=== PATIENT | female | born 1950 | race Caucasian/White ===

== ENCOUNTER 2020-06-21 07:01 | Outpatient (REF) | payer MEDICARE, OTHER, SELFPAY ==
[2020-06-21 11:36] LABS: Hematocrit 33.2 % (37-47); Hemoglobin 10.7 g/dl (12.0-16.0); Mean Corpuscular HGB Conc 32.2 g/dl (31.0-35.0); Mean Corpuscular Hemoglobin 32.4 pg (27.0-33.0); Mean Corpuscular Volume 100.6 fL (80-98); Mean Platelet Volume 10.7 fL (9.4-12.3); Platelet Count 252 X10*3/uL (160-400); Red Cell Distribution Width 13.6 % (11.0-16.0); White Blood Count 5.4 X10*3/uL (4.8-10.8)
[2020-06-21 11:58] LABS: Alanine Aminotransferase 22 U/L (0-31); Anion Gap 13 (12-20); Aspartate Amino Transferase 15 U/L (5-31); Blood Urea Nitrogen 21 mg/dL (9-16); Calcium 9.5 mg/dL (8.4-10.2); Carbon Dioxide 27 mmol/L (22-29); Chloride 104 mmol/L (96-108); Cholesterol 182 mg/dL; Estimated Glomerular Filt Rate > 60; Glucose Fasting 120 mg/dL (60-99); HDL Cholesterol 49 mg/dL; Iron 98 mcg/dL (30-160); LDL Cholesterol Calculated 102 mg/dl; Percent Iron Saturation 22 % (15-50); Potassium 5.3 mmol/l (3.3-5.1); Sodium 139 mmol/L (135-145); Total Iron Binding Capacity 437 mcg/dL (228-428); Triglycerides 155 mg/dL; Unsaturated Iron Binding 339 ug/dL
[2020-06-21 12:28] LABS: Ferritin 67 ng/mL (10-250)
[2020-06-21 12:43] LABS: Estimated Average Glucose 140 mg/dL; Hemoglobin A1c % 6.5 %
== END 2020-06-21 07:02 | disposition home or self-care (01) ==
LOC: HO.HMGCLDS 07:01
PROVIDERS: PCP Internal Medicine; Visit Provider Internal Medicine
DX: E11.29 Type 2 diabetes mellitus with other diabetic kidney complication (principal); R80.9 Proteinuria, unspecified; E78.5 Hyperlipidemia, unspecified; M79.89 Other specified soft tissue disorders; D50.9 Iron deficiency anemia, unspecified; I10 Essential (primary) hypertension
CPT/HCPCS: 36415; 80048; 80061; 82728; 83036; 83540; 84450; 84460; 85027

== ENCOUNTER → 2020-06-23 13:42 | Outpatient (BNVA) | payer MEDICARE, OTHER, SELFPAY | PROVIDERS: PCP Internal Medicine; Referring Provider Internal Medicine; Visit Provider Surgery | DX: Z86.000 Personal history of in-situ neoplasm of breast (principal) | CPT/HCPCS: 99213 ==

== ENCOUNTER → 2020-08-09 13:54 | Outpatient (BNVA) | payer MEDICARE, OTHER, SELFPAY | PROVIDERS: PCP Internal Medicine; Visit Provider Surgery Vascular Surgery | DX: I83.12 Varicose veins of left lower extremity with inflammation (principal); M79.89 Other specified soft tissue disorders; L98.8 Other specified disorders of the skin and subcutaneous tissue | CPT/HCPCS: 99212 ==

== ENCOUNTER 2020-08-16 10:13 | Outpatient (REF) | payer MEDICARE, OTHER, SELFPAY ==
--- NOTE | 2020-08-16 10:19 | US_ITS ---
EXAMINATION: RIGHT and LEFT LOWER EXTREMITY VENOUS ULTRASOUND (Reflux Exam) CLINICAL INDICATION: leg pain and varicose veins. COMPARISON: Previous exam November 2018 TECHNIQUE: Color flow triplex imaging and compression Doppler was performed to evaluate both the deep and the superficial systems bilaterally. To evaluate the superficial system, the examination was performed in the upright position. Color-flow Doppler ultrasound and compression ultrasound were utilized. In addition, maneuvers were utilized to demonstrate reflux. FINDINGS: 1. DEEP VENOUS ULTRASOUND OF THE RIGHT LOWER EXTREMITY: Respiratory variation, normal compression and augmented flow are noted in the right common femoral vein as well as the right popliteal vein and there is no evidence of deep venous thrombosis at these locations. There is no evidence of reflux in the deep system in either the common femoral vein or the popliteal vein. There is no evidence of a Gomez's cyst. 2. SUPERFICIAL ULTRASOUND WITH DOPPLER OF RIGHT LOWER EXTREMITY: The right great saphenous vein at the saphenofemoral junction measures 7 mm, at the mid thigh 4 mm. The remainder of the right greater saphenous vein is not visualized. There is no reflux demonstrated in the right great saphenous vein. The right small saphenous vein measures 4-5 mm and shows no reflux. There is a traffic law attorney in the mid thigh and a traffic law attorney in the distal calf that measures 3 mm and do not demonstrate reflux. There is a varicosity at the knee that measures 3 mm and does not demonstrate reflux. There are several varicosities in the proximal calf measuring 4 mm with 1.9 seconds reflux, 6 mm with 2.3 seconds reflux and 8 mm with 2.1 seconds reflux. 3. DEEP VENOUS ULTRASOUND OF THE LEFT LOWER EXTREMITY: Respiratory variation, normal compression and augmented flow are noted in the left common femoral vein as well as the left popliteal vein and there is no evidence of deep venous thrombosis at these locations. There is no evidence of reflux in the deep system in either the common femoral vein or the popliteal vein. . There is no evidence of a Gomez's cyst. 4. SUPERFICIAL ULTRASOUND WITH DOPPLER OF LEFT LOWER EXTREMITY: Left great saphenous vein at the saphenofemoral junction measures 5 mm, at the mid thigh 5 mm. The remainder of the left greater saphenous vein is not visualized. There is no reflux demonstrated in the left great saphenous vein. The left small saphenous vein measures 3-4 mm and shows no reflux. There is a traffic law attorney in the proximal thigh that measures 2 mm and demonstrates 2 seconds reflux. There is a traffic law attorney in the mid thigh that measures 2 mm and does not demonstrate reflux. There is a traffic law attorney in the distal calf that measures 2 mm and does not demonstrate reflux. There are several varicosities demonstrate reflux measuring 7 mm in the mid calf with 1.8 seconds reflux, 5 mm in the mid calf with 1.7 second reflux, 5 mm in the distal calf with 1.6 seconds reflux and 4 mm in the proximal calf with 2.4 seconds reflux. US/US venous duplex LE BI IMPRESSION: 1. No evidence of reflux or thrombus in the common femoral veins or popliteal veins bilaterally. 2. Saphenous vein remnants are seen at the saphenofemoral junction and in the proximal thigh only. No greater saphenous or lesser saphenous vein reflux. Bilateral varicosities with reflux. Small left traffic law attorney in the proximal thigh with reflux.
== END 2020-08-16 10:14 | disposition home or self-care (01) ==
LOC: HO.US 10:13
PROVIDERS: PCP Internal Medicine; Visit Provider Surgery Vascular Surgery
DX: I83.12 Varicose veins of left lower extremity with inflammation (principal); I83.893 Varicose veins of bilateral lower extremities with other complications
CPT/HCPCS: 93970

== ENCOUNTER → 2020-09-09 13:49 | Outpatient (BNVA) | payer MEDICARE, OTHER, SELFPAY | PROVIDERS: PCP Internal Medicine; Visit Provider Surgery Vascular Surgery | DX: I83.12 Varicose veins of left lower extremity with inflammation (principal) | CPT/HCPCS: 99212 ==

== ENCOUNTER 2020-09-23 07:29 | Outpatient (REF) | payer MEDICARE, OTHER, SELFPAY ==
[2020-09-23 11:17] LABS: MANUAL DIFF FLAG NO
[2020-09-23 11:27] LABS: Basophils Percent Auto 0.5 % (0-2); Eosinophils Absolute Auto 0.2 X10*3/uL (0.0-0.4); Eosinophils Percent Auto 2.7 % (0-4); Hematocrit 35.7 % (37-47); Hemoglobin 11.4 g/dl (12.0-16.0); Imm Gran Abs Auto 0.01 X10*3/uL (0.00-0.03); Imm Gran Pct Auto 0.2 % (0.0-0.4); Lymphocytes Absolute Auto 1.4 X10*3/uL (1.2-4.9); Lymphocytes Percent Auto 24.1 % (20-40); Mean Corpuscular HGB Conc 31.9 g/dl (31.0-35.0); Mean Corpuscular Hemoglobin 31.8 pg (27.0-33.0); Mean Corpuscular Volume 99.7 fL (80-98); Mean Platelet Volume 10.8 fL (9.4-12.3); Monocytes Absolute Auto 0.6 X10*3/uL (0.1-1.2); Monocytes Percent Auto 9.9 % (2-11); Neutrophils Absolute Auto 3.7 X10*3/uL (2.0-8.3); Neutrophils Percent Auto 62.6 % (45-73); Platelet Count 273 X10*3/uL (160-400); Red Blood Count 3.58 X10*6/uL (4.20-5.50); Red Cell Distribution Width 13.2 % (11.0-16.0); White Blood Count 5.9 X10*3/uL (4.8-10.8)
[2020-09-23 11:37] LABS: Estimated Average Glucose 137 mg/dL; Hemoglobin A1c % 6.4 %
[2020-09-23 11:54] LABS: Creatinine Urine 74.93 mg/dL; Microalbum/Creatinine Ratio Ur 81.4 ug/mg cr
[2020-09-23 12:04] LABS: Ferritin 79 ng/mL (10-250)
[2020-09-23 12:08] LABS: Alanine Aminotransferase 23 U/L (0-31); Anion Gap 18 (12-20); Aspartate Amino Transferase 21 U/L (5-31); Blood Urea Nitrogen 26 mg/dL (9-16); Calcium 9.7 mg/dL (8.4-10.2); Carbon Dioxide 26 mmol/L (22-29); Chloride 100 mmol/L (96-108); Cholesterol 165 mg/dL; Estimated Glomerular Filt Rate > 60; Glucose Fasting 137 mg/dL (60-99); HDL Cholesterol 62 mg/dL; Iron 98 mcg/dL (30-160); LDL Cholesterol Calculated 85 mg/dl; Percent Iron Saturation 20 % (15-50); Potassium 5.6 mmol/l (3.3-5.1); Sodium 138 mmol/L (135-145); Total Iron Binding Capacity 488 mcg/dL (228-428); Triglycerides 93 mg/dL; Unsaturated Iron Binding 390 ug/dL
== END 2020-09-23 07:30 | disposition home or self-care (01) ==
LOC: HO.HMGCLDS 07:29
PROVIDERS: PCP Internal Medicine; Visit Provider Internal Medicine
DX: E11.29 Type 2 diabetes mellitus with other diabetic kidney complication (principal); I10 Essential (primary) hypertension; E78.5 Hyperlipidemia, unspecified; D64.9 Anemia, unspecified; E66.01 Morbid (severe) obesity due to excess calories
CPT/HCPCS: 36415; 80048; 80061; 82043; 82728; 83036; 83540; 84450; 84460; 85025

== ENCOUNTER 2020-09-29 09:24 | Emergency (ER) | payer MEDICARE, OTHER, SELFPAY ==
[2020-09-29 09:36] VITALS: BP 155/77; PULSE 97; RESP 18; TEMP 36.5; O2SAT 100; BMI 41.8
[2020-09-29 10:25] VITALS: RESP 18
--- NOTE | 2020-09-29 10:25 | ED.GENADULT ---
HPI - General Adult General Chief complaint: General Medical Stated complaint: HBP Time Seen by Provider: 09/29/20 10:24 Source: patient Mode of arrival: ambulatory Limitations: no limitations History of Present Illness HPI narrative: Patient took her blood pressure and systolic was over 200. Patient also with high potassium. No other complaints. Patient took her lisinopril this morning Onset (ago): day(s) Related Data Home Medications Medication Instructions Recorded Confirmed atorvastatin 20 mg tablet 20 mg PO DAILY tab 09/29/20 09/29/20 Previous Rx's Medication Instructions Recorded metformin 1,000 mg tablet 1,000 mg PO BID 30 Days #60 tab 08/03/20 ferrous fumarate 325 mg (106 mg 325 mg PO DAILY 30 Days #30 tab 09/20/20 iron) tablet glipizide 2.5 mg tablet, extended 2.5 mg PO QAM #90 tab 09/22/20 release 24 hr lisinopril 10 mg tablet 10 mg PO DAILY 90 Days #90 tab 09/23/20 Allergies Allergy/AdvReac Type Severity Reaction Status Date / Time No Known Allergies Allergy Verified 09/29/20 08:32 Review of Systems Constitutional: Constitutional: Reports no additional constitutional complaints Eyes: Eyes: Reports no additional eye complaints ENT: Denies dizziness Cardiovascular: Cardiovascular: Reports no additional cardiovascular complaints Respiratory: Respiratory: Reports as per HPI Gastrointestinal: Gastrointestinal: Reports no additional gastrointestinal complaints Genitourinary: Genitourinary: Reports no additional female genitourinary complaints Musculoskeletal: Musculoskeletal: Reports no additional musculoskeletal complaints Integumentary/Breasts: Skin/Breast: Denies rash Neurologic: Reports system reviewed and no additional complaints, except as documented, Denies dizziness and Denies Sensory deficit (Neuro) Psychiatric: Psychiatric: Denies anxiety [facility] Past Medical History Medical History Chronic venous insufficiency of lower extremity Essential hypertension Hyperlipidemia Kidney stones Morbid obesity Renal calculus, left 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 Mother No problems noted. Brother Diabetes mellitus Brother Diabetes mellitus Social History Social History Alcohol intake: unknown Smoking Status: Never smoker Cigarettes Per Day: 2 Years Smoked: since 12 yrs old Use of substances other than those prescribed or required for medical reasons: Unknown Advance Directives: No Advance Directives Information Provided: No Physical Exam Vital Signs: Vital Signs: Last Vital Signs Temp 97.7 F 09/29/20 09:36 Pulse 97 09/29/20 09:36 Resp 18 09/29/20 10:25 BP 171/71 H 09/29/20 11:17 Pulse Ox 100 09/29/20 09:36 Body Mass Index 41.8 Const: Other: no acute distress General: healthy appearing Nutritional Appearance: overweight Orientation/consciousness: oriented to person and patient oriented x3 Limitations: no limitations HENMT: Head: Yes normal to inspection Ears: external ears normal General nose exam: Normal external nose present Mouth: Normal oral and palatal mucosa present and oropharynx normal Throat: Yes posterior oropharynx normal Eyes: General: appearance normal, both eyes and all related structures Neck: Other: supple Neck: Yes normal visual inspection Chest: Chest palpation & inspection: normal inspection of the chest Resp: Auscultation: clear to auscultation bilaterally Cardio: Jugular venous distension: no JVD Rate: regular rate Rhythm: regular rhythm Heart sounds: S1 normal heart sound present and S2 normal heart sound present GI: Inspection: Yes normal to inspection Palpation (GI): Soft to palpation, nontender and No hepatosplenomegaly present Auscultation: normal bowel sounds : General: Yes no CVA tenderness Back/Spine/Pelvis: Back: no CVA tenderness Skin: General skin exam: no rashes or lesions noted Neuro: General: oriented to person and patient oriented x3 Cranial nerves: Yes CN's II-XII intact bilaterally Motor exam (neuro): 5/5 motor strength present throughout Sensory Exam: No Sensory deficit (Neuro) Extrem: Other: 3+ bilateral edema Psych: Appearance: grossly normal Course Course Course Narrative: renal function and potassium at baseling, blood pressure came down on its own Medical Decision Making MDM Narrative Medical decision making narrative: renal insufficiency, hyperkalemia, HTN Lab Data Result diagrams: 09/29/20 10:45 09/29/20 10:45 Labs: Lab Results 09/29/20 Range/Units 10:45 Sodium 139 (135-145) mmol/L Potassium 5.5 H (3.3-5.1) mmol/l Chloride 104 (96-108) mmol/L Carbon Dioxide 27 (22-29) mmol/L Anion Gap 14 (12-20) BUN 26 H (9-16) mg/dL Creatinine 0.69 (0.5-1.4) mg/dL Estim Creat Clear Calc 87.6 Estimated GFR > 60 Random Glucose 138 H (60-115) mg/dL Calcium 9.7 (8.4-10.2) mg/dL Discharge Plan Discharge Clinical Impression: Hyperkalemia, Essential hypertension Patient Disposition: Home, Self-Care Instructions: Chronic Hypertension (ED) Prescriptions: No Action metformin 1,000 mg tablet 1,000 mg PO BID 30 Days Qty: 60 RF: 8 ferrous fumarate 325 mg (106 mg iron) tablet 325 mg PO DAILY 30 Days Qty: 30 RF: 2 glipizide 2.5 mg tablet extended release 24hr 2.5 mg PO QAM Qty: 90 RF: 1 lisinopril 10 mg tablet 10 mg PO DAILY 90 Days Qty: 90 RF: 3 atorvastatin 20 mg tablet 20 mg PO DAILY RF: 0 Referrals: Arlyn Paul MD [Primary Care Provider] - 2 days
[2020-09-29 11:17] VITALS: BP 171/71
[2020-09-29 11:25] LABS: Anion Gap 14 (12-20); Blood Urea Nitrogen 26 mg/dL (9-16); Calcium 9.7 mg/dL (8.4-10.2); Carbon Dioxide 27 mmol/L (22-29); Chloride 104 mmol/L (96-108); Creatinine Clr Calc Pharmacy 87.6; Estimated Glomerular Filt Rate > 60; Glucose Random 138 mg/dL (60-115); Potassium 5.5 mmol/l (3.3-5.1); Sodium 139 mmol/L (135-145)
--- NOTE | 2020-09-29 12:42 | PC.NURSE ---
CLEARED FOR DC BY PROVIDER
== END 2020-09-29 12:43 | disposition home or self-care (01) ==
PROVIDERS: Emergency Provider Emergency Medicine; PCP Internal Medicine
DX: E87.5 Hyperkalemia (principal); I10 Essential (primary) hypertension; E11.9 Type 2 diabetes mellitus without complications; F17.210 Nicotine dependence, cigarettes, uncomplicated; Z79.899 Other long term (current) drug therapy; Z79.84 Long term (current) use of oral 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 drugs; Z86.718 Personal history of other venous thrombosis and embolism
CPT/HCPCS: 36415; 80048; 99283; 99284

== ENCOUNTER 2020-10-13 10:56 | Outpatient (REF) | payer MEDICARE, OTHER, SELFPAY ==
--- NOTE | 2020-10-13 | MM_ITS ---
EXAMINATION: MM DIAGNOSTIC DIGITAL BREAST TOMOSYNTHESIS, BILATERAL CLINICAL INFORMATION: Due for yearly exam. History left lumpectomy 10/28/2019 (solid papillary carcinoma without invasion. Margins negative). COMPARISON: Mammography: 05/12/2020, 10/28/2019, 10/14/2019, 09/25/2019, 08/27/2018, 08/22/2017 TECHNIQUE: Digital breast tomosynthesis is performed in both the craniocaudal and mediolateral oblique views along with computer-aided detection (CAD). Synthesized 2D images are generated from the tomosynthesis. FINDINGS: There are scattered areas of fibroglandular density (ACR BI-RADS breast composition Category b). Left breast post therapy changes are similar to prior exam. The right breast is unremarkable. Neither breast shows interval mass or architectural abnormality or abnormal calcifications. No significant changes. Results are provided to the patient at time of visit by the technologist. MM/MM tomosynthesis diagnostic BI IMPRESSION: No mammographic evidence of malignancy. Post therapy changes left breast. ASSESSMENT: BI-RADS 2: Benign RECOMMENDATION: Annual bilateral mammography. This patient's information was entered into a reminder system with a target due date for their next mammogram.
== END 2020-10-13 10:57 | disposition home or self-care (01) ==
LOC: HO.MAMMO 10:56
PROVIDERS: PCP Internal Medicine; Visit Provider Internal Medicine
DX: D05.82 Other specified type of carcinoma in situ of left breast (principal); Z98.890 Other specified postprocedural states
CPT/HCPCS: 77062; 77066

== ENCOUNTER → 2020-10-20 13:19 | Outpatient (BNVA) | payer MEDICARE, OTHER, SELFPAY | PROVIDERS: PCP Internal Medicine; Visit Provider Internal Medicine | DX: E11.8 Type 2 diabetes mellitus with unspecified complications (principal); E78.5 Hyperlipidemia, unspecified; E87.5 Hyperkalemia | CPT/HCPCS: 99202 ==

== ENCOUNTER → 2020-11-03 11:34 | Outpatient (BNVA) | payer MEDICARE, OTHER, SELFPAY | PROVIDERS: PCP Internal Medicine; Visit Provider Surgery | DX: D05.80 Other specified type of carcinoma in situ of unspecified breast (principal) | CPT/HCPCS: 99212 ==

== ENCOUNTER → 2020-11-04 09:12 | Outpatient (REF) | payer MEDICARE, OTHER, SELFPAY ==
--- NOTE | 2020-11-04 09:16 | CA_ITS ---
Transthoracic Echocardiogram Patient (Last, First, Middle): Rosalia Talavera A Gender: Female Date of : 1950 Age: 70 Procedure Date: 11/04/2020 Procedure Type: Transthoracic Echocardiogram Location: OP Height: 160.02 cm Weight: 107.5 kg BSA: 2.08 m2 Heart Rate: bpm BP: 124 / 75 mmHg Recycling Tech: ABRIL Echavarria MD: Colby Agosto MD Security Researcher: Gera Ontiveros MD Symptoms: R06.02 - Shortness of breath Study Quality: Fair ECG Rhythm: Sinus Conclusions: - 1. Normal LV systolic function with impaired relaxation filling pattern 2. Normal cardiac valvular Doppler 3. No gross pericardial effusion Findings Left Ventricle Normal left ventricular size, thickness, and systolic function. The visually estimated ejection fraction is between 65-70%. Spectral Doppler is indicative of an impaired relaxation filling pattern. E/E prime ratio is between 8 and 15 consistent with indeterminate filling pressures. Right Ventricle Normal right ventricular cavity size and systolic function. Atria The left atrium is normal in size. The right atrium is normal in size. Aortic Valve The aortic valve was not well visualized. There is no aortic valve stenosis. There is no aortic valve regurgitation. Mitral Valve Likely normal mitral valve structure and function. There is trace mitral valve regurgitation. There is no mitral valve stenosis. Pulmonic Valve The pulmonic valve was not well visualized. Tricuspid Valve Tricuspid regurgitation envelope is inadequate for calculation of right ventricular systolic pressure. Great Vessels All visible segments of the aorta are normal in size. The pulmonary artery was not well visualized. Venous The inferior vena cava is normal in size and collapses greater than 50% with inspiration. Pericardium/Pleural There is no evidence of pericardial effusion. Prior Study Comparison No prior study available for comparison. Measurements M-Mode Liner Measurements Normals - Women/Men AOV Cusps: 1.90 1.5-2.6 cm/m2 2D Linear Measurements IVSd: 1.16 0.6-0.9/0.6-1.0 cm LVIDd: 3.91 3.9-5.3/4.2-5.9 cm LVIDd Index: 1.88 2.4-3.2/2.2-3.1 cm/m2 LVIDs: 1.70 2.0-3.6 cm LVPWd: 1.14 0.7-1.1 cm Ao Root: 2.60 2.1-3.5 cm LA Diam: 3.50 2.7-3.8/3.0-4.0 cm LAIDs Index: 1.68 1.5-2.3 cm/m2 LV Mass: 186.89 67-162/88-224 g LV Mass Index: 89.85 43-95/49-115 g/m2 LVOT Diam: 2.00 3.0+(-)1.3 cm 2D Systolic Function EF 4C: 73.30 >55% EF 2C: 59.50 >55% EF BiP: 69.30 >55% Mitral Valve MV Pk E: 1.14 MV PK A: 1.26 MV Decel Time: 264.00 E/A: 0.90 E'Lateral: 12.90 E'Medial: 8.70 E/E' Med: 13.10 E/E' Lat: 8.80 PHT: 77.00 MVA PHT: 2.86 Decel Prentiss: 4.30 Aortic Valve AoV Pk Asad: 1.71 AoV Pk Grad: 12.00 LVOT LVOT Pk Asad: 1.11 LVOT Mn Asad: 0.90 LVOT VTI: 0.25 LVOT Pk Grad: 5.00 LVOT Mn Grad: 3.00 LVOT Diam: 2.00 LVOT Area: 3.14 Diastolic Function MV Pk E: 1.14 MV Pk A: 1.26 E/A: 0.90 E'Medial: 8.70 E/E' Med: 13.10 E' Laterial: 12.90 E/E' Lat: 8.80 Tricuspid Valve RA Press: 3.00 Great Vessels Aorta Ao Root-2D: 2.60 2.0-3.7 cm Ao Asc: 3.10 2.1-3.4 cm Ao Arch: 3.30 Pulmonary Valve PV Pk Asad: 1.57 Peak PV Grad: 10.00 Updated in Other Vendor System with Status of Final Gera Ontiveros MD electronically signed on 11/04/2020 4:07:10 PM with status of Final
== END ==
LOC: HO.SL 09:12
PROVIDERS: PCP Internal Medicine; Visit Provider Internal Medicine
DX: G47.33 Obstructive sleep apnea (adult) (pediatric) (principal); R06.02 Shortness of breath
CPT/HCPCS: 93306; 95806

== ENCOUNTER → 2020-11-08 09:13 | Outpatient (REF) | payer MEDICARE, OTHER, SELFPAY ==
--- NOTE | ~2020-11-08 | NM_ITS ---
Lexiscan Myocardial perfusion study Indication: Shortness of breath, assess for coronary disease and ischemia Technique: The patient was brought in for a Lexiscan perfusion study on 11/08/2020 and was injected 0.4 mg of Lexiscan intravenously. Within a minute of this injection 45 mCi of sestamibi was given intravenously. Images were obtained using the SPECT gamma camera interlaced with the gating device. Images were obtained in supine position. Resting perfusion study was performed on 11/10/2020. Patient was administered 45 mCi of sestamibi intravenously at rest. Images were then obtained in supine position. Total DLP 89mGy-cm. Images were processed with the software and compared side to side in short axis, horizontal long axis and vertical long axis views. Findings: Raw acquisition was reviewed. The stress perfusion study showed diminished tracer uptake along the anterior wall. With CT attenuation correction, there is significant improvement suggestive of soft tissue attenuation artifact. The gated study shows normal LV systolic function with calculated LVEF of > 75%. LV cavity is normal in size. The gated study shows normal wall thickening and contraction of segments. Resting study shows no significant perfusion abnormality. Gating at rest reveals normal wall motion with ejection fraction at 73%. The findings are consistent with reversible anterior wall perfusion defect SPECT and V from soft tissue attenuation. NM/NM cardiolite stress test Impression: 1. Myocardial perfusion imaging study shows no definitive ischemia. Reversible anterior defect that resolves with CT attenuation correction and hence suggestive of soft tissue artifact. 2. Gated LVEF is > 70% during stress and rest. 3. Transient ischemic dilatation not present. EKG component of the test reported separately.
--- NOTE | 2020-11-08 09:30 | CA_ITS ---
Acquisition Time: 2020-11-08 10:56:30 Total Exercise Time: 00:02:00 Test Indications: R06.02 SOB Medications: Protocol: LEXISCAN Max HR: 111 BPM 74% of Pred: 149 BPM Max BP: 132/068 mmHG Max Work Load: 1.0 METS Pharmacological stress test using Lexiscan while sitting and kicking her feet. Tolareted well. Denies any anginal sx. Feeling of SOB reversed with Aminophyline 75 mg IV. EKG with occ. PAC's. Non-diagnostic for ischemia. . Nuclear images to follow. Normotensive response to test. Test reviewed with DR. Agosto. Referred By: Colby Agosto Overread By: Claudia Velasco
== END ==
LOC: HO.CARD 09:13
PROVIDERS: PCP Internal Medicine; Visit Provider Internal Medicine
DX: R06.02 Shortness of breath (principal)
CPT/HCPCS: 78452; 93016; 93017; 93018; A9500; J0280; J2785

== ENCOUNTER → 2020-11-15 12:20 | Outpatient (BNVA) | payer MEDICARE, SELFPAY | PROVIDERS: PCP Internal Medicine; Visit Provider Internal Medicine | DX: R06.02 Shortness of breath (principal); R60.0 Localized edema; I87.2 Venous insufficiency (chronic) (peripheral); I10 Essential (primary) hypertension; E78.5 Hyperlipidemia, unspecified; E11.8 Type 2 diabetes mellitus with unspecified complications; E87.5 Hyperkalemia | CPT/HCPCS: 99212 ==

== ENCOUNTER 2020-12-15 18:39 | Emergency (ER) | payer MEDICARE, SELFPAY ==
--- NOTE | ~2020-12-15 | XR_ITS ---
EXAMINATION: XR CHEST CLINICAL INFORMATION: Hypertension COMPARISON: None TECHNIQUE: Frontal view of the chest was obtained. FINDINGS: No significant abnormality is noted involving the heart, lungs, mediastinum, bony thorax or soft tissues. XR/XR chest 1V IMPRESSION: Unremarkable chest examination.
[2020-12-15 19:34] VITALS: BP 198/83; PULSE 76; RESP 18; TEMP 36.9; O2SAT 99; BMI 42.1
[2020-12-15 19:55] LABS: MANUAL DIFF FLAG NO
[2020-12-15 19:56] LABS: Basophils Percent Auto 0.4 % (0-2); Eosinophils Absolute Auto 0.2 X10*3/uL (0.0-0.4); Eosinophils Percent Auto 2.3 % (0-4); Hematocrit 33.8 % (37-47); Hemoglobin 10.9 g/dl (12.0-16.0); Imm Gran Abs Auto 0.02 X10*3/uL (0.00-0.03); Imm Gran Pct Auto 0.3 % (0.0-0.4); Lymphocytes Absolute Auto 1.6 X10*3/uL (1.2-4.9); Lymphocytes Percent Auto 22.5 % (20-40); Mean Corpuscular HGB Conc 32.2 g/dl (31.0-35.0); Mean Corpuscular Hemoglobin 31.9 pg (27.0-33.0); Mean Corpuscular Volume 98.8 fL (80-98); Monocytes Absolute Auto 0.6 X10*3/uL (0.1-1.2); Monocytes Percent Auto 7.6 % (2-11); Neutrophils Absolute Auto 4.8 X10*3/uL (2.0-8.3); Neutrophils Percent Auto 66.9 % (45-73); Platelet Count 259 X10*3/uL (160-400); Red Blood Count 3.42 X10*6/uL (4.20-5.50); Red Cell Distribution Width 13.8 % (11.0-16.0); White Blood Count 7.2 X10*3/uL (4.8-10.8)
[2020-12-15 20:22] LABS: Anion Gap 17 (12-20); Blood Urea Nitrogen 28 mg/dL (9-16); Calcium 9.8 mg/dL (8.4-10.2); Carbon Dioxide 25 mmol/L (22-29); Chloride 104 mmol/L (96-108); Creatinine Clr Calc Pharmacy 83.2; Estimated Glomerular Filt Rate > 60; Glucose Random 132 mg/dL (60-115); Potassium 4.1 mmol/L (3.3-5.1); Sodium 142 mmol/L (135-145)
[2020-12-15 20:27] LABS: Troponin-I High Sensitivity < 3.5 ng/L (<3.5-17.0)
[2020-12-15 23:22] VITALS: BP 187/78; PULSE 80; RESP 18; TEMP 36.5; O2SAT 98
--- NOTE | 2020-12-15 23:36 | ED.GENADULT ---
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 Patient denies any other symptoms no chest pain no shortness of breath no significant headache no focal weakness Related Data Home Medications Medication Instructions Recorded Confirmed atorvastatin 20 mg tablet 20 mg PO DAILY tab 09/29/20 12/06/20 Previous Rx's Medication Instructions Recorded metformin 1,000 mg tablet 1,000 mg PO BID 30 Days #60 tab 08/03/20 ferrous fumarate 325 mg (106 mg 325 mg PO DAILY 30 Days #30 tab 09/20/20 iron) tablet glipizide 2.5 mg tablet, extended 2.5 mg PO QAM #90 tab 09/22/20 release 24 hr amlodipine 10 mg tablet 10 mg PO DAILY #90 tab 11/15/20 furosemide 20 mg tablet 20 mg PO QAM #30 tab 12/07/20 carvedilol 3.125 mg tablet 3.125 mg PO BID 30 Days #60 tab 12/09/20 carvedilol 6.25 mg PO BID #60 tab 12/16/20 Allergies Allergy/AdvReac Type Severity Reaction Status Date / Time No Known Allergies Allergy Verified 12/15/20 19:34 Review of Systems Review of Systems: Constitutional : No Weight loss, No Fever, No Chills ENT/Mouth : No sore throat, No Rhinorrhea Eyes: No Eye Pain, No Swelling Cardiovascular : No Chest Pain, no palpitations Respiratory : No Cough, No Sputum, no shortness of breath Gastrointestinal : no Nausea, No Vomiting, No Diarrhea, No abdominal Pain, no black stools Genitourinary : No Dysuria, No Urinary Frequency Musculoskeletal : No joint pain, No Myalgias, No Joint Swelling Skin : No Skin Lesions, No rash Neuro : No Weakness, No Numbness, No Dizziness, No Headache Psych : No Anxiety/Panic, No Depression Heme/Lymph: No Bruising, No Lymphadenopathy Endocrine : No Polyuria, No Polydipsia All other systems reviewed and are negative [facility] Past Medical History Medical History Chronic venous insufficiency of lower extremity Essential hypertension Hyperlipidemia Kidney stones Leg edema Morbid obesity Other and unspecified hyperlipidemia Renal calculus, left 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 Mother No problems noted. Brother Diabetes mellitus Brother Diabetes mellitus Social History Social History Alcohol intake: never Smoking Status: Never smoker Cigarettes Per Day: 2 Years Smoked: since 12 yrs old Use of substances other than those prescribed or required for medical reasons: No Advance Directives: No Physical Exam Vital Signs: Vital Signs: Last Vital Signs Temp 97.7 F 12/15/20 23:22 Pulse 78 12/16/20 00:39 Resp 18 12/16/20 00:39 BP 154/68 H 12/16/20 00:39 Pulse Ox 97 12/16/20 00:39 Body Mass Index 42.1 Appearance: Alert. Oriented X3. No acute distress. Eyes: Pupils equal, round and reactive to light. ENT: Pharynx normal. Neck: Normal inspection. Neck supple. CVS: Normal heart rate and rhythm. Pulses normal. Respiratory: No respiratory distress. Breath sounds normal. Abdomen: Soft and nontender. Bowel sounds are present, no mass palpable, no CVA tenderness Skin: Skin warm and dry. Normal skin color. Normal skin turgor. Extremities: No lower extremity edema. Neuro: Oriented X 3. No motor deficit. No sensory deficit. Medical Decision Making MDM Narrative Medical decision making narrative: Patient feeling much better now repeat blood pressure 154/68. Will increase the dose of carvedilol to 6.25 twice daily advised to follow-up with railway equipment operator/PCP Lab Data Lab results reviewed: Yes I reviewed the patient's lab results. Result diagrams: 12/15/20 19:49 12/15/20 19:50 Labs: Lab Results 12/15/20 12/15/20 12/15/20 Range/Units 19:49 19:49 19:50 WBC 7.2 (4.8-10.8) X10*3/uL RBC 3.42 L (4.20-5.50) X10*6/uL Hgb 10.9 L (12.0-16.0) g/dl Hct 33.8 L (37-47) % MCV 98.8 H (80-98) fL MCH 31.9 (27.0-33.0) pg MCHC 32.2 (31.0-35.0) g/dl RDW 13.8 (11.0-16.0) % Plt Count 259 (160-400) X10*3/uL MPV 10.0 (9.4-12.3) fL Immature Gran % (Auto) 0.3 (0.0-0.4) % Neut % (Auto) 66.9 (45-73) % Lymph % (Auto) 22.5 (20-40) % [place] % (Auto) 7.6 (2-11) % Eos % (Auto) 2.3 (0-4) % Baso % (Auto) 0.4 (0-2) % Lymph # (Auto) 1.6 (1.2-4.9) X10*3/uL [place] # (Auto) 0.6 (0.1-1.2) X10*3/uL Eos # (Auto) 0.2 (0.0-0.4) X10*3/uL Baso # (Auto) 0.0 (0.0-0.2) X10*3/uL Abs Immat Gran (auto) 0.02 (0.00-0.03) X10*3/uL Absolute Neuts (auto) 4.8 (2.0-8.3) X10*3/uL Absolute Nucleated RBC 0.000 (0.0-0.012) X10*3/uL Nucleated RBC % (auto) 0.0 (0.0-0.2) /100WBC Hold Blue Top SEE NOTE Sodium (135-145) mmol/L Potassium (3.3-5.1) mmol/L Chloride (96-108) mmol/L Carbon Dioxide (22-29) mmol/L Anion Gap (12-20) BUN (9-16) mg/dL Creatinine (0.5-1.4) mg/dL Estim Creat Clear Calc Estimated GFR Random Glucose (60-115) mg/dL Calcium (8.4-10.2) mg/dL Troponin I High Sens < 3.5 (<3.5-17.0) ng/L 12/15/20 Range/Units 19:50 WBC (4.8-10.8) X10*3/uL RBC (4.20-5.50) X10*6/uL Hgb (12.0-16.0) g/dl Hct (37-47) % MCV (80-98) fL MCH (27.0-33.0) pg MCHC (31.0-35.0) g/dl RDW (11.0-16.0) % Plt Count (160-400) X10*3/uL MPV (9.4-12.3) fL Immature Gran % (Auto) (0.0-0.4) % Neut % (Auto) (45-73) % Lymph % (Auto) (20-40) % [place] % (Auto) (2-11) % Eos % (Auto) (0-4) % Baso % (Auto) (0-2) % Lymph # (Auto) (1.2-4.9) X10*3/uL [place] # (Auto) (0.1-1.2) X10*3/uL Eos # (Auto) (0.0-0.4) X10*3/uL Baso # (Auto) (0.0-0.2) X10*3/uL Abs Immat Gran (auto) (0.00-0.03) X10*3/uL Absolute Neuts (auto) (2.0-8.3) X10*3/uL Absolute Nucleated RBC (0.0-0.012) X10*3/uL Nucleated RBC % (auto) (0.0-0.2) /100WBC Hold Blue Top Sodium 142 (135-145) mmol/L Potassium 4.1 (3.3-5.1) mmol/L Chloride 104 (96-108) mmol/L Carbon Dioxide 25 (22-29) mmol/L Anion Gap 17 (12-20) BUN 28 H (9-16) mg/dL Creatinine 0.73 (0.5-1.4) mg/dL Estim Creat Clear Calc 83.2 Estimated GFR > 60 Random Glucose 132 H (60-115) mg/dL Calcium 9.8 (8.4-10.2) mg/dL Troponin I High Sens (<3.5-17.0) ng/L Discharge Plan Discharge Clinical Impression: Essential hypertension Patient Disposition: Home, Self-Care Instructions: Chronic Hypertension (ED) Additional Instructions: Continue your blood pressure medication and increase the dose of carvedilol to 6.25 mg twice daily ( means 2 tablets of 3.125 twice daily) Continue to check blood pressure and follow with PCP and railway equipment operator Prescriptions: New carvedilol 6.25 mg tablet 6.25 mg PO BID Qty: 60 RF: 0 No Action metformin 1,000 mg tablet 1,000 mg PO BID 30 Days Qty: 60 RF: 8 ferrous fumarate 325 mg (106 mg iron) tablet 325 mg PO DAILY 30 Days Qty: 30 RF: 2 glipizide 2.5 mg tablet extended release 24hr 2.5 mg PO QAM Qty: 90 RF: 1 furosemide 20 mg tablet 20 mg PO QAM Qty: 30 RF: 0 carvedilol [Coreg] 3.125 mg tablet 3.125 mg PO BID 30 Days Qty: 60 RF: 5 atorvastatin 20 mg tablet 20 mg PO DAILY RF: 0 amlodipine 10 mg tablet 10 mg PO DAILY Qty: 90 RF: 4 Interventions: ED Discharge Assessment Last Done: 12/16/20 00:43 Discharge Date/Time: 12/16/20 00:45
--- NOTE | 2020-12-15 23:38 | PC.NURSE ---
PT TO ROOM, CHANGE INTO GOWN AND AWAITING MD'S EVAL.
[2020-12-16 00:39] VITALS: BP 154/68; PULSE 78; RESP 18; O2SAT 97
== END 2020-12-16 00:45 | disposition home or self-care (01) ==
PROVIDERS: Emergency Medicine Emergency Medical Services; Emergency Provider Internal Medicine; PCP Internal Medicine
DX: I10 Essential (primary) hypertension (principal); I87.2 Venous insufficiency (chronic) (peripheral); Z79.899 Other long term (current) drug therapy; Z79.84 Long term (current) use of oral 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 drugs; Z87.891 Personal history of nicotine dependence
CPT/HCPCS: 36415; 71045; 80048; 84484; 85025; 99283; 99284

== ENCOUNTER → 2020-12-20 11:14 | Outpatient (BNVA) | payer MEDICARE, SELFPAY | PROVIDERS: PCP Internal Medicine; Visit Provider Internal Medicine ==

== ENCOUNTER 2020-12-20 12:49 | Outpatient (REF) | payer MEDICARE, SELFPAY ==
--- NOTE | 2020-12-20 14:26 | PFT_ITS ---
Forced vital capacity and FEV1 are both markedly decreased. FEV1/FVC ratio is normal. FAV44-20 is also normal. MVV moderately decreased. Post bronchodilator therapy, there is no change. Total lung capacity and residual volume are moderately decreased. Diffusion capacity also moderately decreased. CONCLUSION: Moderately severe restrictive pulmonary disorder. No significant obstructive airway disorder. No response to bronchodilator therapy. Clinical correlation is recommended. MD NARA Soriano/LESLIEL / [phone]
== END 2020-12-20 12:50 | disposition home or self-care (01) ==
LOC: HO.RESP 12:49
PROVIDERS: PCP Internal Medicine; Visit Provider Internal Medicine
DX: R06.00 Dyspnea, unspecified (principal); E66.9 Obesity, unspecified; G47.9 Sleep disorder, unspecified
CPT/HCPCS: 94060; 94727; 94729; 99202

== ENCOUNTER 2020-12-24 06:39 | Outpatient (REF) | payer MEDICARE, SELFPAY ==
[2020-12-24 11:48] LABS: Alanine Aminotransferase 21 U/L (0-31); Anion Gap 14 (12-20); Aspartate Amino Transferase 17 U/L (5-31); Blood Urea Nitrogen 22 mg/dL (9-16); Calcium 9.5 mg/dL (8.4-10.2); Carbon Dioxide 30 mmol/L (22-29); Chloride 105 mmol/L (96-108); Cholesterol 148 mg/dL; Estimated Glomerular Filt Rate > 60; Glucose Fasting 134 mg/dL (60-99); HDL Cholesterol 59 mg/dL; LDL Cholesterol Calculated 68 mg/dl; Potassium 4.7 mmol/L (3.3-5.1); Sodium 144 mmol/L (135-145); Triglycerides 107 mg/dL
[2020-12-24 12:01] LABS: Estimated Average Glucose 137 mg/dL; Hemoglobin A1c % 6.4 %
[2020-12-24 12:06] LABS: Creatinine Urine 108.12 mg/dL; Microalbum/Creatinine Ratio Ur 50.8 ug/mg cr
[2020-12-24 12:10] LABS: Vitamin D 25-OH Total 30.5 ng/mL (>30)
== END 2020-12-24 06:40 | disposition home or self-care (01) ==
LOC: HO.HMGCLDS 06:39
PROVIDERS: PCP Internal Medicine; Visit Provider Internal Medicine
DX: E11.29 Type 2 diabetes mellitus with other diabetic kidney complication (principal); E66.01 Morbid (severe) obesity due to excess calories; I10 Essential (primary) hypertension; E87.5 Hyperkalemia; E78.00 Pure hypercholesterolemia, unspecified; Z78.0 Asymptomatic menopausal state
CPT/HCPCS: 36415; 80048; 80061; 82043; 82306; 83036; 84450; 84460

== ENCOUNTER → 2021-01-04 09:08 | Outpatient (BNVA) | payer MEDICARE, SELFPAY | PROVIDERS: PCP Internal Medicine; Visit Provider Nurse Practitioner Family | DX: M79.89 Other specified soft tissue disorders (principal) | CPT/HCPCS: 99212 ==

== ENCOUNTER → 2021-01-20 10:28 | Outpatient (BNVA) | payer MEDICARE, OTHER, SELFPAY | PROVIDERS: PCP Internal Medicine; Visit Provider Nurse Practitioner Family | DX: R60.0 Localized edema (principal); I87.2 Venous insufficiency (chronic) (peripheral); I10 Essential (primary) hypertension; E66.01 Morbid (severe) obesity due to excess calories; E11.29 Type 2 diabetes mellitus with other diabetic kidney complication; E78.5 Hyperlipidemia, unspecified; F17.210 Nicotine dependence, cigarettes, uncomplicated; Z79.84 Long term (current) use of oral 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 drugs; Z79.899 Other long term (current) drug therapy | CPT/HCPCS: Q3014 ==

== ENCOUNTER → 2021-01-25 10:25 | Outpatient (BNVA) | payer MEDICARE, SELFPAY | PROVIDERS: PCP Internal Medicine; Referring Provider Internal Medicine; Visit Provider Surgery | DX: Z85.3 Personal history of malignant neoplasm of breast (principal) | CPT/HCPCS: 99212 ==

== ENCOUNTER 2021-02-08 08:31 | Outpatient (REF) | payer MEDICARE, SELFPAY ==
--- NOTE | ~2021-02-08 | US_ITS ---
EXAMINATION: US RETROPERITONEAL LIMITED (RENAL ONLY) CLINICAL INFORMATION: Hypertension. COMPARISON: Previous CT of the abdomen and pelvis December 2013 TECHNIQUE: Doppler color and way-scale evaluation of the kidneys and renal arteries and veins including waveform spectral analysis. FINDINGS: RIGHT KIDNEY: 9.9 x 4.4 x 6.2 cm (SAG x AP x TRV). The kidney is normal in size, contour, and echogenicity. Renal cortical thickness is normal. No calculi or focal parenchymal lesions. No hydronephrosis. LEFT KIDNEY: 10.2 x 5.6 x 5.2 cm (SAG x AP x TRV). The kidney is normal in size, contour, and echogenicity. Renal cortical thickness is normal. There is a 1.1 x 0.8 x 0.9 cm cyst in the midpole. No calculi or focal parenchymal lesions. No hydronephrosis. There is slight elevation of peak systolic velocity in the mid abdominal aorta measuring 110 cm/s. Renal artery to aorta ratio cannot be calculated. The right renal artery is patent. Right renal artery peak systolic velocities measure 155 cm/s proximally, 178 cm/s in the midportion, and 117 cm/s distally. Resistive indices of the interlobar renal arteries in the right kidney measure 0.7-0.8. The right renal vein is patent. The left renal artery is patent. Peak systolic velocities measure 117 cm/s proximally, 144 cm/s in the midportion, and 119 cm/s distally. Resistive indices of the interlobar renal arteries in the left kidney measure 0.7-0.8. The left renal vein is patent. US/US renal doppler IMPRESSION: Normal-appearing right kidney. Small left renal cyst. No evidence of renal artery stenosis.
--- NOTE | ~2021-02-08 | US_ITS ---
EXAMINATION: US RETROPERITONEAL LIMITED (RENAL ONLY) CLINICAL INFORMATION: Hypertension. COMPARISON: Previous CT of the abdomen and pelvis December 2013 TECHNIQUE: Doppler color and way-scale evaluation of the kidneys and renal arteries and veins including waveform spectral analysis. FINDINGS: RIGHT KIDNEY: 9.9 x 4.4 x 6.2 cm (SAG x AP x TRV). The kidney is normal in size, contour, and echogenicity. Renal cortical thickness is normal. No calculi or focal parenchymal lesions. No hydronephrosis. LEFT KIDNEY: 10.2 x 5.6 x 5.2 cm (SAG x AP x TRV). The kidney is normal in size, contour, and echogenicity. Renal cortical thickness is normal. There is a 1.1 x 0.8 x 0.9 cm cyst in the midpole. No calculi or focal parenchymal lesions. No hydronephrosis. There is slight elevation of peak systolic velocity in the mid abdominal aorta measuring 110 cm/s. Renal artery to aorta ratio cannot be calculated. The right renal artery is patent. Right renal artery peak systolic velocities measure 155 cm/s proximally, 178 cm/s in the midportion, and 117 cm/s distally. Resistive indices of the interlobar renal arteries in the right kidney measure 0.7-0.8. The right renal vein is patent. The left renal artery is patent. Peak systolic velocities measure 117 cm/s proximally, 144 cm/s in the midportion, and 119 cm/s distally. Resistive indices of the interlobar renal arteries in the left kidney measure 0.7-0.8. The left renal vein is patent. US/US renal BI IMPRESSION: Normal-appearing right kidney. Small left renal cyst. No evidence of renal artery stenosis.
== END 2021-02-08 08:32 | disposition home or self-care (01) ==
LOC: HO.US 08:31
PROVIDERS: Visit Provider Nurse Practitioner Family
DX: I10 Essential (primary) hypertension (principal)
CPT/HCPCS: 76775; 93975

== ENCOUNTER → 2021-03-07 10:44 | Outpatient (BNVA) | payer MEDICARE, SELFPAY | PROVIDERS: PCP Internal Medicine; Referring Provider Internal Medicine; Visit Provider Internal Medicine | DX: R06.02 Shortness of breath (principal); R60.0 Localized edema; I87.2 Venous insufficiency (chronic) (peripheral); I10 Essential (primary) hypertension; E78.5 Hyperlipidemia, unspecified; E87.5 Hyperkalemia; E11.8 Type 2 diabetes mellitus with unspecified complications | CPT/HCPCS: 99212 ==

== ENCOUNTER → 2021-03-28 09:44 | Outpatient (BNVA) | payer MEDICARE, SELFPAY | PROVIDERS: PCP Internal Medicine; Visit Provider Internal Medicine | DX: E66.01 Morbid (severe) obesity due to excess calories (principal); R06.02 Shortness of breath; J98.4 Other disorders of lung | CPT/HCPCS: 99212 ==

== ENCOUNTER 2021-04-07 07:26 | Outpatient (REF) | payer MEDICARE, SELFPAY ==
[2021-04-07 11:25] LABS: MANUAL DIFF FLAG NO
[2021-04-07 11:39] LABS: Basophils Percent Auto 0.5 % (0-2); Eosinophils Absolute Auto 0.1 X10*3/uL (0.0-0.4); Eosinophils Percent Auto 2.4 % (0-4); Hematocrit 32.6 % (37-47); Hemoglobin 10.6 g/dl (12.0-16.0); Imm Gran Abs Auto 0.01 X10*3/uL (0.00-0.03); Imm Gran Pct Auto 0.2 % (0.0-0.4); Lymphocytes Absolute Auto 1.2 X10*3/uL (1.2-4.9); Lymphocytes Percent Auto 20.4 % (20-40); Mean Corpuscular HGB Conc 32.5 g/dl (31.0-35.0); Mean Corpuscular Hemoglobin 31.1 pg (27.0-33.0); Mean Corpuscular Volume 95.6 fL (80-98); Mean Platelet Volume 10.3 fL (9.4-12.3); Monocytes Absolute Auto 0.6 X10*3/uL (0.1-1.2); Monocytes Percent Auto 10.9 % (2-11); Neutrophils Absolute Auto 3.9 X10*3/uL (2.0-8.3); Neutrophils Percent Auto 65.6 % (45-73); Platelet Count 242 X10*3/uL (160-400); Red Blood Count 3.41 X10*6/uL (4.20-5.50); Red Cell Distribution Width 14.4 % (11.0-16.0); White Blood Count 5.9 X10*3/uL (4.8-10.8)
[2021-04-07 11:45] LABS: Alanine Aminotransferase 27 U/L (0-31); Anion Gap 13 (12-20); Aspartate Amino Transferase 19 U/L (5-31); Blood Urea Nitrogen 18 mg/dL (9-16); Calcium 9.9 mg/dL (8.4-10.2); Carbon Dioxide 29 mmol/L (22-29); Chloride 105 mmol/L (96-108); Cholesterol 172 mg/dL; Estimated Glomerular Filt Rate > 60; Glucose Fasting 155 mg/dL (60-99); HDL Cholesterol 53 mg/dL; Iron 74 mcg/dL (30-160); LDL Cholesterol Calculated 92 mg/dl; Percent Iron Saturation 17 % (15-50); Potassium 4.4 mmol/L (3.3-5.1); Sodium 143 mmol/L (135-145); Total Iron Binding Capacity 448 mcg/dL (228-428); Triglycerides 136 mg/dL; Unsaturated Iron Binding 374 ug/dL
[2021-04-07 12:01] LABS: Creatinine Urine 142.04 mg/dL; Estimated Average Glucose 151 mg/dL; Hemoglobin A1C 150.3373 umol/L; Hemoglobin A1c % 6.9 %
== END 2021-04-07 07:27 | disposition home or self-care (01) ==
LOC: HO.HMGCLDS 07:26
PROVIDERS: PCP Internal Medicine; Visit Provider Internal Medicine
DX: E87.5 Hyperkalemia (principal); I10 Essential (primary) hypertension; E66.9 Obesity, unspecified; E11.8 Type 2 diabetes mellitus with unspecified complications; E11.29 Type 2 diabetes mellitus with other diabetic kidney complication; E78.00 Pure hypercholesterolemia, unspecified; D50.9 Iron deficiency anemia, unspecified
CPT/HCPCS: 36415; 80048; 80061; 82043; 83036; 83540; 84450; 84460; 85025

== ENCOUNTER 2021-04-12 11:26 | Outpatient (REF) | payer MEDICARE, SELFPAY ==
[2021-04-12 14:11] LABS: Potassium 4.8 mmol/L (3.3-5.1)
[2021-04-12 14:39] LABS: TSH reflex Free T4 1.03 uIU/mL (0.32-4.0)
[2021-04-12 14:53] LABS: Folate > 20.0 ng/mL (> or = 4.0); Vitamin B12 210 pg/mL (200-900)
== END 2021-04-12 11:27 | disposition home or self-care (01) ==
LOC: HO.HMGCLDS 11:26
PROVIDERS: PCP Internal Medicine; Visit Provider Internal Medicine
DX: D64.9 Anemia, unspecified (principal); R53.81 Other malaise; R53.83 Other fatigue; E87.5 Hyperkalemia
CPT/HCPCS: 36415; 82306; 82607; 82746; 84132; 84443

== ENCOUNTER 2021-05-14 15:42 | Outpatient (REF) | payer MEDICARE, SELFPAY | END 2021-05-14 15:43 | disposition home or self-care (01) | LOC: HO.LNP 15:42 | PROVIDERS: Visit Provider Hospitalist | DX: J01.90 Acute sinusitis, unspecified (principal); Z20.822 Contact with and (suspected) exposure to COVID-19 | CPT/HCPCS: U0003; U0005 ==

== ENCOUNTER 2021-07-09 07:20 | Outpatient (REF) | payer MEDICARE, SELFPAY ==
[2021-07-09 11:07] LABS: MANUAL DIFF FLAG NO
[2021-07-09 11:14] LABS: Basophils Percent Auto 0.5 % (0-2); Eosinophils Absolute Auto 0.2 X10*3/uL (0.0-0.4); Eosinophils Percent Auto 2.7 % (0-4); Hematocrit 33.6 % (37-47); Hemoglobin 10.8 g/dl (12.0-16.0); Imm Gran Abs Auto 0.02 X10*3/uL (0.00-0.03); Imm Gran Pct Auto 0.3 % (0.0-0.4); Lymphocytes Absolute Auto 1.3 X10*3/uL (1.2-4.9); Lymphocytes Percent Auto 21.2 % (20-40); Mean Corpuscular HGB Conc 32.1 g/dl (31.0-35.0); Mean Corpuscular Hemoglobin 31.6 pg (27.0-33.0); Mean Corpuscular Volume 98.2 fL (80-98); Mean Platelet Volume 10.5 fL (9.4-12.3); Monocytes Absolute Auto 0.6 X10*3/uL (0.1-1.2); Monocytes Percent Auto 9.3 % (2-11); Platelet Count 291 X10*3/uL (160-400); Red Blood Count 3.42 X10*6/uL (4.20-5.50); Red Cell Distribution Width 14.8 % (11.0-16.0)
[2021-07-09 11:25] LABS: Alanine Aminotransferase 26 U/L (0-31); Anion Gap 13 (12-20); Aspartate Amino Transferase 18 U/L (5-31); Blood Urea Nitrogen 16 mg/dL (9-16); Calcium 9.7 mg/dL (8.4-10.2); Carbon Dioxide 27 mmol/L (22-29); Chloride 101 mmol/L (96-108); Cholesterol 192 mg/dL; Estimated Glomerular Filt Rate > 60; Glucose Fasting 186 mg/dL (60-99); HDL Cholesterol 53 mg/dL; LDL Cholesterol Calculated 112 mg/dl; Potassium 4.4 mmol/L (3.3-5.1); Sodium 137 mmol/L (135-145); Triglycerides 135 mg/dL
[2021-07-09 11:39] LABS: Estimated Average Glucose 160 mg/dL; Hemoglobin A1c % 7.2 %
== END 2021-07-09 07:21 | disposition home or self-care (01) ==
LOC: HO.HMGCLDS 07:20
PROVIDERS: PCP Internal Medicine; Visit Provider Internal Medicine
DX: D64.9 Anemia, unspecified (principal); E11.29 Type 2 diabetes mellitus with other diabetic kidney complication; E78.00 Pure hypercholesterolemia, unspecified; I10 Essential (primary) hypertension
CPT/HCPCS: 36415; 80048; 80061; 83036; 84450; 84460; 85025

== ENCOUNTER → 2021-07-26 10:17 | Outpatient (BNVA) | payer MEDICARE, SELFPAY | PROVIDERS: PCP Internal Medicine; Referring Provider Internal Medicine; Visit Provider Surgery | DX: D05.80 Other specified type of carcinoma in situ of unspecified breast (principal) | CPT/HCPCS: 99212 ==

== ENCOUNTER → 2021-09-19 12:29 | Outpatient (BNVA) | payer MEDICARE, OTHER, SELFPAY | PROVIDERS: PCP Internal Medicine; Referring Provider Internal Medicine; Visit Provider Internal Medicine | DX: I11.0 Hypertensive heart disease with heart failure (principal); I50.812 Chronic right heart failure; I87.2 Venous insufficiency (chronic) (peripheral); E78.5 Hyperlipidemia, unspecified; E11.8 Type 2 diabetes mellitus with unspecified complications | CPT/HCPCS: 93005; 99212 ==

== ENCOUNTER → 2021-09-27 09:29 | Outpatient (BNVA) | payer MEDICARE, SELFPAY | PROVIDERS: PCP Internal Medicine; Visit Provider Internal Medicine | DX: R06.00 Dyspnea, unspecified (principal); R06.83 Snoring; J98.4 Other disorders of lung; E66.9 Obesity, unspecified; Z68.41 Body mass index [BMI] 40.0-44.9, adult | CPT/HCPCS: 99212 ==

== ENCOUNTER 2021-10-17 10:37 | Outpatient (REF) | payer MEDICARE, SELFPAY ==
--- NOTE | ~2021-10-17 | MM_ITS ---
EXAMINATION: MM DIAGNOSTIC DIGITAL BREAST TOMOSYNTHESIS, BILATERAL US DIAGNOSTIC ULTRASOUND BREAST, RIGHT CLINICAL INFORMATION: Due for yearly. 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 COMPARISON: Mammography: 10/13/2020, 05/12/2020, 10/28/2019, 10/14/2019, 10/06/2019, 09/25/2019, 08/27/2018, 08/22/2017, 08/16/2016, 07/21/2015 TECHNIQUE: Digital breast tomosynthesis is performed in both the craniocaudal and mediolateral oblique views along with computer-aided detection (CAD). Synthesized 2D images are generated from the tomosynthesis. Additional views are obtained: Magnification left CC, magnification left ML x2, standard left CC, rolled right CC x2, spot right MLO. Ultrasound right breast is targeted to the upper breast. Grayscale imaging and color Doppler are performed without and with harmonics. FINDINGS: Post therapy changes left breast is similar to prior exam. There is no interval mass or architectural abnormality or abnormal calcifications. Low left axillary tail node on MLO view is stable from prior studies. The bilateral axilla are unremarkable. The skin contours are smooth. Right breast has new small focal asymmetric density 12:30 o'clock position mid depth. This persists on the additional views. The remainder of the right breast is unremarkable. Ultrasound right breast demonstrates macrolobulated nodule 12:00 position 6 cm from nipple measuring 0.6 x 0.5 cm. The size and location and shape appears to correspond to the finding on mammography. Ultrasound-guided core biopsy is recommended. Results are discussed with the patient at time of visit. MM/MM tomosynthesis diagnostic BI IMPRESSION: 1. Right: Macrolobulated nodule 12:00 position mid depth under 1 cm. 2. Left: There are no significant changes from prior study. ASSESSMENT: BI-RADS 4: Suspicious RECOMMENDATION: Ultrasound-guided core biopsy right breast. This patient's information was entered into a reminder system with a target due date for their next mammogram.
== END 2021-10-17 10:38 | disposition home or self-care (01) ==
LOC: HO.MAMMO 10:37
PROVIDERS: PCP Internal Medicine; Visit Provider Internal Medicine
DX: N63.15 Unspecified lump in the right breast, overlapping quadrants (principal)
CPT/HCPCS: 76642; 77062; 77066

== ENCOUNTER 2021-10-18 07:41 | Outpatient (REF) | payer MEDICARE, OTHER, SELFPAY ==
--- NOTE | ~2021-10-18 | MM_ITS ---
EXAMINATION: ULTRASOUND GUIDED CORE BIOPSY BREAST, RIGHT POST PROCEDURE DIGITAL BREAST TOMOSYNTHESIS, RIGHT CLINICAL INFORMATION: Subcentimeter nodule 12:00 right breast for ultrasound-guided tissue sampling. 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 COMPARISON: Mammography 10/17/2021, 10/13/2020, 09/25/2019; targeted right breast ultrasound 10/17/2021. FINDINGS: Proper informed consent is obtained from the patient after discussion of the procedure, potential risks and complications, and alternatives. Patient was given an opportunity for questions. The patient appeared to understand. The patient consented to the procedure and signed the consent form. GUIDANCE: Ultrasound-guided; aseptic technique. LESION: Macrolobulated hypoechoic nodule mid 12:00 position 0.6 x 0.5 cm. APPROACH: Lateral medial. ANESTHESIA: 16 mL carbonated 1% lidocaine. DERMATOTOMY: Single skin tomás dermatotomy performed. NEEDLE: 14-gauge Achieve core biopsy device with 13.5-gauge co-axial guide needle. CORES: 7. The lesion is difficult to visualize under ultrasound after 2 core samples. Additional samples obtained. CLIP: HydroMARK; shape: butterfly. The lesion is difficult to visualize under ultrasound after 2 core samples. Clip positioned in expected facility of lesion without clear visible finding to optimize clip placement. POST PROCEDURE DIGITAL BREAST TOMOSYNTHESIS, RIGHT: The post biopsy mammogram is performed in separate room using separate digital breast tomosynthesis equipment from the biopsy procedure. CC and ML views are obtained. Synthesized 2-D images are generated from the tomography. There are scattered areas of fibroglandular density (breast composition category: b). The clip marker resides adjacent to the nodule, approximately 0.5 cm posterior. No gross hematoma. The patient tolerated the procedure well. No immediate complications. Procedure findings and home instructions reviewed with the patient. Final pathology results are pending. MM/MM tomosynthesis diagnostic RT IMPRESSION: 1. Status post ultrasound-guided core biopsy right breast. 2. Clip placed: HydroMARK; shape: butterfly. 3. Pathology pending. An addendum report will be issued.
== END 2021-10-18 07:42 | disposition home or self-care (01) ==
LOC: HO.MAMMO 07:41
PROVIDERS: Visit Provider Surgery
DX: C50.811 Malignant neoplasm of overlapping sites of right female breast (principal); Z17.0 Estrogen receptor positive status [ER+]; Z78.0 Asymptomatic menopausal state; E11.29 Type 2 diabetes mellitus with other diabetic kidney complication; I10 Essential (primary) hypertension; I16.0 Hypertensive urgency; E78.00 Pure hypercholesterolemia, unspecified; E87.5 Hyperkalemia; E66.9 Obesity, unspecified; D64.9 Anemia, unspecified; M79.89 Other specified soft tissue disorders
CPT/HCPCS: 19083; 36415; 77061; 77065; 88305; 88342; 88360; 88374

== ENCOUNTER → 2021-10-21 09:18 | Outpatient (BNVA) | payer MEDICARE, SELFPAY | PROVIDERS: PCP Internal Medicine; Visit Provider Surgery | DX: D05.82 Other specified type of carcinoma in situ of left breast (principal); C50.911 Malignant neoplasm of unspecified site of right female breast | CPT/HCPCS: Q3014 ==

== ENCOUNTER 2021-10-31 07:09 | Outpatient (REF) | payer MEDICARE, OTHER, SELFPAY ==
[2021-10-31 11:45] LABS: MANUAL DIFF FLAG NO
[2021-10-31 11:55] LABS: Basophils Percent Auto 0.5 % (0-2); Eosinophils Absolute Auto 0.1 X10*3/uL (0.0-0.4); Hematocrit 34.9 % (37.0-47.0); Hemoglobin 11.3 g/dl (12.0-16.0); Imm Gran Abs Auto 0.01 X10*3/uL (0.00-0.03); Imm Gran Pct Auto 0.2 % (0.0-0.4); Lymphocytes Absolute Auto 1.2 X10*3/uL (1.2-4.9); Lymphocytes Percent Auto 21.1 % (20-40); Mean Corpuscular HGB Conc 32.4 g/dl (31.0-35.0); Mean Corpuscular Hemoglobin 31.3 pg (27.0-33.0); Mean Corpuscular Volume 96.7 fL (80.0-98.0); Mean Platelet Volume 10.8 fL (9.4-12.3); Monocytes Absolute Auto 0.5 X10*3/uL (0.1-1.2); Monocytes Percent Auto 8.2 % (2-11); Neutrophils Absolute Auto 3.8 x10*3/uL (2.0-8.3); Platelet Count 270 X10*3/uL (160-400); Red Blood Count 3.61 X10*6/uL (4.20-5.50); Red Cell Distribution Width 13.6 % (11.0-16.0); White Blood Count 5.6 X10*3/uL (4.8-10.8)
[2021-10-31 11:57] LABS: Estimated Average Glucose 166 mg/dL; Hemoglobin A1c % 7.4 %
[2021-10-31 12:01] LABS: Creatinine Urine 124.53 mg/dL; Microalbum/Creatinine Ratio Ur 28.1 ug/mg cr
[2021-10-31 12:19] LABS: Alanine Aminotransferase 25 U/L (0-31); Anion Gap 14 (12-20); Aspartate Amino Transferase 17 U/L (5-31); Blood Urea Nitrogen 24 mg/dL (9-16); Carbon Dioxide 30 mmol/L (22-29); Chloride 100 mmol/L (96-108); Cholesterol 171 mg/dL; Estimated Glomerular Filt Rate > 60; Glucose Fasting 160 mg/dL (60-99); HDL Cholesterol 54 mg/dL; Iron 84 mcg/dL (30-160); LDL Cholesterol Calculated 89 mg/dl; Potassium 3.9 mmol/L (3.3-5.1); Sodium 140 mmol/L (135-145); Triglycerides 142 mg/dL
[2021-10-31 12:37] LABS: Folate 19.1 ng/mL (> or = 4.0); Vitamin B12 489 pg/mL (200-900)
[2021-10-31 12:42] LABS: Percent Iron Saturation 18 % (15-50); Total Iron Binding Capacity 460 mcg/dL (228-428); Unsaturated Iron Binding 376 ug/dL
== END 2021-10-31 07:10 | disposition home or self-care (01) ==
LOC: HO.HMGCLDS 07:09
PROVIDERS: Visit Provider Internal Medicine
DX: E11.29 Type 2 diabetes mellitus with other diabetic kidney complication (principal); E11.8 Type 2 diabetes mellitus with unspecified complications; D64.9 Anemia, unspecified; E66.9 Obesity, unspecified; E78.00 Pure hypercholesterolemia, unspecified; I10 Essential (primary) hypertension; Z78.0 Asymptomatic menopausal state
CPT/HCPCS: 36415; 80048; 80061; 82043; 82306; 82607; 82746; 83036; 83540; 84450; 84460; 85025

== ENCOUNTER 2021-11-30 06:44 | Day surgery (SDC) | payer MEDICARE, OTHER, SELFPAY ==
--- NOTE | 2021-11-28 13:00 | P.CONAN_ITS ---
Documented by User: Aaliyah Aguilera NP 11/28/21 13:03 HPI - Anesthesia Eval Consult details Narrative: 71yo F for Right [place] Node Biopsy, Breast Lumpectomy/Needle Loc PMFSH Active Problems Active Problems: All Active Problems (Updated 11/08/21 @ 12:04 by Arlyn Paul MD) Varicose veins of left lower extremity with inflammation (Acute) Hypertensive urgency (Acute) SOB (shortness of breath) on exertion (Acute) Sleep disorder (Acute) Essential hypertension (Acute) Chronic right heart failure (Acute) Invasive ductal carcinoma of right breast (Acute) Snoring (Acute) Normocytic normochromic anemia (Acute) Restrictive lung disease (Acute) Restrictive lung disease secondary to obesity (Acute) Dyspnea on exertion (Acute) Obesity (Acute) Leg edema (Acute) Swelling of lower extremity (Acute) 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 (Acute) Kidney stones (Acute) Chronic venous insufficiency of lower extremity (Acute) Essential hypertension (Acute) Morbid obesity (Acute) Type 2 diabetes mellitus with other diabetic kidney complication (Acute) Hyperlipidemia (Acute) Past Medical History Medical History (Updated 11/08/21 @ 12:04 by Arlyn Paul MD) Chronic venous insufficiency of lower extremity Dyspnea on exertion Encounter for initial annual wellness visit (AWV) in Medicare patient Essential hypertension Hyperlipidemia Kidney stones Leg edema Morbid obesity Normocytic normochromic anemia Obesity Other and unspecified hyperlipidemia Renal calculus, left Restrictive lung disease Restrictive lung disease secondary to obesity Shoulder pain, bilateral Snoring 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 Mother No problems noted. Brother Diabetes mellitus Brother Diabetes mellitus Surgical History Surgical History (Updated 11/24/21 @ 13:59 by Trisha Robles RN) History of lumpectomy of left breast History of ureter stent Hx of colonoscopy S/P ureteral stent placement Social History Social History Housing: Apartment Alcohol intake: never Patient Tobacco Use Status: Former Tobacco user Quit Date: 12/2020 Tobacco use type: Cigarette Cigarettes Per Day: 2 Years Smoked: since 12 yrs old Smoked in Last 30 Days: No e-Cigarette/Vaping Use: Never Used Second Hand Smoke Exposure: No Use of substances other than those prescribed or required for medical reasons: No Are you DNR?: No Advance Directives: No Advance Directives Information Provided: Yes service: No Current occupational status: retired Cognitive needs: No Hearing needs: No Vision needs: Yes (Glasses) Meds Allergies Allergy/AdvReac Type Severity Reaction Status Date / Time No Known Allergies Allergy Verified 11/30/21 07:02 Home Medications Medication Instructions Recorded Confirmed Last Taken Type cranberry 400 mg capsule 400 mg PO DAILY 12/29/20 11/24/21 Unknown History multivitamin 1 tab PO DAILY 12/29/20 11/24/21 Unknown History mecobalamin (vitamin B12) 1,000 1,000 mcg PO DAILY 07/12/21 11/24/21 Unknown History mcg chewable tablet Exam Exam Date and Time: November 28, 2021 1300 Pertinent Lab Results Pertinent Lab Results: Laboratory Tests 10/31/21 10/31/21 07:15 07:15 WBC 5.6 Hgb 11.3 L Hct 34.9 L Plt Count 270 Sodium 140 Potassium 3.9 Chloride 100 Carbon Dioxide 30 H BUN 24 H Creatinine 0.70 Narrative Narrative: EKG 09/2021 sinus rhythm at 68/Min; no significant ST-T changes; CT prolongation to 214 milliseconds; normal QTc Echocardiogram-10/2020-normal LVEF, mild diastolic dysfunction, no significant valvular pathology. Myocardial perfusion imaging-10/2020-no definitive ischemia.? Reversible anterior defect suspected to be from soft tissue attenuation. Assessment and Plan Assessment Anesthesia Assessment: Chart Reviewed Documented by User: Devin Bynum MD 11/30/21 10:56 PMF Past Medical History Medical History (Updated 11/08/21 @ 12:04 by Arlyn Paul MD) Chronic venous insufficiency of lower extremity Dyspnea on exertion Encounter for initial annual wellness visit (AWV) in Medicare patient Essential hypertension Hyperlipidemia Kidney stones Leg edema Morbid obesity Normocytic normochromic anemia Obesity Other and unspecified hyperlipidemia Renal calculus, left Restrictive lung disease Restrictive lung disease secondary to obesity Shoulder pain, bilateral Snoring 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 Mother No problems noted. Brother Diabetes mellitus Brother Diabetes mellitus Family history of problems with anesthesia: No Surgical History Surgical History (Updated 11/24/21 @ 13:59 by Trisha Robles, [place]) History of lumpectomy of left breast History of ureter stent Hx of colonoscopy S/P ureteral stent placement History of Problems with Anesthesia: No Social History Social History Housing: Apartment Alcohol intake: never Patient Tobacco Use Status: Former Tobacco user Quit Date: 12/2020 Tobacco use type: Cigarette Cigarettes Per Day: 2 Years Smoked: since 12 yrs old Smoked in Last 30 Days: No e-Cigarette/Vaping Use: Never Used Second Hand Smoke Exposure: No Use of substances other than those prescribed or required for medical reasons: No Are you DNR?: No Advance Directives: No Advance Directives Information Provided: Yes service: No Current occupational status: retired Cognitive needs: No Hearing needs: No Vision needs: Yes (Glasses) Meds Allergies Allergy/AdvReac Type Severity Reaction Status Date / Time No Known Allergies Allergy Verified 11/30/21 07:02 Home Medications Medication Instructions Recorded Confirmed Last Taken Type cranberry 400 mg capsule 400 mg PO DAILY 12/29/20 11/24/21 Unknown History multivitamin 1 tab PO DAILY 12/29/20 11/24/21 Unknown History mecobalamin (vitamin B12) 1,000 1,000 mcg PO DAILY 07/12/21 11/24/21 Unknown History mcg chewable tablet Exam Airway Mallampati Class: II TM Dist: <=3cm Neck ROM: Full Loose/Missing/Broken Teeth: Yes, Upper and Lower Heart: RHF Lungs: ok Assessment and Plan Final Anesthetic Review Family History of Problems with Anesthesia: No History of Problems with Anesthesia: No NPO: Yes ASA Class: IV Final Preanesthetic Review: No Changes in Pt Med Stat, Meds/Allgs Chart Reviewed, Consent Obtained/Reviewed and Anes Risks/Benef Reviewed Patient Risk: High Procedure Risk: Low Anesthetic Plan Anesthetic Plan: GA and Agree w/ Assess. and Plan Disposition: Standard PACU
[2021-11-30] VITALS (8 sets, daily range): BP systolic 144–154; BP diastolic 55–71; PULSE 66–82; RESP 16–19; TEMP 36.1–36.6; O2SAT 93–98; BMI 41.6
--- NOTE | ~2021-11-30 | MM_ITS ---
EXAMINATION: MM MAMMOGRAM GUIDED NEEDLE LOCALIZATION BREAST, RIGHT MM NEEDLE LOCALIZATION SPECIMEN FROM THE RIGHT BREAST CLINICAL INFORMATION: Recent diagnosis invasive carcinoma with mixed ductal and lobular features right breast. COMPARISON: Mammography 10/17/2021, 10/18/2021, ultrasound right breast 10/17/2021, ultrasound-guided right breast biopsy 10/18/2021. TECHNIQUE NEEDLE LOC: Proper informed consent is obtained from the patient after discussion of the procedure, potential risks and complications, and alternatives including declining the procedure today. Patient was given an opportunity for questions. The patient appeared to understand. The patient consented to the procedure and signed the consent form. GUIDANCE: Digital mammography. APPROACH: Cranio-caudal. TARGET: HydroMARK butterfly shaped clip marker with adjacent nodule. ANESTHESIA: Carbonated lidocaine 1%: 6 mL. LOCALIZATION MARKER: Tarkio MammaLok, 10 cm length. The skin is prepped and local anesthesia administered. The needle is positioned and position assessed with mammography. The wire is hooked into position. Amalia needle protector placed. The patient tolerated the procedure well and had no immediate complication. Following the procedure, 4% lidocaine ointment was administered to the left areola and covered with Tegaderm in anticipation of nuclear lymphoscintigraphy injection for sentinel lymph node mapping. Procedure results called to director medical surgical (Latisha) for Dr. Lombardo. TECHNIQUE SPECIMEN RADIOGRAPH: Imaging of the excised specimen is performed using digital mammography in 1 view. FINDINGS SPECIMEN RADIOGRAPH: The specimen shows the distal needle and distal hookwire are delivered intact. The biopsy clip marker is identified in the specimen adjacent to the localization wire. There is subtle nodular density adjacent to the clip which may represent the primary lesion. Results were called to Dr. Raheem Lombardo in the operating room at the time of imaging. MM/MM needle loc RT IMPRESSION: 1. Status post right breast needle localization with wire hooked into position. 2. Post operative specimen radiograph obtained.
--- NOTE | ~2021-11-30 | NM_ITS ---
EXAMINATION: NM LYMPH SCINTIGRAPHY CLINICAL INFORMATION: Right breast cancer. COMPARISON: None. TECHNIQUE: Following explaining right breast [place] node procedure, benefits and risks, a written consent was obtained. 0.4% lidocaine was applied around the right breast areola half an hour prior exam. Patient was placed supine on stretcher in the nuclear medicine department. The area around the breast areola was cleaned and draped in the usual sterile manner. 0.5 mCi of 99m technetium Lymphoseek divided in 4 doses of 0.125 mCi each was injected in 4 quadrants around the areola and imaging obtained 30 and 60 minutes later. There were no immediate compilations. FINDINGS: There is normal activity seen in the 4 quadrants around the areola. There are 2 sentinel nodes seen in the right anterior axilla and some minor activity slightly superior. NM/NM sentinel node w imaging IMPRESSION: At least 2 sentinel nodes visualized in the right anterior axilla and some minor activity in the superior axilla as well.
[2021-11-30 07:22] LABS: Glucose, Whole Blood 181 mg/dL (60-115)
[2021-11-30] MEDS: Lactated Ringers 1,000 ML 100 ML IVCONT (07:34)
[2021-11-30] MEDS: Sodium Bicarbonate 8.4% 50 MEQ/50 ML VIAL SUBCUT (09:10)
[2021-11-30] MEDS: Lidocaine HCl 1 % 20 ML VIAL 9 ML SUBCUT (09:11)
--- NOTE | 2021-11-30 09:54 | W.PM.OPN ---
Operative Note Operative Note Date of Service: 11/30/21 Narrative: Preoperative diagnosis: Right breast invasive cancer Postoperative diagnosis: Same Procedure: Right breast lumpectomy with needle localization, right sentinel node biopsy Surgeon: Raheem Lombardo MD [employer] Superintendent: Lorrie Tubbs PA-C Anesthesia: General LMA Indications for procedure: 71-year-old female patient found to have a density in the right breast felt to be suspicious for malignancy. She subsequent underwent ultrasound-guided core biopsy which revealed invasive carcinoma with mixed lobular and ductal features grade 2-3, ER/WA positive, HER2 Ken equivocal pending FISH Operative findings: Specimen x-ray confirms marking clip within the specimen. Specimen: Lumpectomy, sentinel nodes, posterior inferior margin Estimated blood loss: 20 mL Complications: None Procedure details: Patient was brought to the OR placed in a supine position. After administering general anesthesia the patient's right breast was prepped with ChloraPrep and draped in a sterile fashion. A surgical time-out was called the consent confirmed. Patient received preoperative antibiotics and Venodyne boots were in place. Local anesthesia consisting of 0.5% Sensorcaine was infiltrated in the skin below the localizing needle the 12 o'clock position of the right breast. A transverse incision was then made with a scalpel carried out through subcutaneous tissue. Superior and inferior skin flaps were then created. Dissection was continued superiorly to the needle. Dissection was continued along the lateral and medial margins using electrocautery. This was then dissected inferiorly beyond the tip of the needle. The needle was then cut below the skin and the anterior superior margin obtained. This was continued down to the anterior posterior margin and specimen removed. This was then sent to pathology and Radiology for further examination. Specimen x-ray confirmed the marking clip within the specimen. Gross pathology noted the specimen containing the tumor however the posterior inferior margin was felt to be closed. This posterior inferior margin was then reexcised and sent as a separate specimen. Attention was directed to the right axilla. The gamma probe was used to identify the area of increased reactivity. Incision was then made directly over this location carried out through subcutaneous tissue past the clavipectoral fascia into axillary compartment. Using the gamma probe as a guide several hot nodes were identified and sent as separate specimens. A total of 5 nodes were identified. No further radio activity or palpable nodes could be identified. Both wounds were irrigated with saline solution and suctioned dry. The deep breast tissue was reapproximated using interrupted 3-0 Polysorb sutures. Dermis was reapproximated using interrupted 3-0 Polysorb sutures. Skin was then closed using a running subcuticular 4-0 Polysorb suture. Clavipectoral fascia was then closed in the axilla using a 3-0 Polysorb suture. Dermis was reapproximated using interrupted 3-0 Polysorb sutures. Skin was closed using a running subcuticular 4-0 Polysorb suture. Sterile dressings consisting of Steri-Strips, 2 x 2 gauze and Tegaderm were then applied. The patient tolerated the procedure well. Sponge, instrument, and needle counts were reported as correct. The patient was transferred to PACU in stable condition. Breast Independence Node Biopsy Substrate(s) used for sentinel node biopsy in the non-neoadjuvant setting: Radiotracer Substrate(s) used for sentinel node biopsy in the neoadjuvant setting: N/A All colored nodes or non-colored nodes present at the end of a dye filled lymphatic channel were removed, if dye was used as the substrate for localization: N/A All significantly radioactive nodes were removed, if radionuclide was used as the substrate for localization: Yes All palpably suspicious nodes were removed, if present: Yes If clips were placed in pathology-involved nodes, those nodes were identified and removed: N/A General Surg. - Synoptic Notes Breast Independence Node Biopsy Substrate(s) used for sentinel node biopsy in the non-neoadjuvant setting: Radiotracer Substrate(s) used for sentinel node biopsy in the neoadjuvant setting: N/A All colored nodes or non-colored nodes present at the end of a dye filled lymphatic channel were removed, if dye was used as the substrate for localization: N/A All significantly radioactive nodes were removed, if radionuclide was used as the substrate for localization: Yes All palpably suspicious nodes were removed, if present: Yes If clips were placed in pathology-involved nodes, those nodes were identified and removed: N/A
--- NOTE | 2021-11-30 10:01 | MHC.SHP ---
Pre-Procedural Eval Section A Date of Service: 11/30/21 The patient is an INPATIENT: No Changes since office visit: Yes Patient answered all questions; No Cold of Flu in the past 2 weeks, No New Medical Problems and No Changes in Medication The History & Physical has been completed within 30 days and I have reviewed it.: No Section B Chief Complaint: Right breast invasive carcinoma Details of Present Illness: Density in the right breast, biopsy proven invasive carcinoma mixed lobular and ductal features Relevant Family History (Specify if Yes): No Relevant Social History: None Present Medications: see Short Stay Collaborative assessment Medical History: Significant History (Papillary carcinoma in situ left breast) History of Previous Operations: Relevant previous surgery/procedure and date(s) (2019 left breast lumpectomy) Allergies: Allergies Allergy/AdvReac Type Severity Reaction Status Date / Time No Known Allergies Allergy Verified 11/30/21 07:02 Review of Systems Sugical H&P ROS: Negative: Constitution, Cardiovascular, Respiratory, Neurological, Psychiatric, Hem-Onc, Allergic/Immunologic, Gastrointestinal, Genitourinary, Musculoskeletal, Integumentary, Endocrine and Eyes/Ears/Nose/Throat Exam Surgical H&P Exam: Normal: HEENT, Normal: Heart, Normal: Lungs, Normal: Extremities, Normal: Abdomen, Normal: Skin and Normal: Neurological Plan Diagnosis/Plan: Unchanged I have reviewed the history and physical and performed a pertinent physical examination on my patient. No changes have occurred unless specified.
[2021-11-30] MEDS: Acetaminophen 325 MG TABLET 650 MG PO (13:17)
== END 2021-11-30 14:57 | disposition home or self-care (01) ==
PROVIDERS: PCP Internal Medicine; Visit Provider Surgery
PROC: (CPT 19301; principal; 2021-11-30 11:00)
PROC: (CPT 19301; 2021-11-30 11:00)
DX: C50.811 Malignant neoplasm of overlapping sites of right female breast (principal); Z17.0 Estrogen receptor positive status [ER+]; I10 Essential (primary) hypertension; E78.5 Hyperlipidemia, unspecified; E66.01 Morbid (severe) obesity due to excess calories; E11.8 Type 2 diabetes mellitus with unspecified complications; J98.4 Other disorders of lung; R60.0 Localized edema; Z79.84 Long term (current) use of oral 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 drugs; Z79.899 Other long term (current) drug therapy; Z87.891 Personal history of nicotine dependence
CPT/HCPCS: 19301; 38525; 19281; 78195; 82947; 88305; 88307; 88329; 88342; A4648; A9520; J0690; J2405; J3010

== ENCOUNTER 2021-12-05 10:24 | Outpatient (REF) | payer MEDICARE, OTHER, SELFPAY ==
--- NOTE | ~2021-12-05 | US_ITS ---
EXAMINATION: US VENOUS ULTRASOUND WITH DOPPLER LOWER EXTREMITY, BILATERAL CLINICAL INFORMATION: Bilateral leg swelling COMPARISON: Previous exam most recent July 2020 TECHNIQUE: Ultrasound of the deep veins is performed from the hip to the calf with compression sonography and color and pulse Doppler assessment. Spectral analysis with color-flow imaging is performed. FINDINGS: RIGHT: There is normal venous compression and respiratory variation and augmented flow. The visualized common femoral vein, superficial femoral vein, profunda femoral vein, popliteal vein, and the trifurcation region shows no evidence of deep venous thrombosis. There is no significant popliteal fossa cyst. LEFT: There is normal venous compression and respiratory variation and augmented flow. The visualized common femoral vein, superficial femoral vein, profunda femoral vein, popliteal vein, and the posterior tibial vein no evidence of deep venous thrombosis. The left peroneal vein is not visualized. There is no significant popliteal fossa cyst. There is bilateral lower extremity swelling. US/US venous duplex LE BI IMPRESSION: No DVT demonstrated in the bilateral lower extremity. The left peroneal vein is not well visualized.
== END 2021-12-05 10:25 | disposition home or self-care (01) ==
LOC: HO.HMGCX 10:24
PROVIDERS: Visit Provider Internal Medicine
DX: M79.89 Other specified soft tissue disorders (principal); I82.409 Acute embolism and thrombosis of unspecified deep veins of unspecified lower extremity
CPT/HCPCS: 93970

== ENCOUNTER → 2021-12-08 14:03 | Outpatient (BNVA) | payer MEDICARE, SELFPAY | PROVIDERS: PCP Internal Medicine; Referring Provider Internal Medicine; Visit Provider Surgery | DX: Z48.3 Aftercare following surgery for neoplasm (principal); C50.911 Malignant neoplasm of unspecified site of right female breast | CPT/HCPCS: 99212 ==

== ENCOUNTER → 2021-12-27 08:37 | Outpatient (BNV) | payer MEDICARE, SELFPAY | PROVIDERS: PCP Internal Medicine; Visit Provider Internal Medicine Medical Oncology | DX: D05.82 Other specified type of carcinoma in situ of left breast (principal) | CPT/HCPCS: 99213; 99214 ==

== ENCOUNTER 2022-01-05 08:20 | Outpatient (REF) | payer MEDICARE, SELFPAY ==
--- NOTE | ~2022-01-05 | MM_ITS ---
EXAMINATION: BONE DENSITOMETRY CLINICAL INDICATION: Osteopenia. COMPARISON: Previous BD dated 08/27/2018 and baseline BD dated 03/04/2007. TECHNIQUE: Using a [employer] DXA System (software version: 13.1) manufactured by [employer], dual-energy x-ray absorptiometry was performed of the lumbar spine and left hip. The images are of good technical quality. Summary results are attached. FINDINGS: AP SPINE L1-L3 (excluding L4): The data of L1-L4 has been changed to exclude the L4 vertebral body, because degenerative sclerosis at this level may cause overestimation of lumbar spine density. Current: BMD 1.126 g/cm2, Z-score 0.2, T-score -0.4, normal, 3.0% decrease from previous, 2.5% increase from baseline (<5% change is not significant). Prior: BMD 1.161 g/cm2. Baseline: BMD 1.099 g/cm2. LEFT FEMUR, NECK: Current: BMD 0.986 g/cm2, Z-score 0.7, T-score -0.4, normal. Prior: BMD 1.010 g/cm2. Baseline: BMD 1.028 g/cm2. LEFT FEMUR, TOTAL: Current: BMD 1.092 g/cm2, Z-score 1.4, T-score 0.7, normal, 2.6% decrease from previous, 1.0% increase from baseline (<5% change is not significant). Prior: BMD 1.121 g/cm2. Baseline: BMD 1.081 g/cm2. IDENTIFIED RISK FACTORS: Menopause, history of fracture (adult). HISTORY OF FRACTURE: Elbow. MEDICATIONS: Calcium, vitamin D. MM/XR DEXA axial skeleton IMPRESSION: 1. DIAGNOSIS: Normal bone density based on the lowest T-score value of -0.4 in the lumbar spine and femur neck applying World Health Organization criteria. 2. 10-YEAR FRACTURE RISK PREDICTION, FRAX: Major osteoporotic fracture (clinical spine, forearm, hip or shoulder) 11.1%. Hip fracture 0.8%. 3. Treatment Recommendations: NOF guidelines recommend consideration for treatment in postmenopausal women and men age 50 and older presenting with the following: -A hip or vertebral (clinical or morphometric) fracture. -T-score less than or equal to -2.5 at the femoral neck or spine after appropriate evaluation to exclude secondary causes. -Low bone mass at the hip or spine and a 10-year fracture probability by FRAX of greater than or equal to 3% for hip fracture or greater than or equal to 20% for major osteoporotic fracture based on the [place] adapted WHO algorithm. 4. Other Recommendations: All treatment decisions require clinical judgment and consideration of individual patient factors, including patient preferences, comorbidities, previous drug use, risk factors not captured in the FRAX model (e.g. frailty, falls, vitamin D deficiency, increased bone turnover, interval significant decline in bone density) and possible under or overestimation of fracture risk by FRAX. FUTURE SCAN RECOMMENDATION: People with diagnosed cases of osteoporosis or at high risk for fracture should have regular bone mineral density tests. For patients eligible for Medicare, routine testing is allowed once every 2 years. The testing frequency can be increased to one year for patients who have rapidly progressing disease, those who are receiving or discontinuing medical therapy to restore bone mass, or have additional risk factors.
== END 2022-01-05 08:21 | disposition home or self-care (01) ==
LOC: HO.MAMMO 08:20
PROVIDERS: Visit Provider Internal Medicine Medical Oncology
DX: Z13.820 Encounter for screening for osteoporosis (principal); M85.80 Other specified disorders of bone density and structure, unspecified site; Z78.0 Asymptomatic menopausal state
CPT/HCPCS: 77080

== ENCOUNTER → 2022-01-10 13:11 | Outpatient (BNVA) | payer MEDICARE, SELFPAY | PROVIDERS: PCP Internal Medicine; Referring Provider Internal Medicine; Visit Provider Surgery | DX: Z48.3 Aftercare following surgery for neoplasm (principal); C50.911 Malignant neoplasm of unspecified site of right female breast; Z98.890 Other specified postprocedural states | CPT/HCPCS: 99212 ==

== ENCOUNTER 2022-02-11 07:08 | Outpatient (REF) | payer MEDICARE, SELFPAY ==
[2022-02-11 11:13] LABS: MANUAL DIFF FLAG NO
[2022-02-11 11:15] LABS: Basophils Percent Auto 0.5 % (0-2); Eosinophils Absolute Auto 0.2 X10*3/uL (0.0-0.4); Eosinophils Percent Auto 2.7 % (0-4); Hematocrit 32.6 % (37.0-47.0); Hemoglobin 10.6 g/dl (12.0-16.0); Imm Gran Abs Auto 0.01 X10*3/uL (0.00-0.03); Imm Gran Pct Auto 0.2 % (0.0-0.4); Lymphocytes Absolute Auto 1.4 X10*3/uL (1.2-4.9); Lymphocytes Percent Auto 22.2 % (20-40); Mean Corpuscular HGB Conc 32.5 g/dl (31.0-35.0); Mean Corpuscular Hemoglobin 31.7 pg (27.0-33.0); Mean Corpuscular Volume 97.6 fL (80.0-98.0); Mean Platelet Volume 10.6 fL (9.4-12.3); Monocytes Absolute Auto 0.6 X10*3/uL (0.1-1.2); Monocytes Percent Auto 9.8 % (2-11); Neutrophils Absolute Auto 4.1 x10*3/uL (2.0-8.3); Neutrophils Percent Auto 64.6 % (45-73); Platelet Count 271 X10*3/uL (160-400); Red Blood Count 3.34 X10*6/uL (4.20-5.50); Red Cell Distribution Width 13.8 % (11.0-16.0); White Blood Count 6.3 X10*3/uL (4.8-10.8)
[2022-02-11 11:22] LABS: Estimated Average Glucose 157 mg/dL; Hemoglobin A1c % 7.1 %
[2022-02-11 11:45] LABS: Alanine Aminotransferase 32 U/L (0-31); Anion Gap 15 (12-20); Aspartate Amino Transferase 21 U/L (5-31); Blood Urea Nitrogen 25 mg/dL (9-16); Calcium 9.9 mg/dL (8.4-10.2); Carbon Dioxide 29 mmol/L (22-29); Chloride 101 mmol/L (96-108); Cholesterol 177 mg/dL; Estimated Glomerular Filt Rate > 60; Glucose Fasting 161 mg/dL (60-99); HDL Cholesterol 48 mg/dL; LDL Cholesterol Calculated 106 mg/dl; Potassium 4.1 mmol/L (3.3-5.1); Sodium 141 mmol/L (135-145); Triglycerides 119 mg/dL
== END 2022-02-11 07:09 | disposition home or self-care (01) ==
LOC: HO.HMGCLDS 07:08
PROVIDERS: Absent Provider Internal Medicine Medical Oncology; PCP Internal Medicine; Visit Provider Internal Medicine
DX: E11.29 Type 2 diabetes mellitus with other diabetic kidney complication (principal); E66.01 Morbid (severe) obesity due to excess calories; E78.00 Pure hypercholesterolemia, unspecified; I10 Essential (primary) hypertension; D64.9 Anemia, unspecified
CPT/HCPCS: 36415; 80048; 80061; 83036; 84450; 84460; 85025

== ENCOUNTER 2022-03-11 11:05 | Emergency (ER) | payer MEDICARE, OTHER, SELFPAY ==
--- NOTE | ~2022-03-11 | US_ITS ---
EXAMINATION: US VENOUS ULTRASOUND WITH DOPPLER LOWER EXTREMITY, LEFT CLINICAL INFORMATION: Left lower extremity pain and swelling. COMPARISON: None TECHNIQUE: Ultrasound of the deep veins is performed from the hip to the calf with compression sonography and color and pulse Doppler assessment. Spectral analysis with color-flow imaging is performed. FINDINGS: There is normal venous compression and respiratory variation and augmented flow. The visualized common femoral vein, superficial femoral vein, profunda femoral vein, popliteal vein, and the trifurcation region shows no evidence of deep venous thrombosis. There is no significant popliteal fossa cyst. The left peroneal vein in the calf was not visualized, technically limited due to patient's discomfort. If the patient's symptoms persist, followup ultrasound in 5 days 7 days might be of value to exclude proximal propagation from a non-visualized calf vein. US/US venous duplex LE IMPRESSION: No DVT demonstrated in the left lower extremity. Nonvisualized left peroneal vein.
--- NOTE | ~2022-03-11 | XR_ITS ---
EXAMINATION: XR KNEE, LEFT CLINICAL INFORMATION: Left knee pain and swelling. COMPARISON: None TECHNIQUE: Four views of the left knee. FINDINGS: No significant tricompartmental degenerative joint changes are seen. There is no acute fracture, dislocation or joint effusion. Mild degenerative spurring at the quadriceps patellar insertion. Mild to moderate soft tissue edema most pronounced in the calf. XR/XR knee LT 3V IMPRESSION: Mild to moderate soft tissue swelling most pronounced in the calf without significant underlying osseous abnormality.
[2022-03-11 11:13] VITALS: BP 151/64; PULSE 69; RESP 18; TEMP 35.9; O2SAT 96; BMI 41.6
--- NOTE | 2022-03-11 11:33 | PC.NURSE ---
US at bedside
--- NOTE | 2022-03-11 11:35 | ED.EXTPRO ---
HPI - Extremity Problem General Chief complaint: Extremity Problem Stated complaint: L leg bloodclot? sent from urgent care Time Seen by Provider: 03/11/22 11:34 Source: patient Mode of arrival: ambulatory Limitations: no limitations History of Present Illness HPI Narrative: 71-year-old female with a history of breast cancer on letrozole, chronic venous insufficiency of lower extremities, hypertension, diabetes, high cholesterol, restrictive lung disease, obesity, congestive heart failure here with reports of left leg pain for the last week. Patient denies any injury or trauma. Patient reports she has chronic swelling of the lower legs which she tells me is unchanged from previous. She was seen at urgent care earlier today and referred into the emergency department for ultrasound of the leg. No chest pain, shortness of breath, fever Patient tells me pain is more focal around the left knee and is worsened if she bends the knee. She does have chronic skin changes no lower legs. She denies any numbness, tingling or weakness. Related Data Home Medications Medication Instructions Recorded Confirmed cranberry 400 mg capsule 400 mg PO DAILY 12/29/20 02/14/22 multivitamin 1 tab PO DAILY 12/29/20 02/14/22 mecobalamin (vitamin B12) 1,000 1,000 mcg PO DAILY 07/12/21 02/14/22 mcg chewable tablet Previous Rx's Medication Instructions Recorded carvedilol 12.5 mg tablet (Coreg) 12.5 mg PO BID #180 tabs 03/07/21 amlodipine 5 mg tablet 5 mg PO DAILY #90 tabs 09/01/21 furosemide 20 mg tablet 40 mg PO QAM 90 days #180 tabs 09/19/21 hydralazine 50 mg tablet 50 mg PO TID 90 days #270 tabs 09/19/21 blood sugar diagnostic (FreeStyle 1 strip miscellaneous .QD #100 10/24/21 Lite Strips) strips glipizide 2.5 mg tablet, extended 2.5 mg PO QAM #90 tabs 10/24/21 release 24 hr metformin 1,000 mg tablet 1,000 mg PO BID 90 days #180 tabs 11/28/21 letrozole 2.5 mg tablet 2.5 mg PO DAILY #90 tabs 01/11/22 ferrous fumarate 325 mg (106 mg 325 mg PO DAILY 90 days #90 tabs 04/28/22 iron) tablet atorvastatin 20 mg tablet 20 mg PO DAILY #90 tabs 02/02/22 Allergies Allergy/AdvReac Type Severity Reaction Status Date / Time No Known Allergies Allergy Verified 02/17/22 12:23 Review of Systems Review of Systems: Yes all other systems are reviewed and are negative Constitutional: Constitutional: Reports no additional constitutional complaints, Denies body ache(s), Denies chills, Denies fever(s), Denies headache(s) and Denies weakness Eyes: Eyes: Reports no additional eye complaints and Denies change in vision ENT: Reports system reviewed and no additional complaints, except as documented, Denies dizziness, Denies headache(s), Denies nasal congestion, Denies nasal discharge and Denies neck pain Cardiovascular: Cardiovascular: Reports no additional cardiovascular complaints, Denies chest pain, Reports leg edema and Denies dyspnea Respiratory: Respiratory: Reports no additional respiratory complaints, Denies cough and Denies dyspnea Gastrointestinal: Gastrointestinal: Reports no additional gastrointestinal complaints, Denies abdominal pain, Denies diarrhea, Denies nausea and Denies vomiting Genitourinary: Genitourinary: Reports no additional female genitourinary complaints and Denies urinary incontinence Musculoskeletal: Musculoskeletal: Reports no additional musculoskeletal complaints, Denies back pain, Denies arthralgias, Denies joint swelling, Denies neck pain, Denies numbness and Denies tingling Integumentary/Breasts: Skin/Breast: Reports system reviewed and no additional complaints, except as docu and Denies rash Neurologic: Denies Abnormal speech present, Denies dizziness, Denies headache(s), Denies numbness, Denies tingling and Denies weakness [facility] Past Medical History Attestation statement: The following information was validated with the patient. Source: old records reviewed and nursing notes reviewed Medical History Dyspnea on exertion Encounter for initial annual wellness visit (AWV) in Medicare patient Kidney stones Leg edema Obesity Other and unspecified hyperlipidemia Renal calculus, left Restrictive lung disease Shoulder pain, bilateral Suppurative hidradenitis Surgical History History of lumpectomy of left breast History of ureter stent Hx of colonoscopy S/P ureteral stent placement Status post right breast lumpectomy Family History Family History Father No problems noted. Mother Ovarian cancer Brother Diabetes mellitus Brother Diabetes mellitus Maternal Grandfather Throat cancer Social History Social History Household Members: None Housing: Apartment Are you a primary floor care specialist to a significant other at home: No Do you presently have visiting nurse or other home services: No Alcohol intake: former Patient Tobacco Use Status: Former Tobacco user Quit Date: 12/2020 Tobacco use type: Cigarette Years Smoked: since 12 yrs old e-Cigarette/Vaping Use: Never Used Second Hand Smoke Exposure: No Advance Directives: Yes Advance Directives on File: Yes Advance Directives Date on File: 04/20/21 service: No Current occupational status: retired Cognitive needs: No Hearing needs: No Vision needs: Yes (Glasses) Physical Exam Vital Signs: Vital Signs: Last Vital Signs Temp 96.4 F L 03/11/22 14:14 Pulse 70 03/11/22 14:14 Resp 14 03/11/22 14:14 BP 197/91 H 03/11/22 14:14 Pulse Ox 96 03/11/22 14:14 O2 Del Method 03/11/22 14:14 BMI result Body Mass Index 41.6 Const: General: cooperative, healthy appearing, comfortable and no acute distress Orientation/consciousness: patient oriented x3 Limitations: no limitations HEENT: Head: Yes normal to inspection Ears: hearing grossly normal bilaterally General nose exam: Normal external nose present Face and sinus: Yes normal facial exam Mouth: Normal oral and palatal mucosa present Throat: Yes posterior oropharynx normal Eyes: General: appearance normal, both eyes and all related structures Pupils: Equal, round and reactive pupils present Neck: Neck: Yes normal visual inspection Chest: Chest palpation & inspection: normal inspection of the chest Resp: Effort & Inspection: normal respiratory effort Auscultation: clear to auscultation bilaterally Cardio: Rate: regular rate Rhythm: regular rhythm Peripheral pulses: Peripheral pulses 2+ throughout GI: Inspection: Yes normal to inspection Palpation (GI): Soft to palpation and nontender Auscultation: normal bowel sounds Back/Spine/Pelvis: Thoracic/Lumbar Spine: thoracic and lumbar spine normal to inspection Skin: General skin exam: no rashes or lesions noted Neuro: General: patient oriented x3, no focal motor deficits and normal sensation to monofilament Cranial nerves: Yes Equal, round and reactive pupils present Cognition (Neuro): normal cognition Speech: No Abnormal speech present Gait exam (Neuro): Normal gait present Motor exam (neuro): 5/5 motor strength present throughout Extrem: Other: There is swelling which is nonpitting to the bilateral lower extremities. There is skin changes consistent with peripheral vascular disease. There is no warmth. There is some tenderness over the left anterior knee that is worsened with flexion of the knee. There is also some tenderness over the posterior left knee and calf. Palpable DP and PT pulses General: Yes normal to inspection Course Course Course Narrative: Ultrasound is negative for DVT. Labs show no acute findings. X-ray show some mild soft tissue swelling but no bony abnormality. No evidence of cellulitis on exam. Patient placed in Orestes wrap. Recommend Tylenol at home. Recommend Motrin Tylenol as needed. Worrisome signs and symptoms of when to return to the emergency department. Comfortable discharge home. MDM - Extremity (Nontraumatic) MDM Narrative Medical decision making narrative: 71-year-old female here with 1 week of left leg pain. No known injury or trauma. Patient has chronic swelling of the legs which she tells me is unchanged from baseline. She does report some pain over the left anterior and posterior knee and the left calf. She has tenderness on exam. I do not appreciate any warmth. Will check x-ray, ultrasound, labs Differential Diagnosis Differential diagnosis: Likely cellulitis and deep vein thrombosis of lower extremity Medical Records Attestation: I reviewed the patient's medical records. Lab Data Attestation: I reviewed the patient's lab results. Result diagrams: 03/11/22 12:19 03/11/22 12:19 Labs: Lab Results 03/11/22 03/11/22 Range/Units 12:19 12:19 WBC 7.2 (4.8-10.8) X10*3/uL RBC 3.50 L (4.20-5.50) X10*6/uL Hgb 11.1 L (12.0-16.0) g/dl Hct 33.4 L (37.0-47.0) % MCV 95.4 (80.0-98.0) fL MCH 31.7 (27.0-33.0) pg MCHC 33.2 (31.0-35.0) g/dl RDW 13.7 (11.0-16.0) % Plt Count 250 (160-400) X10*3/uL MPV 9.4 (9.4-12.3) fL Immature Gran % (Auto) 0.1 (0.0-0.4) % Neut % (Auto) 68.2 (45-73) % Lymph % (Auto) 19.5 L (20-40) % Stephenson % (Auto) 10.1 (2-11) % Eos % (Auto) 1.7 (0-4) % Baso % (Auto) 0.4 (0-2) % Lymph # (Auto) 1.4 (1.2-4.9) X10*3/uL Stephenson # (Auto) 0.7 (0.1-1.2) X10*3/uL Eos # (Auto) 0.1 (0.0-0.4) X10*3/uL Baso # (Auto) 0.0 (0.0-0.2) X10*3/uL Abs Immat Gran (auto) 0.01 (0.00-0.03) X10*3/uL Absolute Neuts (auto) 4.9 (2.0-8.3) x10*3/uL Absolute Nucleated RBC 0.000 (0.0-0.012) X10*3/uL Nucleated RBC % (auto) 0.0 (0.0-0.2) /100WBC Sodium 141 (135-145) mmol/L Potassium 4.6 (3.3-5.1) mmol/L Chloride 97 (96-108) mmol/L Carbon Dioxide 33 H (22-29) mmol/L Anion Gap 16 (12-20) BUN 23 H (9-16) mg/dL Creatinine 0.72 (0.5-1.4) mg/dL Estim Creat Clear Calc 82.5 Estimated GFR > 60 Random Glucose 133 H (60-115) mg/dL Calcium 10.3 H (8.4-10.2) mg/dL Imaging Data knee xray: Attestation: I personally reviewed and interpreted this imaging study as follows: Radiologist's impression: [place] [address] XRay Report Signed Patient: Rosalia Talavera MR#: [id number] : 1950 Acct:[id number] Age/Sex: 71 / F ADM Date: 03/11/22 Loc: .ED Attending Dr: Ordering Physician: Jana Boyer NP Date of Service: 03/11/22 Procedure(s): XR knee LT 3V Accession Number(s): [id number] cc: Jana Boyer NP~ EXAMINATION: XR KNEE, LEFT CLINICAL INFORMATION: Left knee pain and swelling.? COMPARISON: None? TECHNIQUE: Four views of the left knee. FINDINGS: No significant tricompartmental degenerative joint changes are seen. There is no acute fracture, dislocation or joint effusion. Mild degenerative spurring at the quadriceps patellar insertion. Mild to moderate soft tissue edema most pronounced in the calf. XR/XR knee LT 3V IMPRESSION: Mild to moderate soft tissue swelling most pronounced in the calf without significant underlying osseous abnormality. ? Venous US: Attestation: I personally reviewed and interpreted this imaging study as follows: Radiologist's impression: [address] [address] Ultrasound Report Signed Patient: Rosalia Talavera MR#: [id number] : 1950 Acct:[id number] Age/Sex: 71 / F ADM Date: 03/11/22 Loc: .ED Attending Dr: Ordering Physician: Shilpa Ashley Date of Service: 03/11/22 Procedure(s): US venous duplex LE LT Accession Number(s): [id number] cc: Shilpa Ashley~ EXAMINATION:? US VENOUS ULTRASOUND WITH DOPPLER LOWER EXTREMITY, LEFT CLINICAL INFORMATION:? Left lower extremity pain and swelling. COMPARISON:? None TECHNIQUE: Ultrasound of the deep veins is performed from the hip to the calf with compression sonography and color and pulse Doppler assessment. Spectral analysis with color-flow imaging is performed. FINDINGS: There is normal venous compression and respiratory variation and augmented flow. The visualized common femoral vein, superficial femoral vein, profunda femoral vein, popliteal vein, and the trifurcation region shows no evidence of deep venous thrombosis. ? There is no significant popliteal fossa cyst. The left peroneal vein in the calf was not visualized, technically limited due to patient's discomfort. If the patient's symptoms persist, followup ultrasound in 5 days 7 days might be of value to exclude proximal propagation from a non-visualized calf vein. US/US venous duplex LE LT IMPRESSION: No DVT demonstrated in the left lower extremity. Nonvisualized left peroneal vein. Discharge Plan Discharge Clinical Impression: Acute pain of left knee Patient Disposition: Home, Self-Care Instructions: Knee Pain (ED) Additional Instructions: Your ultrasound shows no signs of blood clot Your labs are normal Apply an Orestes wrap Ice, elevation Tylenol home for pain Return for fever, redness, warmth, increased swelling or pain Follow-up with her primary care doctor in 1 week Prescriptions: No Action amlodipine 5 mg tablet 5 mg PO DAILY Qty: 90 3RF FreeStyle Lite Strips Strip 1 strip miscellaneous .QD Qty: 100 3RF Rx Instructions: Test blood sugar daily glipizide 2.5 mg tablet extended release 24 hr 2.5 mg PO QAM Qty: 90 3RF metformin 1,000 mg tablet 1,000 mg PO BID 90 Days Qty: 180 3RF ferrous fumarate 325 mg (106 mg iron) tablet 325 mg PO DAILY 90 Days Qty: 90 1RF atorvastatin 20 mg tablet 20 mg PO DAILY Qty: 90 1RF letrozole 2.5 mg Tablet 2.5 mg PO DAILY Qty: 90 4RF cranberry 400 mg capsule 400 mg PO DAILY Rx Instructions: administer with a meal multivitamin Tablet 1 tab PO DAILY mecobalamin (vitamin B12) 1,000 mcg tablet,chewable 1,000 mcg PO DAILY hydralazine 50 mg tablet 50 mg PO TID 90 Days Qty: 270 3RF furosemide 20 mg tablet 40 mg PO QAM 90 Days Qty: 180 3RF carvedilol [Coreg] 12.5 mg tablet 12.5 mg PO BID Qty: 180 4RF Rx Instructions: must administer with a meal/food Referrals: Arlyn Paul MD [Primary Care Provider] - 1 week Interventions: ED Discharge Assessment Last Done: 03/11/22 14:45 Discharge Date/Time: 03/11/22 14:45
[2022-03-11 11:57] VITALS: BP 150/54; PULSE 71; RESP 16; TEMP 36.5; O2SAT 96
--- NOTE | 2022-03-11 12:10 | PC.NURSE ---
patient A/O X 4. pupils equal and reactive . lungs clear . heart rate regular at 79. positive bowel sounds in all four quadrants . skin warm dry intact . positive pedal pulses +2 on both lower extremity . skin on lower ankles red and dry patient doesn't report any pain with touch only with use of extremity . patient aware of plan of care
[2022-03-11 12:24] LABS: MANUAL DIFF FLAG NO
[2022-03-11 12:27] LABS: Basophils Percent Auto 0.4 % (0-2); Eosinophils Absolute Auto 0.1 X10*3/uL (0.0-0.4); Eosinophils Percent Auto 1.7 % (0-4); Hematocrit 33.4 % (37.0-47.0); Hemoglobin 11.1 g/dl (12.0-16.0); Imm Gran Abs Auto 0.01 X10*3/uL (0.00-0.03); Imm Gran Pct Auto 0.1 % (0.0-0.4); Lymphocytes Absolute Auto 1.4 X10*3/uL (1.2-4.9); Lymphocytes Percent Auto 19.5 % (20-40); Mean Corpuscular HGB Conc 33.2 g/dl (31.0-35.0); Mean Corpuscular Hemoglobin 31.7 pg (27.0-33.0); Mean Corpuscular Volume 95.4 fL (80.0-98.0); Mean Platelet Volume 9.4 fL (9.4-12.3); Monocytes Absolute Auto 0.7 X10*3/uL (0.1-1.2); Monocytes Percent Auto 10.1 % (2-11); Neutrophils Absolute Auto 4.9 x10*3/uL (2.0-8.3); Neutrophils Percent Auto 68.2 % (45-73); Platelet Count 250 X10*3/uL (160-400); Red Cell Distribution Width 13.7 % (11.0-16.0); White Blood Count 7.2 X10*3/uL (4.8-10.8)
[2022-03-11 12:41] LABS: Anion Gap 16 (12-20); Blood Urea Nitrogen 23 mg/dL (9-16); Calcium 10.3 mg/dL (8.4-10.2); Carbon Dioxide 33 mmol/L (22-29); Chloride 97 mmol/L (96-108); Creatinine Clr Calc Pharmacy 82.5; Estimated Glomerular Filt Rate > 60; Glucose Random 133 mg/dL (60-115); Potassium 4.6 mmol/L (3.3-5.1); Sodium 141 mmol/L (135-145)
[2022-03-11 14:14] VITALS: BP 197/91; PULSE 70; RESP 14; TEMP 35.8; O2SAT 96
== END 2022-03-11 14:45 | disposition home or self-care (01) ==
PROVIDERS: Nurse Practitioner Family; Emergency Provider Emergency Medicine Emergency Medical Services; PCP Internal Medicine
DX: M25.562 Pain in left knee (principal); R60.0 Localized edema; Z87.891 Personal history of nicotine dependence; Z79.899 Other long term (current) drug therapy
CPT/HCPCS: 36415; 73562; 80048; 85025; 93971; 99284

== ENCOUNTER → 2022-03-21 10:02 | Outpatient (BNVA) | payer MEDICARE, OTHER, SELFPAY | PROVIDERS: PCP Internal Medicine; Referring Provider Internal Medicine; Visit Provider Internal Medicine | DX: I50.812 Chronic right heart failure (principal); I87.2 Venous insufficiency (chronic) (peripheral); I10 Essential (primary) hypertension; E11.8 Type 2 diabetes mellitus with unspecified complications; E87.5 Hyperkalemia; E66.01 Morbid (severe) obesity due to excess calories; Z68.41 Body mass index [BMI] 40.0-44.9, adult; C50.911 Malignant neoplasm of unspecified site of right female breast; Z79.811 Long term (current) use of aromatase inhibitors; Z79.899 Other long term (current) drug therapy | CPT/HCPCS: 99212 ==

== ENCOUNTER → 2022-04-13 15:00 | Outpatient (BNVA) | payer MEDICARE, OTHER, SELFPAY | PROVIDERS: PCP Internal Medicine; Visit Provider Surgery Vascular Surgery | DX: I83.813 Varicose veins of bilateral lower extremities with pain (principal) | CPT/HCPCS: 99212 ==

== ENCOUNTER 2022-05-08 07:06 | Outpatient (REF) | payer MEDICARE, OTHER, SELFPAY ==
[2022-05-08 11:19] LABS: MANUAL DIFF FLAG NO
[2022-05-08 11:28] LABS: Basophils Percent Auto 0.6 % (0-2); Eosinophils Absolute Auto 0.1 X10*3/uL (0.0-0.4); Eosinophils Percent Auto 1.8 % (0-4); Hematocrit 32.4 % (37.0-47.0); Hemoglobin 10.6 g/dl (12.0-16.0); Imm Gran Abs Auto 0.03 X10*3/uL (0.00-0.03); Imm Gran Pct Auto 0.5 % (0.0-0.4); Lymphocytes Absolute Auto 1.5 X10*3/uL (1.2-4.9); Lymphocytes Percent Auto 21.9 % (20-40); Mean Corpuscular HGB Conc 32.7 g/dl (31.0-35.0); Mean Corpuscular Hemoglobin 31.6 pg (27.0-33.0); Mean Corpuscular Volume 96.7 fL (80.0-98.0); Mean Platelet Volume 10.8 fL (9.4-12.3); Monocytes Absolute Auto 0.7 X10*3/uL (0.1-1.2); Monocytes Percent Auto 9.8 % (2-11); Neutrophils Absolute Auto 4.3 x10*3/uL (2.0-8.3); Neutrophils Percent Auto 65.4 % (45-73); Platelet Count 264 X10*3/uL (160-400); Red Blood Count 3.35 X10*6/uL (4.20-5.50); Red Cell Distribution Width 14.2 % (11.0-16.0); White Blood Count 6.6 X10*3/uL (4.8-10.8)
[2022-05-08 11:39] LABS: Estimated Average Glucose 157 mg/dL; Hemoglobin A1c % 7.1 %
[2022-05-08 12:26] LABS: Alanine Aminotransferase 23 U/L (0-31); Anion Gap 16 (12-20); Aspartate Amino Transferase 18 U/L (5-31); Blood Urea Nitrogen 21 mg/dL (9-16); Calcium 9.6 mg/dL (8.4-10.2); Carbon Dioxide 30 mmol/L (22-29); Chloride 100 mmol/L (96-108); Cholesterol 166 mg/dL; Estimated Glomerular Filt Rate > 60; Glucose Fasting 163 mg/dL (60-99); HDL Cholesterol 49 mg/dL; LDL Cholesterol Calculated 92 mg/dl; Potassium 4.1 mmol/L (3.3-5.1); Sodium 142 mmol/L (135-145); Triglycerides 125 mg/dL
[2022-05-08 12:32] LABS: Creatinine Urine 162.69 mg/dL; Microalbum/Creatinine Ratio Ur 25.2 ug/mg cr
[2022-05-08 12:46] LABS: Vitamin D 25-OH Total 34.1 ng/mL (>30)
== END 2022-05-08 07:07 | disposition home or self-care (01) ==
LOC: HO.HMGCLDS 07:06
PROVIDERS: PCP Internal Medicine; Visit Provider Internal Medicine
DX: I10 Essential (primary) hypertension (principal); D64.9 Anemia, unspecified; E78.5 Hyperlipidemia, unspecified; E11.29 Type 2 diabetes mellitus with other diabetic kidney complication
CPT/HCPCS: 36415; 80048; 80061; 82043; 82306; 83036; 84450; 84460; 85025

== ENCOUNTER → 2022-05-30 14:13 | Outpatient (BNVA) | payer MEDICARE, OTHER, SELFPAY | PROVIDERS: PCP Internal Medicine; Visit Provider Surgery | DX: C50.911 Malignant neoplasm of unspecified site of right female breast (principal); Z79.811 Long term (current) use of aromatase inhibitors; Z20.822 Contact with and (suspected) exposure to COVID-19 | CPT/HCPCS: 87811; 99212; C9803 ==

== ENCOUNTER 2022-05-30 15:12 | Outpatient (REF) | payer MEDICARE, OTHER, SELFPAY ==
[2022-05-30 15:36] LABS: Binax Internal Control QC Valid; Binax Now Covid-19 Ag Negative (Negative)
== END 2022-05-30 15:13 | disposition home or self-care (01) ==
LOC: HO.HMGCLDS 15:12
PROVIDERS: Visit Provider Internal Medicine
DX: Z13.89 Encounter for screening for other disorder (principal)
CPT/HCPCS: 87811; C9803

== ENCOUNTER 2022-06-27 11:31 | Outpatient (REF) | payer MEDICARE, SELFPAY ==
[2022-06-27 12:32] LABS: Influenza A PCR NEGATIVE (Negative); Influenza B PCR NEGATIVE (Negative); Resp Syncy Virus RNA Qual PCR NEGATIVE (Negative); SARS COV2 PCR INHOUSE POSITIVE (Negative)
== END 2022-06-27 11:32 | disposition home or self-care (01) ==
LOC: HO.LNP 11:31
PROVIDERS: Visit Provider Emergency Medicine
DX: Z20.822 Contact with and (suspected) exposure to COVID-19 (principal); R68.89 Other general symptoms and signs
CPT/HCPCS: 0241U

== ENCOUNTER 2022-08-14 07:01 | Outpatient (REF) | payer MEDICARE, SELFPAY ==
[2022-08-14 11:59] LABS: Estimated Average Glucose 203 mg/dL; Hemoglobin A1c % 8.7 %
[2022-08-14 12:12] LABS: Alanine Aminotransferase 26 U/L (0-31); Anion Gap 16 (12-20); Aspartate Amino Transferase 16 U/L (5-31); Blood Urea Nitrogen 19 mg/dL (9-16); Calcium 10.1 mg/dL (8.4-10.2); Carbon Dioxide 32 mmol/L (22-29); Chloride 97 mmol/L (96-108); Cholesterol 152 mg/dL; Estimated Glomerular Filt Rate > 60; Glucose Fasting 224 mg/dL (60-99); HDL Cholesterol 47 mg/dL; LDL Cholesterol Calculated 83 mg/dl; Potassium 4.5 mmol/L (3.3-5.1); Sodium 140 mmol/L (135-145); Triglycerides 111 mg/dL
== END 2022-08-14 07:02 | disposition home or self-care (01) ==
LOC: HO.HMGCLDS 07:01
PROVIDERS: PCP Internal Medicine; Visit Provider Internal Medicine
DX: E11.29 Type 2 diabetes mellitus with other diabetic kidney complication (principal); E78.00 Pure hypercholesterolemia, unspecified; I10 Essential (primary) hypertension
CPT/HCPCS: 36415; 80048; 80061; 83036; 84450; 84460

== ENCOUNTER 2022-08-16 08:03 | Outpatient (REF) | payer MEDICARE, SELFPAY ==
--- NOTE | ~2022-08-16 | US_ITS ---
EXAMINATION: US VENOUS BILATERAL LOWER EXTREMITIES (REFLUX EXAM) CLINICAL INDICATION: Leg pain and varicose veins. COMPARISON: None TECHNIQUE: Color flow triplex imaging and compression Doppler was performed to evaluate both the deep and the superficial systems bilaterally. To evaluate the superficial system, the examination was performed in the upright position. Color-flow Doppler ultrasound and compression ultrasound were utilized. In addition, maneuvers were utilized to demonstrate reflux. FINDINGS: 1. DEEP VENOUS ULTRASOUND OF THE RIGHT LOWER EXTREMITY: Respiratory variation, normal compression and augmented flow are noted in the right common femoral vein as well as the right popliteal vein and there is no evidence of deep venous thrombosis at these locations. There is a 1.4 seconds of deep venous reflux in the popliteal vein. The deep venous system is otherwise patent. There is no evidence of a Gomez's cyst. 2. SUPERFICIAL ULTRASOUND WITH DOPPLER OF RIGHT LOWER EXTREMITY: The right great saphenous vein at the saphenofemoral junction measures 7 mm, at the proximal thigh 0.9 mm, at the mid and above the knee not seen, at the knee 4 mm, vqnic-[id number] 6 mm, midcalf 5 mm and at the ankle measures 4 mm. There is reflux present from the knee downwards with reflux times of approaching 2 seconds Duplicated Right Great Saphenous Vein: None The right small saphenous vein was not seen. Accessory Vein of Giacomini: None Incompetent Perforators: Yes. There is a 2 mm refluxing charcoal burner beehive kiln in the mid thigh. Varices Present: Yes, refluxing varicosities are present. 3. DEEP VENOUS ULTRASOUND OF THE LEFT LOWER EXTREMITY: Respiratory variation, normal compression and augmented flow are noted in the left common femoral vein as well as the left popliteal vein and there is no evidence of deep venous thrombosis at these locations. There is no evidence of reflux in the deep system in either the common femoral vein or the popliteal vein. There is no evidence of a Gomez's cyst. 4. SUPERFICIAL ULTRASOUND WITH DOPPLER OF LEFT LOWER EXTREMITY: Left great saphenous vein at the saphenofemoral junction measures 7 mm, at the proximal thigh 1 mm, at the mid thigh 3 mm, above the knee 4 mm, at the knee 4 mm, iyvor-nmo-mvbg 3 mm, midcalf 4 mm and at the ankle measures 4 mm. There is no reflux demonstrated in the left great saphenous vein. Duplicated Left Great Saphenous Vein: None The left small saphenous vein not seen. Accessory Vein of Giacomini: None Incompetent Perforators: None. Varices Present: Yes. Refluxing varicosities are seen. US/US venous duplex LE BI IMPRESSION: 1. No evidence of DVT. 2. There is deep venous reflux seen in the right popliteal. 3. Neither small saphenous vein could be seen. Were the small saphenous veins ablated? 4. Right great saphenous reflux is present from the knee level down. The vessel is not seen above the knee or in the mid thigh. Was this ablated ? 5. Refluxing varices and perforators as described above.
== END 2022-08-16 08:04 | disposition home or self-care (01) ==
LOC: HO.US 08:03
PROVIDERS: Visit Provider Surgery Vascular Surgery
DX: I83.11 Varicose veins of right lower extremity with inflammation (principal); I83.12 Varicose veins of left lower extremity with inflammation
CPT/HCPCS: 93970

== ENCOUNTER → 2022-08-29 08:49 | Outpatient (BNVA) | payer MEDICARE, SELFPAY | PROVIDERS: PCP Internal Medicine; Visit Provider Surgery Vascular Surgery | DX: C50.911 Malignant neoplasm of unspecified site of right female breast (principal); C50.912 Malignant neoplasm of unspecified site of left female breast; Z79.811 Long term (current) use of aromatase inhibitors; Z17.0 Estrogen receptor positive status [ER+]; L97.929 Non-pressure chronic ulcer of unspecified part of left lower leg with unspecified severity; I83.12 Varicose veins of left lower extremity with inflammation | CPT/HCPCS: 99212 ==

== ENCOUNTER 2022-09-08 12:04 | Outpatient (RCR) | payer MEDICARE, SELFPAY | END 2022-10-17 13:53 | disposition home or self-care (01) | LOC: HO.WCC 12:04 | PROVIDERS: PCP Internal Medicine; Visit Provider Physician Assistant | DX: E11.622 Type 2 diabetes mellitus with other skin ulcer (principal); L97.828 Non-pressure chronic ulcer of other part of left lower leg with other specified severity; E11.51 Type 2 diabetes mellitus with diabetic peripheral angiopathy without gangrene; I10 Essential (primary) hypertension; I89.0 Lymphedema, not elsewhere classified; Z79.84 Long term (current) use of oral 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 drugs; Z79.899 Other long term (current) drug therapy; Z87.891 Personal history of nicotine dependence | CPT/HCPCS: 29580; 97597; 97598; 99212; 99213 ==

== ENCOUNTER → 2022-09-25 09:33 | Outpatient (BNVA) | payer MEDICARE, SELFPAY | PROVIDERS: PCP Internal Medicine; Visit Provider Surgery | DX: Z31.438 Encounter for other genetic testing of female for procreative management (principal) | CPT/HCPCS: 99211 ==

== ENCOUNTER → 2022-09-27 10:28 | Outpatient (BNVA) | payer MEDICARE, SELFPAY | PROVIDERS: PCP Internal Medicine; Referring Provider Internal Medicine; Visit Provider Internal Medicine | DX: I50.812 Chronic right heart failure (principal); I10 Essential (primary) hypertension; E11.8 Type 2 diabetes mellitus with unspecified complications; E66.01 Morbid (severe) obesity due to excess calories; Z68.41 Body mass index [BMI] 40.0-44.9, adult | CPT/HCPCS: 93005; 99212 ==

== ENCOUNTER 2022-10-16 12:30 | Outpatient (REF) | payer MEDICARE, SELFPAY ==
--- NOTE | 2022-10-16 14:44 | PFT_ITS ---
FLOWS: FEV1 55% of predicted at 0.93 L. FVC 39% of predicted at 1.08 L. FEV1 to FVC ratio of 0.86. No bronchodilator response. LUNG VOLUMES: Total lung capacity 55% of predicted at 2.72 L. Residual volume 57% of predicted at 1.27 L. Slow vital capacity 53% of predicted at 1.44 L. Expiratory reserve volume 15% of predicted at 0.09 L. Diffusion capacity is moderately decreased. Diffusion capacity corrects to normal after adjustment to valvular ventilation. IMPRESSION: Severe restrictive ventilatory defect with no bronchodilator response. Decreased respiratory reserve volume suggests extrathoracic restriction, likely secondary to abdominal obesity. A combination of restrictive ventilatory defect and decreased diffusion capacity suggest underlying pulmonary parenchymal disease. Clinical correlation is advised. MD GEORGE Ayers/MODL / [id number]
== END 2022-10-16 12:31 | disposition home or self-care (01) ==
LOC: HO.RESP 12:30
PROVIDERS: PCP Internal Medicine; Visit Provider Internal Medicine
DX: J98.4 Other disorders of lung (principal); E66.01 Morbid (severe) obesity due to excess calories
CPT/HCPCS: 94060; 94727; 94729; 99212

== ENCOUNTER 2022-10-24 12:13 | Outpatient (REF) | payer MEDICARE, SELFPAY ==
--- NOTE | ~2022-10-24 | MM_ITS ---
EXAMINATION: MM DIAGNOSTIC DIGITAL BREAST TOMOSYNTHESIS, BILATERAL CLINICAL INFORMATION: Right breast cancer 2021. First mammography status post surgery. Status post bilateral breast surgery. COMPARISON: Mammography: 11/30/2021 and studies dating back to 08/16/2016. TECHNIQUE: Digital breast tomosynthesis was performed in both the craniocaudal and mediolateral oblique views along with computer-aided detection (CAD). Synthesized 2D images were generated from the tomosynthesis. Additional spot magnification views of the right breast in craniocaudal and 90 degree mediolateral views were performed. FINDINGS: There are scattered areas of fibroglandular density (ACR BI-RADS breast composition Category b). There are no significant masses, abnormal calcifications, or other abnormalities. Bilateral postsurgical change noted. Results are provided to the patient at time of visit by the technologist. MM/MM tomosynthesis diagnostic BI IMPRESSION: No specific mammographic evidence of malignancy. ASSESSMENT: BI-RADS 2: Benign RECOMMENDATION: Diagnostic mammography at the time of next annual exam, due in 12 months. This patient's information was entered into a reminder system with a target due date for their next mammogram.
== END 2022-10-24 12:14 | disposition home or self-care (01) ==
LOC: HO.MAMMO 12:13
PROVIDERS: PCP Internal Medicine; Visit Provider Internal Medicine
DX: Z85.3 Personal history of malignant neoplasm of breast (principal)
CPT/HCPCS: 77062; 77066

== ENCOUNTER → 2022-11-07 12:46 | Outpatient (BNVA) | payer MEDICARE, SELFPAY | PROVIDERS: PCP Internal Medicine; Visit Provider Surgery | DX: C50.911 Malignant neoplasm of unspecified site of right female breast (principal); D05.12 Intraductal carcinoma in situ of left breast | CPT/HCPCS: 99212 ==

== ENCOUNTER 2022-11-17 06:53 | Outpatient (REF) | payer MEDICARE, SELFPAY ==
[2022-11-17 11:55] LABS: Alanine Aminotransferase 27 U/L (0-31); Anion Gap 15 (12-20); Aspartate Amino Transferase 16 U/L (5-31); Blood Urea Nitrogen 21 mg/dL (9-16); Calcium 9.9 mg/dL (8.4-10.2); Carbon Dioxide 31 mmol/L (22-29); Chloride 98 mmol/L (96-108); Cholesterol 172 mg/dL; Estimated Glomerular Filt Rate > 60; Glucose Fasting 224 mg/dL (60-99); HDL Cholesterol 42 mg/dL; LDL Cholesterol Calculated 98 mg/dl; Potassium 4.1 mmol/L (3.3-5.1); Sodium 140 mmol/L (135-145); Triglycerides 161 mg/dL
[2022-11-17 12:00] LABS: Estimated Average Glucose 189 mg/dL; Hemoglobin A1c % 8.2 %
[2022-11-17 12:13] LABS: Vitamin D 25-OH Total 38.4 ng/mL (>30)
== END 2022-11-17 06:54 | disposition home or self-care (01) ==
LOC: HO.HMGCLDS 06:53
PROVIDERS: PCP Internal Medicine; Visit Provider Internal Medicine
DX: I10 Essential (primary) hypertension (principal); E11.29 Type 2 diabetes mellitus with other diabetic kidney complication; E78.00 Pure hypercholesterolemia, unspecified
CPT/HCPCS: 36415; 80048; 80061; 82043; 82306; 83036; 84450; 84460

== ENCOUNTER 2022-11-21 13:05 | Outpatient (AMB) | payer MEDICARE, SELFPAY ==
--- NOTE | 2022-11-21 14:00 | A.OFFPC_ITS ---
Vital Signs 11/21/22 14:01 Height 5 ft 3 in Weight 220 lb BMI 38.9 BP 134/64 Blood Pressure Location Rt brachial Position Sitting Pulse 77 Pulse Source Pulse Oximeter Pulse Oximetry (%) 96 Oxygen Delivery Method Room Air Intake Visit Reasons: 2 month follow up Intake Note: Pt is here today for her 2 months Allergies No Known Allergies Allergy (Verified 01/09/24 11:22) Medication List - Last Reconciled 11/21/22 by Arlyn Paul MD amlodipine 5 mg PO DAILY atorvastatin 20 mg PO DAILY blood sugar diagnostic (FreeStyle Lite Strips) 1 strip miscellaneous .QD carvedilol (Coreg) 12.5 mg PO BID cranberry 400 mg PO DAILY ferrous fumarate 325 mg PO DAILY 90 days furosemide 40 mg (2 x 20 mg) PO QAM 90 days hydralazine 100 mg PO TID 90 days letrozole 2.5 mg PO DAILY mecobalamin (vitamin B12) 1,000 mcg PO DAILY metformin 1,000 mg PO BID 90 days multivitamin 1 tab PO DAILY Trulicity (dulaglutide) 0.75 mg (0.5 mL) subcut QWEEK 1 month NS Tobacco use date assessed: 11/21/22 Fall risk assessment: No Falls in past year Last assessed Fall Risk: 11/21/22 HPI 2 month follow up HPI Details 72-year-old lady here today for follow-u p on diabetes mellitus, dysl ipidemia, and hypertension. She has been compliant with taking her medications, and has started Trulicity in addition to metformin and stop glipizide. 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 Invasive ductal carcinoma of right breast Snoring Shoulder pain, bilateral Normocytic normochromic anemia Restrictive lung disease Encounter for initial annual wellness visit (AWV) in Medicare patient Restrictive lung disease secondary to obesity Dyspnea on exertion Obesity Other and unspecified hyperlipidemia Leg edema Swelling of lower extremity 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 Mother Ovarian cancer Brother Diabetes mellitus Brother Diabetes mellitus Maternal Grandfather Throat cancer Social History Household Members: None Housing: Apartment Are you a primary specialist wound care to a significant other at home: No Do you presently have visiting nurse or other home services: No Alcohol intake: former Patient Tobacco Use Status: Former Tobacco user Quit Date: 12/2020 Tobacco use type: Cigarette Years Smoked: since 12 yrs old e-Cigarette/Vaping Use: Never Used Second Hand Smoke Exposure: No Advance Directives Date on File: 04/20/21 service: No Current occupational status: retired Cognitive needs: No Hearing needs: No Vision needs: Yes (Glasses) Questionnaire PHQ-9 Over the last 2 weeks, how often have you been bothered by any of the following problems? 1. Little interest or pleasure in doing things: not at all 2. Feeling down, depressed, or hopeless: not at all 3. Trouble falling or staying asleep, or sleeping too much: more than half the days 4. Feeling tired or having little energy: more than half the days 5. Poor appetite or overeating: not at all 6. Feeling bad about yourself - or that you are a failure or have let yourself or your family down: not at all 7. Trouble concentrating on things, such as reading the newspaper or watching television: not at all 8. Moving or speaking so slowly that other people could have noticed. Or the opposite - being so fidgety or restless that you have been moving around a lot more than usual: not at all 9. Thoughts that you would be better off or of hurting yourself in some way: not at all Total score: 4 Depression Screening Interpretation: Negative [id number] - PHQ-9 Billing: Yes Source: Developed by Drs. Yasmani Ramos, Keli Bhat, Armando Ghotra and colleagues, with an educational iris from [employer]. Thrive Questionnaire Declines Thrive assessment: No Date Thrive assessed: 11/21/22 I am a: Patient What is your living situation today?: I have a steady place to live Within the past 12 months, did the food you bought not last and you didn't have the money to get more?: Never true Within the past 12 months, did you worry whether your food would run out before you got money to buy more?: Never true Do you have trouble paying for medicines?: No Do you have trouble getting transportation to medical appointments?: No Do you have trouble paying your heating and electricity bill?: No Do you have trouble taking care of your child, family member or friend?: No Do you have trouble with day-to-day activities such as bathing, preparing meals, shopping, managing finances, etc.?: No Are you currently unemployed and looking for a job?: No Are you interested in more education?: No AUDIT C Alcohol Use Questionnaire (AUDIT-C) 1. How often do you have a drink containing alcohol?: Never Total Score: 0 MARISA-7 AMB Questionnaire MARISA-7 Date MARISA - 7 assessed: 11/21/22 Feeling nervous, anxious, or on edge: 0 = Not at all Not being able to stop or control worryin = Not at all Worrying too much about different things: 0 = Not at all Trouble relaxin = Not at all Being so restless that it is hard to sit still: 0 = Not at all Becoming easily annoyed or irritable: 0 = Not at all Feeling afraid as if something awful might happen: 0 = Not at all Total MARISA-7 score (0-4 normal; 5-9 mild; 10-14 moderate; 15-21 severe): 0 Source: Developed by Keli Yu, Armando Ghotra and colleagues, with an educational iris from [employer]. MARISA-7 Assessment Billing MARISA-7 Assessment Tool: MARISA-7 Assessment 70860 Review of Systems Const Denies body aches, Denies fatigue, Denies headache(s), Denies malaise, Denies weakness and Reports weight loss Eyes Denies change in vision ENT Denies dizziness and Denies headache(s) Card Denies chest pain, Denies chest pain with activity, Denies syncope, Denies rapid heart rate, Denies leg edema, Denies lightheadedness, Denies palpitations, Denies dyspnea and Denies dyspnea on exertion Resp Denies cough, Denies dyspnea and Denies dyspnea on exertion GI Denies hematochezia and Denies change in stool character Reports no additional complaints Musc Denies abnormal gait, Denies muscle weakness, Denies numbness, Denies radiating pain into limb and Denies tingling Neuro Denies Abnormal speech present, Denies abnormal gait, Denies dizziness, Denies syncope, Denies headache(s), Denies numbness, Denies tingling and Denies weakness Endo Denies fatigue, Denies polydipsia, Denies polyuria and Denies palpitations Niraj/Lymph Reports no additional complaints Physical exam (Primary Care) Vital Signs: Last Vital Signs Pulse 77 11/21/22 14:01 BP 134/64 11/21/22 14:01 Pulse Ox 96 11/21/22 14:01 Oxygen Delivery Method Room Air 11/21/22 14:01 BMI result Body Mass Index 38.9 Tobacco/Smoking Status: Tobacco use Status Tobacco use date assessed 11/21/22 11/21/22 14:06 Patient Tobacco Use Status Former Tobacco user 11/21/22 14:06 Tobacco use type Cigarette 11/21/22 14:06 e-Cigarette/Vaping Use Never Used 11/21/22 14:06 PHQ-9: PHQ-9 Score PHQ-9: Total score 4 03/11/23 16:57 Depression Screening Interpretation: Negative Thrive Assessment: Date of Thrive Assessment Date Thrive assessed 11/21/22 11/21/22 14:06 Const Other: Alert oriented x3 , no acute distress noted , ambulatory with normal gait Orientation/consciousness: patient oriented x3 Eyes General: appearance normal, both eyes and all related structures Neck Other: Supple, no lymphadenopathy, thyroid gland nonpalpable Resp Other: Clear to auscultation bilaterally Cardio Other: S1-S2 present regular rate and rhythm GI Other: Obese, soft, nontender, no mass palpated Skin General skin exam: no rashes or lesions noted Neuro General: patient oriented x3, moves all extremities and no focal motor deficits Speech: No Abnormal speech present Extrem Other: Superficial varicose veins in in both lower extremities General: Yes full ROM, Yes no joint enlargement, Yes no calf tenderness and Yes normal gait Results Reviewed Results Reviewed: Laboratory Tests 11/17/22 11/17/22 07:08 07:08 Estimat Average Glucose 189 Hemoglobin A1c % 8.2 Urine Creatinine 139.10 Urine Microalbumin 206.0 Microalb/Creat Ratio 148.0 PEC : [id number] MADI: 11/17/22 STATUS: COMP REQ : [id number] RECD: 11/17/[address]: Arlyn Paul MD COMP: 11/17/22 ENTERED: 11/17/[address] [facility] [address]: ORDERED: Met Prof Fast, AST, ALT, Lipid Panel, Vitamin D 25-OH Test Result Flag Reference Site Sodium 140 135-145 mmol/L Potassium 4.1 3.3-5.1 mmol/L CL 98 96-108 mmol/L CO2 31 H 22-29 mmol/L Gap 15 12-20 BUN 21 H 9-16 mg/dL Creat 0.74 0.5-1.4 mg/dL EGFR > 60 NOTE: For -[place] individuals, multiply the result by 1.210. Chronic Kidney Disease: Estimated GFR < 60 mL/min/1.73m2 Severe Kidney Disease: Estimated GFR < 15 mL/min/1.73m2 FBS 224 H 60-99 mg/dL A fasting glucose of 126 mg/dl or greater on more than one occasion is considered diagnostic of diabetes. CA 9.9 8.4-10.2 mg/dL AST (GOT) 16 5-31 U/L ALT (GPT) 27 0-31 U/L Triglyceride 161 mg/dL Desirable Triglyceride: less than 150 mg/dL Borderline High Triglyceride 150-199 mg/dL High Triglyceride: 200-499 mg/dL Very High Triglyceride: greater than or equal to 5OO mg/dL Chol 172 mg/dL Desirable Cholesterol: less than 200 mg/dL Borderline High Cholesterol: 200-239 mg/dL High Cholesterol: greater than 239 mg/dL LDL Calculated 98 mg/dl Desirable LDL: less than 100 mg/dL Near Optimal/Above Optimal LDL: 110-129 mg/dL Borderline High LDL: 130-159 mg/dL High LDL: 160-189 mg/dL Very High LDL: greater than or equal to 190 mg/dL HDL 42 mg/dL Desirable HDL: greater than 40 mg/dL Note: This HDL assay may give artificially low results in patients with liver disease. Vit D 25-OH Tot 38.4 >30 ng/mL Health Based Reference Values* < 20 ng/mL Deficient 20-30 ng/mL Insufficient > 30 ng/mL Sufficient Assessment and Plan Assessment & Plan (1) Type 2 diabetes mellitus with other diabetic kidney complication: Code(s): E11.29 - Type 2 diabetes mellitus with other diabetic kidney complication Plan: Improving diabetes control, with hemoglobin A1c now down%. Continue with Trulicity, but dose increased to 1.5 mg weekly, and metformin, emphasized importance of adhering to diet recommended and getting regular exercise. (2) Morbid obesity: Code(s): E66.01 - Morbid (severe) obesity due to excess calories Plan: Discussed need to increase activity and wt reduction. Recommended focusing on improving your health instead of dieting. : Eat Mediterranean diet, limit foods high in fat, sugar, and calories, eat slowly, pay attention to portion sizes, plan your meals ahead of time, start regular physical activity 150 minutes of moderate intensity exercise or 90 minutes/week of vigorous exercise (3) Essential hypertension: Code(s): I10 - Essential (primary) hypertension Plan: Blood pressure at goal of less than 130/80. Continue with amlodipine, carvedilol and hydralazine. Reinforced importance of following a low sodium diet, getting regular exercise, and lowering stress levels. (4) Hyperlipidemia: Code(s): E78.5 - Hyperlipidemia, unspecified Qualifiers: Hyperlipidemia type: pure hypercholesterolemia Qualified Code(s): E78.00 - Pure hypercholesterolemia, unspecified Plan: Reviewed recent fasting lipid profile with patient with LDL cholesterol less than 100 mg/dL . Continue with , in addition to adherence to low-cholesterol diet and regular exercise, at least 30 minutes 3 to 4 times a week. Advised patient to make healthy food choices, eat more fruits, vegetables, whole grains, wild caught fish and low-fat dairy. Limit amount of meat and fried or fatty food products, as well as processed foods and fast foods. Follow-up scheduled with repeat fasting lipid panel in 3 months. Orders: Orders Lipid Panel 02/19/23 E11.29 - Type 2 diabetes mellitus with other diabetic kidney complication, E66.01 - Morbid (severe) obesity due to excess calories, I10 - Essential (primary) hypertension, E78.00 - Pure hypercholesterolemia, unspecified Aspartate Amino Transferase 02/19/23 E11.29 - Type 2 diabetes mellitus with other diabetic kidney complication, E66.01 - Morbid (severe) obesity due to excess calories, I10 - Essential (primary) hypertension, E78.00 - Pure hypercholesterolemia, unspecified Hemoglobin A1c 02/19/23 E11.29 - Type 2 diabetes mellitus with other diabetic kidney complication, E66.01 - Morbid (severe) obesity due to excess calories, I10 - Essential (primary) hypertension, E78.00 - Pure hypercholesterolemia, unspecified Alanine Aminotransferase 02/19/23 E11.29 - Type 2 diabetes mellitus with other diabetic kidney complication, E66.01 - Morbid (severe) obesity due to excess calories, I10 - Essential (primary) hypertension, E78.00 - Pure hypercholesterolemia, unspecified Basic Metabolic Panel Fasting 02/19/23 E11.29 - Type 2 diabetes mellitus with other diabetic kidney complication, E66.01 - Morbid (severe) obesity due to excess calories, I10 - Essential (primary) hypertension, E78.00 - Pure hypercholesterolemia, unspecified Medications: Changed From Trulicity 0.75 mg (0.5 mL) subcut QWEEK 1 month 2 mL 2RF NS E11.29 - Type 2 diabetes mellitus with other diabetic kidney complication To dulaglutide 1.5 mg (0.5 mL) subcut QWEEK 2.5 mL 4RF 30 days E11.29 - Type 2 diabetes mellitus with other diabetic kidney complication Coding Level of Care Code Est Pt Level 4 (48085) Diagnoses Type 2 diabetes mellitus with other diabetic kidney complication E11.29 Morbid obesity E66.01 Essential hypertension I10 Pure hypercholesterolemia E78.00 Hyperlipidemia type: pure hypercholesterolemia Additional Codes MARISA-7 Assessment Billing - MARISA-7 Assessment Tool: MARISA-7 Assessment 58461 ([id number])
[2022-11-21 14:01] VITALS: BP 134/64; PULSE 77; O2SAT 96; BMI 38.9
== END 2022-11-21 14:28 | disposition home or self-care (01) ==
LOC: HO.HMGC 13:05
PROVIDERS: PCP Internal Medicine; Visit Provider Internal Medicine
DX: E11.29 Type 2 diabetes mellitus with other diabetic kidney complication (principal); E66.01 Morbid (severe) obesity due to excess calories; I10 Essential (primary) hypertension; Z68.38 Body mass index [BMI] 38.0-38.9, adult; E78.00 Pure hypercholesterolemia, unspecified
CPT/HCPCS: 99499

== ENCOUNTER 2023-02-26 06:46 | Outpatient (REF) | payer MEDICARE, SELFPAY ==
[2023-02-26 11:51] LABS: Estimated Average Glucose 171 mg/dL; Hemoglobin A1c % 7.6 %
[2023-02-26 11:54] LABS: Alanine Aminotransferase 26 U/L (0-31); Anion Gap 12 (12-20); Aspartate Amino Transferase 18 U/L (5-31); Blood Urea Nitrogen 17 mg/dL (9-16); Calcium 9.9 mg/dL (8.4-10.2); Carbon Dioxide 31 mmol/L (22-29); Chloride 103 mmol/L (96-108); Cholesterol 151 mg/dL; Estimated Glomerular Filt Rate > 60; Glucose Fasting 181 mg/dL (60-99); HDL Cholesterol 42 mg/dL; LDL Cholesterol Calculated 77 mg/dl; Potassium 3.9 mmol/L (3.3-5.1); Sodium 142 mmol/L (135-145); Triglycerides 160 mg/dL
== END 2023-02-26 06:47 | disposition home or self-care (01) ==
LOC: HO.HMGCLDS 06:46
PROVIDERS: PCP Internal Medicine; Visit Provider Internal Medicine
DX: E11.29 Type 2 diabetes mellitus with other diabetic kidney complication (principal); E66.01 Morbid (severe) obesity due to excess calories; E78.00 Pure hypercholesterolemia, unspecified; I10 Essential (primary) hypertension
CPT/HCPCS: 36415; 80048; 80061; 83036; 84450; 84460

== ENCOUNTER → 2023-02-27 08:57 | Outpatient (BNVA) | payer MEDICARE, SELFPAY | PROVIDERS: PCP Internal Medicine; Visit Provider Surgery | DX: C50.911 Malignant neoplasm of unspecified site of right female breast (principal); D05.80 Other specified type of carcinoma in situ of unspecified breast | CPT/HCPCS: 99212 ==

== ENCOUNTER 2023-02-28 11:27 | Outpatient (AMB) | payer MEDICARE, SELFPAY ==
[2023-02-28 12:52] VITALS: BP 120/68; PULSE 73; O2SAT 96; BMI 37.9
--- NOTE | 2023-02-28 12:52 | A.OFFPC_ITS ---
Vital Signs 02/28/23 12:52 Height 5 ft 3 in Weight 214 lb BMI 37.9 BP 120/68 Blood Pressure Location Lt brachial Position Sitting Pulse 73 Pulse Source Pulse Oximeter Pulse Oximetry (%) 96 Oxygen Delivery Method Room Air Intake Visit Reasons: 2 monthffup dm , lipids, htn after labs done Intake Note: Pt is here today for her 3 mo. f/u DM,lipids and HTN Allergies No Known Allergies Allergy (Verified 09/06/23 13:48) Medication List - Last Reconciled 02/28/23 by Arlyn Paul MD amlodipine 5 mg PO DAILY atorvastatin 20 mg PO DAILY blood sugar diagnostic (FreeStyle Lite Strips) 1 strip miscellaneous .QD carvedilol (Coreg) 12.5 mg PO BID dulaglutide 1.5 mg (0.5 mL) subcut QWEEK 30 days ferrous fumarate 325 mg PO DAILY 90 days furosemide 40 mg (2 x 20 mg) PO QAM 90 days hydralazine 100 mg PO TID 90 days letrozole 2.5 mg PO DAILY mecobalamin (vitamin B12) 1,000 mcg PO DAILY metformin 1,000 mg PO BID 90 days multivitamin 1 tab PO DAILY Tobacco use date assessed: 02/28/23 Fall risk assessment: No Falls in past year Last assessed Fall Risk: 02/28/23 HPI 2 monthffup dm , lipids, htn after labs done HPI Details 73 year old lady, here today for follow -up on her diabetes mellitus. Patient has been forgetting to take her metformin,, and admits to not feeling following recommended diet and has not been exercising regularly. Latest hemoglobin A1c is at 7.6%. Fasting lipids however are within normal limits, currently taking atorvastatin 20 mg daily and blood pressure stable controlled present treatment. She is also here today complaining of a foul smelling odor coming from her vaginal area. Denies any accompanying discharge, no dysuria, urinary frequency or urgency, no abdominal pain reported. HPI Comments History of Present Illness Details 72-year-old lady with diabetes mellitus, hypertension dyslipidemia, here today for follow-up. 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 Invasive ductal carcinoma of right breast Snoring Shoulder pain, bilateral Normocytic normochromic anemia Restrictive lung disease Encounter for initial annual wellness visit (AWV) in Medicare patient Restrictive lung disease secondary to obesity Dyspnea on exertion Obesity Other and unspecified hyperlipidemia Leg edema Swelling of lower extremity 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 Mother Ovarian cancer Brother Diabetes mellitus Brother Diabetes mellitus Maternal Grandfather Throat cancer Social History Household Members: None Housing: Apartment Are you a primary child care team lead to a significant other at home: No Do you presently have visiting nurse or other home services: No Alcohol intake: former Patient Tobacco Use Status: Former Tobacco user Quit Date: 12/2020 Tobacco use type: Cigarette Years Smoked: since 12 yrs old e-Cigarette/Vaping Use: Never Used Second Hand Smoke Exposure: No Advance Directives Date on File: 04/20/21 service: No Current occupational status: retired Cognitive needs: No Hearing needs: No Vision needs: Yes (Glasses) Questionnaire PHQ-9 Over the last 2 weeks, how often have you been bothered by any of the following problems? Depression Screening Interpretation: Negative Source: Developed by Drs. Yasmani Ramos, Keli Bhat, rAmando Ghotra and colleagues, with an educational iris from [employer]. Thrive Questionnaire Date Thrive assessed: 02/28/23 I am a: Patient What is your living situation today?: I have a steady place to live Within the past 12 months, did the food you bought not last and you didn't have the money to get more?: Never true Within the past 12 months, did you worry whether your food would run out before you got money to buy more?: Never true Do you have trouble paying for medicines?: No Do you have trouble getting transportation to medical appointments?: No Do you have trouble paying your heating and electricity bill?: No Do you have trouble taking care of your child, family member or friend?: No Do you have trouble with day-to-day activities such as bathing, preparing meals, shopping, managing finances, etc.?: No Are you currently unemployed and looking for a job?: No Are you interested in more education?: No AUDIT C Alcohol Use Questionnaire (AUDIT-C) 1. How often do you have a drink containing alcohol?: Never Total Score: 0 MARISA-7 AMB Questionnaire MARISA-7 Date MARISA - 7 assessed: 02/28/23 Feeling nervous, anxious, or on edge: 0 = Not at all Not being able to stop or control worryin = Not at all Worrying too much about different things: 0 = Not at all Trouble relaxin = Not at all Being so restless that it is hard to sit still: 0 = Not at all Becoming easily annoyed or irritable: 0 = Not at all Feeling afraid as if something awful might happen: 0 = Not at all Total MARISA-7 score (0-4 normal; 5-9 mild; 10-14 moderate; 15-21 severe): 0 Source: Developed by Drs. Yasmani Ramos, Keli Bhat, Armando belle nd colleagues, with an educational iris from [employer]. MARISA-7 Assessment Billing MARISA-7 Assessment Tool: MARISA-7 Assessment 37851 Review of Systems Const Details: Sees [facility] Denies body aches, Denies fatigue, Denies headache(s), Denies malaise and Denies weakness Eyes Denies change in vision ENT Denies dizziness and Denies headache(s) Card Denies chest pain, Denies chest pain with activity, Denies syncope, Denies rapid heart rate, Denies leg edema, Denies lightheadedness, Denies palpitations, Denies dyspnea and Denies dyspnea on exertion Resp Denies cough, Denies dyspnea and Denies dyspnea on exertion GI Denies change in stool character Reports no additional complaints Musc Denies abnormal gait, Denies muscle weakness, Denies numbness, Denies radiating pain into limb and Denies tingling Skin/Breast Details: She sees Dr. Porsche Calhoun for her foot exam every 3 month Denies breast pain, Denies breast mass and Denies rash Neuro Denies Abnormal speech present, Denies abnormal gait, Denies dizziness, Denies syncope, Denies headache(s), Denies numbness, Denies tingling and Denies weakness Endo Denies fatigue, Denies polydipsia, Denies polyuria and Denies palpitations Niraj/Lymph Reports no additional complaints Aller/Immun Reports no additional complaints Physical exam (Primary Care) Vital Signs: Last Vital Signs Pulse 73 02/28/23 12:52 BP 120/68 02/28/23 12:52 Pulse Ox 96 02/28/23 12:52 Oxygen Delivery Method Room Air 02/28/23 12:52 BMI result Body Mass Index 37.9 Tobacco/Smoking Status: Tobacco use Status Tobacco use date assessed 02/28/23 02/28/23 12:56 Patient Tobacco Use Status Former Tobacco user 02/28/23 12:56 Tobacco use type Cigarette 02/28/23 12:56 e-Cigarette/Vaping Use Never Used 02/28/23 12:56 Depression Screening Interpretation: Negative Thrive Assessment: Date of Thrive Assessment Date Thrive assessed 02/28/23 02/28/23 13:05 Const Other: Alert oriented x3 , no acute distress noted , ambulatory with normal gait Orientation/consciousness: patient oriented x3 Eyes General: appearance normal, both eyes and all related structures Neck Other: Supple, no lymphadenopathy, thyroid gland nonpalpable Resp Other: Clear to auscultation bilaterally Cardio Other: S1-S2 present regular rate and rhythm GI Other: Obese, soft, nontender, no mass palpated General: Yes no CVA tenderness Back/Spine/Pelvis Back: no CVA tenderness and No back tenderness Skin General skin exam: no rashes or lesions noted Neuro General: patient oriented x3, moves all extremities and no focal motor deficits Speech: No Abnormal speech present Extrem Other: Superficial varicose veins in in both lower extremities General: Yes full ROM, Yes no joint enlargement, Yes no calf tenderness and Yes normal gait Results Reviewed Results Reviewed: RUN: 02/28/23 1313 PAGE 1 [facility] [address] [place] [id number] Utility Locator: Genaro Aguilera M.D. Specimen Inquiry Name: Rosalia Talavera Age/Sex: 72/F : 1950 Unit#: [id number] Attend Dr: Arlyn Paul MD Re02/26/23 Status: DEP [facility]F [facility] Disch: SPEC : [id number] MADI: 02/26/23 STATUS: COMP REQ : [id number] RECD: 02/26/[address]: Arlyn Paul MD COMP: 02/26/23 ENTERED: 02/26/[address] [facility] [address]: ORDERED: Met Prof Fast, AST, ALT, Lipid Panel Test Result Flag Reference Site Sodium 142 135-145 mmol/L Potassium 3.9 3.3-5.1 mmol/L CL 103 96-108 mmol/L CO2 31 H 22-29 mmol/L Gap 12 12-20 BUN 17 H 9-16 mg/dL Creat 0.65 0.5-1.4 mg/dL EGFR > 60 NOTE: For -[place] individuals, multiply the result by 1.210. Chronic Kidney Disease: Estimated GFR < 60 mL/min/1.73m2 Severe Kidney Disease: Estimated GFR < 15 mL/min/1.73m2 FBS 181 H 60-99 mg/dL A fasting glucose of 126 mg/dl or greater on more than one occasion is considered diagnostic of diabetes. CA 9.9 8.4-10.2 mg/dL AST (GOT) 18 5-31 U/L ALT (GPT) 26 0-31 U/L Triglyceride 160 mg/dL Desirable Triglyceride: less than 150 mg/dL Borderline High Triglyceride 150-199 mg/dL High Triglyceride: 200-499 mg/dL Very High Triglyceride: greater than or equal to 5OO mg/dL Chol 151 mg/dL Desirable Cholesterol: less than 200 mg/dL Borderline High Cholesterol: 200-239 mg/dL High Cholesterol: greater than 239 mg/dL LDL Calculated 77 mg/dl Desirable LDL: less than 100 mg/dL Near Optimal/Above Optimal LDL: 110-129 mg/dL Borderline High LDL: 130-159 mg/dL High LDL: 160-189 mg/dL Very High LDL: greater than or equal to 190 mg/dL HDL 42 mg/dL Laboratory Tests 02/26/23 06:52 Estimat Average Glucose 171 Hemoglobin A1c % 7.6 Name: Rosalia Talavera Age/Sex: 72/F : 1950 Unit#: [id number] Attend Dr: Ania Graves MD Re02/15/23 Status: REG RCR Location: [facility] Disch: SPEC : [id number] MADI: 02/15/23 STATUS: COMP REQ : [id number] RECD: 02/15/[address]: Ania Graves MD COMP: 02/15/23 ENTERED: 02/15/[address]: Arlyn Paul MD ORDERED: CBC Auto Diff Test Result Flag Reference Site WBC 7.6 4.8-10.8 X10*3/uL RBC 3.88 L 4.20-5.50 X10*6/uL HGB 12.2 12.0-16.0 g/dl HCT 37.0 37.0-47.0 % MCV 95.4 80.0-98.0 fL MCH 31.4 27.0-33.0 pg MCHC 33.0 31.0-35.0 g/dl RDW 14.2 11.0-16.0 % PLT 291 160-400 X10*3/uL Assessment and Plan Assessment & Plan (1) Essential hypertension: Code(s): I10 - Essential (primary) hypertension Plan: Blood pressure at goal of less than 130/80. Continue with current medication. Reinforced importance of following a low sodium diet, getting regular exercise, and lowering stress levels. (2) Type 2 diabetes mellitus with other diabetic kidney complication: Code(s): E11.29 - Type 2 diabetes mellitus with other diabetic kidney complication Plan: Recent lab results reviewed with patient, diabetes mellitus not controlled hemoglobin A1c at 7.6%. She would like to try lowering blood sugar again on her own, does not want to add any more medications. Stressed importance of taking her medications as directed and follow recommended diet and get regular exercise. Counseled regarding importance of yearly diabetes retinopathy screening. Patient advised to inspect feet daily, for any signs of injury, callus or infection. Compliance with diet and regular exercise again stressed. Blood pressure goal is less than 130/80, goal LDL is less than 100 and goal hemoglobin A1c is less than 7% follow-up appointment made in--3-months, after fasting labs done. (3) Hyperlipidemia: Code(s): E78.5 - Hyperlipidemia, unspecified Qualifiers: Hyperlipidemia type: pure hypercholesterolemia Qualified Code(s): E78.00 - Pure hypercholesterolemia, unspecified Plan: Fasting lipid profile recently drawn showed results within normal limits, continued on atorvastatin 20 mg daily repeat levels again in 3 month (4) Vaginal odor: Code(s): N89.8 - Other specified noninflammatory disorders of vagina Plan: Referred to [facility] for further evaluation . Orders: Orders Hemoglobin A1c 3 Months I10 - Essential (primary) hypertension, E11.29 - Type 2 diabetes mellitus with other diabetic kidney complication, E78.5 - Hype rlipidemia, unspecified Alanine Aminotransferase 3 Months I10 - Essential (primary) hypertension, E11.29 - Type 2 diabetes mellitus with other diabetic kidney complication, E78.5 - Hyperlipidemia, unspecified Aspartate Amino Transferase 3 Months I10 - Essential (primary) hypertension, E11.29 - Type 2 diabetes mellitus with other diabetic kidney complication, E78.5 - Hyperlipidemia, unspecified Basic Metabolic Panel Fasting 3 Months I10 - Essential (primary) hypertension, E11.29 - Type 2 diabetes mellitus with other diabetic kidney complication, E78.5 - Hyperlipidemia, unspecified Lipid Panel 3 Months I10 - Essential (primary) hypertension, E11.29 - Type 2 diabetes mellitus with other diabetic kidney complication, E78.5 - Hyperlipidemia, unspecified Referrals [facility] Referral N89.8 - Other specified noninflammatory disorders of vagina Coding Level of Care Code Est Pt Level 4 (64319) Diagnoses Essential hypertension I10 Type 2 diabetes mellitus with other diabetic kidney complication E11.29 Pure hypercholesterolemia E78.00 Hyperlipidemia type: pure hypercholesterolemia Vaginal odor N89.8 Additional Codes MARISA-7 Assessment Billing - MARISA-7 Assessment Tool: MARISA-7 Assessment [id number] ([id number])
== END 2023-02-28 13:31 | disposition home or self-care (01) ==
PROVIDERS: Visit Provider Internal Medicine
DX: I10 Essential (primary) hypertension (principal); E11.29 Type 2 diabetes mellitus with other diabetic kidney complication; E78.00 Pure hypercholesterolemia, unspecified; N89.8 Other specified noninflammatory disorders of vagina
CPT/HCPCS: 99214

== ENCOUNTER 2023-04-09 09:49 | Outpatient (AMB) | payer MEDICARE, SELFPAY ==
[2023-04-09 10:05] VITALS: BP 132/60; PULSE 76; BMI 37.1
--- NOTE | 2023-04-09 10:05 | A.OFFVIS_ITS ---
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 Accompanied by: Self / Same As Patient Allergies No Known Allergies Allergy (Verified 04/09/23 10:07) Medication List - Last Reconciled 04/09/23 by Colby Agosto MD amlodipine 5 mg PO DAILY atorvastatin 20 mg PO DAILY blood sugar diagnostic (FreeStyle Lite Strips) 1 strip miscellaneous .QD carvedilol (Coreg) 12.5 mg PO BID dulaglutide 1.5 mg (0.5 mL) subcut QWEEK 30 days ferrous fumarate 325 mg PO DAILY 90 days furosemide 40 mg (2 x 20 mg) PO QAM 90 days glucosamine HCl 1,500 mg PO DAILY hydralazine 100 mg PO TID 90 days letrozole 2.5 mg PO DAILY mecobalamin (vitamin B12) 1,000 mcg PO DAILY metformin 1,000 mg PO BID 90 days multivitamin 1 tab PO DAILY HPI HPI Comments History of Present Illness Details Rosalia is here for follow up regarding leg swelling. She has had this for a long time. No known cardiovascular problems. However, she has got multiple vascular risk factors including type 2 diabetes, hypertension as well as dyslipidemia. Long history of smoking, but not recently. Overall, she states she is feeling good. She goes to wound care and they apparently gave her some pump and after using it her leg swelling is significantly improved. No other cardiac complaints at this time. Seems to be getting along okay. 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 Kidney stones Leg edema Morbid obesity Normocytic normochromic anemia Obesity Other and unspecified hyperlipidemia Primary invasive malignant neoplasm of right female breast Renal calculus, left Restrictive lung disease Restrictive lung disease secondary to obesity Shoulder pain, bilateral Snoring 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 Mother Ovarian cancer Brother Diabetes mellitus Brother Diabetes mellitus Maternal Grandfather Throat cancer Social History Household Members: None Housing: Apartment Are you a primary care manager to a significant other at home: No Do you presently have visiting nurse or other home services: No Alcohol intake: former Patient Tobacco Use Status: Former Tobacco user Quit Date: 12/2020 Tobacco use type: Cigarette Years Smoked: since 12 yrs old e-Cigarette/Vaping Use: Never Used Second Hand Smoke Exposure: No Advance Directives Date on File: 04/20/21 service: No Current occupational status: retired Cognitive needs: No Hearing needs: No Vision needs: Yes (Glasses) Review of Systems Const Denies weakness ENT Denies dizziness Card Denies chest pain, Denies chest pain with activity, Denies syncope, Denies rapid heart rate, Denies pedal edema, Denies edema, Denies leg edema, Denies lightheadedness, Denies palpitations, Denies dyspnea, Denies dyspnea on exertion and Denies orthopnea Resp Denies cough, Denies dyspnea and Denies dyspnea on exertion GI Denies hematochezia and Denies change in stool character Musc Denies abnormal gait, Denies muscle cramps, Denies muscle weakness, Denies numbness, Denies radiating pain into limb and Denies tingling Neuro Denies abnormal gait, Denies dizziness, Denies syncope, Denies numbness, Denies tingling and Denies weakness Endo Denies palpitations Physical Exam Vital Signs: Last Vital Signs Pulse 76 04/09/23 10:05 BP 132/60 04/09/23 10:05 BMI result Body Mass Index 37.1 Const General: comfortable and no acute distress Orientation/consciousness: patient oriented x3 HEENT Other: Unremarkable Head: Yes normal to inspection Neck Neck: Yes normal visual inspection Chest Chest palpation & inspection: normal inspection of the chest Resp Auscultation: clear to auscultation bilaterally Cardio Palpation: normal PMI Heart sounds: S1 normal heart sound present, S2 normal heart sound present, no gallops, no murmurs and no rubs GI Palpation (GI): Soft to palpation Back/Spine/Pelvis Other: unremarkable Skin General skin exam: no rashes or lesions noted Neuro General: patient oriented x3 Extrem Other: 1+ leg swelling. General: Yes normal to inspection Psych Mental Status: mental status grossly normal Assessment & Plan Assessment & Plan (1) Chronic right heart failure: Code(s): I50.812 - Chronic right heart failure Plan: Continue diuretics. May follow instructions from wound care as that is also helping a lot. Echocardiogram with LVEF of 65-70%. Mild diastolic dysfunction with indeterminate filling pressures. Otherwise unremarkable. Myocardial perfusion imaging without any clear ischemia or other abnormalities. (2) Morbid obesity: Code(s): E66.01 - Morbid (severe) obesity due to excess calories Plan: Unlikely to change and this has been discussed numerous times. (3) Essential hypertension: Code(s): I10 - Essential (primary) hypertension Plan: Currently on carvedilol, amlodipine and hydralazine. History of hyperkalemia and hence not on any ROBBIN inhibitors or ARB. (4) Type 2 diabetes mellitus with unspecified complications: Code(s): E11.8 - Type 2 diabetes mellitus with unspecified complications Plan: On dulaglutide and metformin. Less than optimal control. Last hemoglobin A1c is 7.6%. Coding Level of Care Code Est Pt Level 4 (29646) Diagnoses Chronic right heart failure I50.812 Morbid obesity E66.01 Essential hypertension I10 Type 2 diabetes mellitus with unspecified complications E11.8
== END 2023-04-09 10:21 | disposition home or self-care (01) ==
PROVIDERS: Visit Provider Internal Medicine
DX: I50.812 Chronic right heart failure (principal); E66.01 Morbid (severe) obesity due to excess calories; I10 Essential (primary) hypertension; E11.8 Type 2 diabetes mellitus with unspecified complications
CPT/HCPCS: 99214

== ENCOUNTER → 2023-04-09 09:49 | Outpatient (BNVA) | payer MEDICARE, SELFPAY | PROVIDERS: Visit Provider Internal Medicine | DX: I11.0 Hypertensive heart disease with heart failure (principal); I50.812 Chronic right heart failure; E11.8 Type 2 diabetes mellitus with unspecified complications; E66.01 Morbid (severe) obesity due to excess calories; Z68.37 Body mass index [BMI] 37.0-37.9, adult | CPT/HCPCS: 99212 ==

== ENCOUNTER 2023-05-29 12:32 | Outpatient (AMB) | payer MEDICARE, SELFPAY ==
[2023-05-29 12:39] VITALS: BP 120/70; BMI 36.3
--- NOTE | 2023-05-29 12:39 | A.OFFVIS_ITS ---
Intake Vital Signs 05/29/23 12:39 Height 5 ft 3 in Weight 205 lb 0.478 oz BMI 36.3 BP 120/70 Intake Visit Reasons: noninflammatory disorder of vag/PCP referral Layer Out Plate Glass Required: No Information Interpreted: non-clinical & clinical Medical Lab Assistant: Medical Lab Assistant Present Accompanied by: Self / Same As Patient Allergies No Known Allergies Allergy (Verified 05/29/23 12:42) Post menopausal: Yes HPI HPI Comments History of Present Illness Details Presenting complaining vaginal odor that started few weeks ago but has resolved recently, no vulvar itching, no vaginal discharge or bleeding, no other associated symptoms PFSH Medical History Vaginal odor Ulcer of left lower extremity Cellulitis of left lower extremity 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 Invasive ductal carcinoma of right breast Snoring Shoulder pain, bilateral Normocytic normochromic anemia Restrictive lung disease Encounter for initial annual wellness visit (AWV) in Medicare patient Restrictive lung disease secondary to obesity Dyspnea on exertion Obesity Other and unspecified hyperlipidemia Leg edema Swelling of lower extremity 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 Mother Ovarian cancer Brother Diabetes mellitus Brother Diabetes mellitus Maternal Grandfather Throat cancer Social History Household Members: None Housing: Apartment Are you a primary school childcare attendant to a significant other at home: No Do you presently have visiting nurse or other home services: No Alcohol intake: former Patient Tobacco Use Status: Former Tobacco user Quit Date: 12/2020 Tobacco use type: Cigarette Years Smoked: since 12 yrs old e-Cigarette/Vaping Use: Never Used Second Hand Smoke Exposure: No Advance Directives Date on File: 04/20/21 service: No Current occupational status: retired Cognitive needs: No Hearing needs: No Vision needs: Yes (Glasses) Review of Systems Const All systems reviewed & are unremarkable except as noted in HPI and below Physical Exam Vital Signs: Last Vital Signs BP 120/70 05/29/23 12:39 BMI result Body Mass Index 36.3 General: Yes no CVA tenderness External Female Exam: normal external appearance and normal appearance of the urethra Speculum Exam - Vagina: normal appearance of the vagina, normal palpation, no lesions and no masses Speculum Exam - Cervix: normal appearance of the cervix, normal palpation, no lesions, no masses and nontender Bimanual exam- vagina & uterus: normal bimanual exam, normal palpation, uterine size normal, normal palpation, uterine shape normal, No Cervical tenderness present and non-tender Bimanual Exam- Adnexa, other: normal adnexae Back/Spine/Pelvis Back: no CVA tenderness Assessment & Plan Assessment & Plan (1) Vaginal odor: Code(s): N89.8 - Other specified noninflammatory disorders of vagina Plan: BV panel taken. Since the patient symptoms has resolved, will check the results if positive will treat accordingly. Instructions given the patient to call in case her symptoms recur. All questions answered, the patient verbalized understanding Orders: Orders Bacterial Vaginosis Panel Today N89.8 - Other specified noninflammatory disorders of vagina Coding Level of Care Code New Pt Level 3 (86853) Diagnoses Vaginal odor N89.8
== END 2023-05-29 13:16 | disposition home or self-care (01) ==
PROVIDERS: PCP Internal Medicine; Visit Provider Obstetrics & Gynecology
DX: N89.8 Other specified noninflammatory disorders of vagina (principal)
CPT/HCPCS: 99203

== ENCOUNTER 2023-05-29 12:32 | Outpatient (REF) | payer MEDICARE, SELFPAY ==
[2023-05-30 15:12] LABS: BV Int Neg Control Negative (Negative); BV Int Pos Control Positive (Positive)
== END 2023-05-29 12:33 | disposition home or self-care (01) ==
LOC: HO.LNP 12:32
PROVIDERS: PCP Internal Medicine; Visit Provider Obstetrics & Gynecology
DX: N89.8 Other specified noninflammatory disorders of vagina (principal)
CPT/HCPCS: 87480; 87510; 87660; 99202

== ENCOUNTER 2023-05-31 07:34 | Outpatient (REF) | payer MEDICARE, SELFPAY ==
[2023-05-31 12:13] LABS: Estimated Average Glucose 151 mg/dL; Hemoglobin A1c % 6.9 % (<6.0)
[2023-05-31 12:24] LABS: Alanine Aminotransferase 29 U/L (0-31); Anion Gap 14 (12-20); Aspartate Amino Transferase 23 U/L (5-31); Blood Urea Nitrogen 16 mg/dL (9-16); Calcium 10.3 mg/dL (8.4-10.2); Carbon Dioxide 30 mmol/L (22-29); Chloride 101 mmol/L (96-108); Cholesterol 186 mg/dL (<200); Estimated Glomerular Filt Rate > 60; Glucose Fasting 157 mg/dL (60-99); HDL Cholesterol 52 mg/dL (>40); LDL Cholesterol Calculated 106 mg/dL (<100); Sodium 141 mmol/L (135-145); Triglycerides 141 mg/dL (<150)
== END 2023-05-31 07:35 | disposition home or self-care (01) ==
LOC: HO.HMGCLDS 07:34
PROVIDERS: PCP Internal Medicine; Visit Provider Internal Medicine
DX: I10 Essential (primary) hypertension (principal); E11.29 Type 2 diabetes mellitus with other diabetic kidney complication; E78.5 Hyperlipidemia, unspecified
CPT/HCPCS: 36415; 80048; 80061; 83036; 84450; 84460

== ENCOUNTER 2023-06-04 12:51 | Outpatient (AMB) | payer MEDICARE, SELFPAY ==
--- NOTE | 2023-06-04 12:52 | A.OFFPC_ITS ---
Vital Signs 06/04/23 13:43 Height 5 ft 3 in Weight 203 lb BMI 36.0 BP 112/64 Blood Pressure Location Rt brachial Position Sitting Pulse 69 Pulse Source Pulse Oximeter Pulse Oximetry (%) 97 Oxygen Delivery Method Room Air Intake Visit Reasons: 3 month follow up Intake Note: Pt is here today for her 3 months f/u labs Allergies No Known Allergies Allergy (Verified 06/05/23 01:49) Medication List - Last Reconciled 06/05/23 by Arlyn Paul MD amlodipine 5 mg PO DAILY atorvastatin 20 mg PO DAILY blood sugar diagnostic (FreeStyle Lite Strips) 1 strip miscellaneous .QD carvedilol (Coreg) 12.5 mg PO BID dulaglutide 1.5 mg (0.5 mL) subcut QWEEK ferrous fumarate 325 mg PO DAILY 90 days furosemide 40 mg (2 x 20 mg) PO QAM 90 days glucosamine HCl 1,500 mg PO DAILY hydralazine 100 mg PO TID 90 days letrozole 2.5 mg PO DAILY mecobalamin (vitamin B12) 1,000 mcg PO DAILY metformin 1,000 mg PO BID 90 days multivitamin 1 tab PO DAILY Tobacco use date assessed: 06/04/23 Fall risk assessment: No Falls in past year Last assessed Fall Risk: 06/04/23 Dental Screening Dental Screen Date: 06/04/23 Did you have a dental visit in the last 12 months?: Yes Did you have a dental problem in the last 6 months where you did not have access to dental care?: No Was dental information given to patient?: Patient has dentist HPI 3 month follow up HPI Details 73-year-old lady with diabetes mellitus, hypertension dyslipidemia, here today for her follow-up. She has been doing well, has lost weight ever since she started taking Trulicity which has lessened her appetite. She has been feeling better, less joint pain ever since she lost weight. Her blood pressure is within normal limits, and recent fasting blood labs show electrolytes renal function, liver enzymes are within normal limits, and hemoglobin A1c now down to 6.9%. LDL cholesterol remains slightly elevated at 106 mg/dL. Admits to eating a lot of cheese, but has cut back on her carb intake. 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 Invasive ductal carcinoma of right breast Snoring Shoulder pain, bilateral Normocytic normochromic anemia Restrictive lung disease Encounter for initial annual wellness visit (AWV) in Medicare patient Restrictive lung disease secondary to obesity Dyspnea on exertion Obesity Other and unspecified hyperlipidemia Leg edema Swelling of lower extremity 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 Mother Ovarian cancer Brother Diabetes mellitus Brother Diabetes mellitus Maternal Grandfather Throat cancer Social History Household Members: None Housing: Apartment Are you a primary interior plant caretaker to a significant other at home: No Do you presently have visiting nurse or other home services: No Alcohol intake: former Patient Tobacco Use Status: Former Tobacco user Quit Date: 12/2020 Tobacco use type: Cigarette Years Smoked: since 12 yrs old e-Cigarette/Vaping Use: Never Used Second Hand Smoke Exposure: No Advance Directives Date on File: 04/20/21 service: No Current occupational status: retired Cognitive needs: No Hearing needs: No Vision needs: Yes (Glasses) Questionnaire PHQ-9 Over the last 2 weeks, how often have you been bothered by any of the following problems? Depression Screening Interpretation: Negative Source: Developed by Drs. Yasmani Ramos, Keli Bhat, Armando Ghotra and colleagues, with an educational iris from [employer]. Thrive Questionnaire Date Thrive assessed: 02/28/23 MARISA-7 AMB Questionnaire MARISA-7 Date MARISA - 7 assessed: 02/28/23 Source: Developed by Drs. Yasmani Ramos, Keli Bhat, Armando Ghotra and colleagues, with an educational iris from [employer]. Review of Systems Const Denies body aches, Denies fatigue, Denies headache(s), Denies malaise, Denies weakness and Reports weight loss Eyes Denies change in vision ENT Denies dizziness and Denies headache(s) Card Denies chest pain, Denies chest pain with activity, Denies syncope, Denies rapid heart rate, Denies leg edema, Denies lightheadedness, Denies palpitations, Denies dyspnea and Denies dyspnea on exertion Resp Denies cough, Denies dyspnea and Denies dyspnea on exertion GI Denies hematochezia and Denies change in stool character Reports no additional complaints Musc Denies abnormal gait, Denies muscle weakness, Denies numbness, Denies radiating pain into limb and Denies tingling Skin/Breast Denies breast pain, Denies breast mass and Denies rash Neuro Denies Abnormal speech present, Denies abnormal gait, Denies dizziness, Denies syncope, Denies headache(s), Denies numbness, Denies tingling and Denies weakness Psych Reports no additional complaints Endo Denies fatigue, Denies polydipsia, Denies polyuria and Denies palpitations Niraj/Lymph Reports no additional complaints Aller/Immun Reports no additional complaints Physical exam (Primary Care) Vital Signs: Last Vital Signs Pulse 69 06/04/23 13:43 BP 112/64 06/04/23 13:43 Pulse Ox 97 06/04/23 13:43 Oxygen Delivery Method Room Air 06/04/23 13:43 BMI result Body Mass Index 36.0 Tobacco/Smoking Status: Tobacco use Status Tobacco use date assessed 06/04/23 06/04/23 13:48 Patient Tobacco Use Status Former Tobacco user 06/04/23 12:53 Tobacco use type Cigarette 06/04/23 12:53 e-Cigarette/Vaping Use Never Used 06/04/23 12:53 Depression Screening Interpretation: Negative Thrive Assessment: Date of Thrive Assessment Date Thrive assessed 02/28/23 06/04/23 12:53 Const Other: Alert oriented x3 , no acute distress noted , ambulatory with normal gait Orientation/consciousness: patient oriented x3 Eyes General: appearance normal, both eyes and all related structures Neck Other: Supple, no lymphadenopathy, thyroid gland nonpalpable Resp Other: Clear to auscultation bilaterally Cardio Other: S1-S2 present regular rate and rhythm GI Other: Obese, soft, nontender, no mass palpated General: Yes no CVA tenderness Back/Spine/Pelvis Back: no CVA tenderness and No back tenderness Skin General skin exam: no rashes or lesions noted Neuro General: patient oriented x3, moves all extremities and no focal motor deficits Speech: No Abnormal speech present Extrem Other: Superficial varicose veins in in both lower extremities General: Yes full ROM, Yes no joint enlargement, Yes no calf tenderness and Yes normal gait Results Reviewed Results Reviewed: RUN: 06/04/23 1357 PAGE 1 [facility] [address] [place] [id number] [employer]: Genaro Aguilera M.D. Specimen Inquiry Name: Rosalia Talavera Age/Sex: 73/F : 1950 Unit#: [id number] Attend Dr: Arlyn Paul MD Re05/31/23 Status: DEP [facility]F [facility] Disch: SPEC : [id number] MADI: 05/31/23 STATUS: COMP REQ : [id number] RECD: 05/31/[address]: Arlyn Paul MD COMP: 05/31/234 ENTERED: 05/31/[address] [facility] DR: ORDERED: Met Prof Fast, AST, ALT, Lipid Panel Test Result Flag Reference Site Sodium 141 135-145 mmol/L Potassium 4.0 3.3-5.1 mmol/L CL 101 96-108 mmol/L CO2 30 H 22-29 mmol/L Gap 14 12-20 BUN 16 9-16 mg/dL Creat 0.65 0.5-1.4 mg/dL EGFR > 60 NOTE: For -Citizen Of [place] individuals, multiply the result by 1.210. Chronic Kidney Disease: Estimated GFR < 60 mL/min/1.73m2 Severe Kidney Disease: Estimated GFR < 15 mL/min/1.73m2 FBS 157 H 60-99 mg/dL A fasting glucose of 126 mg/dl or greater on more than one occasion is considered diagnostic of diabetes. CA 10.3 H 8.4-10.2 mg/dL AST (GOT) 23 5-31 U/L ALT (GPT) 29 0-31 U/L Triglyceride 141 <150 mg/dL Desirable Triglyceride: less than 150 mg/dL Borderline High Triglyceride 150-199 mg/dL High Triglyceride: 200-499 mg/dL Very High Triglyceride: greater than or equal to 5OO mg/dL Cholesterol 186 <200 mg/dL Desirable Cholesterol: less than 200 mg/dL Borderline High Cholesterol: 200-239 mg/dL High Cholesterol: greater than 239 mg/dL LDL Calculated 106 H <100 mg/dL Desirable LDL: less than 100 mg/dL Near Optimal/Above Optimal LDL: 110-129 mg/dL Borderline High LDL: 130-159 mg/dL High LDL: 160-189 mg/dL Very High LDL: greater than or equal to 190 mg/dL HDL 52 >40 mg/dL Desirable HDL: greater than 40 mg/dL Note: This HDL assay may give artificially low results in patients with liver disease. Laboratory Tests 11/17/22 05/31/23 07:08 07:38 Estimat Average Glucose 189 151 Hemoglobin A1c % 8.2 6.9 H Assessment and Plan Assessment & Plan (1) Essential hypertension: Code(s): I10 - Essential (primary) hypertension Plan: Blood pressure stable controlled on present treatment, new hydralazine, furosemide, carvedilol (2) Type 2 diabetes mellitus with other diabetic kidney complication: Code(s): E11.29 - Type 2 diabetes mellitus with other diabetic kidney complication Plan: Recent lab results reviewed with patient, with sugar and hemoglobin A1c stable and at goal , continue metformin 1000 mg twice a day and dulaglutide 1.5 mg once weekly. continue to check fasting blood sugar at home, maintain log and bring to next appointment for review. Reinforced diabetic diet and regular exercise with patient. Counseled regarding importance of yearly diabetes retinopathy screening. Patient advised to inspect feet daily, for any signs of injury, callus or infection. Compliance with diet and regular exercise again stressed. Blood pressure goal is less than 130/80, goal LDL is less than 100 and goal hemoglobin A1c is less than 7% follow-up appointment made in--3-months, after fasting labs done. (3) Hyperlipidemia: Code(s): E78.5 - Hyperlipidemia, unspecified Qualifiers: Hyperlipidemia type: pure hypercholesterolemia Qualified Code(s): E78.00 - Pure hypercholesterolemia, unspecified Plan: Reviewed recent fasting lipid profile with patient with LDL cholesterol not at goal. Will continue on atorvastatin 20 mg daily and advised to cut back on eating cheese . Continue with atorvastatin 20 mg daily , in addition to adherence to low-cholesterol diet and regular exercise, at least 30 minutes 3 to 4 times a week. Advised patient to make healthy food choices, eat more fruits, vegetables, whole grains, wild caught fish and low-fat dairy. Limit amount of meat and fried or fatty food products, as well as processed foods and fast foods. Follow-up scheduled with repeat fasting lipid panel in 3 months. Orders: Orders Lipid Panel 08/17/23 E11. - Type 2 diabetes mellitus with other diabetic kidney complication, E78.5 - Hyperlipidemia, unspecified, I10 - Essential (primary) hypertension, Z78.0 - Asymptomatic menopausal state Alanine Aminotransferase 08/17/23 E11.29 - Type 2 diabetes mellitus with other diabetic kidney complication, E78.5 - Hyperlipidemia, unspecified, I10 - Essential (primary) hypertension, Z78.0 - Asymptomatic menopausal state Aspartate Amino Transferase 08/17/23 E11.29 - Type 2 diabetes mellitus with other diabetic kidney complication, E78.5 - Hyperlipidemia, unspecified, I10 - Essential (primary) hypertension, Z78.0 - Asymptomatic menopausal state Hemoglobin A1c 08/17/23 E11.29 - Type 2 diabetes mellitus with other diabetic kidney complication, E78.5 - Hyperlipidemia, unspecified, I10 - Essential (primary) hypertension, Z78.0 - Asymptomatic menopausal state Vitamin D 25-OH Total 08/17/23. - Type 2 diabetes mellitus with other diabetic kidney complication, E78.5 - Hyperlipidemia, unspecified, I10 - Essential (primary) hypertension, Z78.0 - Asymptomatic menopausal state Coding Level of Care Code Est Pt Level 4 (74549) Diagnoses Essential hypertension I10 Type 2 diabetes mellitus with other diabetic kidney complication E11. Pure hypercholesterolemia E78.00 Hyperlipidemia type: pure hypercholesterolemia
[2023-06-04 13:43] VITALS: BP 112/64; PULSE 69; O2SAT 97; BMI 36.0
== END 2023-06-04 14:13 | disposition home or self-care (01) ==
PROVIDERS: PCP Internal Medicine; Visit Provider Internal Medicine
DX: I10 Essential (primary) hypertension (principal); E11.29 Type 2 diabetes mellitus with other diabetic kidney complication; E78.00 Pure hypercholesterolemia, unspecified
CPT/HCPCS: 99214

== ENCOUNTER 2023-08-07 10:14 | Outpatient (AMB) | payer MEDICARE, SELFPAY ==
--- NOTE | 2023-08-07 11:44 | AM.OFFWIN_ITS ---
Intake Vital Signs 08/07/23 11:45 Height 5 ft 3 in Weight 238 lb BMI 42.2 BP 118/76 Blood Pressure Location Lt brachial Position Sitting Pulse 74 Pulse Source Pulse Oximeter Temp 98.4 F Temp Source Oral Pulse Oximetry (%) 98 Oxygen Delivery Method Room Air Intake Visit Reasons: EST/left side ear pain (lobby) Intake Note: pt is here for c/o left side ear pain Patient Tobacco Use Status: Former Tobacco user Quit Date: 12/2020 Allergies No Known Allergies Allergy (Verified 08/07/23 12:13) Medication List - Last Reconciled 08/07/23 by José Manuel Machado MD amlodipine 5 mg PO DAILY atorvastatin 20 mg PO DAILY blood sugar diagnostic (FreeStyle Lite Strips) 1 strip miscellaneous .QD carvedilol (Coreg) 12.5 mg PO BID dulaglutide 1.5 mg (0.5 mL) subcut QWEEK ferrous fumarate 325 mg PO DAILY 90 days furosemide 40 mg (2 x 20 mg) PO QAM 90 days glucosamine HCl 1,500 mg PO DAILY hydralazine 100 mg PO TID 90 days letrozole 2.5 mg PO DAILY letrozole 2.5 mg PO Q24H mecobalamin (vitamin B12) 1,000 mcg PO DAILY metformin 1,000 mg PO BID 90 days multivitamin 1 tab PO DAILY Do you need a note to return to daycare/school/sports/work: Yes HPI EST/left side ear pain (lobby) HPI Details Patient presents for a sick visit. Reporting symptoms of sinus congestion, sore throat and difficulty swallowing. Low-grade fever. No family member is sick. No recent travel. Patient reports symptoms of malaise and fatigue. 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 Invasive ductal carcinoma of right breast Snoring Shoulder pain, bilateral Normocytic normochromic anemia Restrictive lung disease Encounter for initial annual wellness visit (AWV) in Medicare patient Restrictive lung disease secondary to obesity Dyspnea on exertion Obesity Other and unspecified hyperlipidemia Leg edema Swelling of lower extremity 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 Mother Ovarian cancer Brother Diabetes mellitus Brother Diabetes mellitus Maternal Grandfather Throat cancer Household Members: None Housing: Apartment Are you a primary child day care teacher to a significant other at home: No Do you presently have visiting nurse or other home services: No Alcohol intake: former Patient Tobacco Use Status: Former Tobacco user Quit Date: 12/2020 Tobacco use type: Cigarette Years Smoked: since 12 yrs old e-Cigarette/Vaping Use: Never Used Second Hand Smoke Exposure: No Advance Directives Date on File: 04/20/21 service: No Current occupational status: retired Cognitive needs: No Hearing needs: No Vision needs: Yes (Glasses) Physical Exam Vital Signs: Last Vital Signs Temp 98.4 F 08/07/23 11:45 Pulse 74 08/07/23 11:45 BP 118/76 08/07/23 11:45 Pulse Ox 98 08/07/23 11:45 Oxygen Delivery Method Room Air 08/07/23 11:45 BMI result Body Mass Index 42.2 Const General: cooperative and healthy appearing Nutritional Appearance: well nourished Orientation/consciousness: patient oriented x3 Limitations: no limitations HEENT Head: Yes normal to inspection Eyes General: appearance normal, both eyes and all related structures Neck Neck: Yes normal visual inspection Chest Chest palpation & inspection: normal palpation of entire chest wall Resp Effort & Inspection: normal respiratory effort Neuro General: patient oriented x3 Assessment & Plan Assessment & Plan (1) Upper respiratory tract infection: Code(s): J06.9 - Acute upper respiratory infection, unspecified Plan: Antibiotics ordered. Increase fluid intake. Tylenol for aches and pains. If symptoms worsen, follow-up here for a recheck. Coding Level of Care Code Est Pt Level 3 (67192) Diagnoses Upper respiratory tract infection J06.9
[2023-08-07 11:45] VITALS: BP 118/76; PULSE 74; TEMP 36.9; O2SAT 98; BMI 42.2
== END 2023-08-07 12:33 | disposition home or self-care (01) ==
PROVIDERS: PCP Internal Medicine; Visit Provider Internal Medicine
DX: J06.9 Acute upper respiratory infection, unspecified (principal)
CPT/HCPCS: 99213

== ENCOUNTER 2023-08-28 08:49 | Outpatient (AMB) | payer MEDICARE, SELFPAY ==
--- NOTE | 2023-08-28 09:01 | A.OFFVIS_ITS ---
Intake Vital Signs 3 08/28/23 09:09 Height 5 ft 3 in Weight 206 lb BMI 36.5 BP 140/72 H Blood Pressure Location Lt brachial Position Sitting Intake Visit Reasons: 6 mth breast exam Intake Note: Patient is seen in office for 6 month follow up visit, breast exam. 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 She was previously diagnosed with a left breast solitary papillary carcinoma without evidence of invasion, grade 2, ER/AR positive. She underwent a lumpectomy with needle localization on 10/28/2019 ([facility]). Margins of resection were negative. She was subsequently evaluated by Dr. Graves and by Radiation Oncology. She decided to avoid both radiation therapy and hormonal therapy. She underwent diagnostic left breast mammography on 05/02/2020 which was negative suspicious findings (BI-RADS 2). Bilateral diagnostic mammography on 10/13/2020 revealed no mammographic evidence of malignancy (BI-RADS 2). Diagnostic bilateral mammography and ultrasound on 10/17/2021 revealed no significant changes in the left breast however a new macro lobulated density measuring less than 1 cm was identified in the 12 o'clock position of the right breast, new from the prior mammogram, felt to be suspicious for malignancy. She subsequently underwent ultrasound-guided core biopsy on 10/18/2021. Unfortunately pathology results revealed invasive carcinoma with mixed ductal and lobular features, MS BR grade 2-3, ER positive, AR positive, HER2 Ken equivocal (FISH results will be addended), over 20% by Ki-67 immunostaining. She underwent right breast lumpectomy with needle localization, right sentinel node biopsy 11/30/2021 ([facility]). Pathology revealed -?Invasive carcinoma with mixed ductal and lobular features, MSBR grade 2, 0.9 cm; pT1b N0(sn)(i-), 0/4 lymph nodes with metastatic disease, ER/ AR positive, HER2 Ken negative. M argins were negative after re-excision at the time of primary procedure. She was evaluated by Dr. Graves. She did not require radiation therapy but was placed on letrozole 2.5 mg p.o. daily. She denies any breast symptoms currently. Mammogram on 10/24/2022 revealed no mammographic specific evidence of malignancy, (BI-RADS 2). Diagnostic mammogram was recommended in 12 months (scheduled for 10/25/2023). Patient underwent genetic testing on 09/25/2022 which revealed no clinically significant mutations were identified on the testing.? 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 No recommendations were made for additional screening or testing.? 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 Invasive ductal carcinoma of right breast Snoring Shoulder pain, bilateral Normocytic normochromic anemia Restrictive lung disease Encounter for initial annual wellness visit (AWV) in Medicare patient Restrictive lung disease secondary to obesity Dyspnea on exertion Obesity Other and unspecified hyperlipidemia Leg edema Swelling of lower extremity 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 Mother Ovarian cancer Brother Diabetes mellitus Brother Diabetes mellitus Maternal Grandfather Throat cancer Social History Household Members: None Housing: Apartment Are you a primary director of medicare to a significant other at home: No Do you presently have visiting nurse or other home services: No Alcohol intake: former Patient Tobacco Use Status: Former Tobacco user Quit Date: 12/2020 Tobacco use type: Cigarette Years Smoked: since 12 yrs old e-Cigarette/Vaping Use: Never Used Second Hand Smoke Exposure: No Advance Directives Date on File: 04/20/21 service: No Current occupational status: retired Cognitive needs: No Hearing needs: No Vision needs: Yes (Glasses) Review of Systems Const All systems reviewed & are unremarkable except as noted in HPI and below Physical Exam Const General: no acute distress and well developed Nutritional Appearance: well nourished Orientation/consciousness: patient oriented x3 Limitations: no limitations Neck Neck: Yes no lymphadenopathy Chest Other: Right breast with a well-healed incision in the upper outer quadrant, softer from prior examination. No tenderness to palpation. No other new skin change, nipple discharge, nipple retraction, palpable mass, or enlarged lymph nodes. Left breast with no skin change, nipple discharge retraction, palpable mass or enlarged lymph nodes. Chest/axillae images: 2 1. 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 Pathology revealed mixed invasive ductal and lobular features. She was evaluated by Dr. Graves and started on letrozole 2.5 mg q.day. She did not require radiation therapy. She feels well today and denies any new breast symptoms. On examination her wounds are well healed with no evidence of recurrent disease in either breast. She does have a hypertrophic scar the breast on the right side. I asked her to return in approximately 6 months for follow-up breast examination. She is scheduled for follow-up mammogram on 10/25/2023. 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
[2023-08-28 09:09] VITALS: BP 140/72; BMI 36.5
== END 2023-08-28 09:20 | disposition home or self-care (01) ==
PROVIDERS: PCP Internal Medicine; Visit Provider Surgery
DX: C50.911 Malignant neoplasm of unspecified site of right female breast (principal)
CPT/HCPCS: 99213

== ENCOUNTER → 2023-08-28 08:49 | Outpatient (BNVA) | payer MEDICARE, SELFPAY | PROVIDERS: PCP Internal Medicine; Visit Provider Surgery | DX: C50.911 Malignant neoplasm of unspecified site of right female breast (principal) | CPT/HCPCS: 99212 ==

== ENCOUNTER 2023-09-03 07:28 | Outpatient (REF) | payer MEDICARE, SELFPAY ==
[2023-09-03 11:53] LABS: Estimated Average Glucose 160 mg/dL; Hemoglobin A1c % 7.2 % (<6.0)
[2023-09-03 12:29] LABS: Alanine Aminotransferase 31 U/L (0-31); Aspartate Amino Transferase 23 U/L (5-31); Cholesterol 160 mg/dL (<200); HDL Cholesterol 49 mg/dL (>40); LDL Cholesterol Calculated 87 mg/dL (<100); Triglycerides 123 mg/dL (<150)
== END 2023-09-03 07:29 | disposition home or self-care (01) ==
LOC: HO.HMGCLDS 07:28
PROVIDERS: PCP Internal Medicine; Visit Provider Internal Medicine
DX: I10 Essential (primary) hypertension (principal); E11.29 Type 2 diabetes mellitus with other diabetic kidney complication; E78.5 Hyperlipidemia, unspecified; Z78.0 Asymptomatic menopausal state
CPT/HCPCS: 36415; 80061; 82306; 83036; 84450; 84460

== ENCOUNTER 2023-09-06 13:18 | Outpatient (AMB) | payer MEDICARE, SELFPAY ==
[2023-09-06 13:22] VITALS: BP 132/74; PULSE 75; O2SAT 100; BMI 36.1
--- NOTE | 2023-09-06 13:22 | A.OFFPC_ITS ---
Vital Signs 09/06/23 13:22 Height 5 ft 3 in Weight 204 lb BMI 36.1 BP 132/74 Blood Pressure Location Lt brachial Position Sitting Pulse 75 Pulse Source Pulse Oximeter Pulse Oximetry (%) 100 Oxygen Delivery Method Room Air Intake Visit Reasons: 3 month follow up Intake Note: Pt is here to follow up for lab results Allergies No Known Allergies Allergy (Verified 09/06/23 13:48) Medication List - Last Reconciled 09/06/23 by Arlyn Paul MD amlodipine 5 mg PO DAILY atorvastatin 20 mg PO DAILY blood sugar diagnostic (FreeStyle Lite Strips) 1 strip miscellaneous .QD carvedilol (Coreg) 12.5 mg PO BID dulaglutide 1.5 mg (0.5 mL) subcut QWEEK ferrous fumarate 325 mg PO DAILY 90 days furosemide 40 mg (2 x 20 mg) PO QAM 90 days hydralazine 100 mg PO TID 90 days letrozole 2.5 mg PO Q24H mecobalamin (vitamin B12) 1,000 mcg PO DAILY metformin 1,000 mg PO BID 90 days multivitamin 1 tab PO DAILY Tobacco use date assessed: 09/06/23 Fall risk assessment: No Falls in past year Last assessed Fall Risk: 09/06/23 Dental Screening Dental Screen Date: 09/06/23 Did you have a dental visit in the last 12 months?: Yes Did you have a dental problem in the last 6 months where you did not have access to dental care?: No Was dental information given to patient?: Patient has dentist [facility] Medical History (Updated 10/11/23 @ 03:12 by Arlyn Paul MD) Anemia Vaginal odor Ulcer of left lower extremity Cellulitis of left lower extremity 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 Invasive ductal carcinoma of right breast Snoring Shoulder pain, bilateral Normocytic normochromic anemia Restrictive lung disease Encounter for initial annual wellness visit (AWV) in Medicare patient Restrictive lung disease secondary to obesity Dyspnea on exertion Obesity Other and unspecified hyperlipidemia Leg edema Swelling of lower extremity 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 Mother Ovarian cancer Brother Diabetes mellitus Brother Diabetes mellitus Maternal Grandfather Throat cancer Social History Household Members: None Housing: Apartment Are you a primary wound care physician to a significant other at home: No Do you presently have visiting nurse or other home services: No Alcohol intake: former Patient Tobacco Use Status: Former Tobacco user Quit Date: 12/2020 Tobacco use type: Cigarette Years Smoked: since 12 yrs old e-Cigarette/Vaping Use: Never Used Second Hand Smoke Exposure: No Advance Directives Date on File: 04/20/21 service: No Current occupational status: retired Cognitive needs: No Hearing needs: No Vision needs: Yes (Glasses) Questionnaire Thrive Questionnaire Date Thrive assessed: 02/28/23 MARISA-7 AMB Questionnaire MARISA-7 Date MARISA - 7 assessed: 02/28/23 Source: Developed by Drs. Yasmani Ramos, Keli Bhat, Armando Ghotra and colleagues, with an educational iris from [employer]. Review of Systems Const Details: Sees [facility] Skin/Breast Details: She sees Dr. Porsche Cahloun for her foot exam every 3 month Physical exam (Primary Care) Vital Signs: Last Vital Signs Pulse 75 09/06/23 13:22 BP 132/74 09/06/23 13:22 Pulse Ox 100 09/06/23 13:22 Oxygen Delivery Method Room Air 09/06/23 13:22 BMI result Body Mass Index 36.1 Tobacco/Smoking Status: Tobacco use Status Tobacco use date assessed 09/06/23 09/06/23 13:29 Patient Tobacco Use Status Former Tobacco user 09/06/23 13:23 Tobacco use type Cigarette 09/06/23 13:23 e-Cigarette/Vaping Use Never Used 09/06/23 13:23 Thrive Assessment: Date of Thrive Assessment Date Thrive assessed 02/28/23 09/06/23 13:23 Results Reviewed Results Reviewed: Name: Rosalia Talavera Age/Sex: 73/F : 1950 Unit#: [id number] Attend Dr: Ania Graves MD Re08/23/23 Status: REG RCR Location: [facility] Disch: SPEC : [id number] MADI: 08/23/23 STATUS: COMP REQ : [id number] RECD: 08/23/[address]: Ania Graves MD COMP: 08/23/23 ENTERED: 08/23/[address]: Arlyn Paul MD ORDERED: CBC Auto Diff Test Result Flag Reference Site WBC 7.3 4.8-10.8 X10*3/uL RBC 3.65 L 4.20-5.50 X10*6/uL HGB 11.6 L 12.0-16.0 g/dl HCT 35.4 L 37.0-47.0 % MCV 97.0 80.0-98.0 fL MCH 31.8 27.0-33.0 pg MCHC 32.8 31.0-35.0 g/dl RDW 13.7 11.0-16.0 % PLT 278 160-400 X10*3/uL MPV 9.7 9.4-12.3 fL Neut Pct Auto 62.2 45-73 % ImGran Pct Auto 0.4 0.0-0.4 % Lymp Pct Auto 24.8 20-40 % [place] Pct Auto 10.3 2-11 % Eos Pct Auto 1.9 0-4 % Baso Pct Auto 0.4 0-2 % NRBC Pct Auto 0.0 0.0-0.2 /100WBC ANC Neut Abs # 4.5 2.0-8.3 x10*3/uL ImGran Abs Auto 0.03 0.00-0.03 X10*3/uL Lymph Abs Auto 1.8 1.2-4.9 X10*3/uL [place] Abs Auto 0.8 0.1-1.2 X10*3/uL Eos Abs Auto 0.1 0.0-0.4 X10*3/uL Baso Abs Auto 0.0 0.0-0.2 X10*3/uL NRBC Abs Auto 0.000 0.0-0.012 X10*3/uL daniel: Rosalia Talavera Age/Sex: 73/F : 1950 Unit#: [id number] Attend Dr: Ania Graves MD Re08/23/23 Status: REG RCR Location: [facility] Disch: SPEC : [id number] MADI: 08/23/23 STATUS: COMP REQ : [id number] RECD: 08/23/[address]: Ania Graves MD COMP: 08/23/23 ENTERED: 08/23/[address]: Arlyn Paul MD ORDERED: CMP Test Result Flag Reference Site Sodium 143 135-145 mmol/L Potassium 4.2 3.3-5.1 mmol/L CL 103 96-108 mmol/L CO2 31 H 22-29 mmol/L Gap 13 12-20 BUN 21 H 9-16 mg/dL Creat 0.84 0.5-1.4 mg/dL Estimated CrCl 63.9 Provided height and weight: 160.02 cm, 93.8 kg. eGFR (calculated from the MDRD study equation) and eCrCl (calculated from the Cockcroft-Gault equation) are based on different parameters and may not yield comparable results. If eCrCl result is absurd, please check patient's height/weight. EGFR > 60 NOTE: For -[place] individuals, multiply the result by 1.210. Chronic Kidney Disease: Estimated GFR < 60 mL/min/1.73m2 Severe Kidney Disease: Estimated GFR < 15 mL/min/1.73m2 Glucose, Random 155 H 60-115 mg/dL CA 10.0 8.4-10.2 mg/dL Total Bili 0.2 0.0-1.0 mg/dL AST (GOT) 19 5-31 U/L ALT (GPT) 26 0-31 U/L Protein, Total 8.1 H 6.5-8.0 g/dL Alb 4.4 3.5-5.0 g/dL Alk Phos 76 39-117 U/L Laboratory Tests 12/09/03/23 09/03/23 07:41 07:44 07:44 Estimat Average Glucose 160 Hemoglobin A1c % 7.2 H AST 23 ALT 31 Triglycerides 123 Cholesterol 160 LDL Cholesterol, Calc 87 HDL Cholesterol 49 25-OH Vitamin D Total 43.0 Assessment and Plan Assessment & Plan (1) Essential hypertension: Code(s): I10 - Essential (primary) hypertension Plan: Blood pressure at goal of less than 130/80. Continue with current medication. Reinforced importance of following a low sodium diet, getting regular exercise, and lowering stress levels. (2) Type 2 diabetes mellitus with other diabetic kidney complication: Code(s): E11.29 - Type 2 diabetes mellitus with other diabetic kidney complication Plan: Hemoglobin A1c now set 7.2%, higher than 6.9% on last check. Reinforced importance of following recommended diet and staying active exercising regularly, continued on dulaglutide 1.5 mg once a week, and metformin at 1000 mg twice a day. Repeat another hemoglobin A1c, in 3 months. (3) Hyperlipidemia: Code(s): E78.5 - Hyperlipidemia, unspecified Qualifiers: Hyperlipidemia type: pure hypercholesterolemia Qualified Code(s): E78.00 - Pure hypercholesterolemia, unspecified Plan: Reviewed recent fasting lipid profile with patient with levels within normal limits . Continue with atorvastatin 20 mg daily , in addition to adherence to low-cholesterol diet and regular exercise, at least 30 minutes 3 to 4 times a week. Advised patient to make healthy food choices, eat more fruits, vegetables, whole grains, wild caught fish and low-fat dairy. Limit amount of meat and fried or fatty food products, as well as processed foods and fast foods. Follow-up scheduled with repeat fasting lipid panel in 3 months. (4) Anemia: Code(s): D64.9 - Anemia, unspecified Plan: Continue ferrous fumarate 325 mg daily Orders: Orders Hemoglobin A1c 11/16/23 I10 - Essential (primary) hypertension, E11.29 - Type 2 diabetes mellitus with other diabetic kidney complication, E78.5 - Hyperlipidemia, unspecified Microalbumin, Random (w Creat) 11/16/23 I10 - Essential (primary) hypertension, E11.29 - Type 2 diabetes mellitus with other diabetic kidney complication, E78.5 - Hyperlipidemia, unspecified Vitamin B12 and Folate 11/16/23 I10 - Essential (primary) hypertension, E11.29 - Type 2 diabetes mellitus with other diabetic kidney complication, E78.5 - Hyperlipidemia, unspecified Lipid Panel 11/16/23 I10 - Essential (primary) hypertension, E11.29 - Type 2 diabetes mellitus with other diabetic kidney complication, E78.5 - Hyperlipidemia, unspecified Vitamin D 25-OH Total 11/16/23 I10 - Essential (primary) hypertension, E11.29 - Type 2 diabetes mellitus with other diabetic kidney complication, E78.5 - Hyperlipidemia, unspecified Coding Level of Care Code Est Pt Level 4 (64981) Diagnoses Essential hypertension I10 Type 2 diabetes mellitus with other diabetic kidney complication E11. Pure hypercholesterolemia E78.00 Hyperlipidemia type: pure hypercholesterolemia Anemia D64.9
== END 2023-09-06 14:07 | disposition home or self-care (01) ==
PROVIDERS: PCP Internal Medicine; Visit Provider Internal Medicine
DX: I10 Essential (primary) hypertension (principal); E11.29 Type 2 diabetes mellitus with other diabetic kidney complication; E78.00 Pure hypercholesterolemia, unspecified; D64.9 Anemia, unspecified
CPT/HCPCS: 99214

== ENCOUNTER 2023-10-25 12:31 | Outpatient (REF) | payer MEDICARE, SELFPAY ==
--- NOTE | ~2023-10-25 | MM_ITS ---
EXAMINATION: MM DIAGNOSTIC DIGITAL BREAST TOMOSYNTHESIS, BILATERAL CLINICAL INFORMATION: Right breast cancer status post lumpectomy and conservation therapy 2001, year 2 follow-up. Left papillary breast CA year 1999, post lumpectomy and conservation therapy. Patient with no complaints, also due for screening. COMPARISON: Mammography: 10/24/2022, 10/18/2021, 10/17/2021, 10/13/2020, 05/12/2020, 10/06/2019, 09/25/2019, and dating back to 2014. TECHNIQUE: Digital breast tomosynthesis is performed in both the craniocaudal and mediolateral oblique views along with computer-aided detection (CAD). Synthesized 2D images are generated from the tomosynthesis. In addition to standard views 2-D spot magnification views of the right breast were obtained in the CC and ML projection, as well as a left full-field exaggerated CC view. FINDINGS: There are scattered areas of fibroglandular density (ACR BI-RADS breast composition Category b). The right breast demonstrates mildly less dense scarring in the upper medial aspect from prior lumpectomy. It is otherwise unchanged in appearance. No developing distortion, developing mass, or suspicious calcifications. Parenchymal pattern is unchanged from prior year. The left breast demonstrates similar post lumpectomy scarring upper outer left breast without change. No developing distortion, developing mass, or suspicious calcifications. Parenchymal pattern is unchanged for multiple years. Similar-appearing normal-appearing lymph nodes noted in both axillary regions. No skin thickening or retraction. MM/MM tomosynthesis diagnostic BI IMPRESSION: No findings suspicious for malignancy in either breast. Evolving benign post lumpectomy changes right breast, and stable benign post lumpectomy changes left breast. Recommend one-year follow-up for year 3 follow-up postop right breast, per protocol. ASSESSMENT: BI-RADS BI-RADS 2 - Benign Findings RECOMMENDATION: 1 year F/U Results were provided to the patient at time of visit by the technologist. This patient's information was entered into a reminder system with a target due date for their next mammogram.
== END 2023-10-25 12:32 | disposition home or self-care (01) ==
LOC: HO.MAMMO 12:31
PROVIDERS: PCP Internal Medicine; Visit Provider Surgery
DX: Z85.3 Personal history of malignant neoplasm of breast (principal)
CPT/HCPCS: 77062; 77066

== ENCOUNTER → 2023-10-25 13:00 | Outpatient (BNV) | payer MEDICARE, SELFPAY | PROVIDERS: PCP Internal Medicine; Visit Provider Radiology Diagnostic Radiology | DX: Z85.3 Personal history of malignant neoplasm of breast (principal) | CPT/HCPCS: 77066; G0279 ==

== ENCOUNTER 2023-11-13 13:27 | Outpatient (AMB) | payer MEDICARE, MEDICAID, SELFPAY ==
[2023-11-13 13:32] VITALS: BP 130/72; PULSE 79; O2SAT 96; BMI 35.8
--- NOTE | 2023-11-13 13:32 | A.OFFVIS_ITS ---
Intake Vital Signs 11/13/23 13:32 Height 5 ft 3 in Weight 202 lb BMI 35.8 BP 130/72 Blood Pressure Location Lt radial Position Sitting Pulse 79 Pulse Source Pulse Oximeter Pulse Oximetry (%) 96 Oxygen Delivery Method Room Air Intake Visit Reasons: Shortness of breath Intake Note: pt is here for follow up and states she feels good today, pt has a smoking history 58 years, quit 3 years ago. can she be part of the low dose program. [place] Required: No Allergies No Known Allergies Allergy (Verified 11/13/23 13:55) Medication List - Last Reconciled 11/13/23 by Gal Meade MD amlodipine 5 mg PO DAILY atorvastatin 20 mg PO DAILY blood sugar diagnostic (FreeStyle Lite Strips) 1 strip miscellaneous .QD carvedilol (Coreg) 12.5 mg PO BID dulaglutide 1.5 mg (0.5 mL) subcut QWEEK dulaglutide (Trulicity) 0.75 mg (0.5 mL) subcut QWEEK ferrous fumarate 325 mg PO DAILY 90 days furosemide 40 mg (2 x 20 mg) PO QAM 90 days hydralazine 100 mg PO TID 90 days letrozole 2.5 mg PO Q24H mecobalamin (vitamin B12) 1,000 mcg PO DAILY metformin 1,000 mg PO BID 90 days multivitamin 1 tab PO DAILY Do you need a note to return to daycare/school/sports/work: No HPI Shortness of breath HPI Details 73 YEARS OLD VERY PLEASANT FEMALE WITH M ODERATE OBESITY, BUT WITH NO SYMPTOMS OF SLEEP APNEA. COMES FOR FOLLOW-UP AFTER 1 YEAR. MAIN ISSUE IS GETTING SHORT OF BREATH ON EXERTION LIKE WALKING A FEW BLOCKS OR CLIMBING 1 OR 2 FLIGHTS OF STAIRS. SHE DENIES ANY WHEEZING . COUGH OR CHEST PAIN IN GENERAL SHE FEELS WELL AND ENERGETIC. SLEEPS OKAY . 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 Invasive ductal carcinoma of right breast Snoring Shoulder pain, bilateral Normocytic normochromic anemia Restrictive lung disease Encounter for initial annual wellness visit (AWV) in Medicare patient Restrictive lung disease secondary to obesity Dyspnea on exertion Obesity Other and unspecified hyperlipidemia Leg edema Swelling of lower extremity 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 Mother Ovarian cancer Brother Diabetes mellitus Brother Diabetes mellitus Maternal Grandfather Throat cancer Social History Household Members: None Housing: Apartment Are you a primary insurance healthcare representative to a significant other at home: No Do you presently have visiting nurse or other home services: No Alcohol intake: former Patient Tobacco Use Status: Former Tobacco user Quit Date: 12/2020 Tobacco use type: Cigarette Years Smoked: since 12 yrs old e-Cigarette/Vaping Use: Never Used Second Hand Smoke Exposure: No Advance Directives Date on File: 04/20/21 service: No Current occupational status: retired Cognitive needs: No Hearing needs: No Vision needs: Yes (Glasses) Review of Systems Const All systems reviewed & are unremarkable except as noted in HPI and below ENT Reports no additional complaints Card Denies chest pain, Denies irregular heart rhythm and Reports leg edema (MILD TO WORDS THE EVENINGS) Resp Reports as per HPI GI Reports no additional complaints Reports no additional complaints Musc Reports no additional complaints Skin/Breast Reports system reviewed and no additional complaints, except as documented Neuro Reports no additional complaints Psych Reports no additional complaints Physical Exam Vital Signs: Last Vital Signs Pulse 79 11/13/23 13:32 BP 130/72 11/13/23 13:32 Pulse Ox 96 11/13/23 13:32 Oxygen Delivery Method Room Air 11/13/23 13:32 BMI result Body Mass Index 35.8 Const General: comfortable, no acute distress, alert and awake Orientation/consciousness: patient oriented x3 HEENT Head: Yes normal to inspection General nose exam: No nasal polyps present and No nasal discharge present Face and sinus: Yes sinuses nontender Mouth: oropharynx normal Throat: Yes posterior oropharynx normal Eyes General: appearance normal, both eyes and all related structures Neck Neck: Yes normal visual inspection, Yes no lymphadenopathy, Yes trachea midline and Yes no JVD Thyroid: Thyroid normal Chest Chest palpation & inspection: normal inspection of the chest, normal palpation of entire chest wall and no tenderness Resp Other: PERCUSSION NOTE RESONANT, BREATH SOUNDS ARE DISTANT AND SOMEWHAT DIMINISHED OVER THE BASILAR AREAS. NO AUDIBLE WHEEZES RHONCHI OR CREPITATIONS ARE HEARD Cardio Palpation: normal PMI Rate: regular rate Rhythm: regular rhythm Heart sounds: no gallops and no murmurs GI Palpation (GI): Soft to palpation, nontender, No hepatosplenomegaly present, no masses and Other GI palpation findings present (ABDOMEN OBESE AND SLIGHTLY PROTUBERANT) Auscultation: normal bowel sounds Back/Spine/Pelvis Thoracic/Lumbar Spine: thoracic and lumbar spine normal to inspection Skin General skin exam: no rashes or lesions noted Neuro General: patient oriented x3 and no focal motor deficits Cranial nerves: Yes CN's II-XII intact bilaterally Extrem General: Yes normal to inspection, Yes no calf tenderness, Yes edema (Both lower extremities, chronic) and Yes venous stasis dermatitis Psych Appearance: grossly normal and well kempt Speech and movement: Normal speech and movement present Office Procedures Spirometry Testing Spirometry Comments: Spirometry done in the office, Dr. Meade has the results results scanned to her chart. 66833- Spirometry Results Reviewed Results Reviewed: FVC=47 % FEV1=46 % ESH54-37= 43 % C/W MODERATELY SEVERE RESTRICTIVE PULMONARY DISORDER. THE NUMBERS RELATIVELY STABLE COMPARED TO HER PREVIOUS SPIROMETRY. Assessment & Plan Assessment & Plan (1) Restrictive lung disease secondary to obesity: Comment: PATIENT HAS MODERATELY SEVERE RESTRICTIVE PULMONARY DISORDER RELATED TO HER OBESITY. THERE IS NO EVIDENCE OF OBSTRUCTIVE AIRWAY DISORDER. SPIROMETRY TODAY AGAIN CONFIRMS MODERATELY SEVERE RESTRICTIVE DISORDER. Code(s): J98.4 - Other disorders of lung; E66.9 - Obesity, unspecified Plan: ADVISED TO CONTINUE LOSING WEIGHT EVEN A FEW LB PER YEAR. ADVISED TO KEEP ON DOING DEEP BREATHING EXERCISES 2 OR 3 TIMES A DAY WITH THE IN CENTIVE SPIROMETER (2) Morbid obesity: Code(s): E66.01 - Morbid (severe) obesity due to excess calories Plan THIS PATIENT HAS HAD MORBID OBESITY. SHE HAS LOST SIGNIFICANT WEIGHT AND NOW IT IS MOSTLY AT A STANDS STILL. AT PRESENT SHE HAS MODERATE AMOUNT OF OBESITY. ENCOURAGED TO KEEP ON LOSING WEIGHT EVEN IF IT IS A FEW LB PER YEAR. Orders: Orders AMB Spirometry Testing Today E66.9 - Obesity, unspecified, J98.4 - Other disorders of lung Coding Level of Care Code Est Pt Level 3 (71261) Diagnoses Restrictive lung disease secondary to obesity J98.4; E66.9 Morbid obesity E66.01 CPT Codes Spirometry - CPT: 42057- Spirometry ([id number])
== END 2023-11-13 14:16 | disposition home or self-care (01) ==
PROVIDERS: PCP Internal Medicine; Referring Provider Internal Medicine; Visit Provider Internal Medicine
DX: J98.4 Other disorders of lung (principal); E66.9 Obesity, unspecified; E66.01 Morbid (severe) obesity due to excess calories
CPT/HCPCS: 94010; 99213

== ENCOUNTER → 2023-11-13 13:27 | Outpatient (BNVA) | payer MEDICARE, MEDICAID, SELFPAY | PROVIDERS: PCP Internal Medicine; Visit Provider Internal Medicine | DX: J98.4 Other disorders of lung (principal); E66.01 Morbid (severe) obesity due to excess calories; Z68.35 Body mass index [BMI] 35.0-35.9, adult | CPT/HCPCS: 94010; 99212 ==

== ENCOUNTER 2023-12-04 14:09 | Outpatient (AMB) | payer MEDICARE, MEDICAID, SELFPAY ==
[2023-12-04 14:16] VITALS: BP 122/80; PULSE 67; O2SAT 98; BMI 34.7
--- NOTE | 2023-12-04 14:16 | MHC.OFFWIV ---
Intake Vital Signs 12/04/23 14:16 Height 5 ft 3 in Weight 196 lb BMI 34.7 BP 122/80 Blood Pressure Location Lt brachial Position Sitting Pulse 67 Pulse Source Pulse Oximeter Pulse Oximetry (%) 98 Oxygen Delivery Method Room Air Intake Visit Reasons: EP UTI (vidal) Intake Note: pt is here today for UTI started sunday Patient Tobacco Use Status: Former Tobacco user Quit Date: 12/2020 Allergies No Known Allergies Allergy (Verified 12/04/23 14:20) Medication List - Last Reconciled 12/04/23 by Bethany Junior MD amlodipine 5 mg PO DAILY atorvastatin 20 mg PO DAILY blood sugar diagnostic (FreeStyle Lite Strips) 1 strip miscellaneous .QD carvedilol (Coreg) 12.5 mg PO BID dulaglutide 1.5 mg (0.5 mL) subcut QWEEK dulaglutide (Trulicity) 0.75 mg (0.5 mL) subcut QWEEK ferrous fumarate 325 mg PO DAILY 90 days furosemide 40 mg (2 x 20 mg) PO QAM 90 days hydralazine 100 mg PO TID 90 days letrozole 2.5 mg PO Q24H mecobalamin (vitamin B12) 1,000 mcg PO DAILY metformin 1,000 mg PO BID 90 days multivitamin 1 tab PO DAILY Do you need a note to return to daycare/school/sports/work: No HPI EP UTI (vidal) HPI Details Patient is 73-year-old female came in today to be evaluated for possible urinary tract infection patient says that she is having symptoms since 2 days Having dysuria and foul-smelling urine She also has noticed a bump in her labia On examination patient have a small boil labia majora UA shows positive leuk esterase I am treating her with Levaquin 500 mg for both boil and urinary tract infection she is to take 1 tablet for 5 days Patient was instructed to avoid long walks Urine will be sent for culture Review system: There is no nausea vomiting abdominal pain there is no new back pain, no fever chills in There is no blood in urine [facility] Medical History Anemia Vaginal odor Ulcer of left lower extremity Cellulitis of left lower extremity 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 Invasive ductal carcinoma of right breast Snoring Shoulder pain, bilateral Normocytic normochromic anemia Restrictive lung disease Encounter for initial annual wellness visit (AWV) in Medicare patient Restrictive lung disease secondary to obesity Dyspnea on exertion Obesity Other and unspecified hyperlipidemia Leg edema Swelling of lower extremity 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 Mother Ovarian cancer Brother Diabetes mellitus Brother Diabetes mellitus Maternal Grandfather Throat cancer Social History Household Members: None Housing: Apartment Are you a primary managed care provider to a significant other at home: No Do you presently have visiting nurse or other home services: No Alcohol intake: former Patient Tobacco Use Status: Former Tobacco user Quit Date: 12/2020 Tobacco use type: Cigarette Years Smoked: since 12 yrs old e-Cigarette/Vaping Use: Never Used Second Hand Smoke Exposure: No Advance Directives Date on File: 04/20/21 service: No Current occupational status: retired Cognitive needs: No Hearing needs: No Vision needs: Yes (Glasses) Review of Systems Const All systems reviewed & are unremarkable except as noted in HPI and below Physical Exam Vital Signs: Last Vital Signs Pulse 67 12/04/23 14:16 BP 122/80 12/04/23 14:16 Pulse Ox 98 12/04/23 14:16 Oxygen Delivery Method Room Air 12/04/23 14:16 BMI result Body Mass Index 34.7 Const General: no acute distress Orientation/consciousness: patient oriented x3 Eyes General: appearance normal, both eyes and all related structures Resp Effort & Inspection: normal respiratory effort and able to speak in complete sentences Auscultation: clear to auscultation bilaterally Neuro General: patient oriented x3 Psych Mental Status: mental status grossly normal Results AMB Urinalysis, Automated UA Leukoctes 70 Viktoriya/uL Last Edit by Raven Martinez CMA on 12/04/23 14:29 UA Nitrite Negative Last Edit by Raven Martinez CMA on 12/04/23 14:29 UA Urobilinogen 0.2 mg/dL Last Edit by Raven Martinez, MARIANELA on 12/04/23 14:29 UA Protein 0 mg/dL Last Edit by Raven Martinez, MARIANELA on 12/04/23 14:29 UA pH 6.0 Last Edit by Raven Martinez, MARIANELA on 12/04/23 14:29 UA Blood 0 Ricky/uL Last Edit by Raven Martinez, MARIANELA on 12/04/23 14:29 UA Specific [place] 1.010 Last Edit by Raven Martinez CMA on 12/04/23 14:29 UA Ketone Negative Last Edit by Raven Martinez, MARIANELA on 12/04/23 14:29 UA Bilirubin 0 mg/dL Last Edit by Raven Martinez CMA on 12/04/23 14:29 UA Glucose 0 mg/dL Last Edit by Raven Martinez CMA on 12/04/23 14:29 Assessment & Plan Assessment & Plan (1) Cystitis, acute: Code(s): N30.00 - Acute cystitis without hematuria Qualifiers: Hematuria presence: without hematuria Qualified Code(s): N30.00 - Acute cystitis without hematuria (2) Labium boil: Code(s): N76.4 - Abscess of vulva Plan Patient is 73-year-old female came in today to be evaluated for possible urinary tract infection patient says that she is having symptoms since 2 days Having dysuria and foul-smelling urine She also has noticed a bump in her labia On examination patient have a small boil labia majora UA shows positive leuk esterase I am treating her with Levaquin 500 mg for both boil and urinary tract infection she is to take 1 tablet for 5 days Patient was instructed to avoid long walks Urine will be sent for culture Review system: There is no nausea vomiting abdominal pain there is no new back pain, no fever chills in There is no blood in urine Orders: Orders Urine Culture Today N30.00 - Acute cystitis without hematuria AMB Urinalysis Automated Today Z13.9 - Encounter for screening, unspecified Medications: New levofloxacin 500 mg PO DAILY 5 tabs 0RF 5 days Coding Level of Care Code Est Pt Level 3 (92036) Diagnoses Acute cystitis without hematuria N30.00 Hematuria presence: without hematuria Labium boil N76.4
== END 2023-12-04 14:49 | disposition home or self-care (01) ==
PROVIDERS: PCP Internal Medicine; Visit Provider Internal Medicine
DX: N30.00 Acute cystitis without hematuria (principal); N76.4 Abscess of vulva
CPT/HCPCS: 81003; 99213

== ENCOUNTER 2023-12-04 18:12 | Outpatient (REF) | payer MEDICARE, MEDICAID, SELFPAY | END 2023-12-04 18:13 | disposition home or self-care (01) | LOC: HO.LNP 18:12 | PROVIDERS: Visit Provider Internal Medicine | DX: Z13.9 Encounter for screening, unspecified (principal); N30.00 Acute cystitis without hematuria | CPT/HCPCS: 87086 ==

== ENCOUNTER 2024-01-07 07:01 | Outpatient (REF) | payer MEDICARE, MEDICAID, SELFPAY ==
[2024-01-07 10:38] LABS: Estimated Average Glucose 163 mg/dL; Hemoglobin A1C 151.0957 umol/L; Hemoglobin A1c % 7.3 % (<6.0)
[2024-01-07 10:54] LABS: Cholesterol 171 mg/dL (<200); HDL Cholesterol 48 mg/dL (>40); LDL Cholesterol Calculated 101 mg/dL (<100); Triglycerides 112 mg/dL (<150)
[2024-01-07 10:57] LABS: Creatinine Urine 146.93 mg/dL; Microalbum/Creatinine Ratio Ur 80.9 ug/mg cr (<30)
[2024-01-07 11:12] LABS: Vitamin D 25-OH Total 40.4 ng/mL (>30)
[2024-01-07 11:19] LABS: Folate 14.2 ng/mL (> or = 4.0); Vitamin B12 528 pg/mL (200-900)
== END 2024-01-07 07:02 | disposition home or self-care (01) ==
LOC: HO.HMGCLDS 07:01
PROVIDERS: PCP Internal Medicine; Visit Provider Internal Medicine
DX: E11.29 Type 2 diabetes mellitus with other diabetic kidney complication (principal); E78.5 Hyperlipidemia, unspecified; I10 Essential (primary) hypertension
CPT/HCPCS: 36415; 80061; 82043; 82306; 82570; 82607; 82746; 83036

== ENCOUNTER 2024-01-09 10:13 | Outpatient (AMB) | payer MEDICARE, MEDICAID, SELFPAY ==
[2024-01-09 10:54] VITALS: BP 128/66; PULSE 68; O2SAT 98; BMI 36.0
--- NOTE | 2024-01-09 10:54 | A.OFFPC_ITS ---
Vital Signs 01/09/24 10:54 Height 5 ft 3 in Weight 203 lb BMI 36.0 BP 128/66 Blood Pressure Location Rt brachial Position Sitting Pulse 68 Pulse Source Pulse Oximeter Pulse Oximetry (%) 98 Oxygen Delivery Method Room Air Intake Visit Reasons: 3 Month F/U Intake Note: Pt is here today for her 3 months f/u labs Allergies No Known Allergies Allergy (Verified 01/09/24 11:22) Medication List - Last Reconciled 01/09/24 by Arlyn Paul MD amlodipine 5 mg PO DAILY atorvastatin 20 mg PO DAILY blood sugar diagnostic (FreeStyle Lite Strips) 1 strip miscellaneous .QD carvedilol (Coreg) 12.5 mg PO BID dulaglutide 1.5 mg (0.5 mL) subcut QWEEK dulaglutide (Trulicity) 0.75 mg (0.5 mL) subcut QWEEK ferrous fumarate 325 mg PO DAILY 90 days furosemide 40 mg (2 x 20 mg) PO QAM 90 days hydralazine 100 mg PO TID 90 days letrozole 2.5 mg PO Q24H mecobalamin (vitamin B12) 1,000 mcg PO DAILY metformin 1,000 mg PO BID 90 days multivitamin 1 tab PO DAILY Tobacco use date assessed: 01/09/24 Fall risk assessment: 1 Fall in past year Last assessed Fall Risk: 01/09/24 Dental Screening Dental Screen Date: 01/09/24 Did you have a dental visit in the last 12 months?: Yes Did you have a dental problem in the last 6 months where you did not have access to dental care?: No Was dental information given to patient?: Patient has dentist HPI 3 Month F/U HPI Details 73-year-old lady with diabetes mellitus, hypertension and hyperlipidemia, here today for her follow-up. She has been taking her medications as directed, but admits to not getting any exercise at all doing this past winter, and has not been fully compliant with her recommended diet. Latest hemoglobin A1c is at 7.3%, fasting lipids and blood pressure are within normal limits. 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 Invasive ductal carcinoma of right breast Snoring Shoulder pain, bilateral Normocytic normochromic anemia Restrictive lung disease Encounter for initial annual wellness visit (AWV) in Medicare patient Restrictive lung disease secondary to obesity Dyspnea on exertion Obesity Other and unspecified hyperlipidemia Leg edema Swelling of lower extremity 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 Mother Ovarian cancer Brother Diabetes mellitus Brother Diabetes mellitus Maternal Grandfather Throat cancer Social History Household Members: None Housing: Apartment Are you a primary health care coach to a significant other at home: No Do you presently have visiting nurse or other home services: No Alcohol intake: former Patient Tobacco Use Status: Former Tobacco user Quit Date: 12/2020 Tobacco use type: Cigarette Years Smoked: since 12 yrs old e-Cigarette/Vaping Use: Never Used Second Hand Smoke Exposure: No Advance Directives Date on File: 04/20/21 service: No Current occupational status: retired Cognitive needs: No Hearing needs: No Vision needs: Yes (Glasses) Questionnaire PHQ-9 Over the last 2 weeks, how often have you been bothered by any of the following problems? 1. Little interest or pleasure in doing things: not at all 2. Feeling down, depressed, or hopeless: not at all 3. Trouble falling or staying asleep, or sleeping too much: not at all 4. Feeling tired or having little energy: not at all 5. Poor appetite or overeating: not at all 6. Feeling bad about yourself - or that you are a failure or have let yourself or your family down: not at all 7. Trouble concentrating on things, such as reading the newspaper or watching television: not at all 8. Moving or speaking so slowly that other people could have noticed. Or the opposite - being so fidgety or restless that you have been moving around a lot more than usual: not at all 9. Thoughts that you would be better off or of hurting yourself in some way: not at all Total score: 0 Depression Screening Interpretation: Negative Depression Screening Done: Yes 80541 - PHQ-9 Billing: Yes Source: Developed by Drs. Yasmani Ramos, Keli Bhat, Armando Ghotra and colleagues, with an educational iris from [email or web address]. Thrive Questionnaire Date Thrive assessed: 01/09/24 I am a: Patient What is your living situation today?: I have a steady place to live Within the past 12 months, did the food you bought not last and you didn't have the money to get more?: Never true Within the past 12 months, did you worry whether your food would run out before you got money to buy more?: Never true Do you have trouble paying for medicines?: No Do you have trouble getting transportation to medical appointments?: No Do you have trouble paying your heating and electricity bill?: No Do you have trouble taking care of your child, family member or friend?: No Do you have trouble with day-to-day activities such as bathing, preparing meals, shopping, managing finances, etc.?: No Are you currently unemployed and looking for a job?: No Are you interested in more education?: No THRIVE Score: 0 AUDIT C Alcohol Use Questionnaire (AUDIT-C) 1. How often do you have a drink containing alcohol?: Never Total Score: 0 MARISA-7 AMB Questionnaire MARISA-7 Date MARISA - 7 assessed: 01/09/24 Feeling nervous, anxious, or on edge: 0 = Not at all Not being able to stop or control worryin = Not at all Worrying too much about different things: 0 = Not at all Trouble relaxin = Not at all Being so restless that it is hard to sit still: 0 = Not at all Becoming easily annoyed or irritable: 0 = Not at all Feeling afraid as if something awful might happen: 0 = Not at all Total MARISA-7 score (0-4 normal; 5-9 mild; 10-14 moderate; 15-21 severe): 0 Source: Developed by Drs. Yasmani Ramos, Keli Bhat, Armando Ghotra and colleagues, with an educational iris from [email or web address]. MARISA-7 Assessment Billing MARISA-7 Assessment Tool: MARISA-7 Assessment 81141 Review of Systems Const Details: Sees [facility] ENT Reports no additional complaints Card Denies chest pain, Denies irregular heart rhythm and Denies lightheadedness Resp Reports no additional complaints GI Reports no additional complaints Musc Denies arthralgias, Denies joint swelling and Reports stiffness Skin/Breast Details: She sees Dr. Porsche Calhoun for her foot exam every 3 month Neuro Reports no additional complaints Endo Reports no additional complaints Physical exam (Primary Care) Vital Signs: Last Vital Signs Pulse 68 01/09/24 10:54 BP 128/66 01/09/24 10:54 Pulse Ox 98 01/09/24 10:54 Oxygen Delivery Method Room Air 01/09/24 10:54 BMI result Body Mass Index 36.0 Tobacco/Smoking Status: Tobacco use Status Tobacco use date assessed 01/09/24 01/09/24 10:57 Patient Tobacco Use Status Former Tobacco user 01/09/24 10:55 Tobacco use type Cigarette 01/09/24 10:55 e-Cigarette/Vaping Use Never Used 01/09/24 10:55 PHQ-9: PHQ-9 Score PHQ-9: Total score 0 01/10/24 00:34 Depression Screening Interpretation: Negative Thrive Assessment: Date of Thrive Assessment Date Thrive assessed 01/09/24 01/09/24 11:01 Const Other: Alert oriented x3 , no acute distress noted , ambulatory with normal gait Orientation/consciousness: patient oriented x3 HENDC Head: Yes normocephalic Face and sinus: Yes face symmetric Mouth: Normal oral and palatal mucosa present, oropharynx normal and moist mucous membranes Eyes General: appearance normal, both eyes and all related structures Neck Other: Supple, no lymphadenopathy, thyroid gland nonpalpable Resp Other: Clear to auscultation bilaterally Cardio Other: S1-S2 present regular rate and rhythm GI Other: Obese, soft, nontender, no mass palpated General: Yes no CVA tenderness Back/Spine/Pelvis Back: no CVA tenderness and No back tenderness Skin General skin exam: no rashes or lesions noted Neuro General: patient oriented x3, moves all extremities and no focal motor deficits Extrem Other: Superficial varicose veins in in both lower extremities General: Yes full ROM, Yes no joint enlargement, Yes no calf tenderness and Yes normal gait Results Reviewed Results Reviewed: Name: Rosalia Talavera Age/Sex: 73/F [facility] 1950 [id number]#: [id number] Attend Dr: Arlyn Paul MD Re01/07/24 Status: DEP REF Location: [facility] Disch: SPEC : [id number] MADI: 01/07/24 STATUS: COMP REQ : [id number] RECD: 01/07/[address]: Arlyn Paul MD COMP: 01/07/24 ENTERED: 01/07/[address]: ORDERED: Lipid Panel, Vitamin D 25-OH Test Result Flag Reference Triglyceride 112 <150 mg/dL Desirable Triglyceride: less than 150 mg/dL Borderline High Triglyceride 150-199 mg/dL High Triglyceride: 200-499 mg/dL Very High Triglyceride: greater than or equal to 5OO mg/dL Cholesterol 171 <200 mg/dL Desirable Cholesterol: less than 200 mg/dL Borderline High Cholesterol: 200-239 mg/dL High Cholesterol: greater than 239 mg/dL LDL Calculated 101 H <100 mg/dL Desirable LDL: less than 100 mg/dL Near Optimal/Above Optimal LDL: 110-129 mg/dL Borderline High LDL: 130-159 mg/dL High LDL: 160-189 mg/dL Very High LDL: greater than or equal to 190 mg/dL HDL 48 >40 mg/dL Desirable HDL: greater than 40 mg/dL Note: This HDL assay may give artificially low results in patients with liver disease. Vit D 25-OH Tot 40.4 >30 ng/mL Health Based Reference Values* < 20 ng/mL Deficient 20-30 ng/mL Insufficient > 30 ng/mL Sufficient Laboratory Tests 01/07/24 07:06 Estimat Average Glucose 163 Hemoglobin A1c % 7.3 H Laboratory Tests 01/07/24 07:06 Urine Creatinine 146.93 Urine Microalbumin 119.0 Microalb/Creat Ratio 80.9 H Assessment and Plan Assessment & Plan (1) Type 2 diabetes mellitus with other diabetic kidney complication: Code(s): E11.29 - Type 2 diabetes mellitus with other diabetic kidney complication Plan: Reviewed recent fasting lab results with patient, continue with metformin 1000 mg 1 tablet twice a day, but will increase her Trulicity dose to 1.5 mg subcutaneously given once weekly. Reinforced importance of following recommended diet and getting regular exercise. Currently up-to-date with her diabetes retinopathy screening and diabetes foot exam will see her back for follow-up in 3 months after fasting labs done (2) Hyperlipidemia: Code(s): E78.5 - Hyperlipidemia, unspecified Qualifiers: Hyperlipidemia type: pure hypercholesterolemia Qualified Code(s): E78.00 - Pure hypercholesterolemia, unspecified Plan: Continue atorvastatin 20 mg daily , in addition to adherence to low- cholesterol diet and regular exercise, at least 30 minutes 3 to 4 times a week. Advised patient to make healthy food choices, eat more fruits, vegetables, whole grains, wild caught fish and low-fat dairy. Limit amount of meat and fried or fatty food products, as well as processed foods and fast foods. Follow-up scheduled with repeat fasting lipid panel in 3 months. (3) Essential hypertension: Code(s): I10 - Essential (primary) hypertension Plan: Blood pressure at goal of less than 130/80. Continue with current medication. Reinforced importance of following a low sodium diet, getting regular exercise, and lowering stress levels. (4) Anemia: Code(s): D64.9 - Anemia, unspecified Plan: Continue ferrous sulfate, repeat another CBC and iron profile in 3 months Orders: Orders Hemoglobin A1c 03/22/24 D64.9 - Anemia, unspecified, E11.29 - Type 2 diabetes mellitus with other diabetic kidney complication, E66.01 - Morbid (severe) obesity due to excess calories, E78.00 - Pure hypercholesterolemia, unspecified, I10 - Essential (primary) hypertension Alanine Aminotransferase 03/22/24 D64.9 - Anemia, unspecified, E11.29 - Type 2 diabetes mellitus with other diabetic kidney complication, E66.01 - Morbid (severe) obesity due to excess calories, E78.00 - Pure hypercholesterolemia, unspecified, I10 - Essential (primary) hypertension IRON PROFILE 03/22/24 D64.9 - Anemia, unspecified, E11.29 - Type 2 diabetes mellitus with other diabetic kidney complication, E66.01 - Morbid (severe) obesity due to excess calories, E78.00 - Pure hypercholesterolemia, unspecified, I10 - Essential (primary) hypertension Lipid Panel 03/22/24 D64.9 - Anemia, unspecified, E11.29 - Type 2 diabetes m ellitus with other diabetic kidney complication, E66.01 - Morbid (severe) obesity due to excess calories, E78.00 - Pure hypercholesterolemia, unspecified, I10 - Essential (primary) hypertension Aspartate Amino Transferase 03/22/24 D64.9 - Anemia, unspecified, E11.29 - Type 2 diabetes mellitus with other diabetic kidney complication, E66.01 - Morbid (severe) obesity due to excess calories, E78.00 - Pure hypercholesterolemia, unspecified, I10 - Essential (primary) hypertension Basic Metabolic Panel Fasting 03/22/24 D64.9 - Anemia, unspecified, E11.29 - Type 2 diabetes mellitus with other diabetic kidney complication, E66.01 - Morbid (severe) obesity due to excess calories, E78.00 - Pure hypercholesterolemia, unspecified, I10 - Essential (primary) hypertension Complete Blood Count Auto Diff 03/22/24 D64.9 - Anemia, unspecified, E11.29 - Type 2 diabetes mellitus with other diabetic kidney complication, E66.01 - Morbid (severe) obesity due to excess calories, E78.00 - Pure hypercholesterolemia, unspecified, I10 - Essential (primary) hypertension Medications: New dulaglutide 1.5 mg (0.5 mL) subcut QWEEK 6.5 mL 1RF 3 months E11.29 - Type 2 diabetes mellitus with other diabetic kidney complication Discontinued dulaglutide (Trulicity) Discontinued Reason: Doctor's Order 0.75 mg (0.5 mL) subcut QWEEK 2 mL 0RF E11.29 - Type 2 diabetes mellitus with other diabetic kidney complication Coding Level of Care Code Est Pt Level 4 (36853) Diagnoses Type 2 diabetes mellitus with other diabetic kidney complication E11.29 Pure hypercholesterolemia E78.00 Hyperlipidemia type: pure hypercholesterolemia Essential hypertension I10 Anemia D64.9 Additional Codes MARISA-7 Assessment Billing - MARISA-7 Assessment Tool: MARISA-7 Assessment 38392 ([id number])
== END 2024-01-09 11:46 | disposition home or self-care (01) ==
PROVIDERS: PCP Internal Medicine; Visit Provider Internal Medicine
DX: E11.29 Type 2 diabetes mellitus with other diabetic kidney complication (principal); E78.00 Pure hypercholesterolemia, unspecified; I10 Essential (primary) hypertension; D64.9 Anemia, unspecified
CPT/HCPCS: 99214

== ENCOUNTER 2024-02-28 08:40 | Outpatient (AMB) | payer MEDICARE, SELFPAY ==
--- NOTE | 2024-02-28 08:43 | A.OFFVIS_ITS ---
Vital Signs 3 02/28/24 08:52 Height 5 ft 3 in Weight 203 lb 4.259 oz BMI 36.0 BP 122/82 Blood Pressure Location Lt brachial Position Right Lateral Intake Visit Reasons: 6 mth breast exam Intake Note: Patient is seen in office for 6 month follow visit, breast exam. 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 She underwent a left breast lumpectomy with needle localization on 10/28/2019 ([facility]). Margins of resection were negative. She was subsequently evaluated by Dr. Graves and by Radiation Oncology. She decided to avoid both radiation therapy and hormonal therapy. She underwent diagnostic left breast mammography on 05/02/2020 which was negative suspicious findings (BI- RADS 2). Bilateral diagnostic mammography on 10/13/2020 revealed no mammographic evidence of malignancy (BI-RADS 2). Diagnostic bilateral mammography and ultrasound on 10/17/2021 revealed no significant changes in the left breast however a new macro lobulated density measuring less than 1 cm was identified in the 12 o'clock position of the right breast, new from the prior mammogram, felt to be suspicious for malignancy. She subsequently underwent ultrasound-guided core biopsy on 10/18/2021. Unfortunately pathology results revealed invasive carcinoma with mixed ductal and lobular features, MS BR grade 2-3, ER positive, AL positive, HER2 Ken equivocal (FISH results will be addended), over 20% by Ki-67 immunostaining. She underwent right breast lumpectomy with needle localization, right sentinel node biopsy 11/30/2021 ([facility]). Pathology revealed -?Invasive carcinoma with mixed ductal and lobular features, MSBR grade 2, 0.9 cm; pT1b N0(sn)(i-), 0/4 lymph nodes with metastatic disease, ER/ AL positive, HER2 Ken negative. Margins were negative after re-excision at the time of primary procedure. She was evaluated by Dr. Graves. She did not require radiation therapy but was placed on letrozole 2.5 mg p.o. daily. Patient underwent genetic testing on 09/25/2022 which revealed no clinically significant mutations were identified on the testing.? 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 No recommendations were made for additional screening or testing.? Her most recent mammogram dated 10/25/2023 revealed no mammographic evidence of malignancy (BI-RADS 2). She denies any ongoing breast symptoms at this time. [facility] Medical History Anemia Vaginal odor Ulcer of left lower extremity Cellulitis of left lower extremity 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 Invasive ductal carcinoma of right breast Snoring Shoulder pain, bilateral Normocytic normochromic anemia Restrictive lung disease Encounter for initial annual wellness visit (AWV) in Medicare patient Restrictive lung disease secondary to obesity Dyspnea on exertion Obesity Other and unspecified hyperlipidemia Leg edema Swelling of lower extremity 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 Mother Ovarian cancer Brother Diabetes mellitus Brother Diabetes mellitus Maternal Grandfather Throat cancer Social History Household Members: None Housing: Apartment Are you a primary direct care professional to a significant other at home: No Do you presently have visiting nurse or other home services: No Alcohol intake: former Patient Tobacco Use Status: Former Tobacco user Tobacco use type: Cigarette Years Smoked: since 12 yrs old e-Cigarette/Vaping Use: Never Used Second Hand Smoke Exposure: No Advance Directives Date on File: 04/20/21 service: No Current occupational status: retired Cognitive needs: No Hearing needs: No Vision needs: Yes (Glasses) Review of Systems Const All systems reviewed & are unremarkable except as noted in HPI and below Physical Exam Const General: no acute distress and well developed Nutritional Appearance: well nourished Orientation/consciousness: patient oriented x3 Limitations: no limitations Neck Neck: Yes no lymphadenopathy Chest Other: Right breast with a well-healed incision in the upper outer quadrant, softer from prior examination. Mild tenderness to palpation. No other new skin change, nipple discharge, nipple retraction, palpable mass, or enlarged lymph nodes. Left breast with no skin change, nipple discharge retraction, palpable mass or enlarged lymph nodes. Chest/axillae images: 2 1. 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 Pathology revealed mixed invasive ductal and lobular features. She was evaluated by Dr. Graves and started on letrozole 2.5 mg q.day. She did not require radiation therapy. She feels well today and reports some pain in the right breast in the upper outer quadrant near the incision. On examination her wounds are well healed with no evidence of recurrent disease in either breast. She does have a hypertrophic scar the breast on the right side. I asked her to return in approximately 6 months for follow-up breast examination. She underwent mammogram of evaluation on 10/25/2023 which revealed no mammographic evidence of malignancy (BI-RADS 2). 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
[2024-02-28 08:52] VITALS: BP 122/82; BMI 36.0
== END 2024-02-28 09:01 | disposition home or self-care (01) ==
PROVIDERS: PCP Internal Medicine; Visit Provider Surgery
DX: C50.911 Malignant neoplasm of unspecified site of right female breast (principal)
CPT/HCPCS: 99213

== ENCOUNTER → 2024-02-28 08:40 | Outpatient (BNVA) | payer MEDICARE, SELFPAY | PROVIDERS: PCP Internal Medicine; Visit Provider Surgery | DX: C50.911 Malignant neoplasm of unspecified site of right female breast (principal); N64.4 Mastodynia | CPT/HCPCS: 99212 ==

== ENCOUNTER 2024-03-05 09:57 | Outpatient (AMB) | payer MEDICARE, SELFPAY ==
[2024-03-05 09:57] VITALS: BP 130/68; PULSE 74; TEMP 36.3; O2SAT 96; BMI 36.0
--- NOTE | 2024-03-05 09:57 | MHC.OFFWIV ---
Intake Vital Signs 03/05/24 09:57 Height 5 ft 3 in Weight 203 lb BMI 36.0 BP 130/68 Blood Pressure Location Lt brachial Position Sitting Pulse 74 Pulse Source Pulse Oximeter Temp 97.3 F Temp Source Temporal Artery Scan Pulse Oximetry (%) 96 Oxygen Delivery Method Room Air Intake Visit Reasons: EP Lightheaded Intake Note: pt is here today for lightheaded started sunday Patient Tobacco Use Status: Former Tobacco user Allergies No Known Allergies Allergy (Verified 03/05/24 10:00) Do you need a note to return to daycare/school/sports/work: No HPI HPI Comments History of Present Illness Details Patient is a 73-year-old female complaining of 3 days of lightheadedness. She states that she typically when it happens, it goes away rather quickly but it is not going away this time. She describes this as lightheadedness and room spinning kind of dizziness; not off balance. She denies any headaches, changes in her hearing or vision, sore throat, ear pain or head congestion. She has been eating and drinking normally and taking her normal daily medications. She did check a blood sugar yesterday and it was 160. 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 Invasive ductal carcinoma of right breast Snoring Shoulder pain, bilateral Normocytic normochromic anemia Restrictive lung disease Encounter for initial annual wellness visit (AWV) in Medicare patient Restrictive lung disease secondary to obesity Dyspnea on exertion Obesity Other and unspecified hyperlipidemia Leg edema Swelling of lower extremity 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 Mother Ovarian cancer Brother Diabetes mellitus Brother Diabetes mellitus Maternal Grandfather Throat cancer Social History Household Members: None Housing: Apartment Are you a primary care program director to a significant other at home: No Do you presently have visiting nurse or other home services: No Alcohol intake: former Patient Tobacco Use Status: Former Tobacco user Tobacco use type: Cigarette Years Smoked: since 12 yrs old e-Cigarette/Vaping Use: Never Used Second Hand Smoke Exposure: No Advance Directives Date on File: 04/20/21 service: No Current occupational status: retired Cognitive needs: No Hearing needs: No Vision needs: Yes (Glasses) Review of Systems Const All systems reviewed & are unremarkable except as noted in HPI and below Physical Exam Vital Signs: Last Vital Signs Temp 97.3 F 03/05/24 09:57 Pulse 74 03/05/24 09:57 BP 130/68 03/05/24 09:57 Pulse Ox 96 03/05/24 09:57 Oxygen Delivery Method Room Air 03/05/24 09:57 BMI result Body Mass Index 36.0 Const General: cooperative, healthy appearing, comfortable and no acute distress Orientation/consciousness: patient oriented x3 Limitations: no limitations HEENT Head: Yes normal to inspection and Yes normocephalic Ears: hearing grossly normal bilaterally, external ears normal and TM's normal bilaterally General nose exam: Normal external nose present, Normal nares present and No nasal discharge present Face and sinus: Yes normal facial exam and Yes sinuses nontender Mouth: Normal oral and palatal mucosa present and moist mucous membranes Throat: Yes posterior oropharynx normal, Yes tonsils normal and Yes uvula midline Eyes General: appearance normal, both eyes and all related structures Neck Neck: Yes normal visual inspection Resp Effort & Inspection: normal respiratory effort, able to speak in complete sentences, no respiratory distress, not tachypneic, no tripod positioning and no use of accessory muscles Skin General skin exam: no rashes or lesions noted Neuro General: patient oriented x3 Extrem General: Yes normal to inspection and Yes no clubbing, cyanosis or edema Office Procedures EKG [id number], Complete Assessment & Plan Assessment & Plan (1) Lightheadedness: Code(s): R42 - Dizziness and giddiness Plan: EKG in office similar to last, [place] interval 254 from and September 2022, sinus with first-degree AV block. Physical exam unrevealing, does not seem to be her ears or allergy or blood pressure, heart rate or blood sugar. Called expect to emergency department for thorough workup for her lightheadedness. I called her cousin Keli to drive her to the ED. Plan see above Coding Level of Care Code Est Pt Level 4 (61881) Diagnoses Lightheadedness R42 CPT Codes EKG - CPT: 80748-[id number], Complete ([id number])
== END 2024-03-05 11:50 | disposition home or self-care (01) ==
PROVIDERS: PCP Internal Medicine; Visit Provider Physician Assistant
DX: R42 Dizziness and giddiness (principal)
CPT/HCPCS: 93000; 99214

== ENCOUNTER 2024-03-05 11:10 | Emergency (ER) | payer MEDICARE, SELFPAY ==
--- NOTE | 2024-03-05 11:11 | ECG_ITS ---
Test Reason : CHEST PAIN Blood Pressure : / mmHG Vent. Rate : 073 BPM Atrial Rate : 073 BPM P-R Int : 246 ms QRS Dur : 082 ms QT Int : 380 ms P-R-T Axes : 059 021 044 degrees QTc Int : 418 ms Sinus rhythm with 1st degree A-V block Otherwise normal ECG When compared with ECG of 17-NOV-2009 16:45, [place] interval has increased Borderline criteria for Inferior infarct are no longer Present Referred By: Dilcia Hendricks Electronically Signed By:Michael Ibarra
[2024-03-05 11:18] VITALS: BP 155/54; PULSE 74; RESP 18; TEMP 36.5; O2SAT 98; BMI 36.0
--- NOTE | 2024-03-05 11:19 | ED_ITS ---
HPI - General Adult General Chief complaint: Dizziness Stated complaint: lightheaded sent in from urgent care Time Seen by Provider: 03/05/24 11:32 Source: patient and old records reviewed Mode of arrival: ambulatory Limitations: no limitations History of Present Illness ED Provider: JUANJOSE STEWARD narrative: 73 yo female with PMH of dizziness, anemia, HTN, sleep disorder, chronic leg swelling due to venous insufficiency, DM2, HLD, not on blood thinners here with c/o feeling dizziness on and off since Sunday - symptoms started in bed. No n/v black of bloody stools. No chest pain/dyspnea. Patient notes no recent fevers or infection. Symptoms worse with standing or moving too fast. MD complaint: lightheadedness Onset (ago): day(s) (2) Location: head Radiation: non-radiation Severity: mild Pain Consistency: intermittent Relieving factors: none Exacerbating factors: movement and other (standing up) Associated symptoms: denies other symptoms Treatments prior to arrival: none Related Data Home Medications ?Medication ?Instructions ?Recorded ?Confirmed mecobalamin (vitamin B12) 1,000 1,000 mcg PO DAILY 07/12/21 02/25/24 mcg chewable tablet multivitamin 1 tab PO DAILY 10/16/22 02/25/24 Previous Rx's ?Medication ?Instructions ?Recorded ferrous fumarate 325 mg (106 mg 325 mg PO DAILY 90 days #90 tabs 01/12/22 iron) tablet blood sugar diagnostic (FreeStyle 1 strip miscellaneous .QD #100 12/01/22 Lite Strips) strips carvedilol 12.5 mg tablet (Coreg) 12.5 mg PO BID #180 tabs 05/04/23 atorvastatin 20 mg tablet 20 mg PO DAILY #90 tabs 08/17/23 amlodipine 5 mg tablet 5 mg PO DAILY #90 tabs 10/09/23 furosemide 20 mg tablet 40 mg (2 x 20 mg) PO QAM 90 days 11/19/23 #180 tabs hydralazine 100 mg tablet 100 mg PO TID 90 days #270 tabs 12/24/23 metformin 1,000 mg tablet 1,000 mg PO BID 90 days #180 tabs 12/25/23 dulaglutide 1.5 mg/0.5 mL 1.5 mg (0.5 mL) subcut QWEEK 3 01/09/24 subcutaneous pen injector months #6.5 mL letrozole 2.5 mg tablet 2.5 mg PO Q24H #90 tabs 02/25/24 Allergies Allergy/AdvReac Type Severity Reaction Status Date / Time No Known Allergies Allergy Verified 03/05/24 11:21 Review of Systems 2 Review of Systems: Constitutional : No Fever, No Chills, No Fatigue ENT/Mouth : No sore throat, No Rhinorrhea Eyes: No Eye Pain, No Swelling, No Redness Cardiovascular : No Chest Pain, No SOB, No Dyspnea on Exertion Respiratory : No Cough, No Sputum Gastrointestinal : No Nausea, No Vomiting, No Diarrhea, No abdominal Pain Genitourinary : No Dysuria, No Urinary Frequency, No Hematuria, Musculoskeletal : No joint pain, No Myalgias, No Joint Swelling Skin : No Skin Lesions, No rash Neuro : No Weakness, No Numbness, pos Dizziness, no Headache Psych : No Anxiety/Panic, No Depression All other systems reviewed and are negative PMFSH Past Medical History Attestation statement: The following information was validated with the patient. 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 Invasive ductal carcinoma of right breast Snoring Shoulder pain, bilateral Normocytic normochromic anemia Restrictive lung disease Encounter for initial annual wellness visit (AWV) in Medicare patient Restrictive lung disease secondary to obesity Dyspnea on exertion Obesity Other and unspecified hyperlipidemia Leg edema Swelling of lower extremity 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 Mother Ovarian cancer Brother Diabetes mellitus Brother Diabetes mellitus Maternal Grandfather Throat cancer Social History Social History Household Members: None Housing: Apartment Are you a primary wound care specialist to a significant other at home: No Do you presently have visiting nurse or other home services: No Alcohol intake: former Patient Tobacco Use Status: Former Tobacco user Tobacco use type: Cigarette Years Smoked: since 12 yrs old Smoked in Last 30 Days: No e-Cigarette/Vaping Use: Never Used Second Hand Smoke Exposure: No Use of substances other than those prescribed or required for medical reasons: No Advance Directives: Yes Advance Directives on File: Yes Advance Directives Date on File: 04/20/21 Do you have a plan to hurt others: No Plan service: No Current occupational status: retired Cognitive needs: No Hearing needs: No Vision needs: Yes (Glasses) Physical Exam ED Vital Signs: Vital Signs - 24 hr 03/05/24 11:18 03/05/24 11:22 03/05/24 11:46 Temperature 97.7 F 97.9 F Pulse Rate 74 73 74 Respiratory Rate 18 22 H Blood Pressure 155/54 H 148/64 H 164/67 H Pulse Oximetry 98 96 Oxygen Delivery Method Room Air Room Air 03/05/24 12:10 03/05/24 12:14 Temperature Pulse Rate 78 77 Respiratory Rate Blood Pressure 143/60 H 135/66 Pulse Oximetry Oxygen Delivery Method BMI result Body Mass Index 36.0 Appearance: Alert. Oriented X3. No acute distress. Eyes: Pupils equal, round and reactive to light. ENT: Pharynx normal. Neck: Normal inspection. Neck supple. CVS: Normal heart rate and rhythm. Pulses normal. Respiratory: No respiratory distress. Breath sounds normal. Abdomen: Soft and non-tender. Skin: Skin warm and dry. Normal skin color. Normal skin turgor. Extremities: No lower extremity edema. Neuro: Oriented X 3. No motor deficit. No sensory deficit. Course Course Course Narrative: This is an RME done by CHANA Hendricks: Additional HPI, ROS, PE not included below will be deferred to primary provider. 73 year old male hx of anemia. invasive ductal carcinoma of r brest. DCIS of left breast, restrictive lung disease, obesity, kidney stones, DM2, HLD presents w/ 3 days of light headedness described as room spinning worse w/ rapid movements or positional changes. Has had this in the past but it went away rapidly. Eating and drinking normal and taking alll home meds. Was seen at and told to come to the ED Appearance: Alert.? Oriented X3.? No acute cardiopulmonary distress distress.? Head: Normocephalic, atraumatic, no step-offs or deformities ENT: Pharynx normal.??External ears normal, TMs normal bilaterally and EAC's normal. No pain with manipulation of external ears bilaterally. No mastoid tenderness. Neck: Normal inspection.? Neck supple.? CVS: Pulses normal.? Respiratory: No respiratory distress.? Abdomen: Soft and nontender.? Skin: ? Normal skin color. Extremities: 5/5 strength to bilateral upper and lower extremities Neuro: Oriented X 3.? No motor deficit.? No sensory deficit. Medications Administered Generic Name Dose Route Start Last Admin Trade Name Freq PRN Reason Stop Dose Admin Magnesium Sulfate 2 gm in 50 mls @ 25 mls/hr 03/05/24 12:21 03/05/24 12:33 Magnesium Sulfate/H2o IV 03/05/24 14:20 25 mls/hr ONCE ONE Administration Discontinued Medications Generic Name Dose Route Start Last Admin Trade Name Freq PRN Reason Stop Dose Admin Sodium Chloride 500 mls @ 500 mls/hr 03/05/24 12:05 03/05/24 12:33 Ns IV 03/05/24 13:04 500 mls/hr .Q1H ONE Administration Medical Decision Making Medical Decision Making [facility] Narrative: 73 yo female with PMH of dizziness, anemia, HTN, sleep disorder, chronic leg swelling due to venous insufficiency, DM2, HLD, not on blood thinners here with c/o dizziness on and off since Sunday worse with standing and moving too quick denies GIB symptoms she is not on blood thinners at this time will need basic labs, ortho VS, EKG has no headache or focal deficits to suggest ICH or stroke. Differential Diagnosis Differential Diagnoses: The differential diagnosis associated with the presentation includes anemia, dehydration, orthostatic Admission/Observation Consideration of admission/observation: Escalation of care including admission/observation considered negative orthostatics, feeling better with fluids and magnesium no focal deficits, up and walking no ataxia H/H at baseline Lab Data [facility] Lab Attestation statement: I reviewed the patient's lab results. 03/05/24 11:54 03/05/24 11:54 Labs: Lab Results 03/05/24 03/05/24 Range/Units 11:54 12:08 WBC 6.2 (4.8-10.8) X10*3/uL RBC 3.48 L (4.20-5.50) X10*6/uL Hgb 11.3 L (12.0-16.0) g/dl Hct 33.0 L (37.0-47.0) % MCV 94.8 (80.0-98.0) fL MCH 32.5 (27.0-33.0) pg MCHC 34.2 (31.0-35.0) g/dl RDW 13.3 (11.0-16.0) % Plt Count 252 (160-400) X10*3/uL MPV 9.4 (9.4-12.3) fL Immature Gran % (Auto) 0.2 (0.0-0.4) % Neut % (Auto) 69.3 (45-73) % Lymph % (Auto) 18.3 L (20-40) % [facility] % (Auto) 10.2 (2-11) % Eos % (Auto) 1.5 (0-4) % Baso % (Auto) 0.5 (0-2) % Lymph # (Auto) 1.1 L (1.2-4.9) X10*3/uL [facility] # (Auto) 0.6 (0.1-1.2) X10*3/uL Eos # (Auto) 0.1 (0.0-0.4) X10*3/uL Baso # (Auto) 0.0 (0.0-0.2) X10*3/uL Abs Immat Gran (auto) 0.01 (0.00-0.03) X10*3/uL Absolute Neuts (auto) 4.3 (2.0-8.3) x10*3/uL Absolute Nucleated RBC 0.000 (0.0-0.012) X10*3/uL Nucleated RBC % (auto) 0.0 (0.0-0.2) /100WBC PT 10.9 L (11.1-13.3) SEC INR 0.9 (0.9-1.1) Sodium 140 (135-145) mmol/L Potassium 3.6 (3.3-5.1) mmol/L Chloride 99 (96-108) mmol/L Carbon Dioxide 32 H (22-29) mmol/L Anion Gap 13 (12-20) BUN 17 H (9-16) mg/dL Creatinine 0.69 (0.5-1.4) mg/dL Estim Creat Clear Calc 77.1 Estimated GFR > 60 Random Glucose 163 H (60-115) mg/dL Calcium 9.9 D (8.4-10.2) mg/dL Magnesium 1.5 L (1.6-2.6) mg/dL Total Bilirubin 0.4 (0.0-1.0) mg/dL AST 18 (5-31) U/L ALT 22 (0-31) U/L Alkaline Phosphatase 73 (39-117) U/L Troponin I High Sens < 2.7 (<3.5-17.0) ng/L B-Natriuretic Peptide 36 (<100) pg/mL Total Protein 8.0 (6.5-8.0) g/dL Albumin 4.5 (3.5-5.0) g/dL Urine Color Yellow Urine Appearance Clear Urine pH 7.0 (5.0-9.0) Ur Specific Ball 1.010 (1.005-1.025) Urine Protein Negative (Neg-Trace) mg/dL Urine Glucose (UA) Negative (Negative) mg/dL Urine Ketones Negative (Negative) mg/dL Urine Blood Negative (Negative) Urine Nitrite Negative (Negative) Ur Leukocyte Esterase Small (1+) H (Negative) Urine RBC 0-2 (0-2) /HPF Urine WBC 0-5 (0-5) /HPF Ur Squamous Epith Cells 0-2 (0-2) /HPF Urine Bacteria None Seen (None Seen) Hyaline Casts 0-2 (0-2) /LPF Independent Interpretation I performed an independent interpretation of an: EKG Interpretation: Rate: 73 Rhythm: NSR 1st degree AVB Mcintosh: normal Normal P waves. 1st degree AVB Normal QRS complex. ST T wave : normaln oSTE qTC: 418 prior studies: no acute ischemia The study has been interpreted contemporaneously by me. . External Record Review External record reviewed: Inpatient record Discharge Plan Discharge Clinical Impression: Dizziness, Hypomagnesemia Patient Disposition: Home, Self-Care Instructions: Dizziness (ED), Hypomagnesemia (ED) Additional Instructions: return for worsening symptoms, weakness, numbness, headaches, increased dizziness, vision change or any other concerns your hemoglobin was at baseline magnesium was low and we replaced it stay hydrated and rest stay out of the heat follow up with your doctor Prescriptions: No Action ferrous fumarate 325 mg (106 mg iron) tablet 325 mg PO DAILY 90 Days Qty: 90 1RF FreeStyle Lite Strips Strip 1 strip miscellaneous .QD Qty: 100 3RF Rx Instructions: Test blood sugar daily carvedilol [Coreg] 12.5 mg tablet 12.5 mg PO BID Qty: 180 3RF Rx Instructions: must administer with a meal/food atorvastatin 20 mg tablet 20 mg PO DAILY Qty: 90 1RF amlodipine 5 mg tablet 5 mg PO DAILY Qty: 90 3RF furosemide 20 mg tablet 40 mg PO QAM 90 Days Qty: 180 2RF hydralazine 100 mg tablet 100 mg PO TID 90 Days Qty: 270 3RF metformin 1,000 mg tablet 1,000 mg PO BID 90 Days Qty: 180 1RF letrozole 2.5 mg Tablet 2.5 mg PO Q24H Qty: 90 5RF mecobalamin (vitamin B12) 1,000 mcg tablet,chewable 1,000 mcg PO DAILY dulaglutide 1.5 mg/0.5 mL pen injector 1.5 mg subcut QWEEK 90 Days Qty: 6.5 1RF multivitamin Tablet 1 tab PO DAILY Print Language: Jordanian
[2024-03-05 11:22] VITALS: BP 148/64; PULSE 73
[2024-03-05 11:46] VITALS: BP 164/67; PULSE 74; RESP 22; TEMP 36.6; O2SAT 96
[2024-03-05 12:00] LABS: MANUAL DIFF FLAG NO
[2024-03-05 12:02] LABS: Basophils Percent Auto 0.5 % (0-2); Eosinophils Absolute Auto 0.1 X10*3/uL (0.0-0.4); Eosinophils Percent Auto 1.5 % (0-4); Hemoglobin 11.3 g/dl (12.0-16.0); Imm Gran Abs Auto 0.01 X10*3/uL (0.00-0.03); Imm Gran Pct Auto 0.2 % (0.0-0.4); Lymphocytes Absolute Auto 1.1 X10*3/uL (1.2-4.9); Lymphocytes Percent Auto 18.3 % (20-40); Mean Corpuscular HGB Conc 34.2 g/dl (31.0-35.0); Mean Corpuscular Hemoglobin 32.5 pg (27.0-33.0); Mean Corpuscular Volume 94.8 fL (80.0-98.0); Mean Platelet Volume 9.4 fL (9.4-12.3); Monocytes Absolute Auto 0.6 X10*3/uL (0.1-1.2); Monocytes Percent Auto 10.2 % (2-11); Neutrophils Absolute Auto 4.3 x10*3/uL (2.0-8.3); Neutrophils Percent Auto 69.3 % (45-73); Platelet Count 252 X10*3/uL (160-400); Red Blood Count 3.48 X10*6/uL (4.20-5.50); Red Cell Distribution Width 13.3 % (11.0-16.0); White Blood Count 6.2 X10*3/uL (4.8-10.8)
[2024-03-05 12:06] LABS: INTERNATIONAL NORM RATIO 0.9 (0.9-1.1); Prothrombin Time 10.9 SEC (11.1-13.3)
[2024-03-05 12:10] VITALS: BP 143/60; PULSE 78
[2024-03-05 12:14] VITALS: BP 135/66; PULSE 77
[2024-03-05 12:19] LABS: Alanine Aminotransferase 22 U/L (0-31); Albumin Level 4.5 g/dL (3.5-5.0); Alkaline Phosphatase 73 U/L (39-117); Anion Gap 13 (12-20); Aspartate Amino Transferase 18 U/L (5-31); Bilirubin Total 0.4 mg/dL (0.0-1.0); Blood Urea Nitrogen 17 mg/dL (9-16); Calcium 9.9 mg/dL (8.4-10.2); Carbon Dioxide 32 mmol/L (22-29); Chloride 99 mmol/L (96-108); Creatinine Clr Calc Pharmacy 77.1; Estimated Glomerular Filt Rate > 60; Glucose Random 163 mg/dL (60-115); Magnesium 1.5 mg/dL (1.6-2.6); Potassium 3.6 mmol/L (3.3-5.1); Sodium 140 mmol/L (135-145)
[2024-03-05 12:19] LABS: Appearance Urine Clear; Color Urine Yellow; Glucose Urine UA Negative (Negative); Leukocyte Esterase Urine Small (1+) (Negative); Nitrite Urine Negative (Negative); UMIC TRIGGER UACC YES; Urine Blood Negative (Negative); Urine Ketones Negative (Negative); Urine Protein Negative (Neg-Trace)
[2024-03-05 12:24] LABS: B Type Natriuretic Peptide 36 pg/mL (<100)
[2024-03-05 12:28] LABS: Troponin-I High Sensitivity < 2.7 ng/L (<3.5-17.0)
[2024-03-05 12:28] LABS: Bacteria Urine None Seen (None Seen); Hyaline Casts Urine 0-2 /LPF (0-2); RBC Urine 0-2 /HPF (0-2); Squamous Epithelial Cell Urine 0-2 /HPF (0-2); UACC Culture Trigger YES; WBC Urine 0-5 /HPF (0-5)
[2024-03-05] MEDS: 0.9 % Sodium Chloride 500 ML IV (12:33)
[2024-03-05] MEDS: Magnesium Sulfate/H2O 2 GM/50 ML PIGGYBACK IV (12:33)
--- NOTE | 2024-03-05 13:01 | PC.NURSE ---
Able to ambulate to bathroom with steady gait with assist
[2024-03-05 14:40] VITALS: BP 103/55; PULSE 78; RESP 18; TEMP 36.9; O2SAT 98
== END 2024-03-05 14:41 | disposition home or self-care (01) ==
PROVIDERS: Physician Assistant; Emergency Provider Emergency Medicine; PCP Internal Medicine
DX: R42 Dizziness and giddiness (principal); E83.42 Hypomagnesemia; R60.0 Localized edema; I10 Essential (primary) hypertension; R11.2 Nausea with vomiting, unspecified; R06.02 Shortness of breath; Z79.899 Other long term (current) drug therapy
CPT/HCPCS: 36415; 80053; 81001; 83735; 83880; 84484; 85025; 85610; 87086; 93005; 96361; 96374; 99284; 99285; J3475

== ENCOUNTER → 2024-03-05 11:11 | Outpatient (BNV) | payer MEDICARE, SELFPAY | PROVIDERS: Emergency Provider Emergency Medicine; PCP Internal Medicine; Visit Provider Internal Medicine Cardiovascular Disease | DX: R07.9 Chest pain, unspecified (principal) | CPT/HCPCS: 93010 ==

== ENCOUNTER 2024-04-14 07:00 | Outpatient (REF) | payer MEDICARE, SELFPAY ==
[2024-04-14 10:07] LABS: MANUAL DIFF FLAG NO
[2024-04-14 10:19] LABS: Basophils Percent Auto 0.3 % (0-2); Eosinophils Absolute Auto 0.1 X10*3/uL (0.0-0.4); Eosinophils Percent Auto 1.7 % (0-4); Imm Gran Abs Auto 0.02 X10*3/uL (0.00-0.03); Imm Gran Pct Auto 0.3 % (0.0-0.4); Lymphocytes Absolute Auto 1.4 X10*3/uL (1.2-4.9); Lymphocytes Percent Auto 24.2 % (20-40); Mean Corpuscular HGB Conc 33.3 g/dl (31.0-35.0); Mean Corpuscular Hemoglobin 32.2 pg (27.0-33.0); Mean Corpuscular Volume 96.5 fL (80.0-98.0); Mean Platelet Volume 10.4 fL (9.4-12.3); Monocytes Absolute Auto 0.6 X10*3/uL (0.1-1.2); Monocytes Percent Auto 10.2 % (2-11); Neutrophils Absolute Auto 3.7 x10*3/uL (2.0-8.3); Neutrophils Percent Auto 63.3 % (45-73); Platelet Count 295 X10*3/uL (160-400); Red Blood Count 3.73 X10*6/uL (4.20-5.50); Red Cell Distribution Width 13.4 % (11.0-16.0); White Blood Count 5.9 X10*3/uL (4.8-10.8)
[2024-04-14 10:45] LABS: Estimated Average Glucose 148 mg/dL; Hemoglobin A1c % 6.8 % (<6.0)
[2024-04-14 10:50] LABS: Alanine Aminotransferase 32 U/L (0-31); Anion Gap 12 (12-20); Aspartate Amino Transferase 25 U/L (5-31); Blood Urea Nitrogen 12 mg/dL (9-16); Calcium 10.1 mg/dL (8.4-10.2); Carbon Dioxide 29 mmol/L (22-29); Chloride 104 mmol/L (96-108); Cholesterol 161 mg/dL (<200); Estimated Glomerular Filt Rate > 60; Glucose Fasting 165 mg/dL (60-99); HDL Cholesterol 52 mg/dL (>40); Iron 81 mcg/dL (30-160); LDL Cholesterol Calculated 86 mg/dL (<100); Magnesium 1.8 mg/dL (1.6-2.6); Percent Iron Saturation 24 % (15-50); Potassium 4.4 mmol/L (3.3-5.1); Sodium 141 mmol/L (135-145); Total Iron Binding Capacity 332 mcg/dL (228-428); Triglycerides 117 mg/dL (<150); Unsaturated Iron Binding 251 ug/dL
== END 2024-04-14 07:01 | disposition home or self-care (01) ==
LOC: HO.HMGCLDS 07:00
PROVIDERS: PCP Internal Medicine; Visit Provider Internal Medicine
DX: I50.812 Chronic right heart failure (principal); E83.42 Hypomagnesemia; I10 Essential (primary) hypertension; E11.29 Type 2 diabetes mellitus with other diabetic kidney complication; E78.00 Pure hypercholesterolemia, unspecified; E66.01 Morbid (severe) obesity due to excess calories; D64.9 Anemia, unspecified
CPT/HCPCS: 36415; 80048; 80061; 83036; 83540; 83735; 84450; 84460; 85025; 99212

== ENCOUNTER 2024-04-14 09:37 | Outpatient (AMB) | payer MEDICARE, SELFPAY ==
[2024-04-14 09:39] VITALS: BP 122/60; PULSE 77; BMI 35.5
--- NOTE | 2024-04-14 09:39 | MHC.OFFVIS ---
Vital Signs 04/14/24 09:39 Height 5 ft 3 in Weight 200 lb 9.93 oz BMI 35.5 BP 122/60 Blood Pressure Location Lt brachial Position Sitting Pulse 77 Pulse Source Pulse Oximeter Intake Visit Reasons: 1 year fu Allergies No Known Allergies Allergy (Verified 03/05/24 11:21) Medication List - Last Reconciled 04/14/24 by Colby Agosto MD amlodipine 5 mg PO DAILY atorvastatin 20 mg PO DAILY blood sugar diagnostic (FreeStyle Lite Strips) 1 strip miscellaneous .QD carvedilol (Coreg) 12.5 mg PO BID dulaglutide 1.5 mg (0.5 mL) subcut QWEEK 3 months ferrous fumarate 65 mg PO DAILY furosemide 40 mg (2 x 20 mg) PO QAM 90 days hydralazine 100 mg PO BID letrozole 2.5 mg PO Q24H mecobalamin (vitamin B12) 1,000 mcg PO DAILY metformin 1,000 mg PO BID 90 days multivitamin 1 tab PO DAILY HPI Comments Details: Rosalia returns for follow-up. In the past, she has been seen regarding leg swelling. She has had this for a long time. Many vascular risk factors including diabetes, hypertension, dyslipidemia. History of smoking but nothing recently. She was morbidly obese but it seems that she has lost lot of weight recently. Almost 40 lb or so. She states she feels much better. No specific cardiac symptoms at this time. She has also been cutting back on diuretics. 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 Invasive ductal carcinoma of right breast Snoring Shoulder pain, bilateral Normocytic normochromic anemia Restrictive lung disease Encounter for initial annual wellness visit (AWV) in Medicare patient Restrictive lung disease secondary to obesity Dyspnea on exertion Obesity Other and unspecified hyperlipidemia Leg edema Swelling of lower extremity 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 Mother Ovarian cancer Brother Diabetes mellitus Brother Diabetes mellitus Maternal Grandfather Throat cancer Social History Household Members: None Housing: Apartment Are you a primary personal care home administrator to a significant other at home: No Do you presently have visiting nurse or other home services: No Alcohol intake: former Patient Tobacco Use Status: Former Tobacco user Tobacco use type: Cigarette Years Smoked: since 12 yrs old e-Cigarette/Vaping Use: Never Used Second Hand Smoke Exposure: No Advance Directives Date on File: 04/20/21 service: No Current occupational status: retired Cognitive needs: No Hearing needs: No Vision needs: Yes (Glasses) Review of Systems Const Denies weakness ENT Denies dizziness Card Denies chest pain, Denies chest pain with activity, Denies syncope, Denies rapid heart rate, Denies pedal edema, Denies edema, Denies leg edema, Denies lightheadedness, Denies palpitations, Denies dyspnea, Denies dyspnea on exertion and Denies orthopnea Resp Denies cough, Denies dyspnea and Denies dyspnea on exertion GI Denies hematochezia and Denies change in stool character Musc Denies abnormal gait, Denies muscle cramps, Denies muscle weakness, Denies numbness, Denies radiating pain into limb and Denies tingling Neuro Denies abnormal gait, Denies dizziness, Denies syncope, Denies numbness, Denies tingling and Denies weakness Endo Denies palpitations Physical Exam Vital Signs: Last Vital Signs Pulse 77 04/14/24 09:39 BP 122/60 04/14/24 09:39 BMI result Body Mass Index 35.5 Const General: comfortable and no acute distress Orientation/consciousness: patient oriented x3 HEENT Other: Unremarkable Head: Yes normal to inspection Neck Neck: Yes normal visual inspection Chest Chest palpation & inspection: normal inspection of the chest Resp Auscultation: clear to auscultation bilaterally Cardio Palpation: normal PMI Heart sounds: S1 normal heart sound present, S2 normal heart sound present, no gallops, no murmurs and no rubs GI Palpation (GI): Soft to palpation Back/Spine/Pelvis Other: unremarkable Skin General skin exam: no rashes or lesions noted Neuro General: patient oriented x3 Extrem Other: 1 to utmost 2+ leg swelling. General: Yes normal to inspection Psych Mental Status: mental status grossly normal Assessment & Plan Assessment & Plan (1) Chronic right heart failure: Code(s): I50.812 - Chronic right heart failure Category: Medical Plan: As she has lost lot of weight, this should also improve. Her leg swelling does seem less prominent than in the past. Advised her to cut back on her diuretics as she states she is urinating a lot. She can probably do Lasix 20 mg once a day and if her leg swelling is still okay, may be use alternate days or as needed. We discussed about this at length today. She will call us with questions. Cardiac testing- Echocardiogram with LVEF of 65-70%. Mild diastolic dysfunction with indeterminate filling pressures. Otherwise unremarkable. Myocardial perfusion imaging without any clear ischemia or other abnormalities. (2) Morbid obesity: Code(s): E66.01 - Morbid (severe) obesity due to excess calories Category: Medical Plan: Rate has improved significantly. In the past, she used to weigh about 240 lb or so. Currently 200 lb. So she has lost about 40 lb which is excellent. That significantly reduces her cardiac risk profile. (3) Essential hypertension: Code(s): I10 - Essential (primary) hypertension Category: Medical Plan: Currently on carvedilol, amlodipine and hydralazine. History of hyperkalemia and hence not on any ROBBIN inhibitors or ARB. (4) Type 2 diabetes mellitus with unspecified complications: Code(s): E11.8 - Type 2 diabetes mellitus with unspecified complications Category: Medical Plan: On dulaglutide and metformin. Less than optimal control. Most recently, hemoglobin A1c 6.8%. Medications: Changed From ferrous fumarate 325 mg PO DAILY 90 days 90 tabs 1RF To ferrous fumarate 65 mg PO DAILY Arlyn Paul MD From hydralazine 100 mg PO TID 90 days 270 tabs 3RF To hydralazine 100 mg PO BID Colby Agosto MD Coding Level of Care Code Est Pt Level 4 (37185) Diagnoses Chronic right heart failure I50.812 Morbid obesity E66.01 Essential hypertension I10 Type 2 diabetes mellitus with unspecified complications E11.8
== END 2024-04-14 10:04 | disposition home or self-care (01) ==
PROVIDERS: PCP Internal Medicine; Visit Provider Internal Medicine
DX: I50.812 Chronic right heart failure (principal); E66.01 Morbid (severe) obesity due to excess calories; I10 Essential (primary) hypertension; E11.8 Type 2 diabetes mellitus with unspecified complications
CPT/HCPCS: 99214

== ENCOUNTER 2024-04-21 08:17 | Outpatient (AMB) | payer MEDICARE, MEDICAID, SELFPAY ==
[2024-04-21 08:23] VITALS: BP 126/70; PULSE 68; O2SAT 97; BMI 36.0
--- NOTE | 2024-04-21 08:23 | AM.OFFVISMDC ---
Intake Vital Signs 04/21/24 08:23 Height 5 ft 3 in Weight 203 lb BMI 36.0 BP 126/70 Blood Pressure Location Lt brachial Position Sitting Pulse 68 Pulse Source Pulse Oximeter Pulse Oximetry (%) 97 Oxygen Delivery Method Room Air Intake Visit Reasons: SWV G0439 Intake Note: Pt is here today for her SWV: Last mammogram 10/25/23, bone density scan 01/05/22, colonoscopy 01/05/22 Allergies No Known Allergies Allergy (Verified 04/21/24 08:48) Medication List - Last Reconciled 04/21/24 by Arlyn Paul MD amlodipine 5 mg PO DAILY atorvastatin 20 mg PO DAILY blood sugar diagnostic (FreeStyle Lite Strips) 1 strip miscellaneous .QD carvedilol (Coreg) 12.5 mg PO BID dulaglutide 1.5 mg (0.5 mL) subcut QWEEK 3 months ferrous fumarate 65 mg PO DAILY furosemide 40 mg (2 x 20 mg) PO QAM 90 days hydralazine 100 mg PO BID letrozole 2.5 mg PO Q24H mecobalamin (vitamin B12) 1,000 mcg PO DAILY metformin 1,000 mg PO BID 90 days multivitamin 1 tab PO DAILY HPI SWV G0439 HPI Details SWV ?73 year old with type 2 diabetes mellitus, hypertension, hyperlipidemia, chronic venous insufficiency, history of ductal CIS of breast, history of basal cell CA on nose status post Mohs surgery, presents for her ? subsequent wellness visit. She is up-to-date with her mammogram done 10/25/2023 and a bone density was done 01/05/2022 with normal findings. She no longer gets Pap smears, last colonoscopy was [place] [address] David, due again for repeat this year, will schedule appointment. She had normal fasting lipid panel check and fasting hemoglobin A1c done 04/14/2024 with results within normal limits. She has had COVID vaccines in the past but does not want to get the booster, reminded to get her yearly flu shot, Prevnar 20 given today, and recommended to get shingles vaccine, 2 doses given 2-6 months support which can be administered at the pharmacy. ? Past Medical History ?Yes . ? [place] of Care / Care Team list updated ?Yes . ? Surgical/Hospitalization History ?Yes . ? Current Medications (including OTC and supplements) ?Yes . ? Family History ?Yes . ? Tobacco Control form ?Yes . ? AUDIT-C (Alcohol use) form ?Yes . ? Illicit drug use in Social History ?Yes . ? Current diagnosis of depression? ?No ? Appropriate PHQ2/PHQ9 completed ?Yes . ? Data entered by ?[employer] and reviewed by provider ? Fall Risk ? Fall History? Have you had any falls with injury in the past year? ?No . ? Have you had two or more falls in the past year? ?No . ? Fall Risk Assessment: ?No falls in the past year . ? HRA filled out by the patient, reviewed by Provider and scanned. ?SWV ? Balance? Romberg ?Yes . ? Tandem walk ?unable . ? Walk and Turn ?Yes . ? Rise from sit to stand ?Yes . ?Vision? Corrective lens ?Yes ? Vision screen ? Up-to-date, [facility] ?Hearing? Whisper test ?pass . ?Written Plan?Completed. See Patient Documents.? 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 Invasive ductal carcinoma of right breast Snoring Shoulder pain, bilateral Normocytic normochromic anemia Restrictive lung disease Encounter for initial annual wellness visit (AWV) in Medicare patient Restrictive lung disease secondary to obesity Dyspnea on exertion Obesity Other and unspecified hyperlipidemia Leg edema Swelling of lower extremity 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 Mother Ovarian cancer Brother Diabetes mellitus Brother Diabetes mellitus Maternal Grandfather Throat cancer Social History Household Members: None Housing: Apartment Are you a primary primary care pediatrician to a significant other at home: No Do you presently have visiting nurse or other home services: No Alcohol intake: former Patient Tobacco Use Status: Former Tobacco user Tobacco use type: Cigarette Years Smoked: since 12 yrs old e-Cigarette/Vaping Use: Never Used Second Hand Smoke Exposure: No Advance Directives Date on File: 04/20/21 service: No Current occupational status: retired Cognitive needs: No Hearing needs: No Vision needs: Yes (Glasses) Questionnaire Medicare Wellness Checkup What [age]?: [age] What gender do you identify with?: female During the past 4 weeks, how much have you been bothered by emotional problems such as feeling anxious, depressed, irritable, sad or downhearted, and blue?: not at all During the past 4 weeks, has your physical & emotional health limited your social activities with family, friends, neighbors, or groups?: not at all During the past 4 weeks, how much bodily pain have you generally had?: no pain During the past 4 weeks, was someone available to help you if you needed & wanted help?: yes, as much as I wanted During the past 4 weeks, what was the hardest physical activity you could do for at least 2 minutes?: light Can you get to places out of walking distance without help? (For eg., can you travel alone on buses, taxis or drive your car?): Yes Can you go shopping for groceries or clothes without someone's help?: Yes Can you prepare your own meals?: Yes Can you do your housework without help?: Yes Because of any health problems, do you need the help of another person with your personal care needs such as eating, bathing, dressing or getting around the house?: No Can you handle your own money without help?: Yes During the past 4 weeks, how would you rate your health in general?: very good During the past 4 weeks how have things been going for you?: very well; could hardly better Are you having difficulties driving your car?: no Do you always fasten your seat belt when you are in a car?: yes, usually During past 4 weeks, have you been bothered by the following: never: Sexual problems?, Trouble eating well?, Teeth or denture problems? and Problems using the telephone?, seldom: Falling or dizzy when standing up and sometimes: Tiredness or fatigue? Have you fallen 2 or more times in the past year?: No Are you afraid of falling?: Yes Are you a smoker?: no During the past 4 weeks, how many drinks of wine, beer, or other alcoholic beverages did you have?: no alcohol at all Do you exercise for about 20 minutes 3 or more times a week?: no, I usually do not exercise this much Have you been given information to help with the following?: no: Hazards in your house that might hurt you? and no: Keeping track of your medications? How often do you have trouble taking medicines the way you have been told to take them?: I always take medicine as prescribed How confident are you that you can control & manage most of your health problems?: very confident What is your race?: White Mini Mental State Exam (MMSE) Orientation What is the (year) (season) (date) (day) (month)?: year (2023), season (), date (04/21/24), day and month (april) Where are we (state) (county) (town or city) (hospital) (floor)?: state ([place]), county ([place]), town or city ([place]), hospital[place] and floor Score Score: 10 Activity of Daily Living Bathing - sponge bath, tub bath or shower: receives no assistance (gets in/out by self, if usual bathing means Dressing - getting clothes from closets & drawers, including inner/outer garments & fasteners.: gets clothes & gets completely dressed without help Toileting - going to the 'toilet room' for urine/bowel elimination & cleaning self/arranging clothes: goes to toilet room, cleans self, arranges clothes without help Transfer: moves in & out of bed and chair without help (may use support object) Continence: has occasional 'accidents' Feeding: feeds self without help Total Score: 0 Information obtained from: patient Using telephone: independent Traveling: independent Shopping: independent Preparing meals: independent Housework: independent Taking medicine: independent Managing money: independent PHQ-9 Over the last 2 weeks, how often have you been bothered by any of the following problems? 1. Little interest or pleasure in doing things: not at all 2. Feeling down, depressed, or hopeless: not at all 3. Trouble falling or staying asleep, or sleeping too much: nearly every day 4. Feeling tired or having little energy: several days 5. Poor appetite or overeating: not at all 6. Feeling bad about yourself - or that you are a failure or have let yourself or your family down: not at all 7. Trouble concentrating on things, such as reading the newspaper or watching television: not at all 8. Moving or speaking so slowly that other people could have noticed. Or the opposite - being so fidgety or restless that you have been moving around a lot more than usual: not at all 9. Thoughts that you would be better off or of hurting yourself in some way: not at all Total score: 4 Depression Screening Interpretation: Negative Depression Screening Done: Yes 53772 - PHQ-9 Billing: Yes Source: Developed by Drs. Yasmani Ramos, Keli Bhat, Armando Ghotra and colleagues, with an educational iris from [employer]. Physical Exam Vital Signs: Last Vital Signs Pulse 68 04/21/24 08:23 BP 126/70 04/21/24 08:23 Pulse Ox 97 04/21/24 08:23 Oxygen Delivery Method Room Air 04/21/24 08:23 BMI result Body Mass Index 36.0 Immunizations pneumoc 20-luis e conj-dip cr(PF) 0.5 mL IM syringe Performing Provider: Arlyn Paul MD Performing Location: [facility] Administered by: Vanna Cordova CMA on 04/21/24 09:09 Dose Route Admin Location Dispensed Lot Number Expiration Date NDC Protein Purification Scientist 0.5 mL IM Left Deltoid 0.5 mL [id number] 03/16/25 [id number] [employer] VIS Given Date VIS Provided VIS Publication Date 04/21/24 Single Vaccine 21 Eligibility Eligibility Date Funding Source Not [facility] Eligible 04/21/24 Private Results Reviewed Results Reviewed: Name: Rosalia Talavera Age/Sex: 73/F : 1950 Unit#: [id number] Attend Dr: Arlyn Paul MD Re04/14/24 Status: DEP REF Location: [facility] Disch: SPEC : [id number] MADI: 04/14/24 STATUS: COMP REQ : [id number] RECD: 04/14/24-[address]: Arlyn Paul MD COMP: 04/14/24 ENTERED: 04/14/[address]: ORDERED: CBC Auto Diff Test Result Flag Reference WBC 5.9 4.8-10.8 X10*3/uL RBC 3.73 L 4.20-5.50 X10*6/uL HGB 12.0 12.0-16.0 g/dl HCT 36.0 L 37.0-47.0 % MCV 96.5 80.0-98.0 fL MCH 32.2 27.0-33.0 pg MCHC 33.3 31.0-35.0 g/dl RDW 13.4 11.0-16.0 % PLT 295 160-400 X10*3/uL MPV 10.4 9.4-12.3 fL Neut Pct Auto 63.3 45-73 % ImGran Pct Auto 0.3 0.0-0.4 % Lymp Pct Auto 24.2 20-40 % Wallace Pct Auto 10.2 2-11 % Eos Pct Auto 1.7 0-4 % Baso Pct Auto 0.3 0-2 % NRBC Pct Auto 0.0 0.0-0.2 /100WBC ANC Neut Abs # 3.7 2.0-8.3 x10*3/uL ImGran Abs Auto 0.02 0.00-0.03 X10*3/uL Lymph Abs Auto 1.4 1.2-4.9 X10*3/uL Wallace Abs Auto 0.6 0.1-1.2 X10*3/uL Eos Abs Auto 0.1 0.0-0.4 X10*3/uL Baso Abs Auto 0.0 0.0-0.2 X10*3/uL NRBC Abs Auto 0.000 0.0-0.012 X10*3/uL Laboratory Tests 01/07/24 04/14/24 07:06 07:10 Estimat Average Glucose 148 Hemoglobin A1c % 6.8 H Urine Creatinine 146.93 Urine Microalbumin 119.0 Microalb/Creat Ratio 80.9 H Assessment & Plan Assessment & Plan (1) Encounter for subsequent annual wellness visit (AWV) in Medicare patient: Code(s): Z00.00 - Encounter for general adult medical examination without abnormal findings Plan: Medical wellness visit checklist reviewed, discussed with patient and updated. Reminded to get her shingles vaccine and get her yearly flu shot, does not want to get a COVID booster, Prevnar [address] David for her repeat screening colonoscopy which is now due. (2) Encounter for screening for malignant neoplasm of colon: Code(s): Z12.11 - Encounter for screening for malignant neoplasm of colon Plan: Referred back to Dr. David for her repeat screening colonoscopy, last 1 was done in 2013 (3) Essential hypertension: Code(s): I10 - Essential (primary) hypertension Plan: Blood pressure at goal of less than 130/80. Continue with amlodipine 5 mg daily, carvedilol 12.5 twice a day, hydralazine 100 mg 1 tablet twice a day Reinforced importance of following a low sodium diet, getting regular exercise, and lowering stress levels. (4) Restrictive lung disease secondary to obesity: Comment: PATIENT HAS MODERATELY SEVERE RESTRICTIVE PULMONARY DISORDER RELATED TO HER OBESITY. THERE IS NO EVIDENCE OF OBSTRUCTIVE AIRWAY DISORDER. SPIROMETRY TODAY AGAIN CONFIRMS MODERATELY SEVERE RESTRICTIVE DISORDER. Code(s): J98.4 - Other disorders of lung; E66.9 - Obesity, unspecified Plan: Continued weight loss recommended (5) Chronic venous insufficiency of lower extremity: Code(s): I87.2 - Venous insufficiency (chronic) (peripheral) Plan: Continue furosemide 40 mg in a.m. (6) Morbid obesity: Code(s): E66.01 - Morbid (severe) obesity due to excess calories Plan: Discussed need to increase activity and weight reduction. Recommended focusing on improving health instead of dieting. Mediterranean diet is a healthy diet that helps, limit food high in fat, sugar, and calories. Eat slowly, pay attention to portion sizes, plan your meals ahead of time, start regular physical activity, at least 150 minutes of moderate intensity exercise, or 90 minutes per week of vigorous exercise. Keeping a food diary, tracking what you eat and your physical activity can help assess what improvements you can make. There are many health problems associated with being overweight/obese, so it is important to improve your diet and exercise. (7) Type 2 diabetes mellitus with other diabetic kidney complication: Code(s): E11.29 - Type 2 diabetes mellitus with other diabetic kidney complication Plan: Recent lab results reviewed with patient, with sugar and hemoglobin A1c stable and at goal, with him hemoglobin A1c today at 6.8%. Continue with metformin a 1000 mg 1 tablet twice a day with food and Trulicity 1.5 mg once a week. continue to check fasting blood sugar at home, maintain log and bring to next appointment for review. Reinforced diabetic diet and regular exercise with patient. Counseled regarding importance of yearly diabetes retinopathy screening. Patient advised to inspect feet daily, for any signs of injury, callus or infection. Compliance with diet and regular exercise again stressed. Blood pressure goal is less than 130/80, goal LDL is less than 100 and goal hemoglobin A1c is less than 7% follow-up appointment made in---months, after fasting labs done. (8) Hyperlipidemia: Code(s): E78.5 - Hyperlipidemia, unspecified Qualifiers: Hyperlipidemia type: pure hypercholesterolemia Qualified Code(s): E78.00 - Pure hypercholesterolemia, unspecified Plan: Blood pressure at goal of less than 130/80. Continue with atorvastatin 20 mg daily Reinforced importance of following a low sodium diet, getting regular exercise, and lowering stress levels. (9) History of invasive ductal carcinoma of breast: Code(s): Z85.3 - Personal history of malignant neoplasm of breast Plan: Followed by Dr. Lombardo and Oncology, up-to-date with her screening mammogram, continue on letrozole (10) Hx of basal cell carcinoma: Comment: Nose 12/25/23 Dr Tucker Code(s): Z85.828 - Personal history of other malignant neoplasm of skin Plan: Status post Mohs surgery 01/05/2024, followed by at [facility] Orders: Orders Pneumococcal 20 Immunization Today Z23 - Encounter for immunization Referrals Gastroenterology Referral Z12.11 - Encounter for screening for malignant neoplasm of colon Quality Reporting (2019) Depression/Bipolar (159/160/161/177) PHQ-9: Total score: 4 Coding Level of Care Code Medicare Subsequent (G0439) Diagnoses Encounter for subsequent annual wellness visit (AWV) in Medicare patient Z00.00 Encounter for screening for malignant neoplasm of colon Z12.11 Essential hypertension I10 Restrictive lung disease secondary to obesity J98.4; E66.9 Chronic venous insufficiency of lower extremity I87.2 Morbid obesity E66.01 Type 2 diabetes mellitus with other diabetic kidney complication E11.29 Pure hypercholesterolemia E78.00 Hyperlipidemia type: pure hypercholesterolemia History of invasive ductal carcinoma of breast Z85.3 Hx of basal cell carcinoma Z85.828 CPT Codes Advance Care Planning - Advance Care Planning discussion: On file, no changes ([id number]) Advance Care Planning - Time spent: 1-15 minutes, on File ([id number]) Advance Care Planning Advance Care Planning discussion: On file, no changes Date of discussion: 04/21/24 Who was present: Patient Forms completed: Health Care Proxy and MOLST Time spent: 1-15 minutes, on File Actual minutes spent: 15
== END 2024-04-21 09:24 | disposition home or self-care (01) ==
PROVIDERS: PCP Internal Medicine; Visit Provider Internal Medicine
DX: Z00.00 Encounter for general adult medical examination without abnormal findings (principal); E66.01 Morbid (severe) obesity due to excess calories; E11.29 Type 2 diabetes mellitus with other diabetic kidney complication; Z23 Encounter for immunization; Z68.36 Body mass index [BMI] 36.0-36.9, adult; Z12.11 Encounter for screening for malignant neoplasm of colon; I10 Essential (primary) hypertension; J98.4 Other disorders of lung; I87.2 Venous insufficiency (chronic) (peripheral); E78.00 Pure hypercholesterolemia, unspecified; Z85.3 Personal history of malignant neoplasm of breast; Z85.828 Personal history of other malignant neoplasm of skin
CPT/HCPCS: 1123F; 90471; 90677; G0439

== ENCOUNTER 2024-05-20 08:04 | Outpatient (AMB) | payer MEDICARE, SELFPAY ==
[2024-05-20 08:05] VITALS: BP 118/74; PULSE 73; TEMP 36.5; O2SAT 97; BMI 35.1
--- NOTE | 2024-05-20 08:05 | AM.OFFWIN_ITS ---
Intake Vital Signs 05/20/24 08:05 Height 5 ft 3 in Weight 198 lb BMI 35.1 BP 118/74 Blood Pressure Location Rt brachial Position Sitting Pulse 73 Pulse Source Pulse Oximeter Temp 97.7 F Temp Source Oral Pulse Oximetry (%) 97 Oxygen Delivery Method Room Air Intake Visit Reasons: EP Sore throat, cough Intake Note: pt c/o sore throat and cough, Started Sunday Patient Tobacco Use Status: Former Tobacco user Allergies No Known Allergies Allergy (Verified 05/20/24 08:10) Do you need a note to return to daycare/school/sports/work: No HPI HPI Comments History of Present Illness Details Patient is a 74-year-old female complaining of a cough as for throat the last 3 days. She also states she had some abdominal pain but that has subsided. She denies any nausea or vomiting or diarrhea. She states she has diarrhea at baseline. She denies any sinus pain or ear pain. She has not taken any medications to make herself feel better. 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 Invasive ductal carcinoma of right breast Snoring Shoulder pain, bilateral Normocytic normochromic anemia Restrictive lung disease Encounter for initial annual wellness visit (AWV) in Medicare patient Restrictive lung disease secondary to obesity Dyspnea on exertion Obesity Other and unspecified hyperlipidemia Leg edema Swelling of lower extremity 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 Mother Ovarian cancer Brother Diabetes mellitus Brother Diabetes mellitus Maternal Grandfather Throat cancer Social History Household Members: None Housing: Apartment Are you a primary home visit field care manager to a significant other at home: No Do you presently have visiting nurse or other home services: No Alcohol intake: former Patient Tobacco Use Status: Former Tobacco user Tobacco use type: Cigarette Years Smoked: since 12 yrs old e-Cigarette/Vaping Use: Never Used Second Hand Smoke Exposure: No Advance Directives Date on File: 04/20/21 service: No Current occupational status: retired Cognitive needs: No Hearing needs: No Vision needs: Yes (Glasses) Review of Systems Const All systems reviewed & are unremarkable except as noted in HPI and below Physical Exam Vital Signs: Last Vital Signs Temp 97.7 F 05/20/24 08:05 Pulse 73 05/20/24 08:05 BP 118/74 05/20/24 08:05 Pulse Ox 97 05/20/24 08:05 Oxygen Delivery Method Room Air 05/20/24 08:05 BMI result Body Mass Index 35.1 Const General: cooperative, healthy appearing, comfortable and no acute distress Orientation/consciousness: patient oriented x3 Limitations: no limitations HEENT Head: Yes normal to inspection Ears: hearing grossly normal bilaterally, external ears normal and TM's normal bilaterally General nose exam: Normal external nose present, Normal nares present and No nasal discharge present Face and sinus: Yes normal facial exam and Yes sinuses nontender Mouth: Normal oral and palatal mucosa present and moist mucous membranes Throat: Yes tonsils normal, Yes uvula midline and Yes posterior oropharynx abnormal (Erythema) Eyes General: appearance normal, both eyes and all related structures Neck Neck: Yes normal visual inspection Resp Effort & Inspection: normal respiratory effort, able to speak in complete sentences, Actively coughing, no respiratory distress, not tachypneic, no tripod positioning and no use of accessory muscles Auscultation: clear to auscultation bilaterally Cardio Rate: regular rate Rhythm: regular rhythm Heart sounds: normal S1 and S2 Skin General skin exam: no rashes or lesions noted Neuro General: patient oriented x3 Extrem General: Yes normal to inspection and Yes no clubbing, cyanosis or edema Results AMB Rapid Strep AMB Rapid Strep Negative Last Edit by Edvin Flor CMA on 05/20/24 08:19 Assessment & Plan Assessment & Plan (1) Upper respiratory tract infection: Comment: Patient is interested in ruling out COVID Code(s): J06.9 - Acute upper respiratory infection, unspecified Qualifiers: URI type: unspecified URI Qualified Code(s): J06.9 - Acute upper respiratory infection, unspecified Plan: Vital signs are stable, strep negative, sent testing for COVID, reviewed COVID guidelines if she is positive. Plan See above Coding Level of Care Code Est Pt Level 3 (57025) Diagnoses Upper respiratory tract infection, unspecified type J06.9 URI type: unspecified URI
== END 2024-05-20 09:24 | disposition home or self-care (01) ==
PROVIDERS: PCP Internal Medicine; Visit Provider Physician Assistant
DX: J06.9 Acute upper respiratory infection, unspecified (principal)
CPT/HCPCS: 87880; 99213

== ENCOUNTER 2024-05-20 08:21 | Outpatient (REF) | payer MEDICARE, SELFPAY ==
[2024-05-20 12:55] LABS: Influenza A PCR NEGATIVE (Negative); Influenza B PCR NEGATIVE (Negative); Resp Syncy Virus RNA Qual PCR NEGATIVE (Negative); SARS COV2 PCR INHOUSE NEGATIVE (Negative)
== END 2024-05-20 08:22 | disposition home or self-care (01) ==
LOC: HO.LAB 08:21
PROVIDERS: Visit Provider Physician Assistant
DX: J06.9 Acute upper respiratory infection, unspecified (principal)
CPT/HCPCS: 0241U

== ENCOUNTER 2024-06-05 10:04 | Outpatient (AMB) | payer MEDICARE, SELFPAY ==
--- NOTE | 2024-06-05 10:08 | MHC.OFFWIV ---
Intake Vital Signs 06/05/24 10:10 Height 5 ft 3 in Weight 200 lb BMI 35.4 BP 120/64 Blood Pressure Location Lt brachial Position Sitting Pulse 77 Pulse Source Pulse Oximeter Temp 98.2 F Temp Source Oral Pulse Oximetry (%) 95 Oxygen Delivery Method Room Air Intake Visit Reasons: EP diarrhea, cough since 05/20. Intake Note: Patient here for cough, diarrhea that has been present since 05/20. Patient Tobacco Use Status: Former Tobacco user Allergies No Known Allergies Allergy (Verified 06/05/24 10:11) Do you need a note to return to daycare/school/sports/work: No HPI HPI Comments History of Present Illness Details Patient is a 74-year-old female complaining of a lingering dry cough since May 20. She states she was tested in this office for COVID and strep on that day and tested negative for both. She states all of her symptoms have resolved except for this lingering dry cough. She also notes 3 episodes of intermittent diarrhea over the last 5 days. 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 Invasive ductal carcinoma of right breast Snoring Shoulder pain, bilateral Normocytic normochromic anemia Restrictive lung disease Encounter for initial annual wellness visit (AWV) in Medicare patient Restrictive lung disease secondary to obesity Dyspnea on exertion Obesity Other and unspecified hyperlipidemia Leg edema Swelling of lower extremity 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 Mother Ovarian cancer Brother Diabetes mellitus Brother Diabetes mellitus Maternal Grandfather Throat cancer Social History Household Members: None Housing: Apartment Are you a primary urgent care technician to a significant other at home: No Do you presently have visiting nurse or other home services: No Alcohol intake: former Patient Tobacco Use Status: Former Tobacco user Tobacco use type: Cigarette Years Smoked: since 12 yrs old e-Cigarette/Vaping Use: Never Used Second Hand Smoke Exposure: No Advance Directives Date on File: 04/20/21 service: No Current occupational status: retired Cognitive needs: No Hearing needs: No Vision needs: Yes (Glasses) Review of Systems Const All systems reviewed & are unremarkable except as noted in HPI and below Physical Exam Vital Signs: Last Vital Signs Temp 98.2 F 06/05/24 10:10 Pulse 77 06/05/24 10:10 BP 120/64 06/05/24 10:10 Pulse Ox 95 06/05/24 10:10 Oxygen Delivery Method Room Air 06/05/24 10:10 BMI result Body Mass Index 35.4 Const General: cooperative, healthy appearing, comfortable and no acute distress Orientation/consciousness: patient oriented x3 Limitations: no limitations HEENT Head: Yes normal to inspection Ears: hearing grossly normal bilaterally and external ears normal General nose exam: Normal external nose present, Normal nares present and No nasal discharge present Face and sinus: Yes normal facial exam and Yes sinuses nontender Mouth: Normal oral and palatal mucosa present and moist mucous membranes Throat: Yes tonsils normal, Yes uvula midline and Yes posterior oropharynx abnormal (Erythema) Eyes General: appearance normal, both eyes and all related structures Neck Neck: Yes normal visual inspection Resp Effort & Inspection: normal respiratory effort, able to speak in complete sentences, Actively coughing, no respiratory distress, not tachypneic, no tripod positioning and no use of accessory muscles Auscultation: clear to auscultation bilaterally Cardio Rate: regular rate Rhythm: regular rhythm Heart sounds: normal S1 and S2 Skin General skin exam: no rashes or lesions noted Neuro General: patient oriented x3 Extrem General: Yes normal to inspection and Yes no clubbing, cyanosis or edema Assessment & Plan Assessment & Plan (1) Atypical pneumonia: Code(s): J18.9 - Pneumonia, unspecified organism Plan: Vital signs are stable, patient well-appearing, lung sounds are clear, we will send Z-Shaheen for atypical pneumonia. Plan See above Medications: New azithromycin For 250 mg dose pack: take 500 mg today (day 1), then 250 mg for 4 days (days 2-5) PO 6 tabs 0RF Coding Level of Care Code Est Pt Level 3 (69272) Diagnoses Atypical pneumonia J18.9
[2024-06-05 10:10] VITALS: BP 120/64; PULSE 77; TEMP 36.8; O2SAT 95; BMI 35.4
== END 2024-06-05 11:16 | disposition home or self-care (01) ==
PROVIDERS: PCP Internal Medicine; Visit Provider Physician Assistant
DX: J18.9 Pneumonia, unspecified organism (principal)

== ENCOUNTER → 2024-06-05 10:04 | Outpatient (BNVA) | payer MEDICARE, SELFPAY | PROVIDERS: PCP Internal Medicine | DX: J18.9 Pneumonia, unspecified organism (principal) | CPT/HCPCS: 99212 ==

== ENCOUNTER 2024-06-12 12:32 | Outpatient (REF) | payer MEDICARE, SELFPAY ==
[2024-06-12 17:53] LABS: Influenza A PCR NEGATIVE (Negative); Influenza B PCR NEGATIVE (Negative); Resp Syncy Virus RNA Qual PCR NEGATIVE (Negative); SARS COV2 PCR INHOUSE NEGATIVE (Negative)
== END 2024-06-12 12:33 | disposition home or self-care (01) ==
LOC: HO.LAB 12:32
PROVIDERS: PCP Internal Medicine; Visit Provider Registered Nurse
DX: J06.9 Acute upper respiratory infection, unspecified (principal); J30.9 Allergic rhinitis, unspecified
CPT/HCPCS: 0241U; 99212

== ENCOUNTER 2024-06-12 12:32 | Outpatient (AMB) | payer MEDICARE, SELFPAY ==
[2024-06-12 13:05] VITALS: BP 122/68; PULSE 77; TEMP 36.6; O2SAT 98; BMI 35.6
--- NOTE | 2024-06-12 13:05 | AM.OFFWIN_ITS ---
Intake Vital Signs 06/12/24 13:05 Height 5 ft 3 in Weight 201 lb BMI 35.6 BP 122/68 Blood Pressure Location Rt brachial Position Sitting Pulse 77 Pulse Source Pulse Oximeter Temp 97.8 F Temp Source Oral Pulse Oximetry (%) 98 Oxygen Delivery Method Room Air Intake Visit Reasons: EP ongoing cough Intake Note: Patient here for cough that has been present for over 3 weeks. Patient Tobacco Use Status: Former Tobacco user Allergies No Known Allergies Allergy (Verified 06/12/24 13:14) Do you need a note to return to daycare/school/sports/work: No HPI EP ongoing cough HPI Details This note is constructed using voice recognition software. While every effort has been made to ensure accuracy, airline managerial supervisor errors may have been included. The patient is a 74 year old female who presents to the clinic today with cough for the past month. She has been seen in the walk-in clinic twice, treated for URI including atypical pneumonia, but the symptoms have not resolve. She denies fever, chills, dyspnea, body aches, or any other corresponding URI symptoms. She did not feel that anything she has tried so far his made an in the improvement. The cough is worse in the morning and at bedtime when changing positions, or when talking too much or laughing. She denies sinus pressure, ear pain. 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 Invasive ductal carcinoma of right breast Snoring Shoulder pain, bilateral Normocytic normochromic anemia Restrictive lung disease Encounter for initial annual wellness visit (AWV) in Medicare patient Restrictive lung disease secondary to obesity Dyspnea on exertion Obesity Other and unspecified hyperlipidemia Leg edema Swelling of lower extremity 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 Mother Ovarian cancer Brother Diabetes mellitus Brother Diabetes mellitus Maternal Grandfather Throat cancer Social History Household Members: None Housing: Apartment Are you a primary healthcare interpreter to a significant other at home: No Do you presently have visiting nurse or other home services: No Alcohol intake: former Patient Tobacco Use Status: Former Tobacco user Tobacco use type: Cigarette Years Smoked: since 12 yrs old e-Cigarette/Vaping Use: Never Used Second Hand Smoke Exposure: No Advance Directives Date on File: 04/20/21 service: No Current occupational status: retired Cognitive needs: No Hearing needs: No Vision needs: Yes (Glasses) Review of Systems Const All systems reviewed & are unremarkable except as noted in HPI and below Physical Exam Vital Signs: Last Vital Signs Temp 97.8 F 06/12/24 13:05 Pulse 77 06/12/24 13:05 BP 122/68 06/12/24 13:05 Pulse Ox 98 06/12/24 13:05 Oxygen Delivery Method Room Air 06/12/24 13:05 BMI result Body Mass Index 35.6 Const General: cooperative, healthy appearing, comfortable and no acute distress Orientation/consciousness: patient oriented x3 Limitations: no limitations HEENT Head: Yes normal to inspection Ears: hearing grossly normal bilaterally, external ears normal and TM abnormal retracted General nose exam: Normal external nose present, No nasal discharge present and Abnormal mucous membranes and turbinates present boggy and pale Face and sinus: Yes normal facial exam and Yes sinuses nontender Mouth: Normal oral and palatal mucosa present and moist mucous membranes Throat: Yes tonsils normal, Yes uvula midline, Yes posterior oropharynx abnormal (Erythema), Yes postnasal drainage and Yes cobblestoning Eyes General: appearance normal, both eyes and all related structures Neck Neck: Yes normal visual inspection Resp Effort & Inspection: normal respiratory effort, able to speak in complete sentences, Actively coughing, no respiratory distress, not tachypneic, no tripod positioning and no use of accessory muscles Auscultation: clear to auscultation bilaterally Cardio Rate: regular rate Rhythm: regular rhythm Heart sounds: normal S1 and S2 Skin General skin exam: no rashes or lesions noted Neuro General: patient oriented x3 Extrem General: Yes normal to inspection and Yes no clubbing, cyanosis or edema Assessment & Plan Assessment & Plan (1) Allergic rhinitis: Code(s): J30.9 - Allergic rhinitis, unspecified Qualifiers: Allergic rhinitis trigger: unspecified Allergic rhinitis seasonality: unspecified Qualified Code(s): J30.9 - Allergic rhinitis, unspecified Plan: Supportive measures encouraged and reviewed. Advised patient to try a Flonase nasal spray and second-generation antihistamine such as Zyrtec, Claritin, Jaclyn or similar. Advised consideration of sinus rinse if needed. Advised patient to follow up with primary care provider with worsening or failure to resolve. Due to the chronicity of the cough, I did offer her a chest x-ray. I put the order in, however she left prior to receiving this x-ray, I did call and leave a message for patient to remind her that the order is available. Plan See above for full details and plan. Orders: Orders SARS-CoV2/FLU/RSV Today J06.9 - Acute upper respiratory infection, unspecified XR chest 2V Today R05.9 - Cough, unspecified Coding Level of Care Code Est Pt Level 3 (10429) Diagnoses Allergic rhinitis, unspecified seasonality, unspecified trigger J30.9 Allergic rhinitis trigger: unspecified Allergic rhinitis seasonality: unspecified
== END 2024-06-12 13:56 | disposition home or self-care (01) ==
PROVIDERS: PCP Internal Medicine; Visit Provider Registered Nurse
DX: J30.9 Allergic rhinitis, unspecified (principal)

== ENCOUNTER 2024-06-13 13:18 | Outpatient (REF) | payer MEDICARE, SELFPAY ==
--- NOTE | ~2024-06-13 | XR_ITS ---
EXAMINATION: XR CHEST CLINICAL INFORMATION: Cough COMPARISON: Prior chest November 2020 TECHNIQUE: 2 views of the chest were obtained. FINDINGS: No significant abnormality is noted involving the heart, lungs, mediastinum, bony thorax or soft tissues. XR/XR chest 2V IMPRESSION: Unremarkable examination. Electronically signed by: Ramakrishna Temple MD 06/14/2024 11:37 AM EDT RP
== END 2024-06-13 13:19 | disposition home or self-care (01) ==
LOC: HO.HMGCX 13:18
PROVIDERS: PCP Internal Medicine; Visit Provider Registered Nurse
DX: R05.9 Cough, unspecified (principal)
CPT/HCPCS: 71046

== ENCOUNTER 2024-07-23 11:16 | Outpatient (AMB) | payer MEDICARE, MEDICAID, SELFPAY ==
[2024-07-23 12:49] VITALS: BP 100/60; PULSE 71; O2SAT 97; BMI 34.5
--- NOTE | 2024-07-23 12:49 | A.OFFPC_ITS ---
Vital Signs 07/23/24 12:49 Height 5 ft 3 in Weight 195 lb BMI 34.5 BP 100/60 Blood Pressure Location Lt radial Position Sitting Pulse 71 Pulse Source Pulse Oximeter Pulse Oximetry (%) 97 Oxygen Delivery Method Room Air Intake Visit Reasons: 3 Month F/U - see comments Intake Note: Pt is here today for her 3mo. DM Allergies No Known Allergies Allergy (Verified 07/23/24 13:12) Medication List - Last Reconciled 07/27/24 by Arlyn Paul MD amlodipine 5 mg PO DAILY atorvastatin 20 mg PO DAILY azelastine 1 spray intranasal BID blood sugar diagnostic (FreeStyle Lite Strips) 1 strip miscellaneous .QD carvedilol (Coreg) 12.5 mg PO BID ferrous fumarate 65 mg PO DAILY furosemide 40 mg (2 x 20 mg) PO QAM 90 days hydralazine 100 mg PO DAILY letrozole 2.5 mg PO Q24H mecobalamin (vitamin B12) 1,000 mcg PO DAILY metformin 1,000 mg PO BID 90 days multivitamin 1 tab PO DAILY Ozempic (semaglutide) 0.25 mg (0.368 mL) subcut QWEEK 30 days NS Tobacco use date assessed: 07/23/24 Fall risk assessment: 1 Fall in past year Last assessed Fall Risk: 07/23/24 Dental Screening Dental Screen Date: 07/23/24 Did you have a dental visit in the last 12 months?: Yes Did you have a dental problem in the last 6 months where you did not have access to dental care?: No Was dental information given to patient?: Patient has dentist HPI 3 Month F/U - see comments HPI Details 74 year old lady with history of type 2 diabetes mellitus, hyperte nsion, hyperlipidemia, chronic venous insufficiency, history of ductal CIS of breast, history of basal cell CA on nose status post Mohs surgery, here today for a follow up visit. Has been compliant with taking her medications, and recommended diet, but is sedentary for the most part. HbA1c today is higher than last check now at 7%. Complains of nasal congestion, and rhinorrhea, no relief with taking [id number] antihistamines. 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 Invasive ductal carcinoma of right breast Snoring Shoulder pain, bilateral Normocytic normochromic anemia Restrictive lung disease Encounter for initial annual wellness visit (AWV) in Medicare patient Restrictive lung disease secondary to obesity Dyspnea on exertion Obesity Other and unspecified hyperlipidemia Leg edema Swelling of lower extremity 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 Mother Ovarian cancer Brother Diabetes mellitus Brother Diabetes mellitus Maternal Grandfather Throat cancer Social History Household Members: None Housing: Apartment Are you a primary veterinarian laboratory animal care to a significant other at home: No Do you presently have visiting nurse or other home services: No Alcohol intake: former Patient Tobacco Use Status: Former Tobacco user Tobacco use type: Cigarette Years Smoked: since 12 yrs old e-Cigarette/Vaping Use: Never Used Second Hand Smoke Exposure: No Advance Directives Date on File: 04/20/21 service: No Current occupational status: retired Cognitive needs: No Hearing needs: No Vision needs: Yes (Glasses) Questionnaire PHQ-9 Over the last 2 weeks, how often have you been bothered by any of the following problems? Depression Screening Interpretation: Negative Depression Screening Done: Yes Source: Developed by Drs. Yasmani Ramos, Keli Bhat, Armando Ghotra and colleagues, with an educational iris from [employer]. Thrive Questionnaire Date Thrive assessed: 04/21/24 I am a: Patient What is your living situation today?: I have a steady place to live Within the past 12 months, did the food you bought not last and you didn't have the money to get more?: Never true Within the past 12 months, did you worry whether your food would run out before you got money to buy more?: Never true Do you have trouble paying for medicines?: No Do you have trouble getting transportation to medical appointments?: No Do you have trouble paying your heating and electricity bill?: No Do you have trouble taking care of your child, family member or friend?: No Do you have trouble with day-to-day activities such as bathing, preparing meals, shopping, managing finances, etc.?: No Are you currently unemployed and looking for a job?: No Are you interested in more education?: No Please select the resources that you would like help with: None Currently or been in a relationship where the following occur: No concerns reported THRIVE Score: 0 MARISA-7 AMB Questionnaire MARISA-7 Date MARISA - 7 assessed: 01/09/24 Source: Developed by Drs. Yasmani Ramos, Keli Bhat, Armando Ghotra and colleagues, with an educational iris from [employer]. Review of Systems Const Details: Sees [facility] Eyes Reports no additional complaints ENT Reports as per HPI Card Denies chest pain, Denies irregular heart rhythm and Denies lightheadedness Resp Reports no additional complaints GI Reports no additional complaints Reports no additional complaints Musc Denies arthralgias, Denies joint swelling and Reports stiffness Skin/Breast Details: She sees Dr. Porsche Calhoun for her foot exam every 3 month Neuro Reports no additional complaints Endo Reports no additional complaints Physical exam (Primary Care) Vital Signs: Last Vital Signs Pulse 71 07/23/24 12:49 BP 100/60 07/23/24 12:49 Pulse Ox 97 07/23/24 12:49 Oxygen Delivery Method Room Air 07/23/24 12:49 BMI result Body Mass Index 34.5 Tobacco/Smoking Status: Tobacco use Status Tobacco use date assessed 07/23/24 07/23/24 12:52 Patient Tobacco Use Status Former Tobacco user 07/23/24 12:52 Tobacco use type Cigarette 07/23/24 12:52 e-Cigarette/Vaping Use Never Used 07/23/24 12:52 Depression Screening Interpretation: Negative Thrive Assessment: Date of Thrive Assessment Date Thrive assessed 04/21/24 07/23/24 12:52 Currently or been in a relationship where the following occur: No concerns reported Const Other: Alert oriented x3 , no acute distress noted , ambulatory with normal gait Orientation/consciousness: patient oriented x3 [facility] Head: Yes normocephalic Face and sinus: Yes face symmetric and No sinus tenderness Mouth: Normal oral and palatal mucosa present, oropharynx normal and moist mucous membranes Eyes General: appearance normal, both eyes and all related structures Neck Other: Supple, no lymphadenopathy, thyroid gland nonpalpable Resp Other: Clear to auscultation bilaterally Cardio Other: S1-S2 present regular rate and rhythm GI Other: Obese, soft, nontender, no mass palpated General: Yes no CVA tenderness Back/Spine/Pelvis Back: no CVA tenderness and No back tenderness Skin General skin exam: no rashes or lesions noted Neuro General: patient oriented x3, moves all extremities and no focal motor deficits Extrem Other: Superficial varicose veins in in both lower extremities General: Yes full ROM, Yes no joint enlargement, Yes no calf tenderness and Yes normal gait Results AMB Hemoglobin A1c AMB Hemoglobin A1c 7.0 % Last Edit by Vanna Cordova CMA on 07/23/24 13:25 Results Reviewed Results Reviewed: Laboratory Last Values Hgb A1c (Clinic) 7.0 % (4.0-6.0) H 07/23/24 13:23 Coding Level of Care Code Est Pt Level 4 (54281) Complex EM visit Add On G2211 Diagnoses Essential hypertension I10 Type 2 diabetes mellitus with other diabetic kidney complication E11.29 Pure hypercholesterolemia E78.00 Hyperlipidemia type: pure hypercholesterolemia Nasal congestion with rhinorrhea R09.81; J34.89 Assessment & Plan Assessment & Plan (1) Essential hypertension: Code(s): I10 - Essential (primary) hypertension Category: Medical Plan: Hypertension stable and controlled on present treatment, continued on hydralazine 100 mg daily, carvedilol 12.5 mg 1 tablet twice a day, amlodipine 5 mg daily (2) Type 2 diabetes mellitus with other diabetic kidney complication: Code(s): E11.29 - Type 2 diabetes mellitus with other diabetic kidney complication Category: Medical Plan: Hemoglobin A1c today higher than last check at 7%. Reinforced importance of following recommended diet and staying active, do at least 15 minutes of walking daily. Will continue on metformin a 1000 mg twice a day, discontinue dulaglutide and switched to Ozempic 0.25 mg injected subcutaneously once a week. Will see her back for follow-up in 3 months. (3) Hyperlipidemia: Code(s): E78.5 - Hyperlipidemia, unspecified Category: Medical Qualifiers: Hyperlipidemia type: pure hypercholesterolemia Qualified Code(s): E78.00 - Pure hypercholesterolemia, unspecified Plan: Fasting lipid panel ordered continue atorvastatin 20 mg daily (4) Nasal congestion with rhinorrhea: Code(s): R09.81 - Nasal congestion; J34.89 - Other specified disorders of nose and nasal sinuses Plan: Prescription sent for as a lasting nasal spray instill 1 spray in each nostril twice a day as needed Orders: Orders AMB Hemoglobin A1c 07/23/24. - Type 2 diabetes mellitus with other michelle betic kidney complication Microalbumin, Random (w Creat) 07/23/24.29 - Type 2 diabetes mellitus with other diabetic kidney complication, E78.00 - Pure hypercholesterolemia, unspecified, I10 - Essential (primary) hypertension Vitamin D 25-OH Total 07/23/24 E11.29 - Type 2 diabetes mellitus with other diabetic kidney complication, E78.00 - Pure hypercholesterolemia, unspecified, I10 - Essential (primary) hypertension Lipid Panel 07/23/24 E11.29 - Type 2 diabetes mellitus with other diabetic kidney complication, E78.00 - Pure hypercholesterolemia, unspecified, I10 - Essential (primary) hypertension Alanine Aminotransferase 07/23/24 E11.29 - Type 2 diabetes mellitus with other diabetic kidney complication, E78.00 - Pure hypercholesterolemia, unspecified, I10 - Essential (primary) hypertension Aspartate Amino Transferase 07/23/24 E11.29 - Type 2 diabetes mellitus with other diabetic kidney complication, E78.00 - Pure hypercholesterolemia, unspecified, I10 - Essential (primary) hypertension Basic Metabolic Panel Fasting 07/23/24 E11.29 - Type 2 diabetes mellitus with other diabetic kidney complication, E78.00 - Pure hypercholesterolemia, unspecified, I10 - Essential (primary) hypertension Medications: New azelastine administer into each nostril 1 spray intranasal BID 30 mL 0RF Ozempic (semaglutide) for 4 weeks 0.25 mg (0.368 mL) subcut QWEEK 30 days 3 mL 4RF NS Discontinued dulaglutide Discontinued Reason: Insurance Denied 1.5 mg (0.5 mL) subcut QWEEK 3 months 6.5 mL 1RF E11.29 - Type 2 diabetes mellitus with other diabetic kidney complication
== END 2024-07-23 13:46 | disposition home or self-care (01) ==
LOC: HO.HMCC 11:18
PROVIDERS: PCP Internal Medicine; Visit Provider Internal Medicine
DX: I10 Essential (primary) hypertension (principal); E11.29 Type 2 diabetes mellitus with other diabetic kidney complication; E78.00 Pure hypercholesterolemia, unspecified; R09.81 Nasal congestion; J34.89 Other specified disorders of nose and nasal sinuses

== ENCOUNTER → 2024-07-23 11:16 | Outpatient (BNVA) | payer MEDICARE, MEDICAID, SELFPAY | PROVIDERS: PCP Internal Medicine; Visit Provider Internal Medicine | DX: I10 Essential (primary) hypertension (principal); E11.29 Type 2 diabetes mellitus with other diabetic kidney complication; E78.00 Pure hypercholesterolemia, unspecified; R09.81 Nasal congestion; J34.89 Other specified disorders of nose and nasal sinuses | CPT/HCPCS: 83036; 99212 ==

== ENCOUNTER 2024-07-29 06:56 | Outpatient (REF) | payer MEDICARE, MEDICAID, SELFPAY ==
[2024-07-29 11:00] LABS: Alanine Aminotransferase 21 U/L (0-31); Anion Gap 14 (12-20); Aspartate Amino Transferase 26 U/L (5-31); Blood Urea Nitrogen 18 mg/dL (9-16); Calcium 10.5 mg/dL (8.4-10.2); Carbon Dioxide 29 mmol/L (22-29); Chloride 101 mmol/L (96-108); Cholesterol 159 mg/dL (<200); Estimated Glomerular Filt Rate > 60; Glucose Fasting 141 mg/dL (60-99); HDL Cholesterol 45 mg/dL (>40); LDL Cholesterol Calculated 87 mg/dL (<100); Potassium 3.7 mmol/L (3.3-5.1); Sodium 140 mmol/L (135-145); Triglycerides 139 mg/dL (<150)
[2024-07-29 11:04] LABS: Vitamin D 25-OH Total 47.1 ng/mL (>30)
[2024-07-29 11:21] LABS: Creatinine Urine 133.17 mg/dL
== END 2024-07-29 06:57 | disposition home or self-care (01) ==
LOC: HO.HMGCLDS 06:56
PROVIDERS: PCP Internal Medicine; Visit Provider Internal Medicine
DX: I10 Essential (primary) hypertension (principal); E11.29 Type 2 diabetes mellitus with other diabetic kidney complication; E78.00 Pure hypercholesterolemia, unspecified
CPT/HCPCS: 36415; 80048; 80061; 82043; 82306; 82570; 84450; 84460

== ENCOUNTER 2024-08-29 10:38 | Outpatient (AMB) | payer MEDICARE, MEDICAID, SELFPAY ==
--- NOTE | 2024-08-29 10:47 | A.OFFVIS_ITS ---
Vital Signs 3 08/29/24 10:58 Height 5 ft 3 in Weight 204 lb BMI 36.1 BP 150/80 H Blood Pressure Location Lt brachial Position Sitting Intake Visit Reasons: 6 month follow up, breast exam Intake Note: Patient is seen in office for 6 months follow up visit, breast exam. Pt c/o: denies any concerns regarding the breast mm sched: 10/28/24 Electric Drill Operator Required: No Accompanied by: Self / Same As Patient Allergies No Known Allergies Allergy (Verified 08/29/24 11:00) Medication List - Last Reconciled 08/29/24 by Raheem Lombardo MD amlodipine 5 mg PO DAILY atorvastatin 20 mg PO DAILY azelastine 1 spray intranasal BID blood sugar diagnostic (FreeStyle Lite Strips) 1 strip miscellaneous .QD carvedilol (Coreg) 12.5 mg PO BID ferrous fumarate 65 mg PO DAILY furosemide 40 mg (2 x 20 mg) PO QAM 90 days hydralazine 100 mg PO DAILY letrozole 2.5 mg PO Q24H mecobalamin (vitamin B12) 1,000 mcg PO DAILY metformin 1,000 mg PO BID 90 days multivitamin 1 tab PO DAILY Ozempic (semaglutide) 0.25 mg (0.368 mL) subcut QWEEK 30 days NS HPI Comments Details: 74-year-old female patient returning for follow-up breast examination for a left breast solitary papillary carcinoma without evidence of invasion, grade 2, ER/CA positive and 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 She underwent a left breast lumpectomy with needle localization on 10/28/2019 (Radha). Margins of resection were negative. She was subsequently evaluated by Dr. Graves and by Radiation Oncology. She decided to avoid both radiation therapy and hormonal therapy. She underwent diagnostic left breast mammography on 05/02/2020 which was negative suspicious findings (BI- RADS 2). Bilateral diagnostic mammography on 10/13/2020 revealed no mammographic evidence of malignancy (BI-RADS 2). Diagnostic bilateral mammography and ultrasound on 10/17/2021 revealed no significant changes in the left breast however a new macro lobulated density measuring less than 1 cm was identified in the 12 o'clock position of the right breast, new from the prior mammogram, felt to be suspicious for malignancy. She subsequently underwent ultrasound-guided core biopsy on 10/18/2021. Unfortunately pathology results revealed invasive carcinoma with mixed ductal and lobular features, MS BR grade 2-3, ER positive, CA positive, HER2 Ken equivocal (FISH results will be addended), over 20% by Ki-67 immunostaining. She underwent right breast lumpectomy with needle localization, right sentinel node biopsy 11/30/2021 ([facility]). Pathology revealed -?Invasive carcinoma with mixed ductal and lobular features, MSBR grade 2, 0.9 cm; pT1b N0(sn)(i-), 0/4 lymph nodes with metastatic disease, ER/ CA positive, HER2 Ken negative. Margins were negative after re-excision at the time of primary procedure. She was evaluated by Dr. Garves. She did not require radiation therapy but was placed on letrozole 2.5 mg p.o. daily. Patient underwent genetic testing on 09/25/2022 which revealed no clinically significant mutations were identified on the testing.? 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 No recommendations were made for additional screening or testing.? Her most recent mammogram dated 10/25/2023 revealed no mammographic evidence of malignancy (BI-RADS 2). She denies any ongoing breast symptoms at this time. 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 Mother Ovarian cancer Brother Diabetes mellitus Brother Diabetes mellitus Maternal Grandfather Throat cancer Social History Household Members: None Housing: Apartment Are you a primary manager intensive care unit to a significant other at home: No Do you presently have visiting nurse or other home services: No Alcohol intake: former Patient Tobacco Use Status: Former Tobacco user Tobacco use type: Cigarette Years Smoked: since 12 yrs old e-Cigarette/Vaping Use: Never Used Second Hand Smoke Exposure: No Advance Directives Date on File: 04/20/21 service: No Current occupational status: retired Cognitive needs: No Hearing needs: No Vision needs: Yes (Glasses) Review of Systems Const All systems reviewed & are unremarkable except as noted in HPI and below Physical Exam Vital Signs: Last Vital Signs BP 150/80 H 08/29/24 10:58 BMI result Body Mass Index 36.1 Const General: no acute distress and well developed Nutritional Appearance: well nourished Orientation/consciousness: patient oriented x3 Limitations: no limitations Neck Neck: Yes no lymphadenopathy Chest Other: Right breast with a well-healed incision in the upper outer quadrant, softer from prior examination. Mild tenderness to palpation. No other new skin change, nipple discharge, nipple retraction, palpable mass, or enlarged lymph nodes. Left breast with no skin change, nipple discharge retraction, palpable mass or enlarged lymph nodes. Chest/axillae images: 2 1. Incision right breast Resp Effort & Inspection: normal respiratory effort GI Inspection: Yes normal to inspection Skin General skin exam: no rashes or lesions noted Neuro Other: Mobility Assessment: 1. 3 meter assessment time (seconds) 5 2. 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 Pathology revealed mixed invasive ductal and lobular features. She was evaluated by Dr. Graves and started on letrozole 2.5 mg q.day. She did not require radiation therapy. She feels well today and reports some pain in the right breast in the upper outer quadrant near the incision. On examination her wounds are well healed with no evidence of recurrent disease in either breast. She does have a hypertrophic scar the breast on the right side which has softened. I asked her to return in approximately 6 months for follow-up breast examination. She underwent mammogram of evaluation on 10/25/2023 which revealed no mammographic evidence of malignancy (BI-RADS 2). 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
--- OUTSIDE RECORDS SUMMARY | 2024-08-29 10:47 | XMS_ITS ---
Author Organization [facility] Address [address] [place] [address] Care Team Providers Care Mobile Application Developer Name Role Phone Humberto GRIFFIN, Arlyn Montgomery Primary Care Provider Un available Black, Mignon Unavailable [phone] Allergies No Known Allergies REASON FOR VISIT At Risk Footcare Medications Medication SIG (Take, Route, Frequency, Duration) Notes Start Date End Date Status Metformin & Diet Manage Prod Not-Taking Letrozole 2.5 MG 1 tablet Orally Once a day for 30 day(s) Active Cetirizine HCl 10 MG 1 tablet as needed Orally Once a day Not-Taking Fluticasone Propionate 50 MCG/ACT 1 spray in each nostril Nasally Once a day Not-Taking amLODIPine Besylate 5 MG as directed Orally Once a day Active Extra-Depth Diabetic Shoes with 3 Pair Custom heat-molded multi-density innersoles . for 1 year . Dx:calloused heels b/l for . 07/05/2015 Not-Taking zzzGold Bonds for Diabetics . . apply to feet Daily for 30 days 07/05/2015 Not-Taking Lisinopril 10 MG 1 tablet Orally Once a day Not-Taking Atorvastatin Calcium 20 MG 1 tablet Orally Once a day Not-Taking Naproxen 500 MG 1 tablet with food o r milk as needed Orally every 12 hrs prn 2019 Not-Taking Cranberry Not-Taking Probiotic Not-Taking glipiZIDE ER 2.5 MG 1 tablet Orally Once a day in am with breakfast 10/18/2018 Not-Taking Lisinopril 10MG 1 tablet Orally Once a day Not-Taking Azithromycin Not-Johan ing Glucosamine Not-Taki ng FreeStyle Lite Test 1 as directed to ski n twice a day for diabetes mellitus 250 for 30 days 10/16/2013 Not-Taking Ferretts Not-Taking Centrum Not-Taking zzzCompression Stockings 20-30mm Hg . . . for 90 days No t-Taking Trulicity 1.5 MG/0.5ML as directed Subcutaneous Active Multivitamin Active Tubular compression stockings wear daily 12/14/2022 Not-Taking Extra Depth Orthopedic Shoes (1 Pair) with Customized Heat Molded Multidensity Innersoles (3 Pair) as directed Dx: NIDDM/Polyneuropathy (E11.42), Hammertoe Foot Deformity (M20.41,M20.42), Preulcerative Skin Lesion(s) (L85.1 04/18/2021 Active Vitamin B12 Active Iron Active hydrALAZINE HCl 100 MG 1 tablet with berenice d Orally Four times a day Active Furosemide 20 MG 1 tablet Orally Once a day for 30 day(s) Active FreeStyle Lancets 1 check blood glucose as directed to skin qd for 30 days Active metFORMIN HCl 1000 MG 1 tablet with meal s Orally Twice a day 2 per day Active Carvedilol 12.5 MG 1 tablet with food Orally Twice a day Active Atorvastatin Calcium 20MG 1 tablet Orally Once a day Active Social History Tobacco Use: Social History Observation Description Date Details (start date - stop date) Former Smoker NA - NA Tobacco Use/Smoking Question Answer Notes Are you a: former smoker Additional Findings: Tobacco User Light cigarett e smoker ((1-9 cigs/day) Additional Findings: Tobacco Non-User Current no n-smoker Tobacco use other than smoking: Question Answer Notes Are you an other tobacco user? No Vital Signs Height 5ft3in in 08/04/2024 Weight 191 lbs 08/04/2024 BMI 33.83 kg/m2 08/04/2024 Blood pressure systolic 100 mm Hg 08/04/20 24 Blood pressure diastolic 60 mm Hg 024 Procedures Procedure Date Ordered Date Performed Result Body Sit e 41290-TEPGOLN NAIL, 1-5 08/04/2024 N/A 66472-KOJH SKIN LESIONS, OVER 4 08/04/2024 N/A B5079-TFGGAUPO DYSTROPHIC NAILS ANY # 08/04/2024 N/A Encounters Encounter Location Date Provider Diagnosis [facility] [address] [address] 08/04/2024 Mignon Calhoun Type 2 diabetes mellitus with diabetic polyneuropathy E11.42 and Onychomycosis B35.1 Assessments Encounter Date Diagnosis (ICD Code) Assessment Notes Treatment Notes Treatment Clinical Notes Section Notes 08/04/2024 Type 2 diabetes mellitus with diabetic polyneuropathy (ICD-10 - E11.42) 08/04/2024 Onychomycosis (ICD-10 - B35.1) Plan Of Treatment Pending Test Test Name Order Date 31719-UECBDAT NAIL, 1-5 08/04/2024 30987-SLZH SKIN LESIONS, OVER 4 08/04/20 24 H3692-OBBQEGYT DYSTROPHIC NAILS ANY # Next Appt Details Follow Up: prn, Reason: Provider Name:Mignon Calhoun , 11/13/2024 02:00:00 PM, [address] [place] [address], [phone], Procedure Notes * Category Sub-Category Detail Notes Keratoma Treatment Parring or Cutting o f Benign Hyperkeratotic Lesion(s) 24447 ( >4 lesions) - The Benign hyperkeratotic lesions, as described above were pared, and/or cut utilizing a sterile #15 blade, tissue nippers, and/or dremel Debride Nails 1-5 Procedure: Performance of this nail treatment by a nonprofessional would put this patients foot and overall health at risk. Therefore, debridement to affected nail(s), as described in exam, was performed extensively to reduce/remove overall nail length, girth, thickness, subungual debris, and necrotic tissue, by manual and/or electrical means through the use of a nail nipper and/or dremel-type floor grinder, to a more viable healthy nail plate or bed tissue 1-5. Silver nitrate used for any petechial bleeding as necessary. Definitive antifungal treatment options have been reviewed and discussed with the patient. The patient chooses, no pharmaceutical tx - 67148 Nail Reduction Nail Reduction Trimming of dyst rophic nails performed to reduce/remove overall nail length and girth, by manual and electrical means with use of a nail nipper and/or dremel, to more viable healthy nail plate or bed tissue 6-10 (G0127) Progress Notes * Rosalia RANKIN ADOB: [birth year] (74 yo F)Acc No.[id number]:08/04/2024 Progress Note Patient:Rosalia GRAVES Provider:?Mignon Calhoun DPM :1950???Age:74 Y???Sex:Female D ate:08/04/2024 Address:[address] [place] [address] Pcp:Дмитрий Saravia Subjective: * Chief Complaints: * ???At Risk Footcare * HPI: ???Painful Nails:?Pt States Last PCP Visit:?Date:?07/31/2024 * ROS:?General/Constitutional:?Nausea?denies.?Vomiting?denies.?Hunger Thirst?denies.?Loss appetite?denies.?Chills?denies.?Fatigue?denies.?Fever?denies.?Night Sweats?denies.?Unexplained weight loss?denies.?Unexplained weight gain?denies.?HEENTM:?Dentures?denies.?Dizziness?denies.?Glasses/contacts?denies.?Retinopathy?den ies.?Blurred/double vision?denies.?TMJ?denies.?Discharge/drainage?denies.?Implants?denies.?Sore throat?denies.?Dental implants?denies.?Hard of hearing ?denies.?Difficulty chewing/swallowing/speaking?denies.?Nose bleeds?denies.?Sore mouth?denies.?Respiratory:?On O xygen?denies.?Pneumonia/pleurisy?denies.?Bronchitis?denies.?Emphysema?denies.?Co ughing?denies.?Cough blood?denies.?Shortness of breath?denies.?Wheezing?denies.?Cardiovascular:?Pacemaker?denies.?MVP?denies.?WPW?denies.?CHF?denies.?Heart attack?denies.?Septal defect?denies.?Rapid beat?denies.?Chest pain ?denies.?Atrial Fib.?denies.?Murmur/Palpitations?denies.?Gastrointestinal:?Hemorrhoids?denies.?Stomach/Abdominal pain?denies.?Dark blood stool?denies.?Irritable bowel ?denies.?Constipation?denies.?Diarrhea?denies.?Hematology:?Swelling?denies.?Clots?denies.?Varicose Veins?denies.?Bruising?denies.?Bleeding problem?denies.?Genitourinary:?Blood urine?denies.?Frequent/Painfu/urination/bladder control?denies.?Kidney stones?denies.?Infection (UTI)?denies.?Nephropathy?denies.?sex trans dis (STD)?denies.?Prostate?denies.?Musculoskeletal:?Hammertoes?denies.?Bunions?denies.?Back Pain?denies.?Muscle Cramps/ Resting?denies.?Muscle cramps / walking?denies.?Generalized aches and pains?denies.?Weakness?denies.?Integ.:?Rehman?denies.?Scars?denies.?Corns/calluses?, admits.?Ingrown nails?denies.?Painful nails?denies.?Open Sores?denies.?Rashes?denies.?Neurologic:?Difficulty sleeping?denies.?Brain disorder?denies.?Numbness?denies.?Balance t rouble?denies.?Confusion?denies.?Fainting/blackouts?denies.?Tingling?denies.?Kedar mors?denies.? * Medical History:? * Surgical History:?Left renal calculus s/p remioval and left ureteral stent placement 01/13/2014left ureteral stent placement * Hospitalization/Major Diagno stic Procedure:?cellulitis hospitalized twice for 5 days in total Oct 2018[facility] [place] Blood Pressure 01/2021 * Family History:?Mother: dece ased, diabetes,ovarian cancer.?Father: , diagnosed with Diabetic - NIDDM.? * Social History:?Tobacco Use:?Tobacco Use/Smoking?Are you a:?former smoker ?Additional Findings: Tobacco User?Light cigarette smoker ((1-9 cigs/day) ?Additional Findings: Tobacco Non-User?Current non-smoker ?Tobacco use other than smoking?Are you an other tobacco user??No * Medications:?TakingLetrozole 2.5 MG Tablet 1 tablet Orally Once a day amLODIPine Besylate 5 MG Tablet as directed Orally Once a day Atorvastatin Calcium 20MG Tablet 1 tablet Orally Once a day Carvedilol 12.5 MG Tablet 1 tablet with food Orally Twice a day FreeStyle Lancets 1 Miscellaneous check blood glucose as directed to skin qd Furosemide 20 MG Tablet 1 tablet Orally Once a day hydrALAZINE HCl 100 MG Tablet 1 tablet with food Orally Four times a day Iron metFORMIN HCl 1000 MG Tablet 1 tablet with meals Orally Twice a day , Notes to Pharmacist: 2 per dayMultivitamin Trulicity 1.5 MG/0.5ML Solution Pen-injector as directed Subcutaneous Vitamin B12 Extra Depth Orthopedic Shoes (1 Pair) with Customized Heat Molded Multidensity Innersoles (3 Pair) as directed Dx: NIDDM/Polyneuropathy (E11.42), Hammertoe Foot Deformity (M20.41,M20.42), Preulcerative Skin Lesion(s) (L85.1 Taking Letrozole 2.5 MG Tablet 1 tablet Orally Once a day Taking amLODIPine Besylate 5 MG Tablet as directed Orally Once a day Taking Atorvastatin Calcium 20MG Tablet 1 tablet Orally Once a day Taking Carvedilol 12.5 MG Tablet 1 tablet with food Orally Twice a day Taking FreeStyle Lancets 1 Miscellaneous check blood glucose as directed to skin qd Taking Furosemide 20 MG Tablet 1 tablet Orally Once a day Taking hydrALAZINE HCl 100 MG Tablet 1 tablet with food Orally Four times a day Taking Iron Taking metFORMIN HCl 1000 MG Tablet 1 tablet with meals Orally Twice a day , Notes to Pharmacist: 2 per dayTaking Multivitamin Taking Trulicity 1.5 MG/0.5ML Solution Pen-injector as directed Subcutaneous Taking Vitamin B12 Taking Extra Depth Orthopedic Shoes (1 Pair) with Customized Heat Molded Multidensity Innersoles (3 Pair) as directed Dx: NIDDM/Polyneuropathy (E11.42), Hammertoe Foot Deformity (M20.41,M20.42), Preulcerative Skin Lesion(s) (L85.1 Not-Taking/PRNTubular compression stockings wear daily zzzCompression Stockings 20-30mm Hg 1 pair closed toe- knee high . . . Centrum Ferretts FreeStyle Lite Test 1 Strip as directed to skin twice a day for diabetes mellitus 250 Glucosamine Probiotic Cranberry glipiZIDE ER 2.5 MG Tablet Extended Release 24 Hour 1 tablet Orally Once a day in am with breakfast Azithromycin Lisinopril 10MG Tablet 1 tablet Orally Once a day Naproxen 500 MG Tablet 1 tablet with food or milk as needed Orally every 12 hrs prn Atorvastatin Calcium 20 MG Tablet 1 tablet Orally Once a day Lisinopril 10 MG Tablet 1 tablet Orally Once a day zzzGold Bonds for Diabetics . . . apply to feet Daily Extra-Depth Diabetic Shoes with 3 Pair Custom heat-molded multi-density innersoles . . for 1 year . Dx:calloused heels b/l Metformin & Diet Manage Prod Cetirizine HCl 10 MG Tablet 1 tablet as needed Orally Once a day Fluticasone Propionate 50 MCG/ACT Suspension 1 spray in each nostril Nasally Once a day Medication List reviewed and reconciled with the patientNot-Taking/PRN Tubular compression stockings wear daily Not-Taking/PRN zzzCompression Stockings 20-30mm Hg 1 pair closed toe- knee high . . . Not- Taking/PRN Centrum Not-Taking/PRN Ferretts Not-Taking/PRN FreeStyle Lite Test 1 Strip as directed to skin twice a day for diabetes mellitus 250 Not-Taking/PRN Glucosamine Not-Taking/PRN Probiotic Not-Taking/PRN Cranberry Not-Taking/PRN glipiZIDE ER 2.5 MG Tablet Extended Release 24 Hour 1 tablet Orally Once a day in am with breakfast Not-Taking/PRN Azithromycin Not-Taking/PRN Lisinopril 10MG Tablet 1 tablet Orally Once a day Not-Taking/PRN Naproxen 500 MG Tablet 1 tablet with food or milk as needed Orally every 12 hrs prn Not-Taking/PRN Atorvastatin Calcium 20 MG Tablet 1 tablet Orally Once a day Not-Taking/PRN Lisinopril 10 MG Tablet 1 tablet Orally Once a day Not-Taking/PRN zzzKwesild Bonds for Diabetics . . . apply to feet Daily Not- Taking/PRN Extra-Depth Diabetic Shoes with 3 Pair Custom heat-molded multi-density innersoles . . for 1 year . Dx:calloused heels b/l Not-Taking/PRN Metformin & Diet Manage Prod Not-Taking/PRN Cetirizine HCl 10 MG Tablet 1 tablet as needed Orally Once a day Not-Taking/PRN Fluticasone Propionate 50 MCG/ACT Suspension 1 spray in each nostril Nasally Once a day Medication List reviewed and reconciled with the patient * Allergies:?N.K.D.A.yes[Aller gies Verified] Objective: * Vitals:?Ht: 5ft3in, Wt:191, BMI:33.83, Shoe size: 11M, BP:100/60mm Hg, BS: 135, Ht-cm: 160.02 cm, Wt-k.64 kg. * ???Past Orders: ???Lab:HEMOGLOBIN A1C (GLYCO HEMOGLOBIN) (Order Date - 06/17/2024) (Collection Date & Time - 06/17/2024 03:32 PM) ? Value Reference Range ?TOTAL HEMOGLOBIN (HGBA1C) 7.0 * Examination: ???Ophthalmology Referral: ?DIABETES EYE EXAM?Dermatologic: ?SKIN FINDINGS:?Skin exam reveals Keratotic lesion(s) located at,Plantar Heel(s), , B/L , Medial plantar, TA, T5, SUB MTH (s), 5, B/L .?Vascular: ?DP PULSES(B):?2/4, B/L.?PT PULSES(B):?2/4, B/L.?CAPILLARY FILL TIME:?immediate, all digits, B/L.?TROPHIC CONDITION-TEXTURE/ELASTICITY/TURGOR/HAIR GROWTH(B):?normal, B/L.?TEMPERTURE GRADIENT(C):?normal, warm to cool, proximal to distal, B/L, B/L.?PIGMENTATION:?normal, B/L.?Neurological: ?SENSORY:?Neurological exam demonstrates, reduced vibration sensation, reduced sharp/dull pin prick discrimination , reduced light touch sensation, 5.07 monofilament test performed at plantar aspects of 5 varied sites per foot shows sensation, absent, , at Forefoot, B/L.?Nails: ?NAILS are:?Elongated, overgrown, dystrophic, lytic, greater than 3mm thick, discolored and friable with crumbly malodorous subungual debris , with dull to no pain on palpation due to neuropathy , TA , T1 , , remaining nails are elongated, overgrown, dystrophic, T2, T3, T4, T5, T6, T7, T8, T9.? Assessment: * Assessment: 1.?Type 2 diabetes mellitus with diabetic polyneuropathy - E11.42 (Primary)???2.?Onychomycosis - B35.1??? Plan: * Treatment: 2.?Onychomycosis?Procedure: 36726-PLUMUWW NAIL, 1-5 * Procedures:?Debride Nails 1-5:?Procedure:?Performance of this nail treatment by a nonprofessional would put this patients foot and overall health at risk. Therefore, debridement to affected nail(s), as described in exam, was performed extensively to reduce/remove overall nail length, girth, thickness, subungual debris, and necrotic tissue, by manual and/or electrical means through the use of a nail nipper and/or dremel-type floor grinder, to a more viable healthy nail plate or bed tissue 1-5. Silver nitrate used for any petechial bleeding as necessary. Definitive antifungal treatment options have been reviewed and discussed with the patient. The patient chooses, no pharmaceutical tx - 38502.?Keratoma Treatment:?Parring or Cutting of Benign Hyperkeratotic Lesion(s)?77587 ( >4 lesions) - The Benign hyperkeratotic lesions, as described above were pared, and/or cut utilizing a sterile #15 blade, tissue nippers, and/or dremel.?Nail Reduction:?Nail Reduction?Trimming of dystrophic nails performed to reduce/remove overall nail length and girth, by manual and electrical means with use of a nail nipper and/or dremel, to more viable healthy nail plate or bed tissue 6-10 (G0127).? * Procedure Codes:?75900 TRIM SKIN LESIONS, OVER 4, Modifiers: XS 12344 DEBRIDE NAIL, 1-5, Modifiers: XS G0127 TRIMMING DYSTROPHIC NAILS ANY #, Modifiers: XS * Follow Up:?prn * Images: * Sign off status: Completed true * Provider:?Mignon Calhoun DPM Date:?2023 Generated for Marc cole/Rebecca/Carli on:?08/29/2024 10:47 AM EST History and Physical Notes * HPI (History of Present Illness) Category Sub-Category Detail Notes Category Not es Painful Nails Pt States Last PCP Visit: Date:: 07/31/2024 Examination Category Sub-Category Detail Notes Category Not es Neurological SENSORY: Neurological exa m demonstrates, reduced vibration sensation, reduced sharp/dull pin prick discrimination , reduced light touch sensation, 5.07 monofilament test performed at plantar aspects of 5 varied sites per foot shows sensation, absent, , at Forefoot, B/L Dermatologic SKIN FINDINGS: Skin exam reveal s Keratotic lesion(s) located at,Plantar Heel(s), , B/L , Medial plantar, TA, T5, SUB MTH (s), 5, B/L Ophthalmology Referral DIABETES EYE EXAM Procedu re Performed:: Yes ?Date of Exam Performed: 10/18/2023 Findings of Diabetic Eye Exam:: no retin opathy Vascular DP PULSES(B): 2/4, B/L PT PULSES(B): 2/4, B/L CAPILLARY FILL TIME: immediate, all digi ts, B/L TEMPERTURE GRADIENT(C): normal, warm to cool, proximal to distal, B/L, B/L TROPHIC CONDITION-TEXTURE/ELASTICITY/TURGOR/HAIR GROWTH(B): normal, B/L PIGMENTATION: normal, B/L Nails NAILS are: Elongated, overg rown, dystrophic, lytic, greater than 3mm thick, discolored and friable with crumbly malodorous subungual debris , with dull to no pain on palpation due to neuropathy , TA , T1 , , remaining nails are elongated, overgrown, dystrophic, T2, T3, T4, T5, T6, T7, T8, T9
--- OUTSIDE RECORDS SUMMARY | 2024-08-29 10:48 | XMS_ITS ---
Author Organization [facility] Address [address] [place] [phone] Care Team Providers Care Health Policy Nurse Name Role Phone Humbreto GRIFFIN, Arlyn Primary Care Provider Mike David Jr, Se Unavailable REASON FOR VISIT screening Encounters Encounter Location Date Provider Diagnosis [facility] Outpatient [address] [place] [phone] 08/26/2024 Se David Jr PLAN OF TREATMENT Next Appt Details Provider Name:Se bran Jr, 09/02/2024 08:20:00 AM, [address] [place] [address], [phone],
--- OUTSIDE RECORDS SUMMARY | 2024-08-29 10:48 | XMS_ITS | Patient Health Record ---
Author Organization [facility] Address [address] [place] [phone] Care Team Providers Care Family Service Counselor Name Role Phone Humberto GRIFFIN, Arlyn Primary Care Provider Se Weinstein Jr Unavailable [phone] ALLERGIES No Known Allergies REASON FOR REFERRAL No Information MEDICATIONS Medication SIG (Take, Route, Frequency, Duration) Notes Start Date End Date Status hydrALAZINE HCl 100 MG TAKE 1 TABLET BY MOUTH THREE TIMES DAILY Oral for 90 Active MiraLax (colon prep) 17 GM/SCOOP mixed with Gatorade or Crystal Light Orally begin at 5:00 p.m. the day before the procedure for 1 day 07/21/2024 Active Multi Vitamin - 1 tablet Orally Once a day for 30 day(s) 07/21/2024 Active Vitamin B 12 100 MCG as directed Orally 07/21/2024 Active Furosemide 20mg Acti ve Iron 325 (65 Fe) MG 1 tablet Orally Thre e times a Week for 30 day(s) 07/21/2024 Activ e Letrozole 2.5 MG Oral for 90 A ctive Atorvastatin Calcium 10mg Active Carvedilol 12.5 MG Oral for 90 Active metFORMIN HCl 1000 MG Oral for 90 Active amLODIPine Besylate 5 MG TAKE 1 TABLET B Y MOUTH ONCE DAILY Oral for 90 Active Trulicity 1.5 MG/0.5ML Subcutaneous for 84 Active IMMUNIZATIONS Vaccine Route Administration Date Status Comme nts Influenza Unknown 07/21/2024 Refused SOCIAL HISTORY Tobacco Use: Social History Observation Description Date Details (start date - stop date) Former Smoker NA - NA Sex Assigned At : Social History Observation Description Sex Assigned At Unknown Tobacco Use/Smoking Question Answer Notes Patient is a former smoker PROBLEMS Problem Type ICD Code Onset Dates Problem Status W/U Status Risk SNOMED Code Notes Problem Colon cancer screening (V76.51) Active confirmed Colon cancer screening (513737139) Problem Colon cancer screening (Z12.11) Active confirmed 152262684 Problem snf (current) use of oral 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 drugs (Z79.84) Active confirmed 935056700423173 Problem long term care phlebotomist current use of diuretic (Z79.899) Active confirmed 93135081674760018 VITAL SIGNS Temperature 96.9 degrees Fahrenheit 07/21/2024 Blood pressure diastolic 00 mm Hg 07/21/2024 Height 61.5 in 07/21/2024 Blood pressure systolic 000 mm Hg 07/21/2024 Weight 195 lbs 07/21/2024 BMI 36.24 kg/m2 07/21/2024 Encounters Encounter Location Date Provider Diagnosis [facility] [place] [address] [place] [phone] 08/26/2024 Se David Jr [facility] [address] [facility] [address] [place] [phone] 07/21/2024 Se David Jr Colon cancer screening Z12.11 ; snf (current) use of oral 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 drugs Z79.84 and snf current use of diuretic Z79.899 [facility] [address] [place] [phone] 07/22/2024 Se David Jr ASSESSMENTS Encounter Date Diagnosis Assessment Notes Treatment Notes Treatment Clinical Notes 07/21/2024 Colon cancer screening (ICD-10 - Z12.11) Colonoscopy material was printed 07/21/2024 long term care phlebotomist (current) use of oral 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 drugs (ICD-10 - Z79.84) 07/21/2024 long term care phlebotomist current use of diuretic (ICD-10 - Z79.899) PLAN OF TREATMENT Future Test Test Name Order Date COLONOSCOPY 08/20/2013 COLONOSCOPY 07/21/2024 Next Appt Details Provider Name:eS bran Jr, 09/02/2024 08:20:00 AM, [address] [place] [address] , [place], [place], [phone], Insurance Providers Payer Name Payer Address Payer Phone Subscriber Number Group Number Insured Name Patient Relationship to Insured Coverage Start Date Coverage End Date MEDICARE OF [place] [address] [place] [address] [id number] SHAW RANKIN Self - patient is the insured [employer] ATTN CLAIMS [address] [place] [address] [id number] SHAW RANKIN Self - patient is the insured MEDICAL (GENERAL) HISTORY Medical History History ICD Code Breast cancer/bilateral lumpectomies Diabetes mellitus type 2 Varicose veins Hyperlipidemia Hypertension Restrictive lung disease Elevated BMI Colonoscopy 11/28, normal, ten-year follo wup Surgical History Surgery Date(Month/Year)
--- OUTSIDE RECORDS SUMMARY | 2024-08-29 10:48 | XMS_ITS ---
Author Organization [facility] Address [address] [place] [address] Care Team Providers Care Commercial Credit Analyst Name Role Phone Humberto GRIFFIN, Arlyn Montgomery Primary Care Provider Un available Black, Mignon Unavailable [phone] Allergies No Known Allergies REASON FOR VISIT At Risk Footcare Medications Medication SIG (Take, Route, Frequency, Duration) Notes Start Date End Date Status Naproxen 500 MG 1 tablet with food o r milk as needed Orally every 12 hrs prn 2019 Not-Taking Atorvastatin Calcium 20 MG 1 tablet Orally Once a day Not-Taking Lisinopril 10MG 1 tablet Orally Once a day Not-Taking Lisinopril 10 MG 1 tablet Orally Once a day Not-Taking Azithromycin Not-Johan ing FreeStyle Lite Test 1 as directed to ski n twice a day for diabetes mellitus 250 for 30 days 10/16/2013 Not-Taking Glucosamine Not-Taki ng glipiZIDE ER 2.5 MG 1 tablet Orally Once a day in am with breakfast 10/18/2018 Not-Taking Probiotic Not-Taking Cranberry Not-Taking Extra Depth Orthopedic Shoes (1 Pair) with Customized Heat Molded Multidensity Innersoles (3 Pair) as directed Dx: NIDDM/Polyneuropathy (E11.42), Hammertoe Foot Deformity (M20.41,M20.42), Preulcerative Skin Lesion(s) (L85.1 04/18/2021 Active Tubular compression stockings wear daily 12/14/2022 Not-Taking zzzCompression Stockings 20-30mm Hg . . . for 90 days No t-Taking Centrum Not-Taking Ferretts Not-Taking Iron Active Trulicity 1.5 MG/0.5ML as directed Subcutaneous Active Vitamin B12 Active metFORMIN HCl 1000 MG 1 tablet with meal s Orally Twice a day 2 per day Active Multivitamin Active Atorvastatin Calcium 20MG 1 tablet Orally Once a day Active Carvedilol 12.5 MG 1 tablet with food Orally Twice a day Active hydrALAZINE HCl 100 MG 1 tablet with berenice d Orally Four times a day Active FreeStyle Lancets 1 check blood glucose as directed to skin qd for 30 days Active Furosemide 20 MG 1 tablet Orally Once a day for 30 day(s) Active Letrozole 2.5 MG 1 tablet Orally Once a day for 30 day(s) Active amLODIPine Besylate 5 MG as directed Orally Once a day Active Metformin & Diet Manage Prod Not-Taking Cetirizine HCl 10 MG 1 tablet as needed Orally Once a day Not-Taking Fluticasone Propionate 50 MCG/ACT 1 spray in each nostril Nasally Once a day Not-Taking Extra-Depth Diabetic Shoes with 3 Pair Custom heat-molded multi-density innersoles . for 1 year . Dx:calloused heels b/l for . 07/05/2015 Not-Taking zzzGold Bonds for Diabetics . . apply to feet Daily for 30 days 07/05/2015 Not-Taking Social History Tobacco Use: Social History Observation [...] user? No Vital Signs Height 5ft3in in 05/01/2024 Weight 196 lbs 05/01/2024 BMI 34.72 kg/m2 05/01/2024 Blood pressure systolic 126 mm Hg 05/01/20 24 Blood pressure diastolic 70 mm Hg 024 Procedures Procedure Date Ordered Date Performed Result Body Sit e 40710-DALAVJM NAIL, 1-5 05/01/2024 N/A 03044-XFEW SKIN LESIONS, OVER 4 05/01/2024 N/A U6128-IDOKYOZV DYSTROPHIC NAILS ANY # 05/01/2024 N/A Encounters Encounter Location Date Provider Diagnosis [facility] [address] [address] 05/01/2024 Mignon Calhoun Type 2 diabetes mellitus with diabetic polyneuropathy E11.42 and Onychomycosis B35.1 Assessments Encounter Date Diagnosis (ICD Code) Assessment Notes Treatment Notes Treatment Clinical Notes Section Notes 05/01/2024 Type 2 diabetes mellitus with diabetic polyneuropathy (ICD-10 - E11.42) 05/01/2024 Onychomycosis (ICD-10 - B35.1) 05/01/2024 Other Plan Of Treatment Pending Test Test Name Order Date 63009-DJMVMSL NAIL, 1-5 05/01/2024 97208-NVKS SKIN LESIONS, OVER 4 05/01/20 S3727-OPBBITEQ DYSTROPHIC NAILS ANY # Next Appt Details Follow Up: prn, Reason: Provider Name:Mignonruth Calhoun , 11/13/2024 02:00:00 PM, [address] [place] [address], [phone], Procedure Notes * Category Sub-Category Detail Notes Keratoma Treatment Parring or Cutting o f Benign Hyperkeratotic Lesion(s) 76009 ( >4 lesions) - The Benign hyperkeratotic lesions, as described above were pared, and/or cut utilizing a sterile #15 blade, tissue nippers, and/or dremel Debride Nails 1-5 Procedure: Nail debrideme nt performed extensively to reduce/remove overall nail length and girth, subungual debris, and necrotic tissue, by manual and electrical means by use of a nail nipper and/or dremel, to more viable healthy nail plate or bed tissue 1-5. Silver nitrate used for any petechial bleeding as necessary. Patient chooses, no pharmaceutical tx (01832) Nail Reduction Nail Reduction Trimming of dyst rophic nails performed to reduce/remove overall nail length and girth, by manual and electrical means with use of a nail nipper and/or dremel, to more viable healthy nail plate or bed tissue 6-10 (G0127) Progress Notes * Rosalia RANKIN ADOB: [birth year] (73 yo F)Acc No.[id number]:05/01/2024 Progress Note Patient:?Rosalia Rankin Provider:?Mignon Calhoun DPM :1950???Age:73 Y???Sex:Female D ate:05/01/2024 Address:[address] [place], [place] [id number] Pcp:Дмитрий Saravia Subjective: * Chief Complaints: * ???At Risk Footcare * HPI: ???Painful Nails:?Pt States Last PCP Visit:?Date:?04/21/2024 * Medical History:? * Surgical History:?Left renal calculus s/p remioval and left ureteral stent placement 01/13/2014left ureteral stent placement * Hospitalization/Major Diagno stic Procedure:?cellulitis hospitalized twice for 5 days in total Oct 2018[facility] [place] High Blood Pressure 01/2021 * Family History:?Mother: dece ased, diabetes,ovarian cancer.?Father: , diagnosed with Diabetic - NIDDM.? * Social History:?Tobacco Use:?Tobacco Use/Smoking?Are you a:?former smoker ?Additional Findings: Tobacco User?Light cigarette smoker ((1-9 cigs/day) ?Additional Findings: Tobacco Non-User?Current non-smoker ?Tobacco use other than smoking?Are you an other tobacco user??No ???Miscellaneous:?Caffeine: yes, frequency:, 2-3 cups per day. ?no Children, none. ?no Exercise. ?Marital status: single. 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 * Medications:?TakingLetrozole 2.5 MG Tablet 1 tablet Orally Once a dayamLODIPine Besylate 5 MG Tablet as directed Orally Once a dayAtorvastatin Calcium 20MG Tablet 1 tablet Orally Once a dayCarvedilol 12.5 MG Tablet 1 tablet with food Orally Twice a dayFreeStyle Lancets 1 Miscellaneous check blood glucose as directed to skin qdFurosemide 20 MG Tablet 1 tablet Orally Once a dayhydrALAZINE HCl 100 MG Tablet 1 tablet with food Orally Four times a dayIron metFORMIN HCl 1000 MG Tablet 1 tablet with meals Orally Twice a day, Notes: 2 per dayMultivitamin Trulicity 1.5 MG/0.5ML Solution Pen-injector as directed Subcutaneous Vitamin B12 Extra Depth Orthopedic Shoes (1 Pair) with Customized Heat Molded Multidensity Innersoles (3 Pair) as directed Dx: NIDDM/Polyneuropathy (E11.42), Hammertoe Foot Deformity (M20.41,M20.42), Preulcerative Skin Lesion(s) (L85.1Taking Letrozole 2.5 MG Tablet 1 tablet Orally Once a dayTaking amLODIPine Besylate 5 MG Tablet as directed Orally Once a dayTaking Atorvastatin Calcium 20MG Tablet 1 tablet Orally Once a dayTaking Carvedilol 12.5 MG Tablet 1 tablet with food Orally Twice a dayTaking FreeStyle Lancets 1 Miscellaneous check blood glucose as directed to skin qdTaking Furosemide 20 MG Tablet 1 tablet Orally Once a dayTaking hydrALAZINE HCl 100 MG Tablet 1 tablet with food Orally Four times a dayTaking Iron Taking metFORMIN HCl 1000 MG Tablet 1 tablet with meals Orally Twice a day, Notes: 2 per dayTaking Multivitamin Taking Trulicity 1.5 MG/0.5ML Solution Pen-injector as directed Subcutaneous Taking Vitamin B12 Taking Extra Depth Orthopedic Shoes (1 Pair) with Customized Heat Molded Multidensity Innersoles (3 Pair) as directed Dx: NIDDM/Polyneuropathy (E11.42), Hammertoe Foot Deformity (M20.41,M20.42), Preulcerative Skin Lesion(s) (L85.1Not-Taking/PRNTubular compression stockings wear dailyzzzCompression Stockings 20-30mm Hg 1 pair closed toe- knee high . . .Centrum Gordon FreeStyle Lite Test 1 Strip as directed to skin twice a day for diabetes mellitus 250Glucosamine Probiotic Cranberry glipiZIDE ER 2.5 MG Tablet Extended Release 24 Hour 1 tablet Orally Once a day in am with breakfastAzithromycin Lisinopril 10MG Tablet 1 tablet Orally Once a dayNaproxen 500 MG Tablet 1 tablet with food or milk as needed Orally every 12 hrs prnAtorvastatin Calcium 20 MG Tablet 1 tablet Orally Once a dayLisinopril 10 MG Tablet 1 tablet Orally Once a dayzzzGold Bonds for Diabetics . . . apply to feet DailyExtra-Depth Diabetic Shoes with 3 Pair Custom heat-molded multi-density innersoles . . for 1 year . Dx:calloused heels b/lMetformin & Diet Manage Prod Cetirizine HCl 10 MG Tablet 1 tablet as needed Orally Once a dayFluticasone Propionate 50 MCG/ACT Suspension 1 spray in each nostril Nasally Once a dayMedication List reviewed and reconciled with the patientNot-Taking/PRN Tubular compression stockings wear dailyNot-Taking/PRN zzzCompression Stockings 20-30mm Hg 1 pair closed toe- knee high . . .Not- Taking/PRN Centrum Not-Taking/PRN Ferretts Not-Taking/PRN FreeStyle Lite Test 1 Strip as directed to skin twice a day for diabetes mellitus 250Not-Taking/PRN Glucosamine Not-Taking/PRN Probiotic Not-Taking/PRN Cranberry Not-Taking/PRN glipiZIDE ER 2.5 MG Tablet Extended Release 24 Hour 1 tablet Orally Once a day in am with breakfastNot-Taking/PRN Azithromycin Not-Taking/PRN Lisinopril 10MG Tablet 1 tablet Orally Once a dayNot-Taking/PRN Naproxen 500 MG Tablet 1 tablet with food or milk as needed Orally every 12 hrs prnNot-Taking/PRN Atorvastatin Calcium 20 MG Tablet 1 tablet Orally Once a dayNot-Taking/PRN Lisinopril 10 MG Tablet 1 tablet Orally Once a dayNot-Taking/PRN zzzGold Bonds for Diabetics . . . apply to feet DailyNot- Taking/PRN Extra-Depth Diabetic Shoes with 3 Pair Custom heat-molded multi-density innersoles . . for 1 year . Dx:calloused heels b/lNot-Taking/PRN Metformin & Diet Manage Prod Not-Taking/PRN Cetirizine HCl 10 MG Tablet 1 tablet as needed Orally Once a dayNot-Taking/PRN Fluticasone Propionate 50 MCG/ACT Suspension 1 spray in each nostril Nasally Once a dayMedication List reviewed and reconciled with the patient * Allergies:?N.K.D.A.yes[Aller gies Verified] Objective: * Vitals:?Ht: 5ft3in, Wt:196, BMI:34.72, Shoe size: 11M, BP:126/70 mm Hg, BS: 136, Ht-cm: 160.02 cm, Wt-k.9 kg. * ???Past Orders: ???Lab:HEMOGLOBIN A1C (GLYCO HEMOGLOBIN) (Order Date - 04/21/2024) (Collection Date - 04/21/2024) ? Value Reference Range ?TOTAL HEMOGLOBIN (HGBA1C) 6.8 * Examination: ???Ophthalmology Referral: ?DIABETES EYE EXAM?Dermatologic: ?SKIN FINDINGS:?Skin exam reveals Keratotic lesion(s) located at, Heel(s), B/L , Medial plantar, TA, T5, SUB MTH (s), 5, B/L .?Vascular: ?DP PULSES:?2/4, B/L.?PT PULSES:?2/4, B/L.?Neurological: ?SENSORY:?Neurological exam demonstrates, reduced vibration sensation, [...] , , remaining nails are elongated, overgrown, dystrophic.? Assessment: * Assessment: 1.?Type 2 diabetes mellitus with diabetic polyneuropathy - E11.42 (Primary)?2.?Onychomycosis - B35.1? Plan: * Treatment: 2.?Onychomycosis?Procedure: 17700-KECEBFO NAIL, 1-5 * Procedures:?Debride Nails 1-5:?Procedure:?Nail debridement performed extensively to reduce/remove overall nail length and girth, subungual debris, and necrotic tissue, by manual and electrical means by use of a nail nipper and/or dremel, to more viable healthy nail plate or bed tissue 1-5. Silver nitrate used for any petechial bleeding as necessary. Patient chooses, no pharmaceutical tx (43941).?Keratoma Treatment:?Parring or Cutting of Benign Hyperkeratotic Lesion(s)?95501 ( >4 lesions) - The Benign hyperkeratotic lesions, as described above were pared, and/or cut utilizing a sterile #15 blade, tissue nippers, and/or dremel.?Nail Reduction:?Nail Reduction?Trimming of dystrophic nails performed to reduce/remove overall nail length and girth, by manual and electrical means with use of a nail nipper and/or dremel, to more viable healthy nail plate or bed tissue 6-10 (G0127).? * Procedure Codes:?47078 TRIM SKIN LESIONS, OVER 4, Modifiers: XS 63629 DEBRIDE NAIL, 1-5, Modifiers: XS G0127 TRIMMING DYSTROPHIC NAILS ANY #, Modifiers: XS * Follow Up:?prn * Images: * Sign off status: Completed true * Provider:?Mignon Calhoun DPM Date:?2023 Generated for Marc cole/Rebecca/eTmaismitting on:?08/29/2024 10:47 AM EST History and Physical Notes * HPI (History of Present Illness) Category Sub-Category Detail Notes Category Not es Painful Nails Pt States Last PCP Visit: Date:: 04/21/2024 Examination Category Sub-Category Detail Notes Category Not es Neurological SENSORY: Neurological exa m demonstrates, reduced vibration sensation, reduced sharp/dull pin prick discrimination , reduced light touch sensation, 5.07 monofilament test performed at plantar aspects of 5 varied sites per foot shows sensation, absent, , at Forefoot, B/L Dermatologic SKIN FINDINGS: Skin exam reveal s Keratotic lesion(s) located at, Heel(s), B/L , Medial plantar, TA, T5, SUB MTH (s), 5, B/L Ophthalmology Referral DIABETES EYE EXAM Diabeti c Retinopathy Screening:: Yes Findings of Diabetic Eye Exam:: no retin opathy Vascular DP PULSES(B): 2/4, B/L PT PULSES(B): 2/4, B/L Nails NAILS are: Elongated, overg rown, dystrophic, lytic, greater than 3mm thick, discolored and friable with crumbly malodorous subungual debris , with dull to no pain on palpation due to neuropathy , TA , T1 , , remaining nails are elongated, overgrown, dystrophic
--- OUTSIDE RECORDS SUMMARY | 2024-08-29 10:48 | XMS_ITS ---
Author Organization [facility] Address [address] [place] [phone] Care Team Providers Care Instrumentation And Controls Technician Name Role Phone Humberto GRIFFIN, Arlyn Primary Care Provider Se Weinstein Jr Unavailable [phone] ALLERGIES No Known Allergies REASON FOR VISIT Patient presents today for a COLON SCREENING MEDICATIONS Medication SIG (Take, Route, Frequency, Duration) Notes Start Date End Date Status MiraLax (colon prep) 17 GM/SCOOP mixed with Gatorade or Crystal Light Orally begin at 5:00 p.m. the day before the procedure for 1 day 07/21/2024 Active Multi Vitamin - 1 tablet Orally Once a day for 30 day(s) 07/21/2024 Active Vitamin B 12 100 MCG as directed Orally 07/21/2024 Active Iron 325 (65 Fe) MG 1 tablet Orally Thre e times a Week for 30 day(s) 07/21/2024 Activ e hydrALAZINE HCl 100 MG TAKE 1 TABLET BY MOUTH THREE TIMES DAILY Oral for 90 Active Carvedilol 12.5 MG Oral for 90 Active metFORMIN HCl 1000 MG Oral for 90 Active amLODIPine Besylate 5 MG TAKE 1 TABLET B Y MOUTH ONCE DAILY Oral for 90 Active Trulicity 1.5 MG/0.5ML Subcutaneous for 84 Active Furosemide 20mg Acti ve Letrozole 2.5 MG Oral for 90 A ctive Atorvastatin Calcium 10mg Active IMMUNIZATIONS Vaccine Route Administration Date Status Comme nts Influenza Unknown 07/21/2024 Refused SOCIAL HISTORY Tobacco Use: Social History Observation Description Date Details (start date - stop date) Former Smoker NA - NA Sex Assigned At : Social History Observation Description Sex Assigned At Unknown Tobacco Use/Smoking Question Answer Notes Patient is a former smoker Alcohol Screen Question Answer Notes Did you have a drink contain ing alcohol in the past year? Yes Points 1 Interpretation Negative How often did you have 6 or more drinks on one occasion in the past year? Never (0 point) How many drinks did you have on a typical day when you were drinking in the past year? 1 or 2 drinks (0 point) How often did you have a dri nk containing alcohol in the past year? 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 the day before the procedure for 1 day 07/21/2024 Treatment Notes Assessment Notes Colon cancer screening Colonoscopy mater ial was printed Future Test Test Name Order Date COLONOSCOPY 07/21/2024 Next Appt Details Follow Up: 1 Year, Reason: Provider Name:Se Aikenif bran Jr, 09/02/2024 08:20:00 AM, [address] [place] [address] , [place], [place], [phone], Progress Notes * Examination Category Sub-Category Detail Notes General Examination GENERAL APPEARANCE: in no ac [place] distress HEAD: normocephalic EYES: sclera non-icteric NECK/THYROID: no lymphadenopathy HEART: S1, S2 normal, no mu rmurs CHEST: normal shape and exp ansion LUNGS: clear to auscultatio n bilaterally ABDOMEN: soft, nontender, non distended, bowel sounds present, no organomegaly SKIN: anicteric EXTREMITIES: no clubbing, cyanosi s, or edema PSYCH: cognitive function i ntact ORAL CAVITY: mucosa moist
--- OUTSIDE RECORDS SUMMARY | 2024-08-29 10:48 | XMS_ITS | Patient Health Record ---
Author Organization [facility] Address [address] [place] [address] Care Team Providers Care Stencil Typist Name Role Phone Humberto GRIFFIN, Arlyn Montgomery Primary Care Provider Un available BlackMignon Unavailable [phone] Allergies No Known Allergies Results Component Value Reference Range Notes HEMOGLOBIN A1C (GLYCOHEMOGLO BIN) Reviewed date:01/14/2024 01:18:47 PM Interpretation: Performing Lab: Notes/Report: TOTAL HEMOGLOBIN (HGBA1C) 7.2 HEMOGLOBIN A1C (GLYCOHEMOGLO BIN) Reviewed date:05/01/2024 09:39:55 AM Interpretation: Performing Lab: Notes/Report: TOTAL HEMOGLOBIN (HGBA1C) 6.8 HEMOGLOBIN A1C (GLYCOHEMOGLO BIN) Reviewed date:08/04/2024 03:32:54 PM Interpretation: Performing Lab: Notes/Report: TOTAL HEMOGLOBIN (HGBA1C) 7.0 Reason For Referral No Information Medications Medication SIG (Take, Route, Frequency, Duration) Notes Start Date End Date Status Glucosamine Not-Taki ng FreeStyle Lite Test 1 as directed to ski n twice a day for diabetes mellitus 250 for 30 days 10/16/2013 Not-Taking Ferretts Not-Taking Centrum Not-Taking Letrozole 2.5 MG 1 tablet Orally Once a day for 30 day(s) Active Cranberry Not-Taking Probiotic Not-Taking Fluticasone Propionate 50 MCG/ACT 1 spray in each nostril Nasally Once a day Not-Taking zzzCompression Stockings 20-30mm Hg . . . for 90 days No t-Taking Tubular compression stockings wear daily 12/14/2022 Not-Taking Extra Depth Orthopedic Shoes (1 Pair) with Customized Heat Molded Multidensity Innersoles (3 Pair) as directed Dx: NIDDM/Polyneuropathy (E11.42), Hammertoe Foot Deformity (M20.41,M20.42), Preulcerative Skin Lesion(s) (L85.1 04/18/2021 Active Vitamin B12 Active Iron Active Metformin & Diet Manage Prod Not-Taking hydrALAZINE HCl 100 MG 1 tablet with berenice d Orally Four times a day Active Extra-Depth Diabetic Shoes with 3 Pair Custom heat-molded multi-density innersoles . for 1 year . Dx:calloused heels b/l for . 07/05/2015 Not-Taking Furosemide 20 MG 1 tablet Orally Once a day for 30 day(s) Active zzzGold Bonds for Diabetics . . apply to feet Daily for 30 days 07/05/2015 Not-Taking FreeStyle Lancets 1 check blood glucose as directed to skin qd for 30 days Active Lisinopril 10 MG 1 tablet Orally Once a day Not-Taking Trulicity 1.5 MG/0.5ML as directed Subcutaneous Active Multivitamin Active metFORMIN HCl 1000 MG 1 tablet with meal s Orally Twice a day 2 per day Active Cetirizine HCl 10 MG 1 tablet as needed Orally Once a day Not-Taking glipiZIDE ER 2.5 MG 1 tablet Orally Once a day in am with breakfast 10/18/2018 Not-Taking Carvedilol 12.5 MG 1 tablet with food Orally Twice a day Active Atorvastatin Calcium 20 MG 1 tablet Orally Once a day Not-Taking Atorvastatin Calcium 20MG 1 tablet Orally Once a day Active Naproxen 500 MG 1 tablet with food o r milk as needed Orally every 12 hrs prn 2019 Not-Taking amLODIPine Besylate 5 MG as directed Orally Once a day Active Lisinopril 10MG 1 tablet Orally Once a day Not-Taking Azithromycin Not-Johan ing Immunizations Vaccine Route Administration Date Status Comme nts COVID-19 Pfizer BioNTech Vaccine Unknown 01/15/2021 Adm inistered 1st 12/25/20 Influenza Unknown 05/18/2022 Administered Influenza Unknown 01/14/2024 Refused Social History Tobacco Use: Social History Observation Description Date Details (start date - stop date) Former Smoker NA - NA Tobacco Use/Smoking Question Answer Notes Are you a: former smoker Additional Findings: Tobacco User Light cigarett e smoker ((1-9 cigs/day) Additional Findings: Tobacco Non-User Current no n-smoker Alcohol Screen Question Answer Notes Did you have a drink containing alcohol in the p ast year? No Points 0 Interpretation Negative Tobacco use other than smoking: Question Answer Notes Are you an other tobacco user? No Problems Problem Type SNOMED Code ICD Code Onset Dates Problem Status W/U Status Risk Notes Problem Acquired hammer toe of right foot (7871370036454206 ) Other hammer toe(s) (acquired), right foot (M20.41) Active confirmed Problem Acquired hammer toe of left foot (3707389524480486 ) Other hammer toe(s) (acquired), left foot (M20.42) Active confirmed Problem Localized, primary osteoarthritis of the ankle and/or foot (099165092) Primary osteoarthritis, left ankle and foot (M19.072) Active confirmed Problem Polyneuropathy due to type 2 diabetes mellitus (306433266) Type 2 diabetes mellitus with diabetic polyneuropathy (E11.42) Active confirmed Vital Signs Blood pressure diastolic 60 mm Hg 08/04/2024 Height 5ft3in in 08/04/2024 Blood pressure systolic 100 mm Hg 08/04/2024 Weight 191 lbs 08/04/2024 BMI 33.83 kg/m2 08/04/2024 Procedures Procedure Date Ordered Date Performed Result Body Sit e 28642-SYUCNQH NAIL, 1-5 10/08/2023 N/A 59671-BJJW SKIN LESIONS, OVER 4 10/08/2023 N/A 18612-ZRWVJFB NAIL, 1-5 01/14/2024 N/A 30750 I&D ABSCESS- SIMPLE,SINGLE 01/14/2024 N/A 33150-CJSZ SKIN LESIONS, OVER 4 01/14/2024 N/A N2232-VRYTAVHX DYSTROPHIC NAILS ANY # 01/14/2024 N/A 40576-ABYGTEN NAIL, 1-5 05/01/2024 N/A 72719-LXWJ SKIN LESIONS, OVER 4 05/01/2024 N/A B0390-PQYUNFIO DYSTROPHIC NAILS ANY # 05/01/2024 N/A 31928-PMMVUSC NAIL, 1-5 08/04/2024 N/A 67031-AAOV SKIN LESIONS, OVER 4 08/04/2024 N/A Y9101-YCZHPFEQ DYSTROPHIC NAILS ANY # 08/04/2024 N/A Encounters Encounter Location Date Provider Diagnosis [address] [address] 10/08/2023 Mignon Black Type 2 diabetes mellitus with diabetic polyneuropathy E11.42 and Onychomycosis B35.[address] [address] 01/14/2024 Mignon Black Type 2 diabetes mellitus with diabetic polyneuropathy E11.42 ; Onychomycosis B35.1 and Abscess of toe, right L02.[address] [address] 05/01/2024 Mignon Black Type 2 diabetes mellitus with diabetic polyneuropathy E11.42 and Onychomycosis B35.[address] [address] 08/04/2024 Mignon Black Type 2 diabetes mellitus with diabetic polyneuropathy E11.42 and Onychomycosis B35.1 Assessments Encounter Date Diagnosis (ICD Code) Assessment Notes Treatment Notes Treatment Clinical Notes Section Notes 10/08/2023 Type 2 diabetes mellitus with diabetic polyneuropathy (ICD-10 - E11.42) 01/14/2024 Type 2 diabetes mellitus with diabetic polyneuropathy (ICD-10 - E11.42) 05/01/2024 Type 2 diabetes mellitus with diabetic polyneuropathy (ICD-10 - E11.42) 05/01/2024 Onychomycosis (ICD-10 - B35.1) 08/04/2024 Type 2 diabetes mellitus with diabetic polyneuropathy (ICD-10 - E11.42) 08/04/2024 Onychomycosis (ICD-10 - B35.1) 01/14/2024 Onychomycosis (ICD-10 - B35.1) 10/08/2023 Onychomycosis (ICD-10 - B35.1) 01/14/2024 Abscess of toe, right (ICD-10 - L02.611) Patient Educated with: WOUND CARE INSTRUCTIONS. pdf (WOUND CARE INSTRUCTIONS. pdf) 05/01/2024 Other Plan Of Treatment Pending Test Test Name Order Date 39701-XNUERAW NAIL, 6 OR MORE 10/11/2015 77390-AZSQWVE NAIL, 6 OR MORE 01/17/2016 96073-QGHKNEX NAIL, 6 OR MORE 10/13/2019 26165-BQKWKKS NAIL, 6 OR MORE 04/22/2020 01490-RWQPWIB NAIL, 6 OR MORE 07/26/2020 53786-BYMCMFR NAIL, 6 OR MORE 01/13/2021 74758-MBBFPXN NAIL, 6 OR MORE 04/18/2021 12349-CXXQNPK NAIL, 6 OR MORE 08/08/2021 24877-PCZXYJU NAIL, 1-5 07/02/2023 76882-EJKMKFH NAIL, 1-5 10/08/2023 95911-LNARABU NAIL, 1-5 01/14/2024 18537-XZSZBGX NAIL, 1-5 05/01/2024 92258-RCJDDGH NAIL, 1-5 08/04/2024 64871-Rlglpqit Plate 03/26/2023 26675-Wgwaqext Plate 04/18/2021 65707 I&D ABSCESS- SIMPLE,SINGLE 022 27233 I&D ABSCESS- SIMPLE,SINGLE 024 21623-DUYK SKIN LESIONS, OVER 4 07/02/20 23 79504-SAIX SKIN LESIONS, OVER 4 01/14/20 24 18264-EVRQ SKIN LESIONS, OVER 4 03/26/20 23 48757-DYHY SKIN LESIONS, OVER 4 10/08/19 24 61089-MHJU SKIN LESIONS, OVER 4 12/15/19 23 57819-UVUU SKIN LESIONS, OVER 4 06/19/20 13446-LCFV SKIN LESIONS, OVER 4 03/16/20 22 07163-ICLQ SKIN LESIONS, OVER 4 11/29/19 22 55177-RYNR SKIN LESIONS, OVER 4 08/08/20 21 03012-IHHB SKIN LESIONS, OVER 4 04/18/20 21 25980-ZUDN SKIN LESIONS, OVER 4 01/14/20 21 95142-FICE SKIN LESIONS, OVER 4 07/26/20 20 31604-HPXR SKIN LESIONS, OVER 4 04/22/20 20 44982-FWXY SKIN LESIONS, OVER 4 01/17/20 16 46553-NLRB SKIN LESIONS, OVER 4 10/13/19 20 70686-ZPUB SKIN LESIONS, OVER 4 08/04/20 24 33578-OLHO SKIN LESIONS, OVER 4 05/01/20 24 B2152-GFJITMYW DYSTROPHIC NAILS ANY # E6439-GRNFYXLG DYSTROPHIC NAILS ANY # C8583-IOOVRYDP DYSTROPHIC NAILS ANY # O2185-JQWZFPNZ DYSTROPHIC NAILS ANY # T8869-WWUSXEHC DYSTROPHIC NAILS ANY # A5541-JQTKRJHO DYSTROPHIC NAILS ANY # C1048-ITCZYGXX DYSTROPHIC NAILS ANY # Y9814-SLNMVXFZ DYSTROPHIC NAILS ANY # Next Appt Details Provider Name:Mignon Calhoun , 11/13/2024 02:00:00 PM, [address] [place] [address], [place], [address], Insurance Providers Payer Name Payer Address Payer Phone Subscriber Number Group Number Insured Name Patient Relationship to Insured Coverage Start Date Coverage End Date Medicare National [employer] [address] [facility] [place] [address] [id number] Rosalia Talavera Self - patient is the insured [employer] [address] [place] [address] [phone] [id number] Rosalia Talavera Self - patient is the insured Medical (General) History Medical History History ICD Code Diabetic type ll High blood pressure Measles Sinus conditions Cellulitis Anemia Surgical History Surgery Date(Month/Year) Left renal calculus s/p remioval and lef t ureteral stent placement 01/13/2014 left ureteral stent placement Hospitalization History Reason Date(Month/Year) [facility] [place]- High Blood Pressure 01/2021 cellulitis hospitalized twice for 5 days in total Oct 2018
--- OUTSIDE RECORDS SUMMARY | 2024-08-29 10:48 | XMS_ITS ---
Author Organization [facility] Address [address] [place] [address] Care Team Providers Care Vice Admiral Name Role Phone Humberto GRIFFIN, Arlyn Primary Care Provider Se Weinstein Jr Unavailable Encounters Encounter Location Date Provider Diagnosis [facility] [address] [place] [address] 07/22/2024 Se David Jr PLAN OF TREATMENT Next Appt Details Provider Name:Se bran Jr, 09/02/2024 08:20:00 AM, [address] [place] [address] , [place], [place], [phone],
--- OUTSIDE RECORDS SUMMARY | 2024-08-29 10:48 | XMS_ITS ---
Author Organization [facility] Address [address] [place] [address] Care Team Providers Care Dry Transfer Worker Name Role Phone Humberto GRIFFIN, Arlyn Montgomery Primary Care Provider Un available Lj Mignon Unavailable [phone] Saul Encounters Encounter Location Date Provider Diagnosis [address] [address] 04/24/2024 Mignon Calhoun Plan Of Treatment Next Appt Details Provider Name:Mignon Calhoun , 11/13/2024 02:00:00 PM, [address] [place], [address], Progress Notes * Rosalia RANKIN ADOB: [birth year] (74 yo F)Acc No.[id number]:04/24/2024 Progress Note Patient:?Rosalia RANKIN Provider:?Mignon Calhoun DPM :1950???Age:73 Y???Sex:Female D ate:04/24/2024 Address:[address] [place], [place] [phone] Pcp:Дмитрий Saravia Subjective: * Chief Complaints: * ???1. Dr Saul. * Medical History:? Objective: * Vitals:? Assessment: Plan: * Treatment: * Images: * The named appointment provid er may or may not be the originator of this progress note, and it is not deemed complete until electronically signed by the appointment provider. Sign off status: Pending * Provider:Sven Calhoun DPM Date:?2023 Generated for Marc cole/Rebecca/Carli on:?08/29/2024 10:47 AM EST
[2024-08-29 10:58] VITALS: BP 150/80; BMI 36.1
== END 2024-08-29 11:11 | disposition home or self-care (01) ==
PROVIDERS: PCP Internal Medicine; Visit Provider Surgery
DX: C50.911 Malignant neoplasm of unspecified site of right female breast (principal)
CPT/HCPCS: 99213

== ENCOUNTER → 2024-08-29 10:38 | Outpatient (BNVA) | payer MEDICARE, MEDICAID, SELFPAY | PROVIDERS: PCP Internal Medicine; Visit Provider Surgery | DX: C50.911 Malignant neoplasm of unspecified site of right female breast (principal); D05.80 Other specified type of carcinoma in situ of unspecified breast | CPT/HCPCS: 99212 ==

== ENCOUNTER 2024-09-02 07:08 | Day surgery (SDC) | payer MEDICARE, MEDICAID, SELFPAY ==
[2024-08-29 11:01] VITALS: BMI 36.2
--- NOTE | 2024-09-01 09:31 | HO.ANESPROP2 ---
HPI - Anesthesia Eval Consult details Narrative: 74yo F for Colonoscopy Follows [facility] Cardiology for CHF. 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) Chronic venous insufficiency of lower extremity (Acute) Morbid obesity (Acute) Type 2 diabetes mellitus with other diabetic kidney complication (Acute) Hyperlipidemia (Acute) Past Medical History Medical History History of invasive ductal carcinoma of breast Hx of basal cell carcinoma Cellulitis of left lower extremity 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 Mother Ovarian cancer Brother Diabetes mellitus Brother Diabetes mellitus Maternal Grandfather Throat cancer Family history of problems with anesthesia: No Surgical History Surgical History S/P Mohs surgery for basal cell carcinoma Status post right breast lumpectomy History of lumpectomy of left breast Hx of colonoscopy S/P ureteral stent placement History of ureter stent History of Problems with Anesthesia: No Social History Social History Household Members: None Housing: Apartment Are you a primary daycare director to a significant other at home: No Do you presently have visiting nurse or other home services: No Alcohol intake: former Patient Tobacco Use Status: Former Tobacco user Tobacco use type: Cigarette Years Smoked: since 12 yrs old e-Cigarette/Vaping Use: Never Used Second Hand Smoke Exposure: No Use of substances other than those prescribed or required for medical reasons: No Have you been hit, kicked, punched, or otherwise hurt by someone within the past year? If so, by whom?: No Are you DNR?: No Advance Directives: No Advance Directives Information Provided: Yes Advance Directives Date on File: 04/20/21 Recently lost weight without trying: No Nutrition Risks: No Nutritional Risk Patient : No service: No Current occupational status: retired Cognitive needs: No Hearing needs: No Vision needs: Yes (Glasses) Meds Allergies Allergy/AdvReac Type Severity Reaction Status Date / Time No Known Allergies Allergy Verified 09/02/24 07:19 Home Medications ?Medication ?Instructions ?Recorded ?Confirmed ?Last Taken ?Type mecobalamin (vitamin B12) 1,000 1,000 mcg PO DAILY 07/12/21 08/29/24 Unknown History mcg chewable tablet multivitamin 1 tab PO DAILY 10/16/22 08/29/24 Unknown History ferrous fumarate 325 mg (106 mg 65 mg PO DAILY 04/14/24 08/29/24 Unknown History iron) tablet hydralazine 100 mg tablet 100 mg PO DAILY 05/20/24 08/29/24 Unknown History Exam Height,Weight and Vital Signs: Height 5 ft 1.5 in Weight 88.451 kg Pertinent Lab Results Pertinent Lab Results: Laboratory Tests 08/26/24 13:24 WBC 6.2 Hgb 11.1 L Hct 33.0 L Plt Count 256 Sodium 142 Potassium 4.0 Chloride 100 Carbon Dioxide 32 H BUN 19 H Creatinine 0.71 Narrative Narrative: EKG 02/2024 Vent. Rate : 073 BPM Atrial Rate : 073 BPM P-R Int : 246 ms QRS Dur : 082 ms QT Int : 380 ms P-R-T Axes : 059 021 044 degrees QTc Int : 418 ms Sinus rhythm with 1st degree A-V block Otherwise normal ECG When compared with ECG of 17-NOV-2009 16:45, LA interval has increased Borderline criteria for Inferior infarct are no longer Present In office spirometry Results Reviewed: FVC=47 % FEV1=46 % DIW39-72= 43 % C/W MODERATELY SEVERE RESTRICTIVE PULMONARY DISORDER. THE NUMBERS RELATIVELY STABLE COMPARED TO HER PREVIOUS SPIROMETRY. Assessment and Plan Assessment Anesthesia Assessment: Chart Reviewed Final Anesthetic Review Family History of Problems with Anesthesia: No History of Problems with Anesthesia: No
--- OUTSIDE RECORDS SUMMARY | 2024-09-02 07:10 | XMS_ITS | Patient Health Record ---
Author Organization [facility] Address [address] [place] [address] Care Team Providers Care Investigator Claims Name Role Phone Humberto GRIFFIN, Arlyn Montgomery Primary Care Provider Un available BlackShahramMignon Unavailable [phone] Allergies No Known Allergies Results Component Value Reference Range Notes HEMOGLOBIN A1C (GLYCOHEMOGLO BIN) Reviewed date:05/01/2024 09:39:55 AM Interpretation: Performing Lab: Notes/Report: TOTAL HEMOGLOBIN (HGBA1C) 6.8 HEMOGLOBIN A1C (GLYCOHEMOGLO BIN) Reviewed date:08/04/2024 03:32:54 PM Interpretation: Performing Lab: Notes/Report: TOTAL HEMOGLOBIN (HGBA1C) 7.0 HEMOGLOBIN A1C (GLYCOHEMOGLO BIN) Reviewed date:01/14/2024 01:18:47 PM Interpretation: Performing Lab: Notes/Report: TOTAL HEMOGLOBIN (HGBA1C) 7.2 Reason For Referral No Information Medications Medication [...] Problem Acquired hammer toe of right foot (4688406057438260 ) Other hammer toe(s) (acquired), right foot (M20.41) Active confirmed Problem Acquired hammer toe of left foot (0812089425110087 ) Other hammer toe(s) (acquired), left foot (M20.42) Active confirmed Problem Localized, primary osteoarthritis of the ankle and/or foot (341075097) Primary osteoarthritis, left ankle and foot (M19.072) Active confirmed Problem Polyneuropathy due to type 2 diabetes mellitus (804141928) Type 2 diabetes mellitus with diabetic polyneuropathy (E11.42) Active confirmed Vital Signs Blood pressure diastolic 60 mm Hg 08/04/2024 Height 5ft3in in 08/04/2024 Blood pressure systolic 100 mm Hg 08/04/2024 Weight 191 lbs 08/04/2024 BMI 33.83 kg/m2 08/04/2024 Procedures Procedure Date Ordered Date Performed Result Body Sit e 51971-JOPAVDQ NAIL, 1-5 10/08/2023 N/A 09922-PWOF SKIN LESIONS, OVER 4 10/08/2023 N/A 69451-ODZORXO NAIL, 1-5 01/14/2024 N/A 20856 I&D ABSCESS- SIMPLE,SINGLE 01/14/2024 N/A 86214-DGYS SKIN LESIONS, OVER 4 01/14/2024 N/A X1566-QUJIMHWK DYSTROPHIC NAILS ANY # 01/14/2024 N/A 53691-JCXHNHK NAIL, 1-5 05/01/2024 N/A 05756-FVOG SKIN LESIONS, OVER 4 05/01/2024 N/A F9724-IVQFMWSL DYSTROPHIC NAILS ANY # 05/01/2024 N/A 28245-FAIVCYP NAIL, 1-5 08/04/2024 N/A 40100-GOVL SKIN LESIONS, OVER 4 08/04/2024 N/A Z2757-NDNPPZDM DYSTROPHIC NAILS ANY # 08/04/2024 N/A Encounters Encounter Location Date Provider Diagnosis [address] [address] 10/08/2023 Mignon Black Type 2 diabetes mellitus with diabetic polyneuropathy E11.42 and Onychomycosis B35.[address] [address] 01/14/2024 Mignon Black Type 2 diabetes mellitus with diabetic polyneuropathy E11.42 ; Onychomycosis B35.1 and Abscess of toe, right L02.[address] [address] 05/01/2024 Mignon Black Type 2 diabetes mellitus with diabetic polyneuropathy E11.42 and Onychomycosis B35.[address] [address] 08/04/2024 Mignon Black Type 2 diabetes mellitus [...] Treatment Pending Test Test Name Order Date 48821-JPMHAHZ NAIL, 6 OR MORE 10/11/2015 66874-URQSISA NAIL, 6 OR MORE 01/17/2016 36958-CAWDQFP NAIL, 6 OR MORE 10/13/2019 65365-RCFGXDL NAIL, 6 OR MORE 04/22/2020 52165-FSLPKKE NAIL, 6 OR MORE 07/26/2020 88416-KHNASJH NAIL, 6 OR MORE 01/13/2021 41795-QUOMUOJ NAIL, 6 OR MORE 04/18/2021 75999-ONCTBSD NAIL, 6 OR MORE 08/08/2021 28614-DUMOXMK NAIL, 1-5 07/02/2023 39301-DUNJTWF NAIL, 1-5 10/08/2023 22229-FFEVLQK NAIL, 1-5 01/14/2024 67408-QEVSJAG NAIL, 1-5 05/01/2024 92015-QYAQRUQ NAIL, 1-5 08/04/2024 13976-Njqkgtdd Plate 03/26/2023 94620-Zirqijrs Plate 04/18/2021 85573 I&D ABSCESS- SIMPLE,SINGLE 022 28209 I&D ABSCESS- SIMPLE,SINGLE 024 35742-FSIL SKIN LESIONS, OVER 4 07/02/20 23 29037-BLHE SKIN LESIONS, OVER 4 01/14/20 24 80549-FHCD SKIN LESIONS, OVER 4 03/26/20 23 67481-XHRN SKIN LESIONS, OVER 4 10/08/19 24 71517-THDY SKIN LESIONS, OVER 4 12/15/19 23 80587-AMQP SKIN LESIONS, OVER 4 06/19/20 31690-TFIW SKIN LESIONS, OVER 4 03/16/20 22 17595-FSMM SKIN LESIONS, OVER 4 11/29/19 22 07881-VWXB SKIN LESIONS, OVER 4 08/08/20 21 21984-PWWO SKIN LESIONS, OVER 4 04/18/20 21 84313-QWXJ SKIN LESIONS, OVER 4 01/14/20 21 85306-ZYCO SKIN LESIONS, OVER 4 07/26/20 20 76248-SJQP SKIN LESIONS, OVER 4 04/22/20 20 30242-YGAE SKIN LESIONS, OVER 4 01/17/20 16 53535-SSVQ SKIN LESIONS, OVER 4 10/13/19 20 97314-PCEH SKIN LESIONS, OVER 4 08/04/20 24 62354-SAHX SKIN LESIONS, OVER 4 05/01/20 24 Z4177-UQEFAVHU DYSTROPHIC NAILS ANY # A6463-ZNXSKRWL DYSTROPHIC NAILS ANY # X1560-OZAIDEIU DYSTROPHIC NAILS ANY # I8838-EGHHDVPP DYSTROPHIC NAILS ANY # N9632-WHTGKSUD DYSTROPHIC NAILS ANY # W9783-MZLMUSMA DYSTROPHIC NAILS ANY # R3840-RCYPNZNI DYSTROPHIC NAILS ANY # W1855-FUSABMLA DYSTROPHIC NAILS ANY # Next Appt Details Provider Name:Mignon Calhoun , 11/13/2024 02:00:00 PM, [address] [place] [address], [place], [address], Insurance Providers Payer Name Payer Address Payer Phone Subscriber Number Group Number Insured Name Patient Relationship to Insured Coverage Start Date Coverage End Date Medicare National Govt F[employer] [address] [facility] [place] [address] [id number] Rosalia Talavera Self - patient is the insured [employer] Blue [employer] [address] [place] [address] [id number] Rosalia Talavera Self - patient is the insured Medical (General) History Medical History History ICD Code Diabetic type ll High blood pressure Measles Sinus conditions Cellulitis Anemia Surgical History Surgery Date(Month/Year) Left renal calculus s/p remioval and lef t ureteral stent placement 01/13/2014 left ureteral stent placement Hospitalization History Reason Date(Month/Year) [facility]- High Blood Pressure 01/2021 cellulitis hospitalized twice for 5 days in total Oct 2018
--- OUTSIDE RECORDS SUMMARY | 2024-09-02 07:10 | XMS_ITS ---
Author Organization [facility] Address [address] [place] [address] Care Team Providers Care Grapple Crew Leader Name Role Phone Humberto GRIFFIN, Arlyn Primary Care Provider Se Weinstein Jr Unavailable REASON FOR VISIT screening Encounters Encounter Location Date Provider Diagnosis [facility] Outpatient [address] [place] [phone] 09/02/2024 Se David Jr Colon cancer screening Z12.11 ASSESSMENTS Encounter Date Diagnosis Assessment Notes Treatment Notes Treatment Clinical Notes 09/02/2024 Colon cancer screening (ICD-10 - Z12.11) PLAN OF TREATMENT Next Appt Details Provider Name:Se brna Jr, 09/02/2024 08:20:00 AM, [address] [place] [address], [phone],
--- OUTSIDE RECORDS SUMMARY | 2024-09-02 07:10 | XMS_ITS ---
Author Organization [facility] Address [address] [place] [address] Care Team Providers Care Ornamental Iron Worker Name Role Phone Humberto GRIFFIN, Arlyn Primary Care Provider Mike David Jr, Se Unavailable [phone] REASON FOR VISIT screening Encounters Encounter Location Date Provider Diagnosis [facility] Outpatient [address] [place] [phone] 08/26/2024 Se David Jr PLAN OF TREATMENT Next Appt Details Provider Name:Se bran Jr, 09/02/2024 08:20:00 AM, [address] [place] [address], [phone],
--- OUTSIDE RECORDS SUMMARY | 2024-09-02 07:10 | XMS_ITS ---
Author Organization [facility] Address [address] [place] [address] Care Team Providers Care Biology Faculty Member Name Role Phone Humberto GRIFFIN, Arlyn Montgomery Primary Care Provider Un available Lj Mignon Unavailable [phone] Saul Encounters Encounter Location Date Provider Diagnosis [address] [address] 04/24/2024 Mignon Calhoun Plan Of Treatment Next Appt Details Provider Name:Mignon Calhoun , 11/13/2024 02:00:00 PM, [address] [place], [address], Progress Notes * Rosalia RANKIN ADOB: [birth year] (74 yo F)Acc No.[id number]:04/24/2024 Progress Note Patient:?Rosalia RANKIN Provider:?Mignon Calhoun DPM :1950???Age:73 Y???Sex:Female D ate:04/24/2024 Address:[address] [place], [place] [phone] Pcp:Дмитрий Saravia Subjective: * Chief Complaints: * [...] Calhoun DPM Date:?2023 Generated for Marc cole/Rebecca/Carli on:?09/02/2024 07:10 AM EST
--- OUTSIDE RECORDS SUMMARY | 2024-09-02 07:10 | XMS_ITS ---
Author Organization [facility] Address [address] [place] [address] Care Team Providers Care Dredge Pump Operator Name Role Phone Humberto GRIFFIN, Arlyn Montgomery Primary Care Provider Un available Black, Mignon Unavailable [phone] Allergies No Known Allergies REASON FOR VISIT [...] Ordered Date Performed Result Body Sit e 17649-IZHLYEA NAIL, 1-5 08/04/2024 N/A 16785-SMDK SKIN LESIONS, OVER 4 08/04/2024 N/A M9939-QVJUISEY DYSTROPHIC NAILS ANY # 08/04/2024 N/A Encounters Encounter Location Date Provider Diagnosis [facility] [address] [address] 08/04/2024 Mignon Calhoun Type 2 diabetes mellitus with diabetic polyneuropathy E11.42 and Onychomycosis B35.1 Assessments Encounter Date Diagnosis (ICD Code) Assessment Notes Treatment Notes Treatment Clinical Notes Section Notes 08/04/2024 Type 2 diabetes mellitus with diabetic polyneuropathy (ICD-10 - E11.42) 08/04/2024 Onychomycosis (ICD-10 - B35.1) Plan Of Treatment Pending Test Test Name Order Date 00922-CZPVBAR NAIL, 1-5 08/04/2024 54927-FPIG SKIN LESIONS, OVER 4 08/04/20 24 O3449-JQLXSJJI DYSTROPHIC NAILS ANY # Next Appt Details Follow Up: prn, Reason: Provider Name:Mignon Calhoun , 11/13/2024 02:00:00 PM, [address] [place] [address], [phone], Procedure Notes * Category Sub-Category Detail Notes Keratoma Treatment Parring or Cutting o f Benign Hyperkeratotic Lesion(s) 42637 ( >4 lesions) - The Benign hyperkeratotic [...] use of a nail nipper and/or dremel-type hob grinder, to a more viable healthy nail plate or bed tissue 1-5. Silver nitrate used for any petechial bleeding as necessary. Definitive antifungal treatment options have been reviewed and discussed with the patient. The patient chooses, no pharmaceutical tx - 89007 Nail Reduction Nail Reduction Trimming of dyst rophic nails performed to reduce/remove overall nail length and girth, by manual and electrical means with use of a nail nipper and/or dremel, to more viable healthy nail plate or bed tissue 6-10 (G0127) Progress Notes * Rosalia RANKIN ADOB: 9 (74 yo F)Acc No.[id number]:08/04/2024 Progress Note Patient:Rosalia GRAVES Provider:?Mignon Calhoun DPM :1950???Age:74 Y???Sex:Female D ate:08/04/2024 Address:[address] [place] [address] Pcp:Дмитрий Saravia Subjective: * Chief Complaints: * [...] admits.?Ingrown nails?denies.?Painful nails?denies.?Open Sores?denies.?Rashes?denies.?Neurologic:?Difficulty sleeping?denies.?Brain disorder?denies.?Numbness?denies.?Balance t rouble?denies.?Confusion?denies.?Fainting/blackouts?denies.?Tingling?denies.?Ekdar mors?denies.? * Medical History:? * Surgical History:?Left renal calculus s/p remioval and left ureteral stent placement 01/13/2014left ureteral stent placement * Hospitalization/Major Diagno stic Procedure:?cellulitis hospitalized twice for 5 days in total Oct 2018[facility] High Blood Pressure 01/2021 * Family History:?Mother: [...] (Primary)???2.?Onychomycosis - B35.1??? Plan: * Treatment: 2.?Onychomycosis?Procedure: 74696-ZWQDKHL NAIL, 1-5 * Procedures:?Debride Nails 1-5:?Procedure:?Performance of this nail treatment by a nonprofessional would put this patients foot and overall health at risk. Therefore, debridement to affected nail(s), as described in exam, was performed extensively to reduce/remove overall nail length, girth, thickness, subungual debris, and necrotic tissue, by manual and/or electrical means through the use of a nail nipper and/or dremel-type hob grinder, to a more viable healthy nail plate or bed tissue 1-5. Silver nitrate used for any petechial bleeding as necessary. Definitive antifungal treatment options have been reviewed and discussed with the patient. The patient chooses, no pharmaceutical tx - 49080.?Keratoma Treatment:?Parring or Cutting of Benign Hyperkeratotic Lesion(s)?60315 ( >4 lesions) - The Benign hyperkeratotic lesions, as described above were pared, and/or cut utilizing a sterile #15 blade, tissue nippers, and/or dremel.?Nail Reduction:?Nail Reduction?Trimming of dystrophic nails performed to reduce/remove overall nail length and girth, by manual and electrical means with use of a nail nipper and/or dremel, to more viable healthy nail plate or bed tissue 6-10 (G0127).? * Procedure Codes:?96939 TRIM SKIN LESIONS, OVER 4, Modifiers: XS 74696 DEBRIDE NAIL, 1-5, Modifiers: XS G0127 TRIMMING DYSTROPHIC NAILS ANY #, Modifiers: XS * Follow Up:?prn * Images: * Sign off status: Completed true * Provider:?Mignon Calhoun DPM Date:?2023 Generated for Marc cole/Rebecca/Carli on:?09/02/2024 07:09 AM EST History and Physical Notes * [...]
--- OUTSIDE RECORDS SUMMARY | 2024-09-02 07:10 | XMS_ITS ---
Author Organization [facility] Address [address] [place] [address] Care Team Providers Care Ict Business Development Manager Name Role Phone Humberto GRIFFIN, Arlyn Montgomery Primary Care Provider Un available Black, Mignon Unavailable [phone] Allergies No Known Allergies REASON FOR VISIT [...] Ordered Date Performed Result Body Sit e 03899-PEIZKYB NAIL, 1-5 05/01/2024 N/A 42787-APQU SKIN LESIONS, OVER 4 05/01/2024 N/A J9724-CEYTJWIS DYSTROPHIC NAILS ANY # 05/01/2024 N/A Encounters Encounter Location Date Provider Diagnosis [facility] [address] [address] 05/01/2024 Mignon Calhoun Type 2 diabetes mellitus with diabetic polyneuropathy E11.42 and Onychomycosis B35.1 Assessments Encounter Date Diagnosis (ICD Code) Assessment Notes Treatment Notes Treatment Clinical Notes Section Notes 05/01/2024 Type 2 diabetes mellitus with diabetic polyneuropathy (ICD-10 - E11.42) 05/01/2024 Onychomycosis (ICD-10 - B35.1) 05/01/2024 Other Plan Of Treatment Pending Test Test Name Order Date 40545-REQXVWL NAIL, 1-5 05/01/2024 01661-WTJF SKIN LESIONS, OVER 4 05/01/20 X8592-FMQJIMKM DYSTROPHIC NAILS ANY # Next Appt Details Follow Up: prn, Reason: Provider Name:Mignonruth Calhoun , 11/13/2024 02:00:00 PM, [address] [place] [address], [phone], Procedure Notes * Category Sub-Category Detail Notes Keratoma Treatment Parring or Cutting o f Benign Hyperkeratotic Lesion(s) 61601 ( >4 lesions) - The Benign hyperkeratotic [...] as necessary. Patient chooses, no pharmaceutical tx (16105) Nail Reduction Nail Reduction Trimming of dyst rophic nails performed to reduce/remove overall nail length and girth, by manual and electrical means with use of a nail nipper and/or dremel, to more viable healthy nail plate or bed tissue 6-10 (G0127) Progress Notes * Rosalia RANKIN ADOB: [birth year] (73 yo F)Acc No.[id number]:05/01/2024 Progress Note Patient:?Rosalia Rankin Provider:?Mignon Calhoun DPM :1950???Age:73 Y???Sex:Female D ate:05/01/2024 Address:[address] [place], [place] [phone] Pcp:Дмитрий Saravia Subjective: * Chief Complaints: * ???At Risk Footcare * HPI: ???Painful Nails:?Pt States Last PCP Visit:?Date:?04/21/2024 * Medical History:? * Surgical History:?Left renal calculus s/p remioval and left ureteral stent placement 01/13/2014left ureteral stent placement * Hospitalization/Major Diagno stic Procedure:?cellulitis hospitalized twice for 5 days in total Oct 2018[facility] High Blood Pressure 01/2021 * Family History:?Mother: [...] ?no Exercise. ?Marital status: single. 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 * Medications:?TakingLetrozole 2.5 MG Tablet 1 [...] (Primary)?2.?Onychomycosis - B35.1? Plan: * Treatment: 2.?Onychomycosis?Procedure: 35191-RQPGOPZ NAIL, 1-5 * Procedures:?Debride Nails 1-5:?Procedure:?Nail debridement performed extensively to reduce/remove overall nail length and girth, subungual debris, and necrotic tissue, by manual and electrical means by use of a nail nipper and/or dremel, to more viable healthy nail plate or bed tissue 1-5. Silver nitrate used for any petechial bleeding as necessary. Patient chooses, no pharmaceutical tx (17622).?Keratoma Treatment:?Parring or Cutting of Benign Hyperkeratotic Lesion(s)?92870 ( >4 lesions) - The Benign hyperkeratotic lesions, as described above were pared, and/or cut utilizing a sterile #15 blade, tissue nippers, and/or dremel.?Nail Reduction:?Nail Reduction?Trimming of dystrophic nails performed to reduce/remove overall nail length and girth, by manual and electrical means with use of a nail nipper and/or dremel, to more viable healthy nail plate or bed tissue 6-10 (G0127).? * Procedure Codes:?71187 TRIM SKIN LESIONS, OVER 4, Modifiers: XS 49142 DEBRIDE NAIL, 1-5, Modifiers: XS G0127 TRIMMING DYSTROPHIC NAILS ANY #, Modifiers: XS * Follow Up:?prn * Images: * Sign off status: Completed true * Provider:?Mignon Calhoun DPM Date:?2023 Generated for Marc cole/Rebecca/eTmaismitting on:?09/02/2024 07:10 AM EST History and Physical Notes * [...]
--- OUTSIDE RECORDS SUMMARY | 2024-09-02 07:11 | XMS_ITS ---
Author Organization [facility] Address [address] [place] [address] Care Team Providers Care Ordinary Seaman Name Role Phone Humberto GRIFFIN, Arlyn Primary Care Provider Se Weinstein Jr Unavailable [phone] Encounters Encounter Location Date Provider Diagnosis [facility] [address] [place] [phone] 07/22/2024 Se David Jr PLAN OF TREATMENT Next Appt Details Provider Name:Se bran Jr, 09/02/2024 08:20:00 AM, [address] [place] [address] , [place], [place], [phone],
--- OUTSIDE RECORDS SUMMARY | 2024-09-02 07:11 | XMS_ITS | Patient Health Record ---
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 (Z79.899) Active confirmed 36967744930391071 VITAL SIGNS Temperature 96.9 degrees Fahrenheit 07/21/2024 Blood pressure diastolic 00 mm Hg 07/21/2024 Height 61.5 in 07/21/2024 Blood pressure systolic 000 mm Hg 07/21/2024 Weight 195 lbs 07/21/2024 BMI 36.24 kg/m2 07/21/2024 Encounters Encounter Location Date Provider Diagnosis [facility] Outpatient [address] [place] [phone] 08/26/2024 Se David Jr [facility] Outpatient [address] [place] [phone] 09/02/2024 Se David Jr Colon cancer screening Z12.11 [facility] [address] [place] [phone] 07/21/2024 Se David Jr Colon cancer screening Z12.11 ; 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 operator truck driver (current) use of oral 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 drugs Z79.84 and 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 of diuretic Z79.899 [facility] [address] [place] [phone] 07/22/2024 Se David Jr ASSESSMENTS Encounter Date Diagnosis Assessment Notes Treatment Notes Treatment Clinical Notes 09/02/2024 Colon cancer screening (ICD-10 - Z12.11) 07/21/2024 Colon cancer screening (ICD-10 - Z12.11) Colonoscopy material was printed 07/21/2024 nursing home (current) use of oral 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 drugs (ICD-10 - Z79.84) 07/21/2024 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 of diuretic (ICD-10 - Z79.899) PLAN OF TREATMENT Future Test Test Name Order Date COLONOSCOPY 08/20/2013 COLONOSCOPY 07/21/2024 Next Appt Details Provider Name:Se bran Jr, 09/02/2024 08:20:00 AM, [address] [place] [address], [phone], Insurance Providers Payer Name Payer Address Payer Phone Subscriber Number Group Number Insured Name Patient Relationship to Insured Coverage Start Date Coverage End Date MEDICARE OF [place] [address] [place] [address] [id number] SHAW RANKIN Self - patient is the insured MEDEX ATTN CLAIMS [address] [place] [address] [id number] SHAW RANKIN Self - patient is the insured MEDICAL (GENERAL) HISTORY Medical History History ICD Code Breast cancer/bilateral lumpectomies Diabetes mellitus type 2 Varicose veins Hyperlipidemia Hypertension Restrictive lung disease Elevated BMI Colonoscopy 11/28, normal, ten-year follo wup Surgical History Surgery Date(Month/Year)
[2024-09-02 07:23] VITALS: BMI 36.1
--- NOTE | 2024-09-02 07:44 | P.CONAN_ITS ---
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) Chronic venous insufficiency of lower extremity (Acute) Morbid obesity (Acute) Type 2 diabetes mellitus with other diabetic kidney complication (Acute) Hyperlipidemia (Acute) Past Medical History Medical History History of invasive ductal carcinoma of breast Hx of basal cell carcinoma Cellulitis of left lower extremity 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 Invasive ductal carcinoma of right breast Snoring Shoulder pain, bilateral Normocytic normochromic anemia Restrictive lung disease secondary to obesity Dyspnea on exertion Obesity Other and unspecified hyperlipidemia Leg edema Varicose veins of left lower extremity with inflammation 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 Mother Ovarian cancer Brother Diabetes mellitus Brother Diabetes mellitus Maternal Grandfather Throat cancer Family history of problems with anesthesia: No Surgical History Surgical History S/P Mohs surgery for basal cell carcinoma Status post right breast lumpectomy History of lumpectomy of left breast Hx of colonoscopy S/P ureteral stent placement History of ureter stent History of Problems with Anesthesia: No Social History Social History Household Members: None Housing: Apartment Are you a primary health care analyst to a significant other at home: No Do you presently have visiting nurse or other home services: No Alcohol intake: former Patient Tobacco Use Status: Former Tobacco user Tobacco use type: Cigarette Years Smoked: since 12 yrs old e-Cigarette/Vaping Use: Never Used Second Hand Smoke Exposure: No Advance Directives Date on File: 04/20/21 service: No Current occupational status: retired Cognitive needs: No Hearing needs: No Vision needs: Yes (Glasses) Meds Allergies Allergy/AdvReac Type Severity Reaction Status Date / Time No Known Allergies Allergy Verified 09/02/24 07:19 Active Medications: Current Medications Lactated Ringer's (Lr) 1,000 mls @ 100 mls/hr IVCONT .Q10H RODNEY Home Medications ?Medication ?Instructions ?Recorded ?Confirmed ?Last Taken ?Type mecobalamin (vitamin B12) 1,000 1,000 mcg PO DAILY 07/12/21 08/29/24 Unknown History mcg chewable tablet multivitamin 1 tab PO DAILY 10/16/22 08/29/24 Unknown History ferrous fumarate 325 mg (106 mg 65 mg PO DAILY 04/14/24 08/29/24 Unknown History iron) tablet hydralazine 100 mg tablet 100 mg PO DAILY 05/20/24 08/29/24 Unknown History Exam Height,Weight and Vital Signs: Height 5 ft 1.5 in Weight 87.997 kg Airway Mallampati Class: II TM Dist: >3cm Neck ROM: Full Heart: RRR Lungs: CTA Assessment and Plan Final Anesthetic Review Family History of Problems with Anesthesia: No History of Problems with Anesthesia: No ASA Class: II Patient Risk: Intermediate Procedure Risk: Low Anesthetic Plan Anesthetic Plan: MAC: Disposition: Standard PACU
[2024-09-02 07:50] VITALS: BP 161/67; PULSE 74; RESP 16; TEMP 36.8; O2SAT 97
[2024-09-02] MEDS: Lactated Ringers 1,000 ML 100 ML IVCONT (07:55)
--- NOTE | 2024-09-02 07:59 | HO.ANESPROP2 ---
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 (Acute) Chronic venous insufficiency of lower extremity (Acute) Morbid obesity (Acute) Type 2 diabetes mellitus with other diabetic kidney complication (Acute) Hyperlipidemia (Acute) Past Medical History Medical History History of invasive ductal carcinoma of breast Hx of basal cell carcinoma Cellulitis of left lower extremity 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 Invasive ductal carcinoma of right breast Snoring Shoulder pain, bilateral Normocytic normochromic anemia Restrictive lung disease secondary to obesity Dyspnea on exertion Obesity Other and unspecified hyperlipidemia Leg edema Varicose veins of left lower extremity with inflammation 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 Mother Ovarian cancer Brother Diabetes mellitus Brother Diabetes mellitus Maternal Grandfather Throat cancer Family history of problems with anesthesia: No Surgical History Surgical History S/P Mohs surgery for basal cell carcinoma Status post right breast lumpectomy History of lumpectomy of left breast Hx of colonoscopy S/P ureteral stent placement History of ureter stent History of Problems with Anesthesia: No Social History Social History Household Members: None Housing: Apartment Are you a primary day care supervisor to a significant other at home: No Do you presently have visiting nurse or other home services: No Alcohol intake: former Patient Tobacco Use Status: Former Tobacco user Tobacco use type: Cigarette Years Smoked: since 12 yrs old e-Cigarette/Vaping Use: Never Used Second Hand Smoke Exposure: No Advance Directives Date on File: 04/20/21 service: No Current occupational status: retired Cognitive needs: No Hearing needs: No Vision needs: Yes (Glasses) Meds Allergies Allergy/AdvReac Type Severity Reaction Status Date / Time No Known Allergies Allergy Verified 09/02/24 07:19 Active Medications: Current Medications Lactated Ringer's (Lr) 1,000 mls @ 100 mls/hr IVCONT .Q10H RODNEY Last Admin: 09/02/24 07:55 Dose: 100 mls/hr Home Medications ?Medication ?Instructions ?Recorded ?Confirmed ?Last Taken ?Type mecobalamin (vitamin B12) 1,000 1,000 mcg PO DAILY 07/12/21 08/29/24 Unknown History mcg chewable tablet multivitamin 1 tab PO DAILY 10/16/22 08/29/24 Unknown History ferrous fumarate 325 mg (106 mg 65 mg PO DAILY 04/14/24 08/29/24 Unknown History iron) tablet hydralazine 100 mg tablet 100 mg PO DAILY 05/20/24 08/29/24 Unknown History Exam Height,Weight and Vital Signs: Height 5 ft 1.5 in Weight 87.997 kg Last Vital Signs Temp 98.2 F 09/02/24 07:50 Pulse 74 09/02/24 07:50 Resp 16 09/02/24 07:50 BP 161/67 H 09/02/24 07:50 Pulse Ox 97 09/02/24 07:50 O2 Del Method Room Air 09/02/24 07:50 Airway Mallampati Class: II TM Dist: >3cm Neck ROM: Full Heart: RRR Lungs: CTA Assessment and Plan Assessment Anesthesia Assessment: Anesthesia Plan Discussed and Chart Reviewed Final Anesthetic Review Family History of Problems with Anesthesia: No History of Problems with Anesthesia: No NPO: Yes ASA Class: II Final Preanesthetic Review: Meds/Allgs Chart Reviewed, Consent Obtained/Reviewed and Anes Risks/Benef Reviewed Anesthetic Plan Anesthetic Plan: MAC: Disposition: Standard PACU
[2024-09-02 08:10] LABS: Glucose, Whole Blood 156 mg/dL (60-115)
--- NOTE | 2024-09-02 08:15 | MHC.SHP ---
Pre-Procedural Eval Section A - 24 Hr Update-Section A only Date of Service: 09/02/24 Section B - Complete if H&P > 30 days Chief Complaint: screening Details of Present Illness: see H&P no changes Relevant Family History (Specify if Yes): No Relevant Social History: None Present Medications: see Short Stay Collaborative assessment Medical History: No relevant PMH History of Previous Operations: No relevant previous surgery Allergies: Allergies Allergy/AdvReac Type Severity Reaction Status Date / Time No Known Allergies Allergy Verified 09/02/24 07:19 Review of Systems Sugical H&P ROS: Negative: Constitution, Cardiovascular, Respiratory, Neurological, Psychiatric, Hem-Onc, Allergic/Immunologic, Gastrointestinal, Genitourinary, Musculoskeletal, Integumentary, Endocrine and Eyes/Ears/Nose/Throat Exam Surgical H&P Exam: Normal: HEENT, Normal: Heart, Normal: Lungs, Normal: Extremities, Normal: Abdomen, Normal: Skin and Normal: Neurological Plan Diagnosis/Plan: Unchanged I have reviewed the history and physical and performed a pertinent physical examination on my patient. No changes have occurred unless specified. Time Spent With Patient Time: Total time managing care of this patient today ____ minutes.
--- NOTE | 2024-09-02 08:43 | HO.POSTANES ---
Post Anesthesia Evaluation Post Anesthesia Evaluation Vital Signs: Vital Signs Temp Pulse Resp BP Pulse Ox O2 Del Method 09/02/24 07:50 98.2 F 74 16 161/67 H 97 Room Air Anesthesia: Monitored Mental Status: Awake Pain Control: Satisfactory Nausea/Vomiting: None
[2024-09-02 08:48] VITALS: BP 109/52; RESP 16; TEMP 36.3; O2SAT 94
--- NOTE | 2024-09-02 08:59 | OP_ITS ---
DATE OF SERVICE: 09/02/2024 SURGEON: Se David MD INDICATIONS: Colon cancer screening. PREOPERATIVE DIAGNOSIS: POSTOPERATIVE DIAGNOSIS: PROCEDURE PERFORMED: Colonoscopy to the terminal ileum. ESTIMATED BLOOD LOSS: COMPLICATIONS: ANESTHESIA: Monitored anesthesia care. ASSISTANTS: SPECIMENS: DESCRIPTION OF PROCEDURE: A history and physical was performed. The risks and benefits of the procedure were explained to the patient and informed consent was obtained. The patient was placed in the left lateral decubitus position. A digital rectal exam was performed and was found to be normal. The Olympus pediatric video colonoscope was introduced into the rectum and advanced to the cecum. The cecum was identified by transillumination, palpation, and identification of the ileocecal valve. Examination was performed and the scope was removed. She tolerated the procedure well and was returned to recovery area in stable condition. FINDINGS: The terminal ileum was examined and appeared normal. The visualized colonic mucosa was normal. The quality of the prep was good. No polyps were identified. There were few diverticula seen in the sigmoid. Retroflexed examination was normal. IMPRESSION: Normal colonoscopy. RECOMMENDATIONS: 1. Follow up as needed. 2. Repeat colonoscopy is recommended in 10 years for average-risk individuals. This is optional based on the patient's age. MD LEATHA Do/LESLIEL / [phone]
[2024-09-02 09:03] VITALS: BP 153/69; PULSE 77; RESP 16; TEMP 36.3; O2SAT 96
--- NOTE | 2024-09-02 09:44 | HO.POSTANES ---
Post Anesthesia Evaluation Post Anesthesia Evaluation Date of Service: 09/02/24 Vital Signs: Vital Signs Temp Pulse Resp BP Pulse Ox O2 Del Method 09/02/24 09:03 97.4 F 77 16 153/69 H 96 Room Air 09/02/24 08:48 97.4 F 16 109/52 L 94 Room Air 09/02/24 07:50 98.2 F 74 16 161/67 H 97 Room Air Anesthesia: Monitored Mental Status: Awake Pain Control: Satisfactory Nausea/Vomiting: None Hydration: Adequate Anesthesia-Related Issues: No Anes. Related Issues
== END 2024-09-02 09:30 | disposition home or self-care (01) ==
PROVIDERS: PCP Internal Medicine; Visit Provider Internal Medicine Gastroenterology
PROC: 0DJD8ZZ Inspection of Lower Intestinal Tract, Via Natural or Artificial Opening Endoscopic (ICD-10-PCS; CPT 45378; principal; 2024-09-02 08:20)
DX: Z12.11 Encounter for screening for malignant neoplasm of colon (principal); K57.30 Diverticulosis of large intestine without perforation or abscess without bleeding; E11.9 Type 2 diabetes mellitus without complications; I10 Essential (primary) hypertension; E78.5 Hyperlipidemia, unspecified; E66.9 Obesity, unspecified; Z68.36 Body mass index [BMI] 36.0-36.9, adult; Z85.3 Personal history of malignant neoplasm of breast; Z79.02 Long term (current) use of antithrombotics/antiplatelets; Z79.84 Long term (current) use of oral 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 drugs; Z79.899 Other long term (current) drug therapy
CPT/HCPCS: G0121; 82947; J2003; J2704

== ENCOUNTER 2024-10-28 11:58 | Outpatient (REF) | payer MEDICARE, SELFPAY ==
--- NOTE | ~2024-10-28 | MM_ITS ---
EXAMINATION: MM DIAGNOSTIC DIGITAL BREAST TOMOSYNTHESIS, BILATERAL CLINICAL INFORMATION: History of right breast cancer in 2021 status post lumpectomy. COMPARISON: Mammography: Comparison is made with relevant prior exams. TECHNIQUE: Digital breast mammography with tomosynthesis is performed in both the craniocaudal and mediolateral oblique views along with computer-aided detection (CAD). FINDINGS: There are scattered areas of fibroglandular density (ACR BI-RADS breast composition Category b). Right post lumpectomy changes are stable. There are no significant masses, abnormal calcifications, or other abnormalities. Results are provided to the patient at time of visit by the technologist. MM/MM tomosynthesis diagnostic BI IMPRESSION: There are no significant changes from prior study. ASSESSMENT: BI-RADS BI-RADS 2 - Benign Findings RECOMMENDATION: 1 year F/U This patient's information was entered into a reminder system with a target due date for their next mammogram. Electronically signed by: Ju Perez DO 10/28/2024 01:43 PM KANDIS THAO
--- OUTSIDE RECORDS SUMMARY | 2024-10-28 13:25 | XMS_ITS | Patient Health Record ---
Author Organization [facility] Address [address] [place] [address] Care Team Providers Care Technology Sales Representative Name Role Phone Humberto GRIFFIN, Arlyn Primary Care Provider Se Weinstein Jr Unavailable ALLERGIES No Known Allergies RESULTS Component Value Reference Range Notes Glucose, Whole Blood Reviewed date:09/02/2024 03:11:19 PM Interpretation: Performing Lab:[facility], [address] [place] [id number] Notes/Report: Glucose, Whole Blood 156 60-115 mg/dL METER # : [id number] REASON FOR REFERRAL No Information MEDICATIONS Medication [...] Problem Colon cancer screening (Z12.11) Active confirmed [id number] Problem [facility] (current) use of oral 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 drugs (Z79.84) Active confirmed 901242461853420 Problem [facility] current use of diuretic (Z79.899) Active confirmed [id number] VITAL SIGNS Temperature 96.9 degrees Fahrenheit 07/21/2024 Blood pressure diastolic 00 mm Hg 07/21/2024 Height 61.5 in 07/21/2024 Blood pressure systolic 000 mm Hg 07/21/2024 Weight 195 lbs 07/21/2024 BMI 36.24 kg/m2 07/21/2024 Encounters Encounter Location Date Provider Diagnosis [facility] Out[facility] [address] [place] [id number] 08/26/2024 Se David Jr [facility] Out[facility] [address] [place] [id number] 09/02/2024 Se David Jr Colon cancer screening Z12.11 [facility] [address] [address] 07/21/2024 Se David Jr Colon cancer screening Z12.11 ; 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 oral 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 drugs Z79.84 and watermelon harvesting supervisor current use of diuretic Z79.899 [facility] [address] [address] 07/22/2024 Se David Jr ASSESSMENTS Encounter Date Diagnosis Assessment Notes Treatment Notes Treatment Clinical Notes 09/02/2024 Colon cancer screening (ICD-10 - Z12.11) 07/21/2024 Colon cancer screening (ICD-10 - Z12.11) Colonoscopy material was printed 07/21/2024 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 oral 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 drugs (ICD-10 - Z79.84) 07/21/2024 [facility] current use of diuretic (ICD-10 - Z79.899) PLAN OF TREATMENT Future Test Test Name Order Date COLONOSCOPY 08/20/2013 COLONOSCOPY 07/21/2024 Insurance Providers Payer Name Payer Address Payer Phone Subscriber Number Group Number Insured Name Patient Relationship to Insured Coverage Start Date Coverage End Date MEDICARE OF [place] [address] [place] [id number] SHAW RANKIN Self - patient is the insured MEDEX ATTN CLAIMS [address] [place] [address] [id number] SHAW RANKIN Self - patient is the insured MEDICAL (GENERAL) HISTORY Medical History History ICD Code Breast cancer/bilateral lumpectomies Diabetes mellitus type 2 Varicose veins Hyperlipidemia Hypertension Restrictive lung disease Elevated BMI Colonoscopy 11/28, normal, ten-year follo wup Surgical History Surgery Date(Month/Year)
--- OUTSIDE RECORDS SUMMARY | 2024-10-28 13:25 | XMS_ITS ---
Author Organization [facility] Address [address] [place] [address] Care Team Providers Care Washing Machine Assembler Name Role Phone Humberto GRIFFIN, Arlyn Primary Care Provider Se Weinstein Jr Unavailable [phone] REASON FOR VISIT screening Encounters Encounter Location Date Provider Diagnosis [facility] Out[facility] [address] [place], [place] [phone] 08/26/2024 Se David Jr PLAN OF TREATMENT No Information
--- OUTSIDE RECORDS SUMMARY | 2024-10-28 13:25 | XMS_ITS ---
Author Organization [facility] Address [address] [place] [phone] Care Team Providers Care Electrician Assistant Name Role Phone Humberto GRIFFIN, Arlyn Primary Care Provider Se Weinstein Jr Unavailable REASON FOR VISIT screening Encounters Encounter Location Date Provider Diagnosis [facility] Outpatient [address] [place], [place] [phone] 09/02/2024 Se David Jr Colon cancer screening Z12.11 ASSESSMENTS Encounter Date Diagnosis Assessment Notes Treatment Notes Treatment Clinical Notes 09/02/2024 Colon cancer screening (ICD-10 - Z12.11) PLAN OF TREATMENT No Information
--- OUTSIDE RECORDS SUMMARY | 2024-10-28 13:25 | XMS_ITS ---
Author Organization [facility] Address [address] [place] [phone] Care Team Providers Care Garment Supervisor Name Role Phone Humberto GRIFFIN, Arlyn Primary Care Provider Se Weinstein Jr Unavailable Encounters Encounter Location Date Provider Diagnosis [facility] [address] [place] [address] 07/22/2024 Se David Jr PLAN OF TREATMENT No Information
== END 2024-10-28 11:59 | disposition home or self-care (01) ==
LOC: HO.MAMMO 11:58
PROVIDERS: PCP Internal Medicine; Visit Provider Internal Medicine
DX: Z85.3 Personal history of malignant neoplasm of breast (principal)
CPT/HCPCS: 77062; 77066

== ENCOUNTER → 2024-10-28 12:30 | Outpatient (BNV) | payer MEDICARE, SELFPAY | PROVIDERS: PCP Internal Medicine; Visit Provider Internal Medicine | DX: Z85.3 Personal history of malignant neoplasm of breast (principal) | CPT/HCPCS: 77066; G0279 ==

== ENCOUNTER 2024-11-17 12:58 | Outpatient (AMB) | payer MEDICARE, MEDICAID, SELFPAY ==
[2024-11-17 13:14] VITALS: BP 130/68; PULSE 70; O2SAT 97; BMI 37.1
--- NOTE | 2024-11-17 13:14 | A.OFFVIS_ITS ---
Vital Signs 11/17/24 13:14 Height 5 ft 1.5 in Weight 199 lb 8.293 oz BMI 37.1 BP 130/68 Blood Pressure Location Lt brachial Position Sitting Pulse 70 Pulse Source Pulse Oximeter Pulse Oximetry (%) 97 Oxygen Delivery Method Room Air Intake Visit Reasons: shortness of breath Intake Note: pt is here for follow up and states she feels good, sometimes some hardness to breath Indoor Plant Technician Required: No Allergies No Known Allergies Allergy (Verified 11/17/24 13:31) Medication List - Last Reconciled 11/17/24 by Gal Meade MD amlodipine 5 mg PO DAILY atorvastatin 20 mg PO DAILY azelastine 1 spray intranasal BID blood sugar diagnostic (FreeStyle Lite Strips) 1 strip miscellaneous .QD carvedilol (Coreg) 12.5 mg PO BID ferrous fumarate 65 mg PO DAILY furosemide 40 mg (2 x 20 mg) PO QAM 90 days hydralazine 100 mg PO DAILY letrozole 2.5 mg PO Q24H mecobalamin (vitamin B12) 1,000 mcg PO DAILY metformin 1,000 mg PO BID 90 days multivitamin 1 tab PO DAILY Ozempic (semaglutide) 0.25 mg (0.368 mL) subcut QWEEK 30 days NS Trulicity (dulaglutide) 1.5 mg (0.5 mL) subcut QWEEK 1 month NS Do you need a note to return to daycare/school/sports/work: No HPI HPI shortness of breath: Details: This 74 years old very pleasant female is here for follow-up after 1 year. She comes for follow-up because of her obesity and restrictive lung disorder and also intermittent cough. She claims that during the past 1 year she has been doing very well without any respiratory symptoms except for mild intermittent cough. She remains very active, and busy. Does not smoke. She sleeps. Well without any daytime sleepiness. 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 Invasive ductal carcinoma of right breast Snoring Shoulder pain, bilateral Normocytic normochromic anemia Restrictive lung disease secondary to obesity Dyspnea on exertion Obesity Other and unspecified hyperlipidemia Leg edema 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 Mother Ovarian cancer Brother Diabetes mellitus Brother Diabetes mellitus Maternal Grandfather Throat cancer Social History Household Members: None Housing: Apartment Are you a primary managed care manager to a significant other at home: No Do you presently have visiting nurse or other home services: No Alcohol intake: former Patient Tobacco Use Status: Former Tobacco user Tobacco use type: Cigarette Years Smoked: since 12 yrs old e-Cigarette/Vaping Use: Never Used Second Hand Smoke Exposure: No Advance Directives Date on File: 04/20/21 service: No Current occupational status: retired Cognitive needs: No Hearing needs: No Vision needs: Yes (Glasses) Review of Systems Const All systems reviewed & are unremarkable except as noted in HPI and below ENT Reports no additional complaints Card Denies chest pain, Denies irregular heart rhythm and Reports leg edema (MILD TO WORDS THE EVENINGS) Resp Reports as per HPI GI Reports no additional complaints Reports no additional complaints Musc Reports no additional complaints Skin/Breast Reports system reviewed and no additional complaints, except as documented Neuro Reports no additional complaints Psych Reports no additional complaints Physical Exam Vital Signs: Last Vital Signs Pulse 70 11/17/24 13:14 BP 130/68 11/17/24 13:14 Pulse Ox 97 11/17/24 13:14 Oxygen Delivery Method Room Air 11/17/24 13:14 BMI result Body Mass Index 37.1 Const General: comfortable, no acute distress, alert and awake Orientation/consciousness: patient oriented x3 HEENT Head: Yes normal to inspection General nose exam: No nasal polyps present and No nasal discharge present Face and sinus: Yes sinuses nontender Mouth: oropharynx normal Throat: Yes posterior oropharynx normal Eyes General: appearance normal, both eyes and all related structures Neck Neck: Yes normal visual inspection, Yes no lymphadenopathy, Yes trachea midline and Yes no JVD Thyroid: Thyroid normal Chest Chest palpation & inspection: normal inspection of the chest, normal palpation of entire chest wall and no tenderness Resp Other: PERCUSSION NOTE RESONANT, BREATH SOUNDS ARE DISTANT AND SOMEWHAT DIMINISHED OVER THE BASILAR AREAS. NO AUDIBLE WHEEZES RHONCHI OR CREPITATIONS ARE HEARD Cardio Palpation: normal PMI Rate: regular rate Rhythm: regular rhythm Heart sounds: no gallops and no murmurs GI Palpation (GI): Soft to palpation, nontender, No hepatosplenomegaly present, no masses and Other GI palpation findings present (ABDOMEN OBESE AND SLIGHTLY PROTUBERANT) Auscultation: normal bowel sounds Back/Spine/Pelvis Thoracic/Lumbar Spine: thoracic and lumbar spine normal to inspection Skin General skin exam: no rashes or lesions noted Neuro General: patient oriented x3 and no focal motor deficits Cranial nerves: Yes CN's II-XII intact bilaterally Extrem General: Yes normal to inspection, Yes no calf tenderness, Yes edema (Both lower extremities, chronic) and Yes venous stasis dermatitis Psych Appearance: grossly normal and well kempt Speech and movement: Normal speech and movement present Assessment & Plan Assessment & Plan (1) Restrictive lung disease secondary to obesity: Comment: PATIENT HAS MODERATELY SEVERE RESTRICTIVE PULMONARY DISORDER RELATED TO HER OBESITY. THERE IS NO EVIDENCE OF OBSTRUCTIVE AIRWAY DISORDER. SPIROMETRY ON HER LAT VISIT SHOWED MODERATELY SEVERE RESTRICTIVE DISORDER. Code(s): J98.4 - Other disorders of lung; E66.9 - Obesity, unspecified Category: Medical Plan: PATIENT IS TRYING TO LOSE . AND ENCOURAGED TO CONTINUE LOSING WEIGHT CONTINUE DOING DEEP BREATHING EXERCISES. (2) Obesity (BMI 30-39.9): Comment: PATIENT IS GROSSLY OBESE BUT OVER THE PAST 2-3 YEARS SHE HAS GRADUALLY LOST WEIGHT. RECENTLY HAS BEEN TREATED WITH THE OZEMPIC INJECTIONS AND TRULICITY BUT HAS THE UNPREDICTABLE COVERAGE BY INSURANCE. Code(s): E66.9 - Obesity, unspecified Category: Medical Plan: ADVISED TO CONTINUE WATCHING HER DIET. Coding Level of Care Code Est Pt Level 3 (72480) Diagnoses Restrictive lung disease secondary to obesity J98.4; E66.9 Obesity (BMI 30-39.9) E66.9
--- OUTSIDE RECORDS SUMMARY | 2024-11-17 15:12 | XMS_ITS ---
Author Organization [facility] Address [address] [place] [id number] Care Team Providers Care Environmental Intern Name Role Phone Humberto GRIFFIN, Arlyn Primary Care Provider Se Weinstein Jr Unavailable REASON FOR VISIT screening Encounters Encounter Location Date Provider Diagnosis [facility] Outpatient [address] [place], [place] [id number] 09/02/2024 Se David Jr Colon cancer screening Z12.11 ASSESSMENTS Encounter Date Diagnosis Assessment Notes Treatment Notes Treatment Clinical Notes 09/02/2024 Colon cancer screening (ICD-10 - Z12.11) PLAN OF TREATMENT No Information
--- OUTSIDE RECORDS SUMMARY | 2024-11-17 15:12 | XMS_ITS ---
Author Organization [facility] Address [address] [place] [id number] Care Team Providers Care Immigration Services Officer Name Role Phone Humberto GRIFFIN, Arlyn Primary Care Provider Se Weinstein Jr Unavailable [phone] Encounters Encounter Location Date Provider Diagnosis [facility] [address] [place] [address] 07/22/2024 Se David Jr PLAN OF TREATMENT No Information
--- OUTSIDE RECORDS SUMMARY | 2024-11-17 15:12 | XMS_ITS ---
Author Organization [facility] Address [address] [place] [address] Care Team Providers Care Brilliandeer Looper Name Role Phone Humberto GRIFFIN, Arlyn Montgomery Primary Care Provider Un available Black, Mignon Unavailable [phone] Allergies No Known Allergies REASON FOR VISIT [...] Ordered Date Performed Result Body Sit e 49896-[id number] NAIL, 1-5 08/04/2024 N/A 91925-ZTCE SKIN LESIONS, OVER 4 08/04/2024 N/A [id number] DYSTROPHIC NAILS ANY # 08/04/2024 N/A Encounters Encounter Location Date Provider Diagnosis [facility] [address] [address] 08/04/2024 Mignon Calhoun Type 2 diabetes mellitus with diabetic polyneuropathy E11.42 and Onychomycosis B35.1 Assessments Encounter Date Diagnosis (ICD Code) Assessment Notes Treatment Notes Treatment Clinical Notes Section Notes 08/04/2024 Type 2 diabetes mellitus with diabetic polyneuropathy (ICD-10 - E11.42) 08/04/2024 Onychomycosis (ICD-10 - B35.1) Plan Of Treatment Pending Test Test Name Order Date [id number] NAIL, 1-5 08/04/2024 47858-TSAC SKIN LESIONS, OVER 4 08/04/20 24 [id number] DYSTROPHIC NAILS ANY # Next Appt Details Follow Up: prn, Reason: Provider Name:Mignon Calhoun , 02/16/2025 08:00:00 AM, [address] [place] [address], [phone], Procedure Notes * Category Sub-Category Detail Notes Keratoma Treatment Parring or Cutting o f Benign Hyperkeratotic Lesion(s) 49265 ( >4 lesions) - The Benign hyperkeratotic [...] use of a nail nipper and/or dremel-type organ grinder, to a more viable healthy nail plate or bed tissue 1-5. Silver nitrate used for any petechial bleeding as necessary. Definitive antifungal treatment options have been reviewed and discussed with the patient. The patient chooses, no pharmaceutical tx - 97129 Nail Reduction Nail Reduction Trimming of dyst rophic nails performed to reduce/remove overall nail length and girth, by manual and electrical means with use of a nail nipper and/or dremel, to more viable healthy nail plate or bed tissue 6-10 (G0127) Progress Notes * Rosalia RANKIN ADOB: [birth year] (74 yo F)Acc No.[id number]:08/04/2024 Progress Note Patient:Rosalia GRAVES Provider:?Mignon Calhoun DPM :1950???Age:74 Y???Sex:Female D ate:08/04/2024 Address:[address] [place] [address] Pcp:Дмитрий Saravia Subjective: * Chief Complaints: * [...] twice for 5 days in total Oct 2018[facility]- High Blood Pressure 01/2021 * Family History:?Mother: [...] 1 tablet Orally Once a day Not-Taking/PRN zDanielld Bonds for Diabetics . . . apply [...] 160.02 cm, Wt-k.64 kg. * ???Past Orders: Lab:HEMOGLOBIN A1C (GLYCOHEM OGLOBIN) * Collection Date 06/17/2024 06/17/2024 Collection Time 03:32 PM 07:26 AM Order Date 06/17/2024 06/17/2024 HEMOGLOBIN A1C % (HH) NR 7.0 TOTAL HEMOGLOBIN (HGBA1C) 7.0 NR * Examination: ???Ophthalmology Referral: ?DIABETES EYE EXAM?Procedure Performed:?Yes ?Date of Exam Performed?10/18/2023 ?Findings of Diabetic Eye Exam:?no retinopathy?Dermatologic: ?SKIN FINDINGS:?Skin exam reveals Keratotic lesion(s) located at,Plantar Heel(s), , B/L , Medial plantar, TA, T5, SUB MTH (s), 5, B/L .?Vascular: ?DP PULSES (B):?2/4, B/L.?PT PULSES (B):?2/4, B/L.?CAPILLARY FILL TIME:?immediate, all digits, B/L.?TROPHIC CONDITION-TEXTURE/ELASTICITY/TURGOR/HAIR GROWTH (B):?normal, B/L.?TEMPERTURE GRADIENT (C):?normal, warm to cool, proximal to distal, B/L, [...] T2, T3, T4, T5, T6, T7, T8, T9.?General Examination: ?GENERAL APPEARANCE:?Reveals a pleasant, alert, well nourished, well- developed, well hydrated individual, who demonstrates proper attention to hygiene/body habitus, and is in no acute distress, Pt serves as own historian for office visit today.?FOOT EXAM:?Lower Extremity Neurological Exam performed:?Yes ?Visual exam of foot performed:?Yes ?Date?07/15/2024 ?Sensory testing performed:?sensations diminished ?Sensory and motor testing performed:?strength diminished ?Pedal pulse taking performed:?2+ ?Footwear Evaluation?Footwear Evaluation performed:?Yes?Orthopedic: ?FOOTWEAR:?Non-Diabetic with no OT.? Assessment: * Assessment: 1.?Type 2 diabetes mellitus with diabetic polyneuropathy - E11.42 (Primary)???2.?Onychomycosis - B35.1??? Plan: * Treatment: 2.?Onychomycosis?Procedure: 34715-CYYTVJX NAIL, 1-5 * Procedures:?Debride Nails 1-5:?Procedure:?Performance of this nail treatment by a nonprofessional would put this patients foot and overall health at risk. Therefore, debridement to affected nail(s), as described in exam, was performed extensively to reduce/remove overall nail length, girth, thickness, subungual debris, and necrotic tissue, by manual and/or electrical means through the use of a nail nipper and/or dremel-type organ grinder, to a more viable healthy nail plate or bed tissue 1-5. Silver nitrate used for any petechial bleeding as necessary. Definitive antifungal treatment options have been reviewed and discussed with the patient. The patient chooses, no pharmaceutical tx - 06778.?Keratoma Treatment:?Parring or Cutting of Benign Hyperkeratotic Lesion(s)?44128 ( >4 lesions) - The Benign hyperkeratotic lesions, as described above were pared, and/or cut utilizing a sterile #15 blade, tissue nippers, and/or dremel.?Nail Reduction:?Nail Reduction?Trimming of dystrophic nails performed to reduce/remove overall nail length and girth, by manual and electrical means with use of a nail nipper and/or dremel, to more viable healthy nail plate or bed tissue 6-10 (G0127).? * Procedure Codes:?21063 TRIM SKIN LESIONS, OVER 4, Modifiers: XS 63015 DEBRIDE NAIL, 1-5, Modifiers: XS G0127 TRIMMING DYSTROPHIC NAILS ANY #, Modifiers: XS * Preventive Medicine:? ??Counseling:?Shoe Gear Counseling:?The patient deferred recommended diabetic shoes with heat moled inserts.? ??Screening/Special Tests:?Fall Risk?Screening:?No falls in the past year ?FALLS: Screening for Future Fall Risk?Have you had any falls with injury in the past year??No * Follow Up:?prn * Images: * Sign off status: Completed true * Provider:?Mignon Calhoun DPM Date:?2023 Generated for Marc cole/Rebecca/eTransmitting on:?11/17/2024 03:12 PM EST History and Physical Notes * HPI [...] TA, T5, SUB MTH (s), 5, B/L Orthopedic FOOTWEAR: Non-Diabetic with no OT General Examination GENERAL APPEARANCE: Reveals a pleasant, alert, well nourished, well-developed, well hydrated individual, who demonstrates proper attention to hygiene/body habitus, and is in no acute distress, Pt serves as own historian for office visit today FOOT EXAM: Lower Extremity Neurological Exa m performed:: Yes Visual exam of foot performed:: Yes Date: 07/15/2024 Sensory testing performed:: sensations d iminished Sensory and motor testing performed:: st rength diminished Pedal pulse taking performed:: 2+ Footwear Evaluation Footwear Evaluation performe d:: Yes Ophthalmology Referral DIABETES EYE EXAM Procedure Perform ed:: Yes ?Date of Exam Performed: 10/18/2023 Findings of Diabetic Eye Exam:: no retin opathy Vascular DP PULSES (B): 2/4, B/L PT PULSES (B): 2/4, B/L CAPILLARY FILL TIME: immediate, all digi ts, B/L TEMPERTURE GRADIENT (C): normal, warm to cool, proximal to distal, B/L, B/L TROPHIC CONDITION-TEXTURE/ELASTICITY/TURGOR/HAIR GROWTH (B): normal, B/L PIGMENTATION: normal, B/L Nails NAILS are: Elongated, overg rown, dystrophic, lytic, greater than 3mm thick, discolored and friable with crumbly malodorous subungual debris , with dull to no pain on palpation due to neuropathy , TA , T1 , , remaining nails are elongated, overgrown, dystrophic, T2, T3, T4, T5, T6, T7, T8, T9
--- OUTSIDE RECORDS SUMMARY | 2024-11-17 15:12 | XMS_ITS ---
Author Organization [facility] Address [address] [place] [address] Care Team Providers Care Tip Puncher Name Role Phone Humberto GRIFFIN, Arlyn Montgomery Primary Care Provider Un available Black, Mignon Unavailable [phone] Allergies No Known Allergies REASON FOR VISIT At Risk Footcare, Toe Irritation Medications Medication SIG (Take, Route, Frequency, Duration) Notes Start Date End Date Status Cetirizine HCl 10 MG 1 tablet as needed Orally Once a day Not-Taking Fluticasone Propionate 50 MCG/ACT 1 spray in each nostril Nasally Once a day Not-Taking Extra-Depth Diabetic Shoes with 3 Pair Custom heat-molded multi-density innersoles . for 1 year . Dx:calloused heels b/l for . 07/05/2015 Not-Taking Metformin & Diet Manage Prod Not-Taking zzzGold Bonds for Diabetics . . apply to feet Daily for 30 days 07/05/2015 Not-Taking Atorvastatin Calcium 20 MG 1 tablet Orally Once a day Not-Taking Lisinopril 10 MG 1 tablet Orally Once a day Not-Taking Lisinopril 10MG 1 tablet Orally Once a day Not-Taking Naproxen 500 MG 1 tablet with food o r milk as needed Orally every 12 hrs prn 2019 Not-Taking Azithromycin Not-Johan ing glipiZIDE ER 2.5 MG 1 tablet Orally Once a day in am with breakfast 10/18/2018 Not-Taking Probiotic Not-Taking Cranberry Not-Taking FreeStyle Lite Test 1 as directed to ski n twice a day for diabetes mellitus 250 for 30 days 10/16/2013 Not-Taking Glucosamine Not-Taki ng Ferretts Not-Taking zzzCompression Stockings 20-30mm Hg . . . for 90 days No t-Taking Centrum Not-Taking Extra Depth Orthopedic Shoes (1 Pair) with Customized Heat Molded Multidensity Innersoles (3 Pair) as directed Dx: NIDDM/Polyneuropathy (E11.42), Hammertoe Foot Deformity (M20.41,M20.42), Preulcerative Skin Lesion(s) (L85.1 04/18/2021 Active Tubular compression stockings wear daily 12/14/2022 Not-Taking Trulicity 1.5 MG/0.5ML as directed Subcutaneous Active Vitamin B12 Active metFORMIN HCl 1000 MG 1 tablet with meal s Orally Twice a day 2 per day Active Multivitamin Active Iron Active Furosemide 20 MG 1 tablet Orally Once a day for 30 day(s) Active hydrALAZINE HCl 100 MG 1 tablet with bereince d Orally Four times a day Active Carvedilol 12.5 MG 1 tablet with food Orally Twice a day Active FreeStyle Lancets 1 check blood glucose as directed to skin qd for 30 days Active Atorvastatin Calcium 20MG 1 tablet Orally Once a day Active amLODIPine Besylate 5 MG as directed Orally Once a day Active Letrozole 2.5 MG 1 tablet Orally Once a day for 30 day(s) Active Social History Tobacco Use: Social History Observation Description Date Details (start date - stop date) Never Smoker NA - NA Tobacco use other than smoking: Question Answer Notes Are you an other tobacco user? No Tobacco Control (Standard) Question Answer Notes Tobacco use: Nonsmoker Vital Signs Height 5ft3in in 11/13/2024 Weight 195 lbs 11/13/2024 BMI 34.54 kg/m2 11/13/2024 Blood pressure systolic 111 mm Hg 11/13/19 25 Blood pressure diastolic 62 mm Hg 025 Procedures Procedure Date Ordered Date Performed Result Body Sit e 02852-FWILJUP NAIL, 1-5 11/13/2024 N/A 91625-XPGG SKIN LESIONS, OVER 4 11/13/2024 N/A U4619-XJDOQJHS DYSTROPHIC NAILS ANY # 11/13/2024 N/A Encounters Encounter Location Date Provider Diagnosis [facility] [address] [place] [address] 11/13/2024 Mignon Black Type 2 diabetes mellitus with diabetic polyneuropathy E11.42 ; Onychomycosis B35.1 ; Other hammer toe(s) (acquired), right foot M20.41 and Other hammer toe(s) (acquired), left foot M20.42 Assessments Encounter Date Diagnosis (ICD Code) Assessment Notes Treatment Notes Treatment Clinical Notes Section Notes 11/13/2024 Type 2 diabetes mellitus with diabetic polyneuropathy (ICD-10 - E11.42) 11/13/2024 Onychomycosis (ICD-10 - B35.1) 11/13/2024 Other hammer toe(s) (acquired), right foot (ICD-10 - M20.41) Patient Educated with: DIABETIC FOOT CARE INSTRUCTIONS. pdf (DIABETIC FOOT CARE INSTRUCTIONS. pdf) 11/13/2024 Other hammer toe(s) (acquired), left foot (ICD-10 - M20.42) Plan Of Treatment Treatment Notes Assessment Notes Other hammer toe(s) (acquired), right fo ot Patient Educated with: DIABETIC FOOT CARE INSTRUCTIONS.pdf (DIABETIC FOOT CARE INSTRUCTIONS.pdf) Pending Test Test Name Order Date 07330-JVAMJLJ NAIL, 1-5 11/13/2024 67006-SGFR SKIN LESIONS, OVER 4 11/13/19 25 Z5304-ZNYZGLBV DYSTROPHIC NAILS ANY # Next Appt Details Follow Up: prn, Reason: Provider Name:Mignon Calhoun , 02/16/2025 08:00:00 AM, [address] [place] [address], [phone], Procedure Notes * Category Sub-Category Detail Notes Keratoma Treatment Parring or Cutting o f Benign Hyperkeratotic Lesion(s) (-57) More than 4 Lesions - Due to the at risk nature of the patients medical condition as documented in the exam findings, performance of this keratoderma treatment is medically necessary as its management by an unskilled/untrained nonprofessional would put this patients foot and overall health at risk. Therefore, the benign hyperkeratotic lesions, ( 6 ) in total, locations as stated and described in the exam ( Plantar Heel(s), , B/L , Medial plantar, TA, T5, SUB MTH (s), 5, B/l ), were pared, and/or cut utilizing a sterile 15 blade, tissue nippers, and/or power dremel instrumentation by the physician of record - 93536 Debride Nails 1-5 Procedure: Due to the cli nical pathology outlined in the exam findings, performance of this nail treatment is medically necessary as its management by an unskilled/untrained nonprofessional would put this patients foot and overall health at risk. Therefore, debridement to affected nail(s), as described in exam (TA,T1 ), was performed exclusively by the physician of record to reduce/remove overall nail length, girth, thickness, subungual debris, and necrotic tissue, by manual and/or electrical means through the use of a nail nipper and/or dremel stylegrinder, to a more viable healthy nail plate or bed tissue 5 nails or fewer in number. Silver nitrate was used for any petechial bleeding as necessary. Definitive antifungal treatment options, both pharmaceutical and surgical, have been reviewed and discussed with the patient. The patient solely prefers the use of intermittent/as needed professional debridement services for their nail condition and understands that additional periodic treatments may be required as necessary to maintain effective symptomatic relief - 06989 Nail Reduction Nail Reduction (-27) Trimming o f all dystrophic nails - Due to the at risk nature of the patients medical condition as documented in the exam findings, performance of this nail treatment is medically necessary as its management by an unskilled/untrained nonprofessional would put this patients foot and overall health at risk. Therefore, the dystrophic nails, in locations as stated and described in the exam ( T2, T3, T4, T5, T6, T7, T8, T9, ___ ), were debrided by the phisician of record to reduce/remove overall nail length and girth, by manual and electrical means with use of a nail nipper and/or dremel, to more viable healthy nail plate or bed tissue - G0127 Progress Notes * Rosalia RANKIN ADOB: 9 (74 yo F)Acc No.[id number]:11/13/2024 Progress Note Patient:?Rosalia RANKIN Provider:?Mignon Calhoun DPM :1950???Age:74 Y???Sex:Female D ate:11/13/2024 Address:[address] [place], [place] [id number] Pcp:Дмитрий Saravia Subjective: * Chief Complaints: * ???At Risk FootcareToe Irrit ation * HPI: ???At Risk footcare:?Pt States Last PCP Visit:?Date?07/31/2024 ???Toe pain:?Location:?B/L feet.?Duration:?several years.?Course:?worse.?Aggravated by:?shoes, any pressure.?Treatments:?change in shoes.? * ROS:?General/Constitutional:?Nausea?denies.?Vomiting?denies.?Hunger Thirst?denies.?Loss appetite?denies.?Chills?denies.?Fatigue?denies.?Fever?denies.?Night Sweats?denies.?Unexplained weight loss?denies.?Unexplained [...] twice for 5 days in total Oct 2018[facility] [place] High Blood Pressure 01/2021 * Family History:?Mother: dece ased, diabetes,ovarian cancer.?Father: , diagnosed with Diabetic - NIDDM.? * Social History:?Tobacco Use:?Tobacco use other than smoking?Are you an other tobacco user??No ?Tobacco Control (Standard)?Tobacco use:?Nonsmoker ???Miscellaneous:?Caffeine: yes, frequency:, 2-3 cups per day. ?Children: no, none. ?Exercise: no. ?Marital status: single. 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 * Medications:?TakingLetrozole 2.5 MG Tablet 1 [...] 1 tablet Orally Once a day Not-Taking/PRN zzzGold Bonds for Diabetics . . . [...] Allergies:?N.K.D.A.yes[Aller gies Verified] Objective: * Vitals:?Ht: 5ft3in, Wt:195, BMI:34.54, Shoe size: 11M, BP:111/62mm Hg, BS: 133, Ht-cm: 160.02 cm, Wt-k.45 kg. * ???Past Orders: ???Lab:HEMOGLOBIN A1C (GLYCO HEMOGLOBIN) (Order Date - 07/18/2024) (Collection Date & Time - 07/18/2024 02:03 PM) ? Value Reference Range ?HEMOGLOBIN A1C % (HH) 7.0 * Examination: ???Ophthalmology Referral: ?DIABETES EYE EXAM?Procedure Performed:?Yes ?Date of Exam Performed?11/16/2023 ?Findings of Diabetic Eye Exam:?no retinopathy?General Examination: ?GENERAL APPEARANCE:?Reveals a pleasant, alert, well nourished, well- developed, well hydrated individual, who demonstrates proper attention to hygiene/body habitus, and is in no acute distress, Pt serves as own historian for office visit today.?FOOT EXAM:?Lower Extremity Neurological Exam performed:?Yes ?Visual exam of foot performed:?Yes ?Date?07/15/2024 ?Sensory testing performed:?sensations diminished ?Sensory and motor testing performed:?strength diminished ?Pedal pulse taking performed:?2+ ?Footwear Evaluation?Footwear Evaluation performed:?Yes?Dermatologic: ?SKIN FINDINGS:?Skin exam reveals Keratotic lesion(s) located [...] T2, T3, T4, T5, T6, T7, T8, T9.?Orthopedic: ?DIGITAL DEFORMITIES:?Digital contracture, PIPJ, 2-5 B/L, incompl-reducible to push-up test, no over, nor underlapping,?there is?evidence of shoe producing skin irritation.?FOOTWEAR:?Non-Diabetic with no OT , worn, non-supportive, shoe gear properties exacerbate patient's foot/toe deformity.? Assessment: * Assessment: 1.?Type 2 diabetes mellitus with diabetic polyneuropathy - E11.42 (Primary)???2.?Onychomycosis - B35.1???3.?Other hammer toe(s) (acquired), right foot - M20.41???Specify :Chronic problem, Worse?4.?Other hammer toe(s) (acquired), left foot - M20.42???Specify :Chronic problem, Worse? Plan: * Treatment: 2.?Onychomycosis?Procedure: 91429-EIQAIQF NAIL, 1-5 3.?Other hammer toe(s) (acqu ired), right foot? Notes: Patient Educated with: DIABETIC FOOT CARE INSTRUCTIONS.pdf (DIABETIC FOOT CARE INSTRUCTIONS.pdf)?? * Procedures:?Debride Nails 1-5:?Procedure:?Due to the clinical pathology outlined in the exam findings, performance of this nail treatment is medically necessary as its management by an unskilled/untrained nonprofessional would put this patients foot and overall health at risk. Therefore, debridement to affected nail(s), as described in exam (TA,T1 ), was performed exclusively by the physician of record to reduce/remove overall nail length, girth, thickness, subungual debris, and necrotic tissue, by manual and/or electrical means through the use of a nail nipper and/or dremel stylegrinder, to a more viable healthy nail plate or bed tissue 5 nails or fewer in number. Silver nitrate was used for any petechial bleeding as necessary. Definitive antifungal treatment options, both pharmaceutical and surgical, have been reviewed and discussed with the patient. The patient solely prefers the use of intermittent/as needed professional debridement services for their nail condition and understands that additional periodic treatments may be required as necessary to maintain effective symptomatic relief - 45920.?Keratoma Treatment:?Parring or Cutting of Benign Hyperkeratotic Lesion(s)?(-57) More than 4 Lesions - Due to the at risk nature of the patients medical condition as documented in the exam findings, performance of this keratoderma treatment is medically necessary as its management by an unskilled/untrained nonprofessional would put this patients foot and overall health at risk. Therefore, the benign hyperkeratotic lesions, ( 6 ) in total, locations as stated and described in the exam ( Plantar Heel(s), , B/L , Medial plantar, TA, T5, SUB MTH (s), 5, B/l ), were pared, and/or cut utilizing a sterile 15 blade, tissue nippers, and/or power dremel instrumentation by the physician of record - 12543.?Nail Reduction:?Nail Reduction?(-27) Trimming of all dystrophic nails - Due to the at risk nature of the patients medical condition as documented in the exam findings, performance of this nail treatment is medically necessary as its management by an unskilled/untrained nonprofessional would put this patients foot and overall health at risk. Therefore, the dystrophic nails, in locations as stated and described in the exam ( T2, T3, T4, T5, T6, T7, T8, T9, ___ ), were debrided by the phisician of record to reduce/remove overall nail length and girth, by manual and electrical means with use of a nail nipper and/or dremel, to more viable healthy nail plate or bed tissue - G0127.? * Procedure Codes:?45646 TRIM SKIN LESIONS, OVER 4, Modifiers: XS 56552 DEBRIDE NAIL, 1-5, Modifiers: XS G0127 TRIMMING DYSTROPHIC NAILS ANY #, Modifiers: XS 3044F HG A1C LEVEL LT 7.0% * Preventive Medicine:? ??Counseling:?Discussion:?-13: Office or other outpatient visit for the evaluation and management of an established patient, which required a medically appropriate history and/or examination and LOW level of DECISION MAKING for: 1 STABLE ACUTE UNCOMPLICATED PROBLEM, 2 OR MORE MINOR PROBLEMS, OR 1 STABLE CHRONIC PROBLEM, THAT POSE(S) A LOW RISK FOR MORBIDITY/MORTALITY. The visit on the day of the encounter encompassed interpreting the data and educating the patient as to the nature of their condition, treatment options available according to their individual PMH, meds, allergies, and overall health/living conditions, as well as any potential risks or complications that may occur from a failure to adhere to, and participate in, the recommended course of therapy. The discussion included a complete verbal, and/or written explanation of the examination results, any x-rays taken, the proposed diagnosis, and outline of the treatment plan. A schedule for future care needs was also explained. The patient verbalized an understanding of the instructions at this time and agreed to be an active participant in their treatment. If the patient should think of any questions or concerns after the visit, I have encouraged the patient to call the office.?Shoe Gear Counseling:?SHOE Rx - The patient was counseled in great detail on their muscoloskeletal foot and toe deformities which coincided with the dermatological presentations visualized on exam. We discussed how their deformities put the integrity of their feet at risk for potential pedal complications which makes the accomidative diabetic shoes and cutomizable inserts medically necessary. We discussed the different shoe and insert treatment types and options, as well as the important advantages for adhering to regularly wearing these accomidative devices daily. The patient was made aware of the fact that a failure to abide by these recommedations may be deleterious to their foot health as they are able to prevent many pedal complications such as skin irritation, skin ulceration, infection, and even loss of toe/foot/leg/or life. Time was also spent with the patient dispensing and discussing proper diabetic footcare techniques including daily skin moisturization, daily foot inspection for any interruption in skin integrity including open lesions, or sign of infection such as redness/malodor/drainage/swelling. Also discussed and recommended were procedures regarding daily shoe inspection for the presence of internal foreign bodies as well as any visualized irregular shoe or insert wear. Patient questions re: shoes, inserts, and self foot inspections were answered to their satisfaction as the patient verbally confirmed a full understanding of the above information., Patient DEFERS recommended Extra Depth Orthopedic pressure-accommodative shoes against medical advice.? ??Screening/Special Tests:?Fall Risk?Screening:?No falls in the past year ?FALLS: Screening for Future Fall Risk?Have you had any falls with injury in the past year??No * Follow Up:?prn * Images: * Sign off status: Completed true * Provider:?Mignon Calhoun DPM Date:?2024 Generated for Marc cole/Rebecca/Carli on:?11/17/2024 03:12 PM EST History and Physical Notes * HPI (History of Present Illness) Category Sub-Category Detail Notes Category Not es Toe pain Location: B/L feet Duration: several years Course: worse Aggravated by: shoes, any pressure Treatments: change in shoes At Risk footcare Pt States Last PCP Visit: Date: 4 Examination Category Sub-Category Detail Notes Category Not [...] MTH (s), 5, B/L Orthopedic FOOTWEAR: Non-Diabetic wit h no OT , worn, non-supportive, shoe gear properties exacerbate patient's foot/toe deformity DIGITAL DEFORMITIES: Digital contracture , PIPJ, 2-5 B/L, incompl-reducible to push-up test, no over, nor underlapping, there is evidence of shoe producing skin irritation General Examination GENERAL APPEARANCE: Reveals a pleasant, [...] Perform ed:: Yes ?Date of Exam Performed: 11/16/2023 Findings of Diabetic Eye Exam:: no retin [...]
--- OUTSIDE RECORDS SUMMARY | 2024-11-17 15:13 | XMS_ITS ---
Author Organization [facility] Address [address] [place] [address] Care Team Providers Care Inspector Receiving Name Role Phone Humberto GRIFFIN, Arlyn Primary Care Provider Se Weinstein Jr Unavailable REASON FOR VISIT screening Encounters Encounter Location Date Provider [place] [facility] [place] [address] [place], [place] [id number] 08/26/2024 Se David Jr PLAN OF TREATMENT No Information
--- OUTSIDE RECORDS SUMMARY | 2024-11-17 15:13 | XMS_ITS ---
[facility] Organization [facility] Address [address] [place] [address] Care Team Providers Care Team Coordinator Name Role Phone Humberto GRIFFIN, Arlyn Montgomery Primary Care Provider Un available Black, Mignon Unavailable [phone] Allergies No Known Allergies REASON FOR VISIT [...] Ordered Date Performed Result Body Sit e 73504-VYPLRYT NAIL, 1-5 05/01/2024 N/A 24409-QHSV SKIN LESIONS, OVER 4 05/01/2024 N/A K1076-GCAFPXGK DYSTROPHIC NAILS ANY # 05/01/2024 N/A Encounters Encounter Location Date Provider Diagnosis [facility] [address] [address] 05/01/2024 Mignon Calhoun Type 2 diabetes mellitus with diabetic polyneuropathy E11.42 and Onychomycosis B35.1 Assessments Encounter Date Diagnosis (ICD Code) Assessment Notes Treatment Notes Treatment Clinical Notes Section Notes 05/01/2024 Type 2 diabetes mellitus with diabetic polyneuropathy (ICD-10 - E11.42) 05/01/2024 Onychomycosis (ICD-10 - B35.1) 05/01/2024 Other Plan Of Treatment Pending Test Test Name Order Date 50266-AHNCEME NAIL, 1-5 05/01/2024 45756-VJLH SKIN LESIONS, OVER 4 05/01/20 O4715-VMANKLEQ DYSTROPHIC NAILS ANY # Next Appt Details Follow Up: prn, Reason: Provider Name:Mignon Barbra Lj , 02/16/2025 08:00:00 AM, [address] [place] [address], [phone], Procedure Notes * Category Sub-Category Detail Notes Keratoma Treatment Parring or Cutting o f Benign Hyperkeratotic Lesion(s) 41361 ( >4 lesions) - The Benign hyperkeratotic [...] as necessary. Patient chooses, no pharmaceutical tx (48628) Nail Reduction Nail Reduction Trimming of dyst rophic nails performed to reduce/remove overall nail length and girth, by manual and electrical means with use of a nail nipper and/or dremel, to more viable healthy nail plate or bed tissue 6-10 (G0127) Progress Notes * Rosalia RANKIN ADOB: 9 (73 yo F)Acc No.[id number]:05/01/2024 Progress Note Patient:?Rosalia Rankin Provider:?Mignon Calhoun DPM :1950???Age:73 Y???Sex:Female D ate:05/01/2024 Address:[address] [place], [place] [phone] Pcp:Дмитрий Saravia Subjective: * Chief Complaints: * ???At Risk Footcare * HPI: ???Painful Nails:?Pt States Last PCP Visit:?Date:?04/21/2024 * Medical History:? * Surgical History:?Left renal calculus s/p remioval and left ureteral stent placement 01/13/2014left ureteral stent placement * Hospitalization/Major Diagno stic Procedure:?cellulitis hospitalized twice for 5 days in total Oct 2018[facility] [place] High Blood Pressure 01/2021 * Family History:?Mother: [...] ?no Exercise. ?Marital status: single. 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 * Medications:?TakingLetrozole 2.5 MG Tablet 1 tablet [...] 6.8 * Examination: ???Ophthalmology Referral: ?DIABETES EYE EXAM?Diabetic Retinopathy Screening:?Yes ?Findings of Diabetic Eye Exam:?no retinopathy?Dermatologic: ?SKIN [...] (Primary)?2.?Onychomycosis - B35.1? Plan: * Treatment: 2.?Onychomycosis?Procedure: 42767-IYJZCBS NAIL, 1-5 * Procedures:?Debride Nails 1-5:?Procedure:?Nail debridement performed extensively to reduce/remove overall nail length and girth, subungual debris, and necrotic tissue, by manual and electrical means by use of a nail nipper and/or dremel, to more viable healthy nail plate or bed tissue 1-5. Silver nitrate used for any petechial bleeding as necessary. Patient chooses, no pharmaceutical tx (05118).?Keratoma Treatment:?Parring or Cutting of Benign Hyperkeratotic Lesion(s)?27403 ( >4 lesions) - The Benign hyperkeratotic lesions, as described above were pared, and/or cut utilizing a sterile #15 blade, tissue nippers, and/or dremel.?Nail Reduction:?Nail Reduction?Trimming of dystrophic nails performed to reduce/remove overall nail length and girth, by manual and electrical means with use of a nail nipper and/or dremel, to more viable healthy nail plate or bed tissue 6-10 (G0127).? * Procedure Codes:?90306 TRIM SKIN LESIONS, OVER 4, Modifiers: XS 41590 DEBRIDE NAIL, 1-5, Modifiers: XS G0127 TRIMMING DYSTROPHIC NAILS ANY #, Modifiers: XS * Follow Up:?prn * Images: * Sign off status: Completed true * Provider:?Mignon Calhoun DPM Date:?2023 Generated for Marc cole/Rebecca/Emmanuelitting on:?11/17/2024 03:12 PM EST History and Physical [...] 2/4, B/L PT PULSES (B): 2/4, B/L Nails NAILS are: Elongated, overg rown, dystrophic, lytic, greater than 3mm thick, discolored and friable with crumbly malodorous subungual debris , with dull to no pain on palpation due to neuropathy , TA , T1 , , remaining nails are elongated, overgrown, dystrophic
--- OUTSIDE RECORDS SUMMARY | 2024-11-17 15:13 | XMS_ITS | Patient Health Record ---
[facility] Address [address] [place] [address] Care Team Providers Care Coastal And Estuary Specialist Name Role Phone Humberto GRIFFIN, Arlyn Montgomery Primary Care Provider Un available BlackShahramMignon Unavailable [phone] Allergies No Known Allergies Results Component Value Reference Range Notes HEMOGLOBIN A1C (GLYCOHEMOGLO BIN) Reviewed date:05/01/2024 09:39:55 AM Interpretation: Performing Lab: Notes/Report: TOTAL HEMOGLOBIN (HGBA1C) 6.8 HEMOGLOBIN A1C (GLYCOHEMOGLO BIN) Reviewed date:08/04/2024 03:32:54 PM Interpretation: Performing Lab: Notes/Report: TOTAL HEMOGLOBIN (HGBA1C) 7.0 HEMOGLOBIN A1C (GLYCOHEMOGLO BIN) Reviewed date:09/28/2024 07:27:50 AM Interpretation: Performing Lab: Notes/Report: HEMOGLOBIN A1C % (HH) 7.0 HEMOGLOBIN A1C (GLYCOHEMOGLO BIN) Reviewed date:11/13/2024 02:03:40 PM Interpretation: Performing Lab: Notes/Report: HEMOGLOBIN A1C % (HH) 7.0 HEMOGLOBIN A1C (GLYCOHEMOGLO BIN) Reviewed date:01/14/2024 01:18:47 PM Interpretation: Performing Lab: Notes/Report: TOTAL HEMOGLOBIN (HGBA1C) 7.2 Reason For Referral No Information Medications Medication SIG (Take, Route, Frequency, Duration) Notes Start Date End Date Status metFORMIN HCl 1000 MG 1 tablet with meal s Orally Twice a day 2 per day Active Cetirizine HCl 10 MG 1 tablet as needed Orally Once a day Not-Taking Multivitamin Active Fluticasone Propionate 50 MCG/ACT 1 spray in each nostril Nasally Once a day Not-Taking Extra-Depth Diabetic Shoes with 3 Pair Custom heat-molded multi-density innersoles . for 1 year . Dx:calloused heels b/l for . 07/05/2015 Not-Taking Iron Active Metformin & Diet Manage Prod Not-Taking zzzGold Bonds for Diabetics . . apply to feet Daily for 30 days 07/05/2015 Not-Taking Ferretts Not-Taking zzzCompression Stockings 20-30mm Hg . . . for 90 days No t-Taking Centrum Not-Taking Extra Depth Orthopedic Shoes (1 Pair) with Customized Heat Molded Multidensity Innersoles (3 Pair) as directed Dx: NIDDM/Polyneuropathy (E11.42), Hammertoe Foot Deformity (M20.41,M20.42), Preulcerative Skin Lesion(s) (L85.1 04/18/2021 Active Tubular compression stockings wear daily 12/14/2022 Not-Taking Trulicity 1.5 MG/0.5ML as directed Subcutaneous Active Vitamin B12 Active Probiotic Not-Taking Cranberry Not-Taking FreeStyle Lite Test 1 as directed to ski n twice a day for diabetes mellitus 250 for 30 days 10/16/2013 Not-Taking Glucosamine Not-Taki ng Furosemide 20 MG 1 tablet Orally Once a day for 30 day(s) Active hydrALAZINE HCl 100 MG 1 tablet with berenice d Orally Four times a day Active Carvedilol 12.5 MG 1 tablet with food Orally Twice a day Active Atorvastatin Calcium 20 MG 1 tablet Orally Once a day Not-Taking FreeStyle Lancets 1 check blood glucose as directed to skin qd for 30 days Active Lisinopril 10 MG 1 tablet Orally Once a day Not-Taking amLODIPine Besylate 5 MG as directed Orally Once a day Active Lisinopril 10MG 1 tablet Orally Once a day Not-Taking Atorvastatin Calcium 20MG 1 tablet Orally Once a day Active Naproxen 500 MG 1 tablet with food o r milk as needed Orally every 12 hrs prn 2019 Not-Taking glipiZIDE ER 2.5 MG 1 tablet Orally Once a day in am with breakfast 10/18/2018 Not-Taking Letrozole 2.5 MG 1 tablet Orally Once a day for 30 day(s) Active Azithromycin Not-Johan ing Immunizations Vaccine Route Administration Date Status Comme nts COVID-19 Pfizer BioNTech Vaccine Unknown 01/15/2021 Adm inistered 1st 12/25/20 Influenza Unknown 05/18/2022 Administered Influenza Unknown 01/14/2024 Refused Social History Tobacco Use: Social History Observation Description Date Details (start date - stop date) Never Smoker NA - NA Alcohol Screen Question Answer Notes Did you have a drink containing alcohol in the p ast year? No Points 0 Interpretation Negative Tobacco use other than smoking: Question Answer Notes Are you an other tobacco user? No Tobacco Control (Standard) Question Answer Notes Tobacco use: Nonsmoker Problems Problem Type SNOMED Code ICD Code Onset Dates Problem Status W/U Status Risk Notes Problem Acquired hammer toe of right foot (2031148207852723 ) Other hammer toe(s) (acquired), right foot (M20.41) Active confirmed Problem Acquired hammer toe of left foot (8092090549909264 ) Other hammer toe(s) (acquired), left foot (M20.42) Active confirmed Problem Localized, primary osteoarthritis of the ankle and/or foot (731060946) Primary osteoarthritis, left ankle and foot (M19.072) Active confirmed Problem Polyneuropathy due to type 2 diabetes mellitus (362869247) Type 2 diabetes mellitus with diabetic polyneuropathy (E11.42) Active confirmed Vital Signs Blood pressure diastolic 62 mm Hg 11/13/2024 Height 5ft3in in 11/13/2024 Blood pressure systolic 111 mm Hg 11/13/2024 Weight 195 lbs 11/13/2024 BMI 34.54 kg/m2 11/13/2024 Procedures Procedure Date Ordered Date Performed Result Body Sit e 63060-DNLDFZX NAIL, 1-5 01/14/2024 N/A 32185 I&D ABSCESS- SIMPLE,SINGLE 01/14/2024 N/A 88973-DBRL SKIN LESIONS, OVER 01/14/2024 N/A N4629-XIOOAOOQ DYSTROPHIC NAILS ANY # 01/14/2024 N/A 79765-XWOPOGF NAIL, 1-5 05/01/2024 N/A 12456-QHHW SKIN LESIONS, OVER 4 05/01/2024 N/A I1931-COGABVEP DYSTROPHIC NAILS ANY # 05/01/2024 N/A 99867-ZLWVKUW NAIL, 1-5 08/04/2024 N/A 53422-MLVJ SKIN LESIONS, OVER 4 08/04/2024 N/A E5137-HOZUOTBV DYSTROPHIC NAILS ANY # 08/04/2024 N/A 04890-YPZVEKK NAIL, 1-5 11/13/2024 N/A 67801-JHCP SKIN LESIONS, OVER 4 11/13/2024 N/A E0803-MQBENFKL DYSTROPHIC NAILS ANY # 11/13/2024 N/A Encounters Encounter [facility] Date [facility] [address] 01/14/2024 Mignon Black Type 2 diabetes mellitus with diabetic polyneuropathy E11.42 ; Onychomycosis B35.1 and Abscess of toe, right L02.[address] [address] 05/01/2024 Mignon Black Type 2 diabetes mellitus with diabetic polyneuropathy E11.42 and Onychomycosis B35.[address] [address] 08/04/2024 Mignon Black Type 2 diabetes mellitus with diabetic polyneuropathy E11.42 and Onychomycosis B35.[address] [address] 11/13/2024 Mignon Black Type 2 diabetes mellitus with diabetic polyneuropathy E11.42 ; Onychomycosis B35.1 ; Other hammer toe(s) (acquired), right foot M20.41 and Other hammer toe(s) (acquired), left foot M20.42 Assessments Encounter Date Diagnosis (ICD Code) Assessment Notes Treatment Notes Treatment Clinical Notes Section Notes 01/14/2024 Type 2 diabetes mellitus with diabetic polyneuropathy (ICD-10 - E11.42) 05/01/2024 Type 2 diabetes mellitus with diabetic polyneuropathy (ICD-10 - E11.42) 05/01/2024 Onychomycosis (ICD-10 - B35.1) 08/04/2024 Type 2 diabetes mellitus with diabetic polyneuropathy (ICD-10 - E11.42) 11/13/2024 Type 2 diabetes mellitus with diabetic polyneuropathy (ICD-10 - E11.42) 11/13/2024 Onychomycosis (ICD-10 - B35.1) 08/04/2024 Onychomycosis (ICD-10 - B35.1) 11/13/2024 Other hammer toe(s) (acquired), right foot (ICD-10 - M20.41) Patient Educated with: DIABETIC FOOT CARE INSTRUCTIONS. pdf (DIABETIC FOOT CARE INSTRUCTIONS. pdf) 01/14/2024 Onychomycosis (ICD-10 - B35.1) 01/14/2024 Abscess of toe, right (ICD-10 - L02.611) Patient Educated with: WOUND CARE INSTRUCTIONS. pdf (WOUND CARE INSTRUCTIONS. pdf) 11/13/2024 Other hammer toe(s) (acquired), left foot (ICD-10 - M20.42) 05/01/2024 Other Plan Of Treatment Pending Test Test Name Order Date 19092-NEGLVVW NAIL, 6 OR MORE 10/11/2015 24488-RRSNSFO NAIL, 6 OR MORE 01/17/2016 80854-YZNCVCP NAIL, 6 OR MORE 10/13/2019 29751-QLOFENH NAIL, 6 OR MORE 04/22/2020 52915-BNKMTVB NAIL, 6 OR MORE 07/26/2020 91182-TTBQPVV NAIL, 6 OR MORE 01/13/2021 85976-SNEEBUW NAIL, 6 OR MORE 04/18/2021 73696-HEDUUOJ NAIL, 6 OR MORE 08/08/2021 01037-ANHGQEP NAIL, 1-5 07/02/2023 25414-QTVJSML NAIL, 1-5 10/08/2023 96407-WGIRXQD NAIL, 1-5 01/14/2024 68499-SIUAQHQ NAIL, 1-5 05/01/2024 30814-OEVDVSB NAIL, 1-5 08/04/2024 91095-FMGEVUK NAIL, 1-5 11/13/2024 10790-Rfqwvgxp Plate 03/26/2023 84197-Ctgvdaga Plate 04/18/2021 99086 I&D ABSCESS- SIMPLE,SINGLE 022 83911 I&D ABSCESS- SIMPLE,SINGLE 024 28130-XODQ SKIN LESIONS, OVER 4 07/02/20 23 99838-PHZG SKIN LESIONS, OVER 4 01/14/20 24 66306-SFGC SKIN LESIONS, OVER 4 03/26/20 23 29199-RYCT SKIN LESIONS, OVER 4 10/08/19 24 35799-XTLB SKIN LESIONS, OVER 4 12/15/19 23 33332-IANZ SKIN LESIONS, OVER 4 06/19/20 22 37979-MPUQ SKIN LESIONS, OVER 4 03/16/20 22 98539-VKPE SKIN LESIONS, OVER 4 11/29/19 22 68575-GIXS SKIN LESIONS, OVER 4 08/08/20 21 93831-GMAI SKIN LESIONS, OVER 4 04/18/20 21 53516-LSWJ SKIN LESIONS, OVER 4 01/14/20 21 47326-MLZU SKIN LESIONS, OVER 4 07/26/20 20 69284-NBXO SKIN LESIONS, OVER 4 04/22/20 20 06457-PSDE SKIN LESIONS, OVER 4 01/17/20 16 46746-JABH SKIN LESIONS, OVER 4 10/13/19 20 65571-ORAS SKIN LESIONS, OVER 4 11/13/19 25 61731-CSBB SKIN LESIONS, OVER 4 08/04/20 24 01304-XJSD SKIN LESIONS, OVER 4 05/01/20 24 C4077-YUATBSFZ DYSTROPHIC NAILS ANY # M6291-RINOJVVN DYSTROPHIC NAILS ANY # O0091-LLHSNWPW DYSTROPHIC NAILS ANY # M6021-NDVQAYUJ DYSTROPHIC NAILS ANY # G1367-REGMUBWX DYSTROPHIC NAILS ANY # B8730-EIYVNHIW DYSTROPHIC NAILS ANY # C7162-AWSVFWPY DYSTROPHIC NAILS ANY # E2274-ZLZHMVUJ DYSTROPHIC NAILS ANY # A8655-GRLOQRHK DYSTROPHIC NAILS ANY # Next Appt Details Provider Name:Mignon Calhoun , 02/16/2025 08:00:00 AM, [address] [place], [address], Insurance Providers Payer Name Payer Address Payer Phone Subscriber Number Group Number Insured Name Patient Relationship to Insured Coverage Start Date Coverage End Date Medicare [facility] [address] [place] [address] [id number] Rosalia Talavera Self - patient is the insured [employer] [address] [place] [address] [phone] [id number] Rosalia Talavera Self - patient is the insured Medical (General) History Medical History History ICD Code Diabetic type ll High blood pressure Measles Sinus conditions Cellulitis Anemia Surgical History Surgery Date(Month/Year) Left renal calculus s/p remioval and lef t ureteral stent placement 01/13/2014 left ureteral stent placement Hospitalization History Reason Date(Month/Year) [facility] [place] High Blood Pressure 01/2021 cellulitis hospitalized twice for 5 days in total Oct 2018
--- OUTSIDE RECORDS SUMMARY | 2024-11-17 15:13 | XMS_ITS | Patient Health Record ---
Author Organization [facility] Address [address] [place] [address] Care Team Providers Care Insurance Case Manager Name Role Phone Humberto GRIFFIN, Arlyn Primary Care Provider Se Weinstein Jr Unavailable [phone] ALLERGIES No Known Allergies RESULTS Component Value Reference Range Notes Glucose, Whole Blood Reviewed date:09/02/2024 03:11:19 PM Interpretation: Performing Lab:[facility], [address] [place] [phone] Notes/Report: Glucose, Whole Blood 156 60-115 mg/dL METER # : [id number] REASON FOR REFERRAL No Information MEDICATIONS Medication [...] Problem Colon cancer screening (Z12.11) Active confirmed 024019992 Problem [facility] (current) use of oral 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 drugs (Z79.84) Active confirmed 004791367203104 Problem wrapper 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 current use of diuretic (Z79.899) Active confirmed 65737311950736625 VITAL SIGNS Temperature 96.9 degrees Fahrenheit 07/21/2024 Blood pressure diastolic 00 mm Hg 07/21/2024 Height 61.5 in 07/21/2024 Blood pressure systolic 000 mm Hg 07/21/2024 Weight 195 lbs 07/21/2024 BMI 36.24 kg/m2 07/21/2024 Encounters Encounter Location Date Provider Diagnosis [facility] [place] Outpatient [address] [place] [phone] 08/26/2024 Se David Jr [facility] [place] Outpatient [address] [place] [id number] 09/02/2024 Se David Jr Colon cancer screening Z12.11 [facility] [address] [address] 07/21/2024 Se David Jr Colon cancer screening Z12.11 ; wrapper stripper (current) use of oral 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 drugs Z79.84 and wrapper stripper current use of diuretic Z79.899 [facility] [address] 07/22/2024 Se David Jr ASSESSMENTS Encounter Date Diagnosis Assessment Notes Treatment Notes Treatment Clinical Notes 09/02/2024 Colon cancer screening (ICD-10 - Z12.11) 07/21/2024 Colon cancer screening (ICD-10 - Z12.11) Colonoscopy material was printed 07/21/2024 wrapper stripper (current) use of oral 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 drugs (ICD-10 - Z79.84) 07/21/2024 [facility] current use of diuretic (ICD-10 - Z79.899) PLAN OF TREATMENT Future Test Test Name Order Date COLONOSCOPY 08/20/2013 COLONOSCOPY 07/21/2024 Insurance Providers Payer Name Payer Address Payer Phone Subscriber Number Group Number Insured Name Patient Relationship to Insured Coverage Start Date Coverage End Date MEDICARE OF [place] [address] [place] [address] [id number] SHAW RANKIN Self - patient is the insured MED[employer] ATTN CLAIMS [address] [place] [address] [id number] SHAW RANKIN Self - patient is the insured MEDICAL (GENERAL) HISTORY Medical History History ICD Code Breast cancer/bilateral lumpectomies Diabetes mellitus type 2 Varicose veins Hyperlipidemia Hypertension Restrictive lung disease Elevated BMI Colonoscopy 11/28, normal, ten-year follo wup Surgical History Surgery Date(Month/Year)
== END 2024-11-17 13:41 | disposition home or self-care (01) ==
PROVIDERS: PCP Internal Medicine; Visit Provider Internal Medicine
DX: J98.4 Other disorders of lung (principal); E66.9 Obesity, unspecified
CPT/HCPCS: 99213

== ENCOUNTER → 2024-11-17 12:58 | Outpatient (BNVA) | payer MEDICARE, MEDICAID, SELFPAY | PROVIDERS: PCP Internal Medicine; Visit Provider Internal Medicine | DX: J98.4 Other disorders of lung (principal); E66.9 Obesity, unspecified; Z68.37 Body mass index [BMI] 37.0-37.9, adult | CPT/HCPCS: 99212 ==

== ENCOUNTER 2024-11-24 07:14 | Outpatient (REF) | payer MEDICARE, MEDICAID, SELFPAY ==
--- OUTSIDE RECORDS SUMMARY | 2024-11-24 07:21 | XMS_ITS ---
Author Organization [facility] Address [address] [place] [address] Care Team Providers Care Veterinarian Helper Name Role Phone Humberto GRIFFIN, Arlyn Primary Care Provider Se Weinstein Jr Unavailable REASON FOR VISIT screening Encounters Encounter Location Date Provider Diagnosis [facility] [place] Out[place] [address] [place], [place] [phone] 09/02/2024 Se David Jr Colon cancer screening Z12.11 Assessments Encounter Date Diagnosis (ICD Code) Assessment Notes Treatment Notes Treatment Clinical Notes Section Notes 09/02/2024 Colon cancer screening (ICD-10 - Z12.11) Plan Of Treatment No Information Progress Notes * MARQUITA RANKINB:1950 (74 yo F)Acc No.[id number]:09/02/2024 COLON WITH MAC Patient:?SHAW RANKIN Provider:?Se David MD :1950???Age:74 Y???Sex:Female D ate:09/02/2024 Address:[address] [place], [place] [phone] Pcp:Arlyn Paul MD Subjective: * Chief Complaints: * ???1. Screening. * Medical History:? Objective: * Vitals:? Assessment: * Assessment: 1.?Colon cancer screening - Z12.11 (Primary)??? Plan: * Treatment: * Procedure Codes:?68181 DIAGN OSTIC COLONOSCOPY, 0529F INTRVL 3+YRS PTS CLNSCP DOCD, 0528F RCMND FLW-UP 10 YRS DOCD * * The named appointment provid er may or may not be the originator of this progress note, and it is not deemed complete until electronically signed by the appointment provider. Sign off status: Pending * Provider:?Se David MD Date:?1 11/03/2023 Generated for Marc cole/Rebecca/Carli on:?11/24/2024 07:20 AM EDT
--- OUTSIDE RECORDS SUMMARY | 2024-11-24 07:21 | XMS_ITS ---
Author Organization [facility] Address [address] [place] [address] Care Team Providers Care Cable Braider Name Role Phone Humberto GRIFFIN, Arlyn Montgomery Primary Care Provider Un available Black, Mignon Unavailable [phone] Allergies No Known Allergies REASON FOR VISIT [...] Ordered Date Performed Result Body Sit e 39168-OXWVYEH NAIL, 1-5 11/13/2024 N/A 95460-DHOS SKIN LESIONS, OVER 4 11/13/2024 N/A B1680-OFRUDKKY DYSTROPHIC NAILS ANY # 11/13/2024 N/A Encounters Encounter Location Date Provider Diagnosis [facility] [place] [address] [place] [address] 11/13/2024 Mignon Black Type 2 diabetes mellitus [...] INSTRUCTIONS.pdf) Pending Test Test Name Order Date 37560-CRNWAAN NAIL, 1-5 11/13/2024 81923-OTRQ SKIN LESIONS, OVER 4 11/13/19 25 S8613-GPVRUKDL DYSTROPHIC NAILS ANY # Next Appt Details Follow Up: prn, Reason: Provider Name:Mignon Calhoun , 02/16/2025 08:00:00 AM, [address] [place] [address], [phone], Procedure Notes * Category Sub-Category Detail Notes [...] instrumentation by the physician of record - 22832 Debride Nails 1-5 Procedure: Due to the [...] necessary to maintain effective symptomatic relief - 92392 Nail Reduction Nail Reduction (-27) Trimming o [...] Rosalia RANKIN ADOB: [birth year] (74 yo F)Acc No.[id number]:11/13/2024 Progress Note Patient:?Rosalia RANKIN Provider:?Mignon Calhoun DPM :1950???Age:74 Y???Sex:Female D ate:11/13/2024 Address:[address] [place], [place] [phone] Pcp:Дмитрий Saravia Subjective: * Chief Complaints: * [...] twice for 5 days in total Oct [place] [place] Blood Pressure 01/2021 * Family History:?Mother: dece ased, diabetes,ovarian cancer.?Father: , diagnosed with Diabetic - NIDDM.? * Social History:?Tobacco Use:?Tobacco use other than smoking?Are you an other tobacco user??No ?Tobacco Control (Standard)?Tobacco use:?Nonsmoker ???Miscellaneous:?Caffeine: yes, frequency:, 2-3 cups per day. ?Children: no, none. ?Exercise: no. ?Marital status: single. 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 * Medications:?TakingLetrozole 2.5 MG Tablet 1 [...] :Chronic problem, Worse? Plan: * Treatment: 2.?Onychomycosis?Procedure: 53354-JJSUHZW NAIL, 1-5 3.?Other hammer toe(s) (acqu ired), [...] necessary to maintain effective symptomatic relief - 96825.?Keratoma Treatment:?Parring or Cutting of Benign Hyperkeratotic Lesion(s)?(-57) [...] instrumentation by the physician of record - 78549.?Nail Reduction:?Nail Reduction?(-27) Trimming of all dystrophic nails [...] or bed tissue - G0127.? * Procedure Codes:?66539 TRIM SKIN LESIONS, OVER 4, Modifiers: XS 85036 DEBRIDE NAIL, 1-5, Modifiers: XS G0127 TRIMMING [...] Provider:?Mignon Calhoun DPM Date:?2024 Generated for Marc ocle/Rebecca/Carli on:?11/24/2024 07:20 AM EDT History and Physical Notes * HPI (History [...]
--- OUTSIDE RECORDS SUMMARY | 2024-11-24 07:21 | XMS_ITS ---
Author Organization [facility] Address [address] [place] [address] Care Team Providers Care Animal Technician Name Role Phone Humberto GRIFFIN, Arlyn Primary Care Provider Se Weinstein Jr [phone] REASON FOR VISIT screening Encounters Encounter Location Date Provider Diagnosis [facility] [place] [address] [place] [phone] 08/26/2024 Se David Jr Plan Of Treatment No Information Progress Notes * FARZANA RANKINADOB:1950 (74 yo F)Acc No.[id number]:08/26/2024 COLON WITH MAC Patient:?SHAW RANKIN Provider:?Se David MD :1950???Age:74 Y???Sex:Female D ate:08/26/2024 Address:[address] [place], [place] [phone] Pcp:Arlyn Paul MD Subjective: * Chief Complaints: * ???1. Screening. * Medical History:? Objective: * Vitals:? Assessment: Plan: * Treatment: * * The named appointment provid er may or may not be the originator of this progress note, and it is not deemed complete until electronically signed by the appointment provider. Sign off status: Pending * Provider:?Se David MD Date:?1 10/27/2023 Generated for Kareni ng/Falorraineg/eTransmitting on:?11/24/2024 07:21 AM EDT
--- OUTSIDE RECORDS SUMMARY | 2024-11-24 07:21 | XMS_ITS ---
Author Organization [facility] Address [address] [place] [address] Care Team Providers Care Financial Analysis Advisor Name Role Phone Humberto GRIFFIN, Arlyn Montgomery Primary Care Provider Un available Black, Mignon Unavailable [phone] Allergies No Known Allergies REASON FOR VISIT [...] Ordered Date Performed Result Body Sit e 33782-LFGVLVN NAIL, 1-5 08/04/2024 N/A 90978-GNVL SKIN LESIONS, OVER 4 08/04/2024 N/A G6931-OXWHFGVO DYSTROPHIC NAILS ANY # 08/04/2024 N/A Encounters Encounter Location Date Provider Diagnosis [facility] [address] [address] 08/04/2024 Mignon Calhoun Type 2 diabetes mellitus with diabetic polyneuropathy E11.42 and Onychomycosis B35.1 Assessments Encounter Date Diagnosis (ICD Code) Assessment Notes Treatment Notes Treatment Clinical Notes Section Notes 08/04/2024 Type 2 diabetes mellitus with diabetic polyneuropathy (ICD-10 - E11.42) 08/04/2024 Onychomycosis (ICD-10 - B35.1) Plan Of Treatment Pending Test Test Name Order Date 48933-HFWZDCS NAIL, 1-5 08/04/2024 09305-VNXA SKIN LESIONS, OVER 4 08/04/20 24 L0723-XAGHBZAO DYSTROPHIC NAILS ANY # Next Appt Details Follow Up: prn, Reason: Provider Name:Mignon Calhoun , 02/16/2025 08:00:00 AM, [address] [place] [address], [phone], Procedure Notes * Category Sub-Category Detail Notes Keratoma Treatment Parring or Cutting o f Benign Hyperkeratotic Lesion(s) 85690 ( >4 lesions) - The Benign hyperkeratotic [...] use of a nail nipper and/or dremel-type knife grinder, to a more viable healthy nail plate or bed tissue 1-5. Silver nitrate used for any petechial bleeding as necessary. Definitive antifungal treatment options have been reviewed and discussed with the patient. The patient chooses, no pharmaceutical tx - 15338 Nail Reduction Nail Reduction Trimming of dyst rophic nails performed to reduce/remove overall nail length and girth, by manual and electrical means with use of a nail nipper and/or dremel, to more viable healthy nail plate or bed tissue 6-10 (G0127) Progress Notes * Rosalia RANKIN ADOB: [birth year] (74 yo F)Acc No.[id number]:08/04/2024 Progress Note Patient:Rosalia GRAVES Provider:?Mignon Calhoun DPM :1950???Age:74 Y???Sex:Female D ate:08/04/2024 Address:[address] [place] [address] Pcp:Дмитрий Saravia Subjective: * Chief Complaints: * [...] 5 days in [place] [place] * Family History:?Mother: [...] (Primary)???2.?Onychomycosis - B35.1??? Plan: * Treatment: 2.?Onychomycosis?Procedure: 11516-IWUZLNH NAIL, 1-5 * Procedures:?Debride Nails 1-5:?Procedure:?Performance of this nail treatment by a nonprofessional would put this patients foot and overall health at risk. Therefore, debridement to affected nail(s), as described in exam, was performed extensively to reduce/remove overall nail length, girth, thickness, subungual debris, and necrotic tissue, by manual and/or electrical means through the use of a nail nipper and/or dremel-type knife grinder, to a more viable healthy nail plate or bed tissue 1-5. Silver nitrate used for any petechial bleeding as necessary. Definitive antifungal treatment options have been reviewed and discussed with the patient. The patient chooses, no pharmaceutical tx - 43153.?Keratoma Treatment:?Parring or Cutting of Benign Hyperkeratotic Lesion(s)?64647 ( >4 lesions) - The Benign hyperkeratotic lesions, as described above were pared, and/or cut utilizing a sterile #15 blade, tissue nippers, and/or dremel.?Nail Reduction:?Nail Reduction?Trimming of dystrophic nails performed to reduce/remove overall nail length and girth, by manual and electrical means with use of a nail nipper and/or dremel, to more viable healthy nail plate or bed tissue 6-10 (G0127).? * Procedure Codes:?74185 TRIM SKIN LESIONS, OVER 4, Modifiers: XS 51714 DEBRIDE NAIL, 1-5, Modifiers: XS G0127 TRIMMING [...] * Provider:?Mignon Calhoun DPM Date:?2023 Generated for Kareni kelsey/Rebecca/eTransmitting on:?11/24/2024 07:20 AM EDT History and Physical [...]
--- OUTSIDE RECORDS SUMMARY | 2024-11-24 07:21 | XMS_ITS ---
Author Organization [facility] Address [address] [place] [address] Care Team Providers Care Speech/Language Therapist Name Role Phone Humberto GIRFFIN, Arlyn Montgomery Primary Care Provider Un available Black, Mignon Unavailable [phone] Allergies No Known Allergies REASON FOR VISIT [...] Ordered Date Performed Result Body Sit e 91757-MKRRTCA NAIL, 1-5 05/01/2024 N/A 28786-EGPK SKIN LESIONS, OVER 4 05/01/2024 N/A Y6960-CCCFOKLZ DYSTROPHIC NAILS ANY # 05/01/2024 N/A Encounters Encounter Location Date Provider Diagnosis [facility] [address] [address] 05/01/2024 Mignon Calhoun Type 2 diabetes mellitus with diabetic polyneuropathy E11.42 and Onychomycosis B35.1 Assessments Encounter Date Diagnosis (ICD Code) Assessment Notes Treatment Notes Treatment Clinical Notes Section Notes 05/01/2024 Type 2 diabetes mellitus with diabetic polyneuropathy (ICD-10 - E11.42) 05/01/2024 Onychomycosis (ICD-10 - B35.1) 05/01/2024 Other Plan Of Treatment Pending Test Test Name Order Date 03944-UUXGEKQ NAIL, 1-5 05/01/2024 36817-WIKG SKIN LESIONS, OVER 4 05/01/20 O4776-JACEBZQP DYSTROPHIC NAILS ANY # Next Appt Details Follow Up: prn, Reason: Provider Name:Mignon Barbra Lj , 02/16/2025 08:00:00 AM, [address] [place] [address], [phone], Procedure Notes * Category Sub-Category Detail Notes Keratoma Treatment Parring or Cutting o f Benign Hyperkeratotic Lesion(s) 92843 ( >4 lesions) - The Benign hyperkeratotic [...] as necessary. Patient chooses, no pharmaceutical tx (97768) Nail Reduction Nail Reduction Trimming of dyst rophic nails performed to reduce/remove overall nail length and girth, by manual and electrical means with use of a nail nipper and/or dremel, to more viable healthy nail plate or bed tissue 6-10 (G0127) Progress Notes * Rosalia RANKIN ADOB: [birth year] (73 yo F)Acc No.[id number]:05/01/2024 Progress Note Patient:?Rosalia Rankin Provider:?Mignon Calhoun DPM :1950???Age:73 Y???Sex:Female D ate:05/01/2024 Address:[address] [place], [place] [id number] Pcp:Дмитрий Saravia Subjective: * Chief Complaints: * ???At Risk Footcare * HPI: ???Painful Nails:?Pt States Last PCP Visit:?Date:?04/21/2024 * Medical History:? * Surgical History:?Left renal calculus s/p remioval and left ureteral stent placement 01/13/2014left ureteral stent placement * Hospitalization/Major Diagno stic Procedure:?cellulitis hospitalized twice for 5 days in total [place] [place] Blood Pressure 01/2021 * Family History:?Mother: [...] ?no Exercise. ?Marital status: single. 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 * Medications:?TakingLetrozole 2.5 MG Tablet 1 tablet [...] (Primary)?2.?Onychomycosis - B35.1? Plan: * Treatment: 2.?Onychomycosis?Procedure: 91079-TGGICWM NAIL, 1-5 * Procedures:?Debride Nails 1-5:?Procedure:?Nail debridement performed extensively to reduce/remove overall nail length and girth, subungual debris, and necrotic tissue, by manual and electrical means by use of a nail nipper and/or dremel, to more viable healthy nail plate or bed tissue 1-5. Silver nitrate used for any petechial bleeding as necessary. Patient chooses, no pharmaceutical tx (48414).?Keratoma Treatment:?Parring or Cutting of Benign Hyperkeratotic Lesion(s)?59094 ( >4 lesions) - The Benign hyperkeratotic lesions, as described above were pared, and/or cut utilizing a sterile #15 blade, tissue nippers, and/or dremel.?Nail Reduction:?Nail Reduction?Trimming of dystrophic nails performed to reduce/remove overall nail length and girth, by manual and electrical means with use of a nail nipper and/or dremel, to more viable healthy nail plate or bed tissue 6-10 (G0127).? * Procedure Codes:?84297 TRIM SKIN LESIONS, OVER 4, Modifiers: XS 97597 DEBRIDE NAIL, 1-5, Modifiers: XS G0127 TRIMMING DYSTROPHIC NAILS ANY #, Modifiers: XS * Follow Up:?prn * Images: * Sign off status: Completed true * Provider:?Mignon Calhoun DPM Date:?2023 Generated for Marc cole/Rebecca/Emmanuelitting on:?11/24/2024 07:21 AM EDT History and Physical Notes * [...]
--- OUTSIDE RECORDS SUMMARY | 2024-11-24 07:21 | XMS_ITS | Patient Health Record ---
Author Organization [facility] Address [address] [place] [address] Care Team Providers Care Property Staff Accountant Name Role Phone Humberto GRIFFIN, Arlyn Montgomery Primary Care Provider Un available BlackShahramMignon Unavailable [phone] Allergies No Known Allergies Results Component Value Reference Range Notes HEMOGLOBIN A1C (GLYCOHEMOGLO BIN) Reviewed date:05/01/2024 09:39:55 AM Interpretation: Performing Lab: Notes/Report: TOTAL HEMOGLOBIN (HGBA1C) 6.8 HEMOGLOBIN A1C (GLYCOHEMOGLO BIN) Reviewed date:08/04/2024 03:32:54 PM Interpretation: Performing Lab: Notes/Report: TOTAL HEMOGLOBIN (HGBA1C) 7.0 HEMOGLOBIN A1C (GLYCOHEMOGLO BIN) Reviewed date:11/13/2024 02:03:40 PM Interpretation: Performing Lab: Notes/Report: HEMOGLOBIN A1C % (HH) 7.0 HEMOGLOBIN A1C (GLYCOHEMOGLO BIN) Reviewed date:09/28/2024 [...] Problem Acquired hammer toe of right foot (8967215878658726 ) Other hammer toe(s) (acquired), right foot (M20.41) Active confirmed Problem Acquired hammer toe of left foot (6080534408123089 ) Other hammer toe(s) (acquired), left foot (M20.42) Active confirmed Problem Localized, primary osteoarthritis of the ankle and/or foot (730282528) Primary osteoarthritis, left ankle and foot (M19.072) Active confirmed Problem Polyneuropathy due to type 2 diabetes mellitus (776931842) Type 2 diabetes mellitus with diabetic polyneuropathy (E11.42) Active confirmed Vital Signs Blood pressure diastolic 62 mm Hg 11/13/2024 Height 5ft3in in 11/13/2024 Blood pressure systolic 111 mm Hg 11/13/2024 Weight 195 lbs 11/13/2024 BMI 34.54 kg/m2 11/13/2024 Procedures Procedure Date Ordered Date Performed Result Body Sit e 47772-ASYHQIM NAIL, 1-5 01/14/2024 N/A 13575 I&D ABSCESS- SIMPLE,SINGLE 01/14/2024 N/A 76071-ZUOB SKIN LESIONS, OVER 01/14/2024 N/A D7631-CWUYVFSH DYSTROPHIC NAILS ANY # 01/14/2024 N/A 59774-GCKINLU NAIL, 1-5 05/01/2024 N/A 13455-MFID SKIN LESIONS, OVER 4 05/01/2024 N/A I3206-OKQRCVLH DYSTROPHIC NAILS ANY # 05/01/2024 N/A 87544-PDPEJAE NAIL, 1-5 08/04/2024 N/A 41980-UUWZ SKIN LESIONS, OVER 4 08/04/2024 N/A U9523-CXWJCXRJ DYSTROPHIC NAILS ANY # 08/04/2024 N/A 62651-UAQAKGI NAIL, 1-5 11/13/2024 N/A 72132-RYFT SKIN LESIONS, OVER 4 11/13/2024 N/A S8887-COVUFFGM DYSTROPHIC NAILS ANY # 11/13/2024 N/A Encounters Encounter [facility] Date [facility] [address] 01/14/2024 Mignon Black Type 2 diabetes mellitus with diabetic polyneuropathy E11.42 ; Onychomycosis B35.1 and Abscess of toe, right L02.[address] [address] 05/01/2024 Mignon Black Type 2 diabetes mellitus with diabetic polyneuropathy E11.42 and Onychomycosis B35.[address] [address] 08/04/2024 Mignon Black Type 2 diabetes mellitus with diabetic polyneuropathy E11.42 and Onychomycosis B35.[address] [address] 11/13/2024 Mignon Black Type 2 diabetes mellitus [...] Treatment Pending Test Test Name Order Date 93268-ENKEMPA NAIL, 6 OR MORE 10/11/2015 55509-PXUMTCH NAIL, 6 OR MORE 01/17/2016 13987-AFSFSXR NAIL, 6 OR MORE 10/13/2019 18961-UPCUMBA NAIL, 6 OR MORE 04/22/2020 98645-XBKADQT NAIL, 6 OR MORE 07/26/2020 33373-LVESAWR NAIL, 6 OR MORE 01/13/2021 24893-RTEHTJJ NAIL, 6 OR MORE 04/18/2021 19011-JYXIYIL NAIL, 6 OR MORE 08/08/2021 10324-SMQJUVQ NAIL, 1-5 07/02/2023 04474-KYIQUXV NAIL, 1-5 10/08/2023 88064-TLJVYLO NAIL, 1-5 01/14/2024 95757-WQHWKEK NAIL, 1-5 05/01/2024 80010-QUATWPC NAIL, 1-5 08/04/2024 67175-NPRFVSP NAIL, 1-5 11/13/2024 95050-Qztnxcgr Plate 03/26/2023 16428-Vwdtjjpc Plate 04/18/2021 60093 I&D ABSCESS- SIMPLE,SINGLE 022 41713 I&D ABSCESS- SIMPLE,SINGLE 024 41152-GSSJ SKIN LESIONS, OVER 4 07/02/20 23 55114-KKUO SKIN LESIONS, OVER 4 01/14/20 24 21254-LNYP SKIN LESIONS, OVER 4 03/26/20 23 38280-WVUO SKIN LESIONS, OVER 4 10/08/19 24 69280-TKNE SKIN LESIONS, OVER 4 12/15/19 23 50054-LAHG SKIN LESIONS, OVER 4 06/19/20 22 35097-VFRS SKIN LESIONS, OVER 4 03/16/20 22 02931-XENT SKIN LESIONS, OVER 4 11/29/19 22 76433-FHMV SKIN LESIONS, OVER 4 08/08/20 21 74214-FGRY SKIN LESIONS, OVER 4 04/18/20 21 14746-GGEN SKIN LESIONS, OVER 4 01/14/20 21 54964-QLLN SKIN LESIONS, OVER 4 07/26/20 20 10954-WYER SKIN LESIONS, OVER 4 04/22/20 20 69435-UYWT SKIN LESIONS, OVER 4 01/17/20 16 17335-DVGG SKIN LESIONS, OVER 4 10/13/19 20 94370-ZNTP SKIN LESIONS, OVER 4 11/13/19 25 16268-EUZP SKIN LESIONS, OVER 4 08/04/20 24 23446-SJEZ SKIN LESIONS, OVER 4 05/01/20 24 X1650-FLPSBHAX DYSTROPHIC NAILS ANY # B1151-IYZTQIKZ DYSTROPHIC NAILS ANY # A7876-SYLISVRL DYSTROPHIC NAILS ANY # P8132-SGTYZRAK DYSTROPHIC NAILS ANY # T8027-RQMEVZJL DYSTROPHIC NAILS ANY # F9791-BFBMUNRD DYSTROPHIC NAILS ANY # P8427-HIOERPED DYSTROPHIC NAILS ANY # T5435-FFBCFBKB DYSTROPHIC NAILS ANY # G6439-HRYNXNOU DYSTROPHIC NAILS ANY # Next Appt Details Provider Name:Mignon Calhoun , 02/16/2025 08:00:00 AM, [address] [place], [address], Insurance Providers Payer Name Payer Address Payer Phone Subscriber Number Group Number Insured Name Patient Relationship to Insured Coverage Start Date Coverage End Date Medicare [facility] [address] [place] [address] [id number] Rosalia Talavera Self - patient is the insured [employer] [address] [place] [address] [id number] Rosalia Talavera Self - patient is the insured Medical (General) History Medical History History ICD Code Diabetic type ll High blood pressure Measles Sinus conditions Cellulitis Anemia Surgical History Surgery Date(Month/Year) Left renal calculus s/p remioval and lef t ureteral stent placement 01/13/2014 left ureteral stent placement Hospitalization History Reason Date(Month/[place] [facility] [place] Pressure 01/[place]21 cellulitis hospitalized twice for 5 days in total Oct 2018
--- OUTSIDE RECORDS SUMMARY | 2024-11-24 07:21 | XMS_ITS ---
Author Organization [facility] Address [address] [place] [address] Care Team Providers Care Stone Finisher Name Role Phone Humberto GRIFFIN, Arlyn Primary Care Provider Se Weinstein Jr Unavailable [phone] Encounters Encounter Location Date Provider Diagnosis [facility] [address] [place] [address] 07/22/2024 Se David Jr Plan Of Treatment No Information Progress Notes * FARZANA RANKINCELSAB:1950 (74 yo F)Acc No.[id number]:07/22/2024 Patient:?SHAW RANKIN :1950???Age:74 Y???Sex:Female Address:[address] [place] [address] * true * Date:? Generated for Kareni kelsey/Rebecca/eTransmitting on:?11/24/2024 07:20 AM EDT
--- OUTSIDE RECORDS SUMMARY | 2024-11-24 07:21 | XMS_ITS | Patient Health Record ---
Author Organization [facility] Address [address] [place] [address] Care Team Providers Care Manager Package Name Role Phone Humberto GRIFFIN, Arlyn Primary Care Provider Se Weinstein Jr Unavailable [phone] Allergies No Known Allergies Results Component Value Reference Range Notes Glucose, Whole Blood Reviewed date:09/02/2024 03:11:19 PM Interpretation: Performing Lab:[facility], [address] [place] [phone] Notes/Report: Glucose, Whole Blood 156 60-115 mg/dL METER # : [id number] Reason For Referral No Information Medications Medication [...] Trulicity 1.5 MG/0.5ML Subcutaneous for 84 Active Immunizations Vaccine Route Administration Date Status Comme nts Influenza Unknown 07/21/2024 Refused Social History Tobacco Use: Social History Observation Description Date Details (start date - stop date) Former Smoker NA - NA Tobacco Use/Smoking Question Answer Notes Patient is a former smoker Problems Problem Type SNOMED Code ICD Code Onset Dates Problem Status W/U Status Risk Notes Problem 599065913 Colon cancer screening (Z12.11) Active confirmed Problem 374486827948234 senior care (current) use of oral 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 drugs (Z79.84) Active confirmed Problem 01695752840751328 senior care current use of diuretic (Z79.899) Active confirmed Vital Signs Temperature 96.9 degrees Fahrenheit 07/21/2024 Blood pressure diastolic 00 mm Hg 07/21/2024 Height 61.5 in 07/21/2024 Blood pressure systolic 000 mm Hg 07/21/2024 Weight 195 lbs 07/21/2024 BMI 36.24 kg/m2 07/21/2024 Encounters Encounter Location Date Provider Diagnosis [facility] [place] [place] Outpatient [address] [place] [phone] 09/02/2024 Se David Jr Colon cancer screening Z12.11 [facility] [address] [place] [address] Drive [address] [place] [phone] 07/21/2024 Se David Jr Colon cancer screening Z12.11 ; senior care (current) use of oral 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 drugs Z79.84 and senior care current use of diuretic Z79.899 [facility] [address] [place] [phone] 07/22/2024 Se David Jr Assessments Encounter Date Diagnosis (ICD Code) Assessment Notes Treatment Notes Treatment Clinical Notes Section Notes 09/02/2024 Colon cancer screening (ICD-10 - Z12.11) 07/21/2024 Colon cancer screening (ICD-10 - Z12.11) Colonoscopy material was printed We discussed colonoscopy today. We discussed risks and benefits of the procedure today. She understands these and agrees to proceed. She is advised to stop Trulicity and iron one week before the procedure, furosemide and metformin the day before the procedure. 07/21/2024 senior care (current) use of oral 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 drugs (ICD-10 - Z79.84) We discussed colonoscopy today. We discussed risks and benefits of the procedure today. She understands these and agrees to proceed. She is advised to stop Trulicity and iron one week before the procedure, furosemide and metformin the day before the procedure. 07/21/2024 senior care current use of diuretic (ICD-10 - Z79.899) We discussed colonoscopy today. We discussed risks and benefits of the procedure today. She understands these and agrees to proceed. She is advised to stop Trulicity and iron one week before the procedure, furosemide and metformin the day before the procedure. Plan Of Treatment Future Test Test Name Order Date COLONOSCOPY 08/20/2013 COLONOSCOPY 07/21/2024 Insurance Providers Payer Name Payer Address Payer Phone Subscriber Number Group Number Insured Name Patient Relationship to Insured Coverage Start Date Coverage End Date MEDICARE OF [place] [address] [place] [address] [id number] SHAW RANKIN Self - patient is the insured [employer] CLAIMS [address] [place] [address] [phone] [id number] SHAW RANKIN Self - patient is the insured Medical (General) History Medical History History ICD Code Breast cancer/bilateral lumpectomies Diabetes mellitus type 2 Varicose veins Hyperlipidemia Hypertension Restrictive lung disease Elevated BMI Colonoscopy 11/28, normal, ten-year follo wup Surgical History Surgery Date(Month/Year)
[2024-11-24 10:21] LABS: MANUAL DIFF FLAG NO
[2024-11-24 10:24] LABS: Basophils Absolute Auto 0.1 X10*3/uL (0.0-0.2); Basophils Percent Auto 0.9 % (0-2); Eosinophils Absolute Auto 0.1 X10*3/uL (0.0-0.4); Eosinophils Percent Auto 1.4 % (0-4); Hematocrit 34.5 % (37.0-47.0); Hemoglobin 11.4 g/dl (12.0-16.0); Imm Gran Abs Auto 0.01 X10*3/uL (0.00-0.03); Imm Gran Pct Auto 0.2 % (0.0-0.4); Lymphocytes Absolute Auto 1.5 X10*3/uL (1.2-4.9); Lymphocytes Percent Auto 27.4 % (20-40); Mean Corpuscular Hemoglobin 31.9 pg (27.0-33.0); Mean Corpuscular Volume 96.6 fL (80.0-98.0); Mean Platelet Volume 10.3 fL (9.4-12.3); Monocytes Absolute Auto 0.5 X10*3/uL (0.1-1.2); Neutrophils Absolute Auto 3.4 x10*3/uL (2.0-8.3); Neutrophils Percent Auto 61.1 % (45-73); Platelet Count 270 X10*3/uL (160-400); Red Blood Count 3.57 X10*6/uL (4.20-5.50); Red Cell Distribution Width 13.2 % (11.0-16.0); White Blood Count 5.6 X10*3/uL (4.8-10.8)
[2024-11-24 10:39] LABS: Estimated Average Glucose 157 mg/dL; Hemoglobin A1c % 7.1 % (<6.0)
[2024-11-24 10:57] LABS: Alanine Aminotransferase 27 U/L (0-31); Anion Gap 12 (12-20); Aspartate Amino Transferase 23 U/L (5-31); Blood Urea Nitrogen 18 mg/dL (9-16); Calcium 9.8 mg/dL (8.4-10.2); Carbon Dioxide 28 mmol/L (22-29); Chloride 107 mmol/L (96-108); Cholesterol 184 mg/dL (<200); Estimated Glomerular Filt Rate > 60; Glucose Fasting 155 mg/dL (60-99); HDL Cholesterol 49 mg/dL (>40); Iron 89 mcg/dL (30-160); LDL Cholesterol Calculated 100 mg/dL (<100); Percent Iron Saturation 25 % (15-50); Potassium 4.5 mmol/L (3.3-5.1); Sodium 142 mmol/L (135-145); Total Iron Binding Capacity 358 mcg/dL (228-428); Triglycerides 175 mg/dL (<150); Unsaturated Iron Binding 269 ug/dL
[2024-11-24 11:01] LABS: Vitamin D 25-OH Total 66.3 ng/mL (>30)
[2024-11-24 11:16] LABS: Vitamin B12 446 pg/mL (200-900)
[2024-11-24 12:36] LABS: Creatinine Urine 148.01 mg/dL; Microalbum/Creatinine Ratio Ur 18.2 ug/mg cr (<30)
== END 2024-11-24 07:15 | disposition home or self-care (01) ==
LOC: HO.HMGCLDS 07:14
PROVIDERS: PCP Internal Medicine; Visit Provider Internal Medicine
DX: E66.9 Obesity, unspecified (principal); E66.01 Morbid (severe) obesity due to excess calories; E11.29 Type 2 diabetes mellitus with other diabetic kidney complication; E78.00 Pure hypercholesterolemia, unspecified; Z78.0 Asymptomatic menopausal state; Z86.39 Personal history of other endocrine, nutritional and metabolic disease
CPT/HCPCS: 36415; 80048; 80061; 82043; 82306; 82570; 82607; 82746; 83036; 83540; 84450; 84460; 85025

== ENCOUNTER 2024-11-26 10:18 | Outpatient (AMB) | payer MEDICARE, MEDICAID, SELFPAY ==
--- NOTE | 2024-11-26 10:38 | A.OFFPC_ITS ---
Vital Signs 11/26/24 10:39 Height 5 ft 1.5 in Weight 199 lb BMI 37.0 BP 122/80 Blood Pressure Location Lt brachial Position Sitting Respiration 16 Pulse 70 Pulse Source Pulse Oximeter Temp 97.8 F Temp Source Oral Pulse Oximetry (%) 96 Oxygen Delivery Method Room Air Intake Visit Reasons: f/u DM and lipids Intake Note: Pt is here today for her DM and lipids f/u Allergies No Known Allergies Allergy (Verified 11/26/24 11:32) Medication List - Last Reconciled 11/26/24 by Arlyn Paul MD amlodipine 5 mg PO DAILY atorvastatin 20 mg PO DAILY azelastine 1 spray intranasal BID blood sugar diagnostic (FreeStyle Lite Strips) 1 strip miscellaneous .QD carvedilol (Coreg) 12.5 mg PO BID ferrous fumarate 65 mg PO DAILY furosemide 40 mg (2 x 20 mg) PO QAM 90 days hydralazine 100 mg PO DAILY letrozole 2.5 mg PO Q24H mecobalamin (vitamin B12) 1,000 mcg PO DAILY metformin 1,000 mg PO BID 90 days multivitamin 1 tab PO DAILY Trulicity (dulaglutide) 1.5 mg (0.5 mL) subcut QWEEK 1 month NS Tobacco use date assessed: 11/26/24 Fall risk assessment: 1 Fall in past year Last assessed Fall Risk: 11/26/24 Dental Screening Dental Screen Date: 11/26/24 Did you have a dental visit in the last 12 months?: Yes Did you have a dental problem in the last 6 months where you did not have access to dental care?: No Was dental information given to patient?: Patient has dentist HPI f/u DM and lipids HPI Details 74-year-old lady here today for follow-u p on her hypertension, dyslipidemia and diabetes mellitus. She has been compliant with taking her medications, tries to follow recommended diet latest fasting labs done today showed hemoglobin A1c higher than last check at 7.1%, fasting lipids are within normal limits except for elevated triglycerides, urine microalbumin is within normal limits. 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 Mother Ovarian cancer Brother Diabetes mellitus Brother Diabetes mellitus Maternal Grandfather Throat cancer Social History Household Members: None Housing: Apartment Are you a primary special needs child caregiver to a significant other at home: No Do you presently have visiting nurse or other home services: No Alcohol intake: former Patient Tobacco Use Status: Former Tobacco user Tobacco use type: Cigarette Years Smoked: since 12 yrs old e-Cigarette/Vaping Use: Never Used Second Hand Smoke Exposure: No Advance Directives Date on File: 04/20/21 service: No Current occupational status: retired Cognitive needs: No Hearing needs: No Vision needs: Yes (Glasses) Questionnaire PHQ-9 Over the last 2 weeks, how often have you been bothered by any of the following problems? 1. Little interest or pleasure in doing things: not at all 2. Feeling down, depressed, or hopeless: not at all 3. Trouble falling or staying asleep, or sleeping too much: not at all 4. Feeling tired or having little energy: not at all 5. Poor appetite or overeating: not at all 6. Feeling bad about yourself - or that you are a failure or have let yourself or your family down: not at all 7. Trouble concentrating on things, such as reading the newspaper or watching television: not at all 8. Moving or speaking so slowly that other people could have noticed. Or the opposite - being so fidgety or restless that you have been moving around a lot more than usual: not at all 9. Thoughts that you would be better off or of hurting yourself in some way : not at all Total score: 0 Depression Screening Interpretation: Negative Depression Screening Done: Yes 15316 - PHQ-9 Billing: Yes Source: Developed by Drs. Yasmani Ramos, Keli Bhat, Armando Ghotra and colleagues, with an educational iris from [employer]. Thrive Questionnaire Date Thrive assessed: 11/26/24 Currently or been in a relationship where the following occur: No concerns reported THRIVE Score: 0 MARISA-7 AMB Questionnaire MARISA-7 Date MARISA - 7 assessed: 01/09/24 Source: Developed by Drs. Yasmani Ramos, Keli Bhat, Armando Ghotra and colleagues, with an educational iris from [employer]. Review of Systems Const All systems reviewed & are unremarkable except as noted in HPI and below ENT Reports no additional complaints Card Denies chest pain, Denies irregular heart rhythm and Reports leg edema (MILD TO WORDS THE EVENINGS) Resp Reports as per HPI GI Reports no additional complaints Reports no additional complaints Musc Reports no additional complaints Skin/Breast Reports system reviewed and no additional complaints, except as documented Neuro Reports no additional complaints Psych Reports no additional complaints Physical exam (Primary Care) Vital Signs: Last Vital Signs Temp 97.8 F 11/26/24 10:39 Pulse 70 11/26/24 10:39 Resp 16 11/26/24 10:39 BP 122/80 11/26/24 10:39 Pulse Ox 96 11/26/24 10:39 Oxygen Delivery Method Room Air 11/26/24 10:39 BMI result Body Mass Index 37.0 Tobacco/Smoking Status: Tobacco use Status Tobacco use date assessed 11/26/24 11/26/24 10:41 Patient Tobacco Use Status Former Tobacco user 11/26/24 10:38 Tobacco use type Cigarette 11/26/24 10:38 e-Cigarette/Vaping Use Never Used 11/26/24 10:38 PHQ-9: PHQ-9 Score PHQ-9: Total score 0 11/26/24 11:37 Depression Screening Interpretation: Negative Thrive Assessment: Date of Thrive Assessment Date Thrive assessed 11/26/24 11/26/24 10:38 Currently or been in a relationship where the following occur: No concerns reported Const Other: Alert oriented x3 , no acute distress noted , ambulatory with normal gait Orientation/consciousness: patient oriented x3 [facility] Head: Yes normocephalic Face and sinus: Yes face symmetric and No sinus tenderness Mouth: Normal oral and palatal mucosa present, oropharynx normal and moist mucous membranes Eyes General: appearance normal, both eyes and all related structures Neck Other: Supple, no lymphadenopathy, thyroid gland nonpalpable Resp Other: Clear to auscultation bilaterally Cardio Other: S1-S2 present regular rate and rhythm GI Other: Obese, soft, nontender, no mass palpated General: Yes no CVA tenderness Back/Spine/Pelvis Back: no CVA tenderness and No back tenderness Skin General skin exam: no rashes or lesions noted Neuro General: patient oriented x3, moves all extremities and no focal motor deficits Extrem Other: Superficial varicose veins in in both lower extremities General: Yes full ROM, Yes no joint enlargement, Yes no calf tenderness and Yes normal gait Results Reviewed Results Reviewed: Name: Rosalia Talavera Age/Sex: 74/F : 1950 Unit#: [id number] Attend Dr: Arlyn Paul MD Re11/24/24 Status: DEP REF Location: [facility] [address] Disch: SPEC : [id number] MADI: 11/24/24 STATUS: COMP REQ : [id number] RECD: 11/24/[address]: Arlyn Paul MD COMP: 11/24/24 ENTERED: 11/24/[address] [facility] [address]: ORDERED: CBC Auto Diff Test Result Flag Reference WBC 5.6 4.8-10.8 X 10*3/uL RBC 3.57 L 4.20-5.50 X10*6/uL HGB 11.4 L 12.0-16.0 g/dl HCT 34.5 L 37.0-47.0 % MCV 96.6 80.0-98.0 fL MCH 31.9 27.0-33.0 pg MCHC 33.0 31.0-35.0 g/dl RDW 13.2 11.0-16.0 % PLT 270 160-400 X10*3/uL MPV 10.3 9.4-12.3 fL Neut Pct Auto 61.1 45-73 % ImGran Pct Auto 0.2 0.0-0.4 % Lymp Pct Auto 27.4 20-40 % Dukes Pct Auto 9.0 2-11 % Eos Pct Auto 1.4 0-4 % Baso Pct Auto 0.9 0-2 % NRBC Pct Auto 0.0 0.0-0.2 /100WBC ANC Neut Abs # 3.4 2.0-8.3 x10*3/uL ImGran Abs Auto 0.01 0.00-0.03 X10*3/uL Lymph Abs Auto 1.5 1.2-4.9 X10*3/uL Dukes Abs Auto 0.5 0.1-1.2 X10*3/uL Eos Abs Auto 0.1 0.0-0.4 X10*3/uL Baso Abs Auto 0.1 0.0-0.2 X10*3/uL NRBC Abs Auto 0.000 0.0-0.012 X10*3/uL Name: Rosalia Talavera Age/Sex: 74/F : 1950 Unit#: [id number] Attend Dr: Arlyn Paul MD Re11/24/24 Status: DEP REF Location: [facility] [address] Disch: SPEC : [id number] MADI: 11/24/24 STATUS: COMP REQ : [id number] RECD: 11/24/24-[address]: Arlyn Paul MD COMP: 11/24/24-1101 ENTERED: 11/24/24-[address]: ORDERED: Met Prof Fast, IRON PROF, AST, ALT, Lipid Panel, Vitamin D 25-OH Test Result Flag Reference Sodium 142 135-145 mmol/L Potassium 4.5 3.3-5.1 mmol/L CL 107 96-108 mmol/L CO2 28 22-29 mmol/L Gap 12 12-20 BUN 18 H 9-16 mg/dL Creat 0.64 0.5-1.4 mg/dL eGFR > 60 Chronic Kidney Disease: Estimated GFR < 60 mL/min/1.73m2 Severe Kidney Disease: Estimated GFR < 15 mL/min/1.73m2 FBS 155 H 60-99 mg/dL A fasting glucose of 126 mg/dl or greater on more than one occasion is considered diagnostic of diabetes. CA 9.8 8.4-10.2 mg/dL Iron 89 30-160 mcg/dL TIBC 358 228-428 mcg/dL Saturation 25 15-50 % UIBC 269 ug/dL AST (GOT) 23 5-31 U/L ALT (GPT) 27 0-31 U/L Triglyceride 175 H <150 mg/dL Desirable Triglyceride: less than 150 mg/dL Borderline High Triglyceride 150-199 mg/dL High Triglyceride: 200-499 mg/dL Very High Triglyceride: greater than or equal to 5OO mg/dL Cholesterol 184 <200 mg/dL Desirable Cholesterol: less than 200 mg/dL Borderline High Cholesterol: 200-239 mg/dL High Cholesterol: greater than 239 mg/dL LDL Calculated 100 H <100 mg/dL Desirable LDL: less than 100 mg/dL Near Optimal/Above Optimal LDL: 110-129 mg/dL Borderline High LDL: 130-159 mg/dL High LDL: 160-189 mg/dL Very High LDL: greater than or equal to 190 mg/dL HDL 49 >40 mg/dL Desirable HDL: greater than 40 mg/dL Note: This HDL assay may give artificially low results in patients with liver disease. Vit D 25-OH Tot 66.3 >30 ng/mL Health Based Reference Values* < 20 ng/mL Deficient 20-30 ng/mL Insufficient > 30 ng/mL Sufficient Laboratory Tests 07/23/24 11/24/24 11/24/24 13:23 07:20 07:25 Estimat Average Glucose 157 Hgb A1c (Clinic) 7.0 H Hemoglobin A1c % 7.1 H Urine Creatinine 148.01 Urine Microalbumin 27.0 Microalb/Creat Ratio 18.2 Coding Level of Care Code Est Pt Level 4 (14903) Complex EM visit Add On G2211 Diagnoses Type 2 diabetes mellitus with other diabetic kidney complication E11.29 Obesity (BMI 30-39.9) E66.9 Essential hypertension I10 Pure hypercholesterolemia E78.00 Hyperlipidemia type: pure hypercholesterolemia Additional Codes PHQ-9 - 79065 - PHQ-9 Billing: Yes ([id number]) Assessment & Plan Assessment & Plan (1) Type 2 diabetes mellitus with other diabetic kidney complication: Code(s): E11.29 - Type 2 diabetes mellitus with other diabetic kidney complication Category: Medical Plan: Continue with metformin 1000 mg 1 tablet twice a day, Trulicity discontinued, and added Mounjaro 2.5 mg, injected subcutaneously once a week. Patient instructed on proper use of the pen, and discussed possible side effects that might occur, advised to have a bland diet when giving herself Mounjaro injection due prevent GI upset.. Will see her back for follow-up in 6 weeks after starting Mounjaro (2) Obesity (BMI 30-39.9): Comment: PATIENT IS GROSSLY OBESE BUT OVER THE PAST 2-3 YEARS SHE HAS GRADUALLY LOST WEIGHT. RECENTLY HAS BEEN TREATED WITH THE OZEMPIC INJECTIONS AND TRULICITY BUT HAS THE UNPREDICTABLE COVERAGE BY INSURANCE. Code(s): E66.9 - Obesity, unspecified Category: Medical Plan: Reinforced importance of following recommended diet and getting regular exercise. (3) Essential hypertension: Code(s): I10 - Essential (primary) hypertension Category: Medical Plan: Blood pressure at goal of less than 130/80. Continue with current medication. Reinforced importance of following a low sodium diet, getting regular exercise, and lowering stress levels. (4) Hyperlipidemia: Code(s): E78.5 - Hyperlipidemia, unspecified Category: Medical Qualifiers: Hyperlipidemia type: pure hypercholesterolemia Qualified Code(s): E78.00 - Pure hypercholesterolemia, unspecified Plan: LDL cholesterol on latest labs done is at 100 mg/dL but triglycerides elevated likely due to uncontrolled diabetes. Continue her on atorvastatin 20 mg daily, and in addition to adherence to low-cholesterol diet and staying active getting regular exercise. It Medications: New Mounjaro (tirzepatide) for 4 weeks 2.5 mg (0.5 mL) subcut QWEEK 2 mL 1RF NS E11.29 - Type 2 diabetes mellitus with other diabetic kidney complication, E66.9 - Obesity, unspecified Discontinued Trulicity (dulaglutide) Discontinued Reason: Insurance Denied 1.5 mg (0.5 mL) subcut QWEEK 1 month 2 mL 5RF NS
[2024-11-26 10:39] VITALS: BP 122/80; PULSE 70; RESP 16; TEMP 36.6; O2SAT 96; BMI 37.0
--- OUTSIDE RECORDS SUMMARY | 2024-11-26 11:51 | XMS_ITS ---
Author Organization [facility] Address [address] [place] [address] Care Team Providers Care Aluminum Siding Mechanic Name Role Phone Humberto GRIFFIN, Arlyn Montgomery Primary Care Provider Un available Black, Mignon Unavailable [phone] Allergies No Known Allergies REASON FOR VISIT [...] Ordered Date Performed Result Body Sit e 63825-TJHWSFH NAIL, 1-5 08/04/2024 N/A 23217-RCME SKIN LESIONS, OVER 4 08/04/2024 N/A C7664-JJHNVVSO DYSTROPHIC NAILS ANY # 08/04/2024 N/A Encounters Encounter Location Date Provider Diagnosis [facility] [address] [address] 08/04/2024 Mignon Calhoun Type 2 diabetes mellitus with diabetic polyneuropathy E11.42 and Onychomycosis B35.1 Assessments Encounter Date Diagnosis (ICD Code) Assessment Notes Treatment Notes Treatment Clinical Notes Section Notes 08/04/2024 Type 2 diabetes mellitus with diabetic polyneuropathy (ICD-10 - E11.42) 08/04/2024 Onychomycosis (ICD-10 - B35.1) Plan Of Treatment Pending Test Test Name Order Date 78835-HIHKJSI NAIL, 1-5 08/04/2024 67472-YAWT SKIN LESIONS, OVER 4 08/04/20 24 L3684-ACEOAMYL DYSTROPHIC NAILS ANY # Next Appt Details Follow Up: prn, Reason: Provider Name:Mignon Calhoun , 02/16/2025 08:00:00 AM, [address] [place] [address], [phone], Procedure Notes * Category Sub-Category Detail Notes Keratoma Treatment Parring or Cutting o f Benign Hyperkeratotic Lesion(s) 13748 ( >4 lesions) - The Benign hyperkeratotic [...] use of a nail nipper and/or dremel-type notch grinder, to a more viable healthy nail plate or bed tissue 1-5. Silver nitrate used for any petechial bleeding as necessary. Definitive antifungal treatment options have been reviewed and discussed with the patient. The patient chooses, no pharmaceutical tx - 95055 Nail Reduction Nail Reduction Trimming of dyst rophic nails performed to reduce/remove overall nail length and girth, by manual and electrical means with use of a nail nipper and/or dremel, to more viable healthy nail plate or bed tissue 6-10 (G0127) Progress Notes * Rosalia RANKIN ADOB: 9 (74 yo F)Acc No.[id number]:08/04/2024 Progress Note Patient:Rosalia GRAVES Provider:?Mignon Calhoun DPM :1950???Age:74 Y???Sex:Female D ate:08/04/2024 Address:[address] [place] [address] Pcp:Дмитрий Saravia Subjective: * Chief Complaints: * [...] twice for 5 days in total Oct 2018[facility] [place] Blood Pressure 01/2021 * Family History:?Mother: [...] (Primary)???2.?Onychomycosis - B35.1??? Plan: * Treatment: 2.?Onychomycosis?Procedure: 89124-WLKXESB NAIL, 1-5 * Procedures:?Debride Nails 1-5:?Procedure:?Performance of this nail treatment by a nonprofessional would put this patients foot and overall health at risk. Therefore, debridement to affected nail(s), as described in exam, was performed extensively to reduce/remove overall nail length, girth, thickness, subungual debris, and necrotic tissue, by manual and/or electrical means through the use of a nail nipper and/or dremel-type notch grinder, to a more viable healthy nail plate or bed tissue 1-5. Silver nitrate used for any petechial bleeding as necessary. Definitive antifungal treatment options have been reviewed and discussed with the patient. The patient chooses, no pharmaceutical tx - 50587.?Keratoma Treatment:?Parring or Cutting of Benign Hyperkeratotic Lesion(s)?26454 ( >4 lesions) - The Benign hyperkeratotic lesions, as described above were pared, and/or cut utilizing a sterile #15 blade, tissue nippers, and/or dremel.?Nail Reduction:?Nail Reduction?Trimming of dystrophic nails performed to reduce/remove overall nail length and girth, by manual and electrical means with use of a nail nipper and/or dremel, to more viable healthy nail plate or bed tissue 6-10 (G0127).? * Procedure Codes:?18003 TRIM SKIN LESIONS, OVER 4, Modifiers: XS 78726 DEBRIDE NAIL, 1-5, Modifiers: XS G0127 TRIMMING [...] Calhoun DPM Date:?2023 Generated for Kareni kelsey/Rebecca/eTransmitting on:?11/26/2024 11:50 AM EDT History and Physical Notes * [...] iminished Sensory and motor testing performed:: st carlgth diminished Pedal pulse taking performed:: 2+ Footwear [...]
--- OUTSIDE RECORDS SUMMARY | 2024-11-26 11:51 | XMS_ITS ---
Author Organization [facility] Address [address] [place] [address] Care Team Providers Care Mental Health Nurse Practitioner Name Role Phone Humberto GRIFFIN, Arlyn Primary Care Provider Se Weinstein Jr Unavailable Encounters Encounter Location Date Provider Diagnosis [facility] [address] [place] [phone] 07/22/2024 Se David Jr Plan Of Treatment No Information Progress Notes * FARZANA RANKINCELSAB:1950 (74 yo F)Acc No.[id number]:07/22/2024 Patient:?SHAW RANKIN :1950???Age:74 Y???Sex:Female Address:[address] [place] [address] * true * Date:? Generated for Kareni kelsey/Rebecca/eTransmitting on:?11/26/2024 11:51 AM EDT
--- OUTSIDE RECORDS SUMMARY | 2024-11-26 11:51 | XMS_ITS ---
Author Organization [facility] Address [address] [place] [address] Care Team Providers Care Electrician Elevator Maintenance Name Role Phone Humberto GRIFFIN, Arlyn Montgomery Primary Care Provider Un available Black, Mignon Unavailable [phone] Allergies No Known Allergies REASON FOR VISIT [...] Ordered Date Performed Result Body Sit e 39349-HZYTZFO NAIL, 1-5 11/13/2024 N/A 05208-PZGT SKIN LESIONS, OVER 4 11/13/2024 N/A Q5064-EXXELTGS DYSTROPHIC NAILS ANY # 11/13/2024 N/A Encounters Encounter Location Date Provider Diagnosis [facility] [address] [place] [address] 11/13/2024 Mignon Black Type 2 diabetes mellitus [...] INSTRUCTIONS.pdf) Pending Test Test Name Order Date 37028-RQUBBNT NAIL, 1-5 11/13/2024 97702-LWNL SKIN LESIONS, OVER 4 11/13/19 25 I1810-JDKVYCPH DYSTROPHIC NAILS ANY # Next Appt Details Follow Up: prn, Reason: Provider Name:Mignon Calhoun , 02/16/2025 08:00:00 AM, [address] [place] [address], [phone], Procedure Notes * Category Sub-Category Detail Notes [...] instrumentation by the physician of record - 32076 Debride Nails 1-5 Procedure: Due to the [...] necessary to maintain effective symptomatic relief - 51951 Nail Reduction Nail Reduction (-27) Trimming o [...] Rosalia RANKIN ADOB: 9 (74 yo F)Acc No.[id number]:11/13/2024 Progress Note Patient:?Rosalia RANKIN Provider:?Mignon Calhoun DPM :1950???Age:74 Y???Sex:Female D ate:11/13/2024 Address:[address] [place], [place] [phone] Pcp:Дмитрий Saravia Subjective: * Chief Complaints: * [...] for 5 days in total Oct [place] [place] Blood Pressure 01/2021 * Family History:?Mother: dece ased, diabetes,ovarian cancer.?Father: , diagnosed with Diabetic - NIDDM.? * Social History:?Tobacco Use:?Tobacco use other than smoking?Are you an other tobacco user??No ?Tobacco Control (Standard)?Tobacco use:?Nonsmoker ???Miscellaneous:?Caffeine: yes, frequency:, 2-3 cups per day. ?Children: no, none. ?Exercise: no. ?Marital status: single. 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 * Medications:?TakingLetrozole 2.5 MG Tablet 1 [...] :Chronic problem, Worse? Plan: * Treatment: 2.?Onychomycosis?Procedure: 03459-MMXEJHX NAIL, 1-5 3.?Other hammer toe(s) (acqu ired), [...] necessary to maintain effective symptomatic relief - 23780.?Keratoma Treatment:?Parring or Cutting of Benign Hyperkeratotic Lesion(s)?(-57) [...] instrumentation by the physician of record - 26684.?Nail Reduction:?Nail Reduction?(-27) Trimming of all dystrophic nails [...] or bed tissue - G0127.? * Procedure Codes:?90131 TRIM SKIN LESIONS, OVER 4, Modifiers: XS 38641 DEBRIDE NAIL, 1-5, Modifiers: XS G0127 TRIMMING [...] Calhoun DPM Date:?2024 Generated for Marc cole/Rebecca/Carli on:?11/26/2024 11:51 AM EDT History and Physical Notes * [...]
--- OUTSIDE RECORDS SUMMARY | 2024-11-26 11:51 | XMS_ITS ---
Author Organization [facility] Address [address] [place] [address] Care Team Providers Care Information Technology Program Manager Name Role Phone Humberto GRIFFIN, Arlyn Primary Care Provider Se Weinstein Jr Unavailable REASON FOR VISIT screening Encounters Encounter Location Date Provider Diagnosis [facility] [place] [facility] [address], [place] [phone] 09/02/2024 Se David Jr Colon cancer screening Z12.11 Assessments Encounter Date Diagnosis (ICD Code) Assessment Notes Treatment Notes Treatment Clinical Notes Section Notes 09/02/2024 Colon cancer screening (ICD-10 - Z12.11) Plan Of Treatment No Information Progress Notes * MARQUITA RANKINB:1950 (74 yo F)Acc No.[id number]:09/02/2024 COLON WITH MAC Patient:?SHAW RANKIN Provider:?Se David MD :1950???Age:74 Y???Sex:Female D ate:09/02/2024 Address:[address] [place], [place] [id number] Pcp:Arlyn Paul MD Subjective: * Chief Complaints: * ???1. Screening. * Medical History:? Objective: * Vitals:? Assessment: * Assessment: 1.?Colon cancer screening - Z12.11 (Primary)??? Plan: * Treatment: * Procedure Codes:?20220 DIAGN OSTIC COLONOSCOPY, 0529F INTRVL 3+YRS PTS CLNSCP DOCD, 0528F RCMND FLW-UP 10 YRS DOCD * * The named appointment provid er may or may not be the originator of this progress note, and it is not deemed complete until electronically signed by the appointment provider. Sign off status: Pending * Provider:?Se David MD Date:?1 11/03/2023 Generated for Marc cole/Rebecca/Carli on:?11/26/2024 11:51 AM EDT
--- OUTSIDE RECORDS SUMMARY | 2024-11-26 11:52 | XMS_ITS | Patient Health Record ---
Author Organization [facility] Address [address] [place] [address] Care Team Providers Care Medication Aid Name Role Phone Humberto GRIFFIN, Arlyn Primary Care Provider Se Weinstein Jr Unavailable Allergies No Known Allergies Results Component Value Reference Range Notes Glucose, Whole Blood Reviewed date:09/02/2024 03:11:19 PM Interpretation: Performing Lab:[facility], [address] [place] [phone] Notes/Report: Glucose, Whole Blood 156 60-115 mg/dL METER # : [id number] Reason For Referral No Information Medications Medication [...] Problem Status W/U Status Risk Notes Problem 418670694 Colon cancer screening (Z12.11) Active confirmed Problem [id number] intermediate (current) use of oral 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 drugs (Z79.84) Active confirmed Problem [id number] intermediate current use of diuretic (Z79.899) Active confirmed Vital Signs Temperature 96.9 degrees Fahrenheit 07/21/2024 Blood pressure diastolic 00 mm Hg 07/21/2024 Height 61.5 in 07/21/2024 Blood pressure systolic 000 mm Hg 07/21/2024 Weight 195 lbs 07/21/2024 BMI 36.24 kg/m2 07/21/2024 Encounters Encounter Location Date Provider Diagnosis [facility] [address] [place] [phone] 09/02/2024 Se David Jr Colon cancer screening Z12.11 [facility] [address] [place] [address] Drive [address] [place] [phone] 07/21/2024 Se David Jr Colon cancer screening Z12.11 ; intermediate (current) use of oral 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 drugs Z79.84 and intermediate current use of diuretic Z79.899 [facility] [address] [place] [phone] 07/22/2024 Se David Jr Assessments Encounter Date [...] metformin the day before the procedure. 07/21/2024 intermediate (current) use of oral 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 drugs (ICD-10 - Z79.84) We discussed colonoscopy today. We discussed risks and benefits of the procedure today. She understands these and agrees to proceed. She is advised to stop Trulicity and iron one week before the procedure, furosemide and metformin the day before the procedure. 07/21/2024 intermediate current use of diuretic (ICD-10 - Z79.899) [...] [place] [address] [place] [address] [id number] SHAW RANKIN Self - patient is the insured [employer] [address] [place] [address] [phone] [id number] SHAW RANKIN Self - patient is the insured Medical (General) History Medical History History ICD Code Breast cancer/bilateral lumpectomies Diabetes mellitus type 2 Varicose veins Hyperlipidemia Hypertension Restrictive lung disease Elevated BMI Colonoscopy 11/28, normal, ten-year follo wup Surgical History Surgery Date(Month/Year)
--- OUTSIDE RECORDS SUMMARY | 2024-11-26 11:52 | XMS_ITS | Patient Health Record ---
Author Organization [facility] Address [address] [place] [address] Care Team Providers Care Rehab/Pre Vocational Counselor Name Role Phone Humberto GRIFFIN, Arlyn Montgomery Primary Care Provider Un available BlackShahramMignon Unavailable [phone] Allergies No Known Allergies Results Component Value [...] Lab: Notes/Report: HEMOGLOBIN A1C % (HH) 7.0 Reason For Referral No Information Medications [...] Problem Acquired hammer toe of right foot (4300997682610112 ) Other hammer toe(s) (acquired), right foot (M20.41) Active confirmed Problem Acquired hammer toe of left foot (0621529562657679 ) Other hammer toe(s) (acquired), left foot (M20.42) Active confirmed Problem Localized, primary osteoarthritis of the ankle and/or foot (871431259) Primary osteoarthritis, left ankle and foot (M19.072) Active confirmed Problem Polyneuropathy due to type 2 diabetes mellitus (072502815) Type 2 diabetes mellitus with diabetic polyneuropathy (E11.42) Active confirmed Vital Signs Blood pressure diastolic 62 mm Hg 11/13/2024 Height 5ft3in in 11/13/2024 Blood pressure systolic 111 mm Hg 11/13/2024 Weight 195 lbs 11/13/2024 BMI 34.54 kg/m2 11/13/2024 Procedures Procedure Date Ordered Date Performed Result Body Sit e 82548-YLDFPCC NAIL, 1-5 01/14/2024 N/A 40838 I&D ABSCESS- SIMPLE,SINGLE 01/14/2024 N/A 06375-VZQV SKIN LESIONS, OVER 01/14/2024 N/A V5460-TNHQOSUA DYSTROPHIC NAILS ANY # 01/14/2024 N/A 70295-OOOHAER NAIL, 1-5 05/01/2024 N/A 77967-LAFG SKIN LESIONS, OVER 4 05/01/2024 N/A X5853-SLNRBQPT DYSTROPHIC NAILS ANY # 05/01/2024 N/A 01713-SRPXBLV NAIL, 1-5 08/04/2024 N/A 42167-WQJP SKIN LESIONS, OVER 4 08/04/2024 N/A U6514-UXROEGNY DYSTROPHIC NAILS ANY # 08/04/2024 N/A 29404-XCUZYQA NAIL, 1-5 11/13/2024 N/A 18491-JYKQ SKIN LESIONS, OVER 4 11/13/2024 N/A F4219-NUFVDXQZ DYSTROPHIC NAILS ANY # 11/13/2024 N/A Encounters Encounter Location Date Provider Diagnosis [facility] [address] 01/14/2024 Mignon Black Type 2 diabetes mellitus with diabetic polyneuropathy E11.42 ; Onychomycosis B35.1 and Abscess of toe, right L02.[address] [address] 05/01/2024 Mignon Black Type 2 diabetes mellitus with diabetic polyneuropathy E11.42 and Onychomycosis B35.[address] [address] 08/04/2024 Mignon Black Type 2 diabetes mellitus with diabetic polyneuropathy E11.42 and Onychomycosis B35.[address] [address] 11/13/2024 Mignon Black Type 2 diabetes mellitus [...] Treatment Pending Test Test Name Order Date 64759-UTUGOKV NAIL, 6 OR MORE 10/11/2015 70800-IOFDSGG NAIL, 6 OR MORE 01/17/2016 74971-MVNMVCZ NAIL, 6 OR MORE 10/13/2019 78568-WZKJBNE NAIL, 6 OR MORE 04/22/2020 46080-VXDNLON NAIL, 6 OR MORE 07/26/2020 06388-VLCMBMJ NAIL, 6 OR MORE 01/13/2021 30838-QGDXTQI NAIL, 6 OR MORE 04/18/2021 49842-DLHWGJK NAIL, 6 OR MORE 08/08/2021 20926-RXBVSIH NAIL, 1-5 07/02/2023 24404-TGJLMEK NAIL, 1-5 10/08/2023 64870-WXPEWGT NAIL, 1-5 01/14/2024 12585-QIPPIBV NAIL, 1-5 05/01/2024 67807-YEJPXYC NAIL, 1-5 08/04/2024 33199-VSQVGHQ NAIL, 1-5 11/13/2024 57335-Eettosbp Plate 03/26/2023 83875-Vbnhwxkd Plate 04/18/2021 96934 I&D ABSCESS- SIMPLE,SINGLE 022 74910 I&D ABSCESS- SIMPLE,SINGLE 024 74589-ONXM SKIN LESIONS, OVER 4 07/02/20 23 30188-UJAS SKIN LESIONS, OVER 4 01/14/20 24 16894-QHBZ SKIN LESIONS, OVER 4 03/26/20 23 35823-CQNT SKIN LESIONS, OVER 4 10/08/19 24 40228-TEZR SKIN LESIONS, OVER 4 12/15/19 23 29336-YYSK SKIN LESIONS, OVER 4 06/19/20 22 49244-WGZZ SKIN LESIONS, OVER 4 03/16/20 22 47059-ONTJ SKIN LESIONS, OVER 4 11/29/19 22 10586-FBBY SKIN LESIONS, OVER 4 08/08/20 21 32937-CCBY SKIN LESIONS, OVER 4 04/18/20 21 26173-KWDZ SKIN LESIONS, OVER 4 01/14/20 21 46197-BXEP SKIN LESIONS, OVER 4 07/26/20 20 19909-SACD SKIN LESIONS, OVER 4 04/22/20 20 30106-ATIX SKIN LESIONS, OVER 4 01/17/20 16 36461-UVZV SKIN LESIONS, OVER 4 10/13/19 20 02469-KRCD SKIN LESIONS, OVER 4 11/13/19 25 81958-ANEE SKIN LESIONS, OVER 4 08/04/20 24 01206-LXJB SKIN LESIONS, OVER 4 05/01/20 24 I1783-OQJGDLYT DYSTROPHIC NAILS ANY # C9002-RQLZGQXL DYSTROPHIC NAILS ANY # K1570-YJZWACRO DYSTROPHIC NAILS ANY # P6594-JVIMYXBF DYSTROPHIC NAILS ANY # N1877-BLQFTUKG DYSTROPHIC NAILS ANY # R1605-YFXUWTJI DYSTROPHIC NAILS ANY # O0588-BKOBBSFL DYSTROPHIC NAILS ANY # Z6513-PJBCRTIJ DYSTROPHIC NAILS ANY # C1031-KDIUOTKL DYSTROPHIC NAILS ANY # Next Appt Details Provider Name:Mignon Calhoun , 02/16/2025 08:00:00 AM, [address] [place], [address], Insurance Providers Payer Name Payer Address Payer Phone Subscriber Number Group Number Insured Name Patient Relationship to Insured Coverage Start Date Coverage End Date Medicare National [facility] [address] [place] [address] [id number] Rosalia Talavera Self - patient is the insured [employer] [address] [place] [address] [id number] Rosalia Talavera Self - patient is the insured Medical (General) History Medical History History ICD Code Diabetic type ll High blood pressure Measles Sinus conditions Cellulitis Anemia Surgical History Surgery Date(Month/Year) Left renal calculus s/p remioval and lef t ureteral stent placement 01/13/2014 left ureteral stent placement Hospitalization History Reason Date(Month/Year) [facility] High Blood Pressure 01/2021 cellulitis hospitalized twice for 5 days in total Oct 2018
--- OUTSIDE RECORDS SUMMARY | 2024-11-26 11:52 | XMS_ITS ---
[facility] Address [address] [place] [address] Care Team Providers Care Stripper And Taper Name Role Phone Humberto GRIFFIN, Arlyn Montgomery Primary Care Provider Un available Black, Mignon Unavailable [phone] Allergies No Known Allergies REASON FOR VISIT [...] Ordered Date Performed Result Body Sit e 13240-BRAQMRF NAIL, 1-5 05/01/2024 N/A 81126-RXBO SKIN LESIONS, OVER 4 05/01/2024 N/A C5869-QDKWNINR DYSTROPHIC NAILS ANY # 05/01/2024 N/A Encounters Encounter Location Date Provider Diagnosis [facility] [address] [address] 05/01/2024 Mignon Calhoun Type 2 diabetes mellitus with diabetic polyneuropathy E11.42 and Onychomycosis B35.1 Assessments Encounter Date Diagnosis (ICD Code) Assessment Notes Treatment Notes Treatment Clinical Notes Section Notes 05/01/2024 Type 2 diabetes mellitus with diabetic polyneuropathy (ICD-10 - E11.42) 05/01/2024 Onychomycosis (ICD-10 - B35.1) 05/01/2024 Other Plan Of Treatment Pending Test Test Name Order Date 19865-JHUGGZE NAIL, 1-5 05/01/2024 09319-KDEJ SKIN LESIONS, OVER 4 05/01/20 V8572-EKSNHJNN DYSTROPHIC NAILS ANY # Next Appt Details Follow Up: prn, Reason: Provider Name:Mignon Barbra Lj , 02/16/2025 08:00:00 AM, [address] [place] [address], [phone], Procedure Notes * Category Sub-Category Detail Notes Keratoma Treatment Parring or Cutting o f Benign Hyperkeratotic Lesion(s) 38770 ( >4 lesions) - The Benign hyperkeratotic [...] as necessary. Patient chooses, no pharmaceutical tx (34789) Nail Reduction Nail Reduction Trimming of dyst rophic nails performed to reduce/remove overall nail length and girth, by manual and electrical means with use of a nail nipper and/or dremel, to more viable healthy nail plate or bed tissue 6-10 (G0127) Progress Notes * Rosalia RANKIN ADOB: [birth year] (73 yo F)Acc No.[id number]:05/01/2024 Progress Note Patient:?Rosalia Rankin Provider:?Mignon Calhoun DPM :1950???Age:73 Y???Sex:Female D ate:05/01/2024 Address:[address] [place], [place] [phone] Pcp:Дмитрий Saravia Subjective: * Chief Complaints: * ???At Risk Footcare * HPI: ???Painful Nails:?Pt States Last PCP Visit:?Date:?04/21/2024 * Medical History:? * Surgical History:?Left renal calculus s/p remioval and left ureteral stent placement 01/13/2014left ureteral stent placement * Hospitalization/Major Diagno stic Procedure:?cellulitis hospitalized twice for 5 days in total [facility] High Blood Pressure 01/2021 * [...] ?no Exercise. ?Marital status: single. 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 * Medications:?TakingLetrozole 2.5 MG Tablet 1 [...] (Primary)?2.?Onychomycosis - B35.1? Plan: * Treatment: 2.?Onychomycosis?Procedure: 74439-BYLYJYS NAIL, 1-5 * Procedures:?Debride Nails 1-5:?Procedure:?Nail debridement performed extensively to reduce/remove overall nail length and girth, subungual debris, and necrotic tissue, by manual and electrical means by use of a nail nipper and/or dremel, to more viable healthy nail plate or bed tissue 1-5. Silver nitrate used for any petechial bleeding as necessary. Patient chooses, no pharmaceutical tx (60497).?Keratoma Treatment:?Parring or Cutting of Benign Hyperkeratotic Lesion(s)?71819 ( >4 lesions) - The Benign hyperkeratotic lesions, as described above were pared, and/or cut utilizing a sterile #15 blade, tissue nippers, and/or dremel.?Nail Reduction:?Nail Reduction?Trimming of dystrophic nails performed to reduce/remove overall nail length and girth, by manual and electrical means with use of a nail nipper and/or dremel, to more viable healthy nail plate or bed tissue 6-10 (G0127).? * Procedure Codes:?30143 TRIM SKIN LESIONS, OVER 4, Modifiers: XS 70948 DEBRIDE NAIL, 1-5, Modifiers: XS G0127 TRIMMING DYSTROPHIC NAILS ANY #, Modifiers: XS * Follow Up:?prn * Images: * Sign off status: Completed true * Provider:?Mignon Calhoun DPM Date:?2023 Generated for Marc cole/Rebecca/Emmanuelitting on:?11/26/2024 11:51 AM EDT History and Physical [...]
--- OUTSIDE RECORDS SUMMARY | 2024-11-26 11:52 | XMS_ITS ---
Author Organization [facility] Address [address] [place] [phone] Care Team Providers Care Floorleader Name Role Phone Humberto GRIFFIN, Arlyn Primary Care Provider Se Weinstein Jr REASON FOR VISIT screening Encounters Encounter Location Date Provider Diagnosis [facility] [place] [address] [place] [phone] 08/26/2024 Se David Jr Plan Of Treatment No Information Progress Notes * FARZANA RANKINADOB:1950 (74 yo F)Acc No.[id number]:08/26/2024 COLON WITH MAC Patient:?SHAW RANKIN Provider:?Se David MD :1950???Age:74 Y???Sex:Female D ate:08/26/2024 Address:[address] [place], [place] [phone] Pcp:Arlyn Paul MD Subjective: * Chief Complaints: [...] MD Date:?1 10/27/2023 Generated for Kareni ng/Falorraineg/eTransmitting on:?11/26/2024 11:52 AM EDT
== END 2024-11-26 11:50 | disposition home or self-care (01) ==
LOC: HO.HMCC 10:19
PROVIDERS: PCP Internal Medicine; Visit Provider Internal Medicine
DX: E11.29 Type 2 diabetes mellitus with other diabetic kidney complication (principal); E66.9 Obesity, unspecified; E78.00 Pure hypercholesterolemia, unspecified; Z68.37 Body mass index [BMI] 37.0-37.9, adult; I10 Essential (primary) hypertension

== ENCOUNTER → 2024-11-26 10:18 | Outpatient (BNVA) | payer MEDICARE, MEDICAID, SELFPAY | PROVIDERS: PCP Internal Medicine; Visit Provider Internal Medicine | DX: E11.29 Type 2 diabetes mellitus with other diabetic kidney complication (principal); E66.9 Obesity, unspecified; E78.00 Pure hypercholesterolemia, unspecified; I10 Essential (primary) hypertension | CPT/HCPCS: 96127; 99212 ==

== ENCOUNTER 2025-01-07 12:40 | Outpatient (AMB) | payer MEDICARE, MEDICAID, SELFPAY ==
--- NOTE | 2025-01-07 12:55 | MHC.PC.OV ---
Vital Signs 01/07/25 12:57 01/07/25 13:15 Height 5 ft 1.5 in Weight 201 lb BMI 37.4 BP 140/70 H 135/80 Blood Pressure Location Lt radial Lt brachial Position Sitting Sitting Respiration 16 Pulse 70 Pulse Source Pulse Oximeter Temp 97.8 F Temp Source Oral Pulse Oximetry (%) 99 Oxygen Delivery Method Room Air Intake Visit Reasons: 6 week follow up medication Allergies No Known Allergies Allergy (Verified 01/07/25 13:19) Medication List - Last Reconciled 01/07/25 by Arlyn Paul MD amlodipine 5 mg PO DAILY atorvastatin 20 mg PO DAILY blood sugar diagnostic (FreeStyle Lite Strips) 1 strip miscellaneous .QD carvedilol (Coreg) 12.5 mg PO BID ferrous fumarate 65 mg PO DAILY furosemide 40 mg (2 x 20 mg) PO QAM 90 days hydralazine 100 mg PO DAILY letrozole 2.5 mg PO Q24H mecobalamin (vitamin B12) 1,000 mcg PO DAILY metformin 1,000 mg PO BID 90 days Mounjaro (tirzepatide) 2.5 mg (0.5 mL) subcut QWEEK NS multivitamin 1 tab PO DAILY Tobacco use date assessed: 01/07/25 Fall risk assessment: 1 Fall in past year Last assessed Fall Risk: 01/07/25 Dental Screening Dental Screen Date: 01/07/25 Did you have a dental visit in the last 12 months?: Yes Did you have a dental problem in the last 6 months where you did not have access to dental care?: No Was dental information given to patient?: Patient has dentist HPI 6 week follow up medication HPI Details 74-year-old lady here today for follow-up on her diabetes mellitus. Currently on metformin 1000 mg 1 tablet twice a day with meals, and was switched from Trulicity to Mounjaro 2.5 mg injected subcutaneously once a week on her last visit here approximately 6 weeks ago. Tolerating medicine well, has noted some decrease in appetite and starting Mounjaro but has not lost any weight and fasting blood sugar still goes up as high as 170 mg/dl during the day. 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 Mother Ovarian cancer Brother Diabetes mellitus Brother Diabetes mellitus Maternal Grandfather Throat cancer Social History Household Members: None Housing: Apartment Are you a primary home health care worker to a significant other at home: No Do you presently have visiting nurse or other home services: No Alcohol intake: former Patient Tobacco Use Status: Former Tobacco user Tobacco use type: Cigarette Years Smoked: since 12 yrs old e-Cigarette/Vaping Use: Never Used Second Hand Smoke Exposure: No Advance Directives Date on File: 04/20/21 service: No Current occupational status: retired Cognitive needs: No Hearing needs: No Vision needs: Yes (Glasses) Questionnaire PHQ-9 Over the last 2 weeks, how often have you been bothered by any of the following problems? Depression Screening Interpretation: Negative Depression Screening Done: Yes Source: Developed by Drs. Yasmani Ramos, Keli Bhat, Armando Ghotra and colleagues, with an educational iris from [employer]. Thrive Questionnaire Date Thrive assessed: 11/26/24 Currently or been in a relationship where the following occur: No concerns reported THRIVE Score: 0 MARISA-7 AMB Questionnaire MARISA-7 Date MARISA - 7 assessed: 01/09/24 Source: Developed by Drs. Yasmani Ramos, KeliArmando Araya and colleagues, with an educational iris from [employer]. Review of Systems Const All systems reviewed & are unremarkable except as noted in HPI and below ENT Reports no additional complaints Card Denies chest pain, Denies irregular heart rhythm and Reports leg edema (MILD TO WORDS THE EVENINGS) Resp Reports as per HPI GI Reports no additional complaints Reports no additional complaints Musc Reports no additional complaints Skin/Breast Reports system reviewed and no additional complaints, except as documented Neuro Reports no additional complaints Psych Reports no additional complaints Endo Reports no additional complaints Physical exam (Primary Care) Vital Signs: Last Vital Signs Temp 97.8 F 01/07/25 12:57 Pulse 70 01/07/25 12:57 Resp 16 01/07/25 12:57 BP 135/80 01/07/25 13:15 Pulse Ox 99 01/07/25 12:57 Oxygen Delivery Method Room Air 01/07/25 12:57 BMI result Body Mass Index 37.4 Tobacco/Smoking Status: Tobacco use Status Tobacco use date assessed 01/07/25 01/07/25 13:01 Patient Tobacco Use Status Former Tobacco user 01/07/25 12:57 Tobacco use type Cigarette 01/07/25 12:57 e-Cigarette/Vaping Use Never Used 01/07/25 12:57 Depression Screening Interpretation: Negative Thrive Assessment: Date of Thrive Assessment Date Thrive assessed 11/26/24 01/07/25 12:57 Currently or been in a relationship where the following occur: No concerns reported Const Other: Alert oriented x3 , no acute distress noted , ambulatory with normal gait Orientation/consciousness: patient oriented x3 [facility] Head: Yes normocephalic Face and sinus: Yes face symmetric and No sinus tenderness Mouth: Normal oral and palatal mucosa present, oropharynx normal and moist mucous membranes Eyes General: appearance normal, both eyes and all related structures Neck Other: Supple, no lymphadenopathy, thyroid gland nonpalpable Resp Other: Clear to auscultation bilaterally Cardio Other: S1-S2 present regular rate and rhythm GI Other: Obese, soft, nontender, no mass palpated General: Yes no CVA tenderness Back/Spine/Pelvis Back: no CVA tenderness and No back tenderness Skin General skin exam: no rashes or lesions noted Neuro General: patient oriented x3, moves all extremities and no focal motor deficits Extrem Other: Superficial varicose veins in in both lower extremities General: Yes full ROM, Yes no joint enlargement, Yes no calf tenderness and Yes normal gait Results Reviewed Results Reviewed: Coding Level of Care Code Est Pt Level 3 (17784) Complex EM visit Add On G2211 Diagnoses Type 2 diabetes mellitus with other diabetic kidney complication E11 Assessment & Plan Assessment & Plan (1) Type 2 diabetes mellitus with other diabetic kidney complication: Code(s): . - Type 2 diabetes mellitus with other diabetic kidney complication Category: Medical Plan: Continue with metformin, increase Mounjaro dose to 25 mg injected once a week. Reinforced importance of following recommended diet and getting regular exercise. Will see her back for follow-up in April 2025 and do fasting labs prior to appointment. Orders: Orders Basic Metabolic Panel Fasting 04/11/25. - Type 2 diabetes mellitus with other diabetic kidney complication, E66.9 - Obesity, unspecified, E78.00 - Pure hypercholesterolemia, unspecified, I10 - Essential (primary) hypertension Aspartate Amino Transferase 04/11/25 - Type 2 diabetes mellitus with other diabetic kidney complication, E66.9 - Obesity, unspecified, E78.00 - Pure hypercholesterolemia, unspecified, I10 - Essential (primary) hypertension Hemoglobin A1c 04/11/25. - Type 2 diabetes mellitus with other diabetic kidney complication, E66.9 - Obesity, unspecified, E78.00 - Pure hypercholesterolemia, unspecified, I10 - Essential (primary) hypertension Alanine Aminotransferase 04/11/25. - Type 2 diabetes mellitus with other diabetic kidney complication, E66.9 - Obesity, unspecified, E78.00 - Pure hypercholesterolemia, unspecified, I10 - Essential (primary) hypertension Lipid Panel 04/11/25. - Type 2 diabetes mellitus with other diabetic kidney complication, E66.9 - Obesity, unspecified, E78.00 - Pure hypercholesterolemia, unspecified, I10 - Essential (primary) hypertension Vitamin D 25-OH Total 04/11/25. - Type 2 diabetes mellitus with other diabetic kidney complication, E66.9 - Obesity, unspecified, E78.00 - Pure hypercholesterolemia, unspecified, I10 - Essential (primary) hypertension Vitamin B12 and Folate 04/11/25. - Type 2 diabetes mellitus with other diabetic kidney complication, E66.9 - Obesity, unspecified, E78.00 - Pure hypercholesterolemia, unspecified, I10 - Essential (primary) hypertension Medications: Changed From Mounjaro (tirzepatide) for 4 weeks 2.5 mg (0.5 mL) subcut QWEEK 2 mL 1RF NS E11.29 - Type 2 diabetes mellitus with other diabetic kidney complication, E66.9 - Obesity, unspecified To tirzepatide for 4 weeks 5 mg (0.5 mL) subcut QWEEK 2 mL 4RF E11.29 - Type 2 diabetes mellitus with other diabetic kidney complication, E66.9 - Obesity, unspecified
[2025-01-07 12:57] VITALS: BP 140/70; PULSE 70; RESP 16; TEMP 36.6; O2SAT 99; BMI 37.4
[2025-01-07 13:15] VITALS: BP 135/80
--- OUTSIDE RECORDS SUMMARY | 2025-01-07 14:56 | XMS_ITS ---
Author Organization [facility] Address [address] [place] [address] Care Team Providers Care Dietetic Aide Name Role Phone Humberto GRIFFIN, Arlyn Montgomery Primary Care Provider Un available Black, Mignon Unavailable [phone] Allergies No Known Allergies REASON FOR VISIT [...] Ordered Date Performed Result Body Sit e 29251-CEBGPCJ NAIL, 1-5 05/01/2024 N/A 51592-LWJT SKIN LESIONS, OVER 4 05/01/2024 N/A G1701-WJCWCOGL DYSTROPHIC NAILS ANY # 05/01/2024 N/A Encounters Encounter Location Date Provider Diagnosis [facility] [address] [address] 05/01/2024 Mignon Calhoun Type 2 diabetes mellitus with diabetic polyneuropathy E11.42 and Onychomycosis B35.1 Assessments Encounter Date Diagnosis (ICD Code) Assessment Notes Treatment Notes Treatment Clinical Notes Section Notes 05/01/2024 Type 2 diabetes mellitus with diabetic polyneuropathy (ICD-10 - E11.42) 05/01/2024 Onychomycosis (ICD-10 - B35.1) 05/01/2024 Other Plan Of Treatment Pending Test Test Name Order Date 53281-VYBTBMW NAIL, 1-5 05/01/2024 96314-ZPYX SKIN LESIONS, OVER 4 05/01/20 V8189-MVIBUIEF DYSTROPHIC NAILS ANY # Next Appt Details Follow Up: prn, Reason: Provider Name:Mignon Barbra Lj , 02/16/2025 08:00:00 AM, [address] [place] [address], [phone], Procedure Notes * Category Sub-Category Detail Notes Keratoma Treatment Parring or Cutting o f Benign Hyperkeratotic Lesion(s) 93349 ( >4 lesions) - The Benign hyperkeratotic [...] as necessary. Patient chooses, no pharmaceutical tx (21976) Nail Reduction Nail Reduction Trimming of dyst rophic nails performed to reduce/remove overall nail length and girth, by manual and electrical means with use of a nail nipper and/or dremel, to more viable healthy nail plate or bed tissue 6-10 (G0127) Progress Notes * Rosalia RANKIN ADOB: 9 (73 yo F)Acc No.[id number]:05/01/2024 Progress Note Patient:?Rosalia Rankin Provider:?Mignon Calhoun DPM :1950???Age:73 Y???Sex:Female D ate:05/01/2024 Address:[address] [place], [place] [address] Pcp:Дмитрий Saravia Subjective: * Chief Complaints: * ???At Risk Footcare * HPI: ???Painful Nails:?Pt States Last PCP Visit:?Date:?04/21/2024 * Medical History:? * Surgical History:?Left renal calculus s/p remioval and left ureteral stent placement 01/13/2014left ureteral stent placement * Hospitalization/Major Diagno stic Procedure:?cellulitis hospitalized twice for 5 days in total Oct 2018[facility] [place] High Blood Pressure 01/2021 * Family History:?Mother: [...] ?no Exercise. ?Marital status: single. 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 * Medications:?TakingLetrozole 2.5 MG Tablet 1 tablet [...] (Primary)?2.?Onychomycosis - B35.1? Plan: * Treatment: 2.?Onychomycosis?Procedure: 81280-QROTMNE NAIL, 1-5 * Procedures:?Debride Nails 1-5:?Procedure:?Nail debridement performed extensively to reduce/remove overall nail length and girth, subungual debris, and necrotic tissue, by manual and electrical means by use of a nail nipper and/or dremel, to more viable healthy nail plate or bed tissue 1-5. Silver nitrate used for any petechial bleeding as necessary. Patient chooses, no pharmaceutical tx (66973).?Keratoma Treatment:?Parring or Cutting of Benign Hyperkeratotic Lesion(s)?78775 ( >4 lesions) - The Benign hyperkeratotic lesions, as described above were pared, and/or cut utilizing a sterile #15 blade, tissue nippers, and/or dremel.?Nail Reduction:?Nail Reduction?Trimming of dystrophic nails performed to reduce/remove overall nail length and girth, by manual and electrical means with use of a nail nipper and/or dremel, to more viable healthy nail plate or bed tissue 6-10 (G0127).? * Procedure Codes:?76592 TRIM SKIN LESIONS, OVER 4, Modifiers: XS 74703 DEBRIDE NAIL, 1-5, Modifiers: XS G0127 TRIMMING DYSTROPHIC NAILS ANY #, Modifiers: XS * Follow Up:?prn * Images: * Sign off status: Completed true * Provider:?Mignon Calhoun DPM Date:?2023 Generated for Marc cole/Rebecca/Emmanuelitting on:?01/07/2025 02:56 PM EDT History and Physical Notes * HPI [...]
--- OUTSIDE RECORDS SUMMARY | 2025-01-07 14:56 | XMS_ITS | Patient Health Record ---
Author Organization [facility] Address [address] [place] [address] Care Team Providers Care Computer Instructor Name Role Phone Humberto GRIFFIN, Arlyn Montgomery Primary Care Provider Un available BlackShahramMignon Unavailable [phone] Allergies No Known Allergies Results Component Value [...] Problem Acquired hammer toe of right foot (6060993147674212 ) Other hammer toe(s) (acquired), right foot (M20.41) Active confirmed Problem Acquired hammer toe of left foot (3706433145574068 ) Other hammer toe(s) (acquired), left foot (M20.42) Active confirmed Problem Localized, primary osteoarthritis of the ankle and/or foot (917071488) Primary osteoarthritis, left ankle and foot (M19.072) Active confirmed Problem Polyneuropathy due to type 2 diabetes mellitus (251573824) Type 2 diabetes mellitus with diabetic polyneuropathy (E11.42) Active confirmed Vital Signs Blood pressure diastolic 62 mm Hg 11/13/2024 Height 5ft3in in 11/13/2024 Blood pressure systolic 111 mm Hg 11/13/2024 Weight 195 lbs 11/13/2024 BMI 34.54 kg/m2 11/13/2024 Procedures Procedure Date Ordered Date Performed Result Body Sit e 40481-VMKZSQM NAIL, 1-5 01/14/2024 N/A 64447 I&D ABSCESS- SIMPLE,SINGLE 01/14/2024 N/A 09543-PWJR SKIN LESIONS, OVER 01/14/2024 N/A G7204-NNWGGKNP DYSTROPHIC NAILS ANY # 01/14/2024 N/A 80447-ECDDYQX NAIL, 1-5 05/01/2024 N/A 97380-BKSH SKIN LESIONS, OVER 4 05/01/2024 N/A F5610-ULBZLLKH DYSTROPHIC NAILS ANY # 05/01/2024 N/A 33027-RICHVXA NAIL, 1-5 08/04/2024 N/A 28957-GXXB SKIN LESIONS, OVER 4 08/04/2024 N/A F1106-MYBHONMN DYSTROPHIC NAILS ANY # 08/04/2024 N/A 04029-KVKORFA NAIL, 1-5 11/13/2024 N/A 41627-AUYG SKIN LESIONS, OVER 4 11/13/2024 N/A C1986-RQEKWCMR DYSTROPHIC NAILS ANY # 11/13/2024 N/A Encounters Encounter Location Date [facility] [address] 01/14/2024 Mignon Black Type 2 diabetes mellitus with diabetic polyneuropathy E11.42 ; Onychomycosis B35.1 and Abscess of toe, right L02.[address] [address] 05/01/2024 Mignon Black Type 2 diabetes mellitus with diabetic polyneuropathy E11.42 and Onychomycosis B35.[address] [address] 08/04/2024 Mignon Black Type 2 diabetes mellitus with diabetic polyneuropathy E11.42 and Onychomycosis B35.[address] [address] 11/13/2024 Mignon Black Type 2 diabetes mellitus [...] Treatment Pending Test Test Name Order Date 89769-WPQGHSY NAIL, 6 OR MORE 10/11/2015 54518-KGYLZSI NAIL, 6 OR MORE 01/17/2016 76873-ENVFYPD NAIL, 6 OR MORE 10/13/2019 47921-QRSIIMN NAIL, 6 OR MORE 04/22/2020 51531-PTPZKJQ NAIL, 6 OR MORE 07/26/2020 17182-VBKBQVJ NAIL, 6 OR MORE 01/13/2021 92486-LVBVNDU NAIL, 6 OR MORE 04/18/2021 20349-WSLODYO NAIL, 6 OR MORE 08/08/2021 37170-LMMXDFP NAIL, 1-5 07/02/2023 10689-EQNHLOH NAIL, 1-5 10/08/2023 02573-GRCGMPE NAIL, 1-5 01/14/2024 86250-CKHWOFU NAIL, 1-5 05/01/2024 64566-PJABLBO NAIL, 1-5 08/04/2024 90981-GZPSLOU NAIL, 1-5 11/13/2024 42283-Eujqjnvj Plate 03/26/2023 38420-Vinftxcm Plate 04/18/2021 03061 I&D ABSCESS- SIMPLE,SINGLE 022 30489 I&D ABSCESS- SIMPLE,SINGLE 024 89283-DRHC SKIN LESIONS, OVER 4 07/02/20 23 04855-RIAM SKIN LESIONS, OVER 4 01/14/20 24 97936-AXTT SKIN LESIONS, OVER 4 03/26/20 23 37962-JHEY SKIN LESIONS, OVER 4 10/08/19 24 76120-JIYO SKIN LESIONS, OVER 4 12/15/19 23 99980-NZQB SKIN LESIONS, OVER 4 06/19/20 22 53093-FBRF SKIN LESIONS, OVER 4 03/16/20 22 45769-UAPG SKIN LESIONS, OVER 4 11/29/19 22 69412-OQCC SKIN LESIONS, OVER 4 08/08/20 21 30698-ZJPH SKIN LESIONS, OVER 4 04/18/20 21 03122-PVZK SKIN LESIONS, OVER 4 01/14/20 21 49773-QSDG SKIN LESIONS, OVER 4 07/26/20 20 06817-XZEP SKIN LESIONS, OVER 4 04/22/20 20 25186-LJXH SKIN LESIONS, OVER 4 01/17/20 16 11390-ZIZR SKIN LESIONS, OVER 4 10/13/19 20 07968-SRVF SKIN LESIONS, OVER 4 11/13/19 25 15188-IEXW SKIN LESIONS, OVER 4 08/04/20 24 29190-HNNS SKIN LESIONS, OVER 4 05/01/20 24 S9845-GQZEYYSC DYSTROPHIC NAILS ANY # U1438-WWYEIWQV DYSTROPHIC NAILS ANY # X0539-LFHUWOLY DYSTROPHIC NAILS ANY # P0924-MAJYNDKQ DYSTROPHIC NAILS ANY # W6537-XEXLPMTI DYSTROPHIC NAILS ANY # F8256-DOPMVPZO DYSTROPHIC NAILS ANY # W1952-MGUYEXXJ DYSTROPHIC NAILS ANY # T6564-DWMZHGQJ DYSTROPHIC NAILS ANY # S1995-BUEXCTBK DYSTROPHIC NAILS ANY # Next Appt Details Provider Name:Mignon Calhoun , 02/16/2025 08:00:00 AM, [address] [place], [address], Insurance Providers Payer Name Payer Address Payer Phone Subscriber Number Group Number Insured Name Patient Relationship to Insured Coverage Start Date Coverage End Date Medicare [facility] [address] [place] [address] [id number] Rosalai Talavera Self - patient is the insured [employer] [address] [place] [address] [id number] Rosalia Talavera Self - patient is the insured Medical (General) History Medical History History ICD Code Diabetic type ll High blood pressure Measles Sinus conditions Cellulitis Anemia Surgical History Surgery Date(Month/Year) Left renal calculus s/p remioval and lef t ureteral stent placement 01/13/2014 left ureteral stent placement Hospitalization History Reason Date(Month/Year) [facility] [place] High Blood Pressure 01/2021 cellulitis hospitalized twice for 5 days in total Oct 2018
--- OUTSIDE RECORDS SUMMARY | 2025-01-07 14:56 | XMS_ITS ---
Author Organization [facility] Address [address] [place] [address] Care Team Providers Care Furniture Repair Technician Name Role Phone Humberto GRIFFIN, Arlyn Montgomery Primary Care Provider Un available Black, Mignon Unavailable [phone] Allergies No Known Allergies REASON FOR VISIT [...] Ordered Date Performed Result Body Sit e 99880-KZSWGWR NAIL, 1-5 08/04/2024 N/A 80700-SJVZ SKIN LESIONS, OVER 4 08/04/2024 N/A G8075-NNKFAMWP DYSTROPHIC NAILS ANY # 08/04/2024 N/A Encounters Encounter Location Date Provider Diagnosis [facility] [address] [address] 08/04/2024 Mignon Calhoun Type 2 diabetes mellitus with diabetic polyneuropathy E11.42 and Onychomycosis B35.1 Assessments Encounter Date Diagnosis (ICD Code) Assessment Notes Treatment Notes Treatment Clinical Notes Section Notes 08/04/2024 Type 2 diabetes mellitus with diabetic polyneuropathy (ICD-10 - E11.42) 08/04/2024 Onychomycosis (ICD-10 - B35.1) Plan Of Treatment Pending Test Test Name Order Date 13976-HLWMVJU NAIL, 1-5 08/04/2024 80722-RZAR SKIN LESIONS, OVER 4 08/04/20 24 H8886-TMRNVLAK DYSTROPHIC NAILS ANY # Next Appt Details Follow Up: prn, Reason: Provider Name:Mignon Calhoun , 02/16/2025 08:00:00 AM, [address] [place] [address], [phone], Procedure Notes * Category Sub-Category Detail Notes Keratoma Treatment Parring or Cutting o f Benign Hyperkeratotic Lesion(s) 80607 ( >4 lesions) - The Benign hyperkeratotic [...] use of a nail nipper and/or dremel-type fusion juncture grinder, to a more viable healthy nail plate or bed tissue 1-5. Silver nitrate used for any petechial bleeding as necessary. Definitive antifungal treatment options have been reviewed and discussed with the patient. The patient chooses, no pharmaceutical tx - [address]13 Nail Reduction Nail Reduction Trimming of dyst rophic nails performed to reduce/remove overall nail length and girth, by manual and electrical means with use of a nail nipper and/or dremel, to more viable healthy nail plate or bed tissue 6-10 (G0127) Progress Notes * Rosalia RANKIN ADOB: 9 (74 yo F)Acc No.[id number]:08/04/2024 Progress Note Patient:Rosalia GRAVES Provider:?Mignon Calhoun DPM :1950???Age:74 Y???Sex:Female D ate:08/04/2024 Address:[address] [place] [address] Pcp:Дмитрий Saravia Subjective: * Chief Complaints: * [...] twice for 5 days in total Oct 2018[facility] [place]- High Blood Pressure 01/2021 [...] (Primary)???2.?Onychomycosis - B35.1??? Plan: * Treatment: 2.?Onychomycosis?Procedure: 25453-FUIIYEM NAIL, 1-5 * Procedures:?Debride Nails 1-5:?Procedure:?Performance of this nail treatment by a nonprofessional would put this patients foot and overall health at risk. Therefore, debridement to affected nail(s), as described in exam, was performed extensively to reduce/remove overall nail length, girth, thickness, subungual debris, and necrotic tissue, by manual and/or electrical means through the use of a nail nipper and/or dremel-type fusion juncture grinder, to a more viable healthy nail plate or bed tissue 1-5. Silver nitrate used for any petechial bleeding as necessary. Definitive antifungal treatment options have been reviewed and discussed with the patient. The patient chooses, no pharmaceutical tx - 12254.?Keratoma Treatment:?Parring or Cutting of Benign Hyperkeratotic Lesion(s)?67911 ( >4 lesions) - The Benign hyperkeratotic lesions, as described above were pared, and/or cut utilizing a sterile #15 blade, tissue nippers, and/or dremel.?Nail Reduction:?Nail Reduction?Trimming of dystrophic nails performed to reduce/remove overall nail length and girth, by manual and electrical means with use of a nail nipper and/or dremel, to more viable healthy nail plate or bed tissue 6-10 (G0127).? * Procedure Codes:?08519 TRIM SKIN LESIONS, OVER 4, Modifiers: XS 25371 DEBRIDE NAIL, 1-5, Modifiers: XS G0127 TRIMMING [...] Calhoun DPM Date:?2023 Generated for Marc cole/Rebecca/eTransmitting on:?01/07/2025 02:55 PM EDT History and Physical Notes * [...] T5, SUB MTH (s), 5, B/L Orthopedic FOOTWEAR EVALUATION: Non-Diabetic with no OT General Examination GENERAL [...] iminished Sensory and motor testing performed:: [facility] diminished Pedal pulse taking performed:: 2+ Footwear [...]
--- OUTSIDE RECORDS SUMMARY | 2025-01-07 14:56 | XMS_ITS ---
Author Organization [facility] Address [address] [place] [address] Care Team Providers Care Laboratory Director Name Role Phone Humberto GRIFFIN, Arlyn Primary Care Provider Se Weinstein Jr Unavailable REASON FOR VISIT screening Encounters Encounter Location Date Provider Diagnosis [facility] [facility] [address] [place], [place] [phone] 09/02/2024 Se David Jr Colon cancer screening Z12.11 Assessments Encounter Date Diagnosis (ICD Code) Assessment Notes Treatment Notes Treatment Clinical Notes Section Notes 09/02/2024 Colon cancer screening (ICD-10 - Z12.11) Plan Of Treatment No Information Progress Notes * MARQUITA RANKINB:1950 (74 yo F)Acc No.[id number]:09/02/2024 COLON WITH MAC Patient:?SHAW RANKIN Provider:?Se David MD :1950???Age:74 Y???Sex:Female D ate:09/02/2024 Address:[address] [place], [place] [phone] Pcp:Arlyn Paul MD Subjective: * Chief Complaints: * ???1. Screening. * Medical History:? Objective: * Vitals:? Assessment: * Assessment: 1.?Colon cancer screening - Z12.11 (Primary)??? Plan: * Treatment: * Procedure Codes:?85917 DIAGN OSTIC COLONOSCOPY, 0529F INTRVL 3+YRS PTS CLNSCP DOCD, 0528F RCMND FLW-UP 10 YRS DOCD * * The named appointment provid er may or may not be the originator of this progress note, and it is not deemed complete until electronically signed by the appointment provider. Sign off status: Pending * Provider:?Se David MD Date:?1 11/03/2023 Generated for Marc cole/Rebecca/Carli on:?01/07/2025 02:56 PM EDT
--- OUTSIDE RECORDS SUMMARY | 2025-01-07 14:57 | XMS_ITS ---
Author Organization [facility] Address [address] [place] [address] Care Team Providers Care Clinical Lab Clerk Name Role Phone Humberto GRIFFIN, Arlyn Primary Care Provider Se Weinstein Jr REASON FOR VISIT screening Encounters Encounter Location Date Provider Diagnosis [facility] [place] Out[place] [address] [place] [phone] 08/26/2024 Se David Jr Plan Of Treatment No Information Progress Notes * FARZANA RANKINADOB:1950 (74 yo F)Acc No.[id number]:08/26/2024 COLON WITH MAC Patient:?SHAW RANKIN Provider:?Se David MD :1950???Age:74 Y???Sex:Female D ate:08/26/2024 Address:[address] [place], [place] [phone] Pcp:Arlyn Paul MD Subjective: * Chief Complaints: [...] MD Date:?1 10/27/2023 Generated for Kareni ng/Falorraineg/eTransmitting on:?01/07/2025 02:57 PM EDT
--- OUTSIDE RECORDS SUMMARY | 2025-01-07 14:57 | XMS_ITS | Patient Health Record ---
Author Organization [facility] Address [address] [place] [address] Care Team Providers Care Sales Representative Publications Name Role Phone Humberto GRIFFIN, Arlyn Primary Care Provider Se Weinstein Jr Unavailable [phone] Allergies No Known Allergies Results Component Value Reference Range Notes Glucose, Whole Blood Reviewed date:09/02/2024 03:11:19 PM Interpretation: Performing Lab:[facility], [address] [place] [phone] Notes/Report: Glucose, Whole Blood 156 60-115 mg/dL METER # : [id number] Reason For Referral No Information Medications Medication [...] Problem Status W/U Status Risk Notes Problem 828409038 Colon cancer screening (Z12.11) Active confirmed Problem 195988214774548 residential (current) use of oral 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 drugs (Z79.84) Active confirmed Problem 47351834986925708 residential current use of diuretic (Z79.899) Active confirmed Vital Signs Temperature 96.9 degrees Fahrenheit 07/21/2024 Blood pressure diastolic 00 mm Hg 07/21/2024 Height 61.5 in 07/21/2024 Blood pressure systolic 000 mm Hg 07/21/2024 Weight 195 lbs 07/21/2024 BMI 36.24 kg/m2 07/21/2024 Encounters Encounter Location Date Provider [place] [facility] [place] [address] [place] [phone] 09/02/2024 Se David Jr Colon cancer screening Z12.11 [facility] [address] [place] [address] Drive [address] [place] [phone] 07/21/2024 Se David Jr Colon cancer screening Z12.11 ; residential (current) use of oral 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 drugs Z79.84 and residential current use of diuretic Z79.899 [facility] [address] [place] [phone] 07/22/2024 Se David Jr Assessments Encounter Date [...] metformin the day before the procedure. 07/21/2024 residential (current) use of oral 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 drugs (ICD-10 - Z79.84) We discussed colonoscopy today. We discussed risks and benefits of the procedure today. She understands these and agrees to proceed. She is advised to stop Trulicity and iron one week before the procedure, furosemide and metformin the day before the procedure. 07/21/2024 residential current use of diuretic (ICD-10 - Z79.899) [...] [place] [address] [place] [address] [id number] SHAW RANKIN Self - patient is the insured [employer] [address] [place] [address] [id number] SHAW RANKIN Self - patient is the insured Medical (General) History Medical History History ICD Code Breast cancer/bilateral lumpectomies Diabetes mellitus type 2 Varicose veins Hyperlipidemia Hypertension Restrictive lung disease Elevated BMI Colonoscopy 11/28, normal, ten-year follo wup Surgical History Surgery Date(Month/Year)
== END 2025-01-07 13:41 | disposition home or self-care (01) ==
LOC: HO.HMCC 12:41
PROVIDERS: PCP Internal Medicine; Visit Provider Internal Medicine
DX: E11.29 Type 2 diabetes mellitus with other diabetic kidney complication (principal)

== ENCOUNTER → 2025-01-07 12:40 | Outpatient (BNVA) | payer MEDICARE, MEDICAID, SELFPAY | PROVIDERS: PCP Internal Medicine; Visit Provider Internal Medicine | DX: E11.29 Type 2 diabetes mellitus with other diabetic kidney complication (principal) | CPT/HCPCS: 99212 ==

== ENCOUNTER 2025-02-27 11:04 | Outpatient (AMB) | payer MEDICARE, MEDICAID, SELFPAY ==
--- NOTE | 2025-02-27 11:11 | MHC.OFFVIS ---
Vital Signs 02/27/25 11:26 Height 5 ft 1.5 in Weight 194 lb BMI 36.1 BP 130/82 Blood Pressure Location Lt brachial Position Sitting Intake Visit Reasons: 6 month follow up, breast exam Intake Note: Patient is seen in office for 6 month follow up visit, breast exam. 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 Pilot: Drone Pilot Present Accompanied by: Self / Same As Patient Allergies No Known Allergies Allergy (Verified 02/27/25 11:28) Medication List - Last Reconciled 02/27/25 by Raheem Lombardo MD amlodipine 5 mg PO DAILY atorvastatin 20 mg PO DAILY blood sugar diagnostic (FreeStyle Lite Strips) 1 strip miscellaneous .QD carvedilol (Coreg) 12.5 mg PO BID ferrous fumarate 65 mg PO DAILY furosemide 40 mg (2 x 20 mg) PO QAM 90 days hydralazine 100 mg PO DAILY letrozole 2.5 mg PO Q24H mecobalamin (vitamin B12) 1,000 mcg PO DAILY metformin 1,000 mg PO BID 90 days multivitamin 1 tab PO DAILY tirzepatide 5 mg (0.5 mL) subcut QWEEK HPI Comments Details: 74-year-old female patient returning for follow-up breast examination for a 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 She underwent a left breast lumpectomy with needle localization on 10/28/2019 ([facility]). Margins of resection were negative. She was subsequently evaluated by Dr. Graves and by Radiation Oncology. She decided to avoid both radiation therapy and hormonal therapy. She underwent diagnostic left breast mammography on 05/02/2020 which was negative suspicious findings (BI-RADS 2). Bilateral diagnostic mammography on 10/13/2020 revealed no mammographic evidence of malignancy (BI-RADS 2). Diagnostic bilateral mammography and ultrasound on 10/17/2021 revealed no significant changes in the left breast however a new macro lobulated density measuring less than 1 cm was identified in the 12 o'clock position of the right breast, new from the prior mammogram, felt to be suspicious for malignancy. She subsequently underwent ultrasound-guided core biopsy on 10/18/2021. Unfortunately pathology results revealed invasive carcinoma with mixed ductal and lobular features, MS BR grade 2-3, ER positive, WV positive, HER2 Ken equivocal (FISH results will be addended), over 20% by Ki-67 immunostaining. She underwent right breast lumpectomy with needle localization, right sentinel node biopsy 11/30/2021 (J). Pathology revealed -?Invasive carcinoma with mixed ductal and lobular features, MSBR grade 2, 0.9 cm; pT1b N0(sn)(i-), 0/4 lymph nodes with metastatic disease, ER/ WV positive, HER2 Ken negative. Margins were negative after re-excision at the time of primary procedure. She was evaluated by Dr. Graves. She did not require radiation therapy but was placed on letrozole 2.5 mg p.o. daily. Patient underwent genetic testing on 09/25/2022 which revealed no clinically significant mutations were identified on the testing.? 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 No recommendations were made for additional screening or testing.? Her most recent mammogram dated 10/28/2024 revealed no significant changes from the prior mammogram (BI-RADS 2). She denies any ongoing breast symptoms at this time. She is scheduled for a follow-up mammogram on 11/03/2025. 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 Mother Ovarian cancer Brother Diabetes mellitus Brother Diabetes mellitus Maternal Grandfather Throat cancer Social History Household Members: None Housing: Apartment Are you a primary child care centre director to a significant other at home: No Do you presently have visiting nurse or other home services: No Alcohol intake: former Patient Tobacco Use Status: Former Tobacco user Tobacco use type: Cigarette Years Smoked: since 12 yrs old e-Cigarette/Vaping Use: Never Used Second Hand Smoke Exposure: No Advance Directives Date on File: 04/20/21 service: No Current occupational status: retired Cognitive needs: No Hearing needs: No Vision needs: Yes (Glasses) Review of Systems Const All systems reviewed & are unremarkable except as noted in HPI and below Physical Exam Const General: no acute distress and well developed Nutritional Appearance: well nourished Orientation/consciousness: patient oriented x3 Limitations: no limitations Neck Neck: Yes no lymphadenopathy Chest Other: Right breast with a well-healed incision in the upper outer quadrant, softer from prior examination. Mild tenderness to palpation. No other new skin change, nipple discharge, nipple retraction, palpable mass, or enlarged lymph nodes. Left breast with no skin change, nipple discharge retraction, palpable mass or enlarged lymph nodes. Chest/axillae images: 1. 2. Resp Effort & Inspection: normal respiratory effort GI Inspection: Yes normal to inspection Skin General skin exam: no rashes or lesions noted Neuro Other: Mobility Assessment: 1. 3 meter assessment time (seconds) 5 2. 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 Pathology revealed mixed invasive ductal and lobular features. She was evaluated by Dr. Graves and started on letrozole 2.5 mg q.day. She did not require radiation therapy. She feels well today and reports some pain in the right breast in the upper outer quadrant near the incision. On examination her wounds are well healed with no evidence of recurrent disease in either breast. She does have a hypertrophic scar the breast on the right side which has softened. I asked her to return in approximately 6 months for follow-up breast examination. Her mammogram of 10/28/2024 reveals no significant change from the prior mammogram (BI-RADS 2). Follow-up mammogram in 1 year is recommended. 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
[2025-02-27 11:26] VITALS: BP 130/82; BMI 36.1
--- OUTSIDE RECORDS SUMMARY | 2025-02-27 12:10 | XMS_ITS ---
Author Organization [facility] Address [address] [place] [id number] Care Team Providers Care Bit Sharpener Name Role Phone Humberto GRIFFIN, Arlyn Primary Care Provider Se Weinstein Jr Unavailable Encounters Encounter Location Date Provider Diagnosis [facility] [address] [place] [id number] 07/22/2024 Se David Jr Plan Of Treatment No Information Progress Notes * FARZANA RANKINCELSAB:1950 (74 yo F)Acc No.[id number]:07/22/2024 Patient:?SHAW RANKIN :1950???Age:74 Y???Sex:Female Address:[address] [place] [id number] * true * Date:? Generated for Kareni kelsey/Rebecca/eTransmitting on:?02/27/2025 12:10 PM EDT
== END 2025-02-27 11:42 | disposition home or self-care (01) ==
LOC: HO.HGS 11:05
PROVIDERS: PCP Internal Medicine; Visit Provider Surgery
DX: C50.911 Malignant neoplasm of unspecified site of right female breast (principal)
CPT/HCPCS: 99213; G2211

== ENCOUNTER → 2025-02-27 11:04 | Outpatient (BNVA) | payer MEDICARE, MEDICAID, SELFPAY | PROVIDERS: PCP Internal Medicine; Visit Provider Surgery | DX: D05.81 Other specified type of carcinoma in situ of right breast (principal) | CPT/HCPCS: 99212 ==

== ENCOUNTER 2025-04-13 10:23 | Outpatient (AMB) | payer MEDICARE, SELFPAY ==
--- OUTSIDE RECORDS SUMMARY | 2024-09-02 04:20 | XMS_ITS ---
Author Organization [facility] Address [address] [place] [address] Care Team Providers Care Car Retarder Operator Name Role Phone Humberot GRIFFIN, Arlyn Primary Care Provider Se Weinstein Jr Unavailable [phone] REASON FOR VISIT screening Encounters Encounter Location Date Provider Diagnosis [facility] [place] [address] [place] [phone] 09/02/2024 Se David Jr Colon cancer screening Z12.11 Assessments Encounter Date Diagnosis (ICD Code) Assessment Notes Treatment Notes Treatment Clinical Notes Section Notes 09/02/2024 Colon cancer screening (ICD-10 - Z12.11) Plan Of Treatment No Information Progress Notes * FARZANA RANKINCELSAB:1950 (74 yo F)Acc No.[id number]:09/02/2024 COLON WITH MAC Patient: SHAW BRAUN Provider: Sam David MD :1950 A ge:74 Y S ex:Female Date:09/02/2024 Address:[address] [place], [place] [phone] Pcp:Arlyn Paul MD Subjective: * Chief Complaints: [...] 11/03/2023 Generated for Marc cole/Rebecca/Carli on: 0 04/13/2025 11:30 AM EDT
[2025-04-13 10:39] VITALS: BP 128/60; PULSE 72; BMI 34.4
--- NOTE | 2025-04-13 10:39 | A.OFFVIS_ITS ---
Vital Signs 04/13/25 10:39 Height 5 ft 3 in Weight 194 lb 0.108 oz BMI 34.4 BP 128/60 Blood Pressure Location Lt brachial Position Sitting Pulse 72 Pulse Source Monitor Intake Visit Reasons: 1 yr f/up Allergies No Known Allergies Allergy (Verified 03/05/25 13:25) Medication List - Last Reconciled 04/13/25 by Colby Agosto MD amlodipine 5 mg PO DAILY atorvastatin 20 mg PO DAILY blood sugar diagnostic (FreeStyle Lite Strips) 1 strip miscellaneous .QD carvedilol (Coreg) 12.5 mg PO BID ferrous fumarate 65 mg PO DAILY furosemide 40 mg (2 x 20 mg) PO QAM 90 days hydralazine 100 mg PO DAILY letrozole 2.5 mg PO Q24H mecobalamin (vitamin B12) 1,000 mcg PO DAILY metformin 1,000 mg PO BID 90 days multivitamin 1 tab PO DAILY tirzepatide 5 mg (0.5 mL) subcut QWEEK HPI Comments Details: Rosalia returns for follow-up. In the past, she has been seen regarding leg swelling. She has had this for a long time. Many vascular risk factors including diabetes, hypertension, dyslipidemia. History of smoking but nothing recently. She was morbidly obese but it seems that she has lost lot of weight recently. Almost 40 lb or so. Overall, she states she is feeling quite good. Leg swelling is much improved. Blood pressure is also better. She was taking hydralazine 100 mg 3 times a day but currently taking only once a day. 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 Mother Ovarian cancer Brother Diabetes mellitus Brother Diabetes mellitus Maternal Grandfather Throat cancer Social History Household Members: None Housing: Apartment Are you a primary child care supervisor to a significant other at home: No Do you presently have visiting nurse or other home services: No Alcohol intake: former Patient Tobacco Use Status: Former Tobacco user Tobacco use type: Cigarette Years Smoked: since 12 yrs old e-Cigarette/Vaping Use: Never Used Second Hand Smoke Exposure: No Advance Directives Date on File: 04/20/21 service: No Current occupational status: retired Cognitive needs: No Hearing needs: No Vision needs: Yes (Glasses) Review of Systems Const Denies weakness ENT Denies dizziness Card Denies chest pain, Denies chest pain with activity, Denies syncope, Denies rapid heart rate, Denies pedal edema, Denies edema, Denies leg edema, Denies lightheadedness, Denies palpitations, Denies dyspnea, Denies dyspnea on exertion and Denies orthopnea Resp Denies cough, Denies dyspnea and Denies dyspnea on exertion GI Denies hematochezia and Denies change in stool character Musc Denies abnormal gait, Denies muscle cramps, Denies muscle weakness, Denies numbness, Denies radiating pain into limb and Denies tingling Neuro Denies abnormal gait, Denies dizziness, Denies syncope, Denies numbness, Denies tingling and Denies weakness Endo Denies palpitations Physical Exam Vital Signs: Last Vital Signs Pulse 72 04/13/25 10:39 BP 128/60 04/13/25 10:39 BMI result Body Mass Index 34.4 Const General: comfortable and no acute distress Orientation/consciousness: patient oriented x3 HEENT Other: Unremarkable Head: Yes normal to inspection Neck Neck: Yes normal visual inspection Chest Chest palpation & inspection: normal inspection of the chest Resp Auscultation: clear to auscultation bilaterally Cardio Palpation: normal PMI Heart sounds: S1 normal heart sound present, S2 normal heart sound present, no gallops, no murmurs and no rubs GI Palpation (GI): Soft to palpation Back/Spine/Pelvis Other: unremarkable Skin General skin exam: no rashes or lesions noted Neuro General: patient oriented x3 Extrem Other: 1 to utmost 2+ leg swelling. General: Yes normal to inspection Psych Mental Status: mental status grossly normal Office Procedures EKG Details: EKG with underlying sinus rhythm at 72/Min; IL prolongation to 244 milliseconds; no ischemic changes; [place]. [id number], Complete Assessment & Plan Assessment & Plan (1) Chronic right heart failure: Code(s): I50.812 - Chronic right heart failure Category: Medical Plan: Mostly all related to weight. As the weight is improving, leg swelling is also better. Hence may cut back on diuretics. She will try to take half the usual dose and see how she feels. Cardiac testing- Echocardiogram with LVEF of 65-70%. Mild diastolic dysfunction with indeterminate filling pressures. Otherwise unremarkable. Myocardial perfusion imaging without any clear ischemia or other abnormalities. (2) Morbid obesity: Code(s): E66.01 - Morbid (severe) obesity due to excess calories Category: Medical Plan: Has lost more than 40 lb over the last few years. Continue to do so. (3) Essential hypertension: Code(s): I10 - Essential (primary) hypertension Category: Medical Plan: Continue carvedilol. We can go up on the amlodipine dose to 10 mg daily. Stop the hydralazine completely- she is currently taking 100 mg once a day. (4) Type 2 diabetes mellitus with unspecified complications: Code(s): E11.8 - Type 2 diabetes mellitus with unspecified complications Category: Medical Plan: Most recent hemoglobin A1c is 7.1%. Reasonable. On Metformin, Tirzepatide. Plan Discussion Notes During the visit, we discussed the patient's current medication regimen and the need to adjust her antihypertensive therapy to better manage her blood pressure. I explained the importance of regular blood pressure monitoring and the potential benefits of optimal weight and diabetes management. The patient was advised to return for a follow-up in six months to evaluate her progress and make any necessary adjustments to her treatment plan. Patient was informed and verbally consented to the use of an ambient scribe for clinic note documentation during this visit. Medications: New amlodipine 10 mg PO DAILY 90 tabs 3RF Discontinued amlodipine Discontinued Reason: Doctor's Order 5 mg PO DAILY 90 tabs 3RF Patient Instructions: - Adjust amlodipine dosage to 10 mg once daily for blood pressure control. - Monitor blood pressure regularly and report any significant changes. - Schedule a follow-up appointment in six months. Coding Level of Care Code Est Pt Level 4 (86256) Complex EM visit Add On G2211 Diagnoses Chronic right heart failure I50.812 Morbid obesity E66.01 Essential hypertension I10 Type 2 diabetes mellitus with unspecified complications E11.8 CPT Codes EKG - CPT: 33521-[id number], Complete ([id number])
--- OUTSIDE RECORDS SUMMARY | 2025-04-13 11:30 | XMS_ITS | Patient Health Record ---
Author Organization [facility] Address [address] [place] [address] Care Team Providers Care Art History Professor Name Role Phone Humberto GRIFFIN, Arlyn Montgomery Primary Care Provider Un available Black, Mignon Unavailable [phone] Allergies No Known Allergies Results Component Value [...] (HH) 7.0 HEMOGLOBIN A1C (GLYCOHEMOGLO BIN) Reviewed date:02/16/2025 08:10:32 AM Interpretation: Performing Lab: Notes/Report: HEMOGLOBIN A1C % (HH) 7.0 Reason For Referral No Information Medications Medication SIG (Take, Route, Frequency, Duration) Notes Start Date End Date Status Fluticasone Propionate 50 MCG/ACT 1 spray in each nostril Nasally Once a day Not-Taking Mounjaro Active Letrozole 2.5 MG 1 tablet Orally Once a day; Duration: 30 day(s) Active Vitamin B12 Active Extra Depth Orthopedic Shoes (1 Pair) with Customized Heat Molded Multidensity Innersoles (3 Pair) as directed Dx: NIDDM/Polyneuropathy (E11.42), Hammertoe Foot Deformity (M20.41,M20.42), Preulcerative Skin Lesion(s) (L85.1 04/18/2021 Active Tubular compression stockings wear daily 12/14/2022 Not-Taking zzzCompression Stockings 20-30mm Hg . . .; Duration: 90 days Not-Taking Centrum Not-Taking Ferretts Not-Taking FreeStyle Lite Test 1 as directed to ski n twice a day for diabetes mellitus 250; Duration: 30 days 10/16/2013 Not-Taking Glucosamine Not-Taki ng Probiotic Not-Taking Cranberry Not-Taking amLODIPine Besylate 5 MG as directed Orally Once a day Active Atorvastatin Calcium 20MG 1 tablet Orally Once a day Active Carvedilol 12.5 MG 1 tablet with food Orally Twice a day Active FreeStyle Lancets 1 check blood glucose as directed to skin qd; Duration: 30 days Active Furosemide 20 MG 1 tablet Orally Once a day; Duration: 30 day(s) Active hydrALAZINE HCl 100 MG 1 tablet with berenice d Orally Four times a day Active Iron Active metFORMIN HCl 1000 MG 1 tablet with meal s Orally Twice a day 2 per day Active Multivitamin Active Trulicity 1.5 MG/0.5ML as directed Subcutaneous Active glipiZIDE ER 2.5 MG 1 tablet Orally Once a day in am with breakfast 10/18/2018 Not-Taking Azithromycin Not-Johan ing Lisinopril 10MG 1 tablet Orally Once a day Not-Taking Naproxen 500 MG 1 tablet with food o r milk as needed Orally every 12 hrs prn 2019 Not-Taking Atorvastatin Calcium 20 MG 1 tablet Orally Once a day Not-Taking Lisinopril 10 MG 1 tablet Orally Once a day Not-Taking zzzGold Bonds for Diabetics . . apply to feet Daily; Duration: 30 days 07/05/2015 Not-Taking Extra-Depth Diabetic Shoes with 3 Pair Custom heat-molded multi-density innersoles . for 1 year . Dx:calloused heels b/l; Duration: . 07/05/2015 Not-Taking Metformin & Diet Manage Prod Not-Taking Cetirizine HCl 10 MG 1 tablet as needed Orally Once a day Not-Taking Immunizations Vaccine Route Administration Date Status Comme nts Influenza Unknown 05/18/2022 Administered Influenza Unknown 01/14/2024 Refused COVID-19 Pfizer BioNTech Vaccine Unknown 01/15/2021 Adm inistered 1st 12/25/20 Social History Tobacco Use: Social History Observation [...] Problem Status W/U Status Risk Notes Problem Polyneuropathy due to type 2 diabetes mellitus (989308371) Type 2 diabetes mellitus with diabetic polyneuropathy (E11.42) Active confirmed Vital Signs Blood pressure diastolic 80 mm Hg 02/16/2025 Height 5ft3in in 02/16/2025 Blood pressure systolic 135 mm Hg 02/16/2025 Weight 197 lbs 02/16/2025 BMI 34.89 kg/m2 02/16/2025 Procedures Procedure Date Ordered Date Performed Result Body Sit e 90962-UAIILER NAIL, 1-5 05/01/2024 N/A 13619-GXSJ SKIN LESIONS, OVER 4 05/01/2024 N/A X0412-NRLBJNRG DYSTROPHIC NAILS ANY # 05/01/2024 N/A 05201-SUXRMWS NAIL, 1-5 08/04/2024 N/A 30146-BBJS SKIN LESIONS, OVER 4 08/04/2024 N/A Z8905-BXIYKOPJ DYSTROPHIC NAILS ANY # 08/04/2024 N/A 38666-JVUNQPI NAIL, 1-5 11/13/2024 N/A 11344-DVFJ SKIN LESIONS, OVER 4 11/13/2024 N/A W2810-MOYQJMAJ DYSTROPHIC NAILS ANY # 11/13/2024 N/A 73788-UWWFNOC NAIL, 1-5 02/16/2025 N/A 41309-XCCR SKIN LESIONS, OVER 4 02/16/2025 N/A A6984-WXGRNBQY DYSTROPHIC NAILS ANY # 02/16/2025 N/A Encounters Encounter Location Date Provider Diagnosis [facility] [place] [address] [place] [address] 05/01/2024 Mignon Black Type 2 diabetes mellitus with diabetic polyneuropathy E11.42 and Onychomycosis B35.[address] [address] 08/04/2024 Mignon Black Type 2 diabetes mellitus with diabetic polyneuropathy E11.42 and Onychomycosis B35.[address] [address] 11/13/2024 Mignon Black Type 2 diabetes mellitus with diabetic polyneuropathy E11.42 ; Onychomycosis B35.1 ; Other hammer toe(s) (acquired), right foot M20.41 and Other hammer toe(s) (acquired), left foot M20.[address] [address] 02/16/2025 Mignon Black Type 2 diabetes mellitus with [...] - E11.42) 11/13/2024 Onychomycosis (ICD-10 - B35.1) 02/16/2025 Type 2 diabetes mellitus with diabetic polyneuropathy (ICD-10 - E11.42) 02/16/2025 Onychomycosis (ICD-10 - B35.1) 08/04/2024 Onychomycosis (ICD-10 - B35.1) 11/13/2024 Other hammer toe(s) (acquired), right foot (ICD-10 - M20.41) Patient Educated with: DIABETIC FOOT CARE INSTRUCTIONS. pdf (DIABETIC FOOT CARE INSTRUCTIONS. pdf) 11/13/2024 Other hammer toe(s) (acquired), left foot (ICD-10 - M20.42) 05/01/2024 Other 02/16/2025 Other Plan Of Treatment Pending Test Test Name Order Date 02242-AKYOSUF NAIL, 6 OR MORE 10/11/2015 91919-JSFIGNC NAIL, 6 OR MORE 01/17/2016 57808-WBWVRYZ NAIL, 6 OR MORE 10/13/2019 15506-HIQTLGV NAIL, 6 OR MORE 04/22/2020 17711-OZCVIAI NAIL, 6 OR MORE 07/26/2020 75614-DVHBBWF NAIL, 6 OR MORE 01/13/2021 13885-IXSQBZT NAIL, 6 OR MORE 04/18/2021 06455-YSQTPHW NAIL, 6 OR MORE 08/08/2021 08192-GVDQXLP NAIL, 1-5 07/02/2023 24777-MHYKAYP NAIL, 1-5 10/08/2023 70989-QKNOIOL NAIL, 1-5 01/14/2024 92613-ATSYWKI NAIL, 1-5 05/01/2024 12722-LVCHDMX NAIL, 1-5 08/04/2024 27903-CDHBWAO NAIL, 1-5 11/13/2024 45915-HPEUVXW NAIL, 1-5 02/16/2025 00273-Hdrxpyls Plate 03/26/2023 39805-Fgmjehrd Plate 04/18/2021 92356 I&D ABSCESS- SIMPLE,SINGLE 022 89365 I&D ABSCESS- SIMPLE,SINGLE 024 83384-UTJX SKIN LESIONS, OVER 4 07/02/20 23 08890-NQJN SKIN LESIONS, OVER 4 01/14/20 24 18844-WSZO SKIN LESIONS, OVER 4 03/26/20 23 16721-HBAQ SKIN LESIONS, OVER 4 10/08/19 24 29177-KXIP SKIN LESIONS, OVER 4 12/15/19 23 89018-VFZJ SKIN LESIONS, OVER 4 06/19/20 22 72858-TNUB SKIN LESIONS, OVER 4 03/16/20 22 89009-LBQI SKIN LESIONS, OVER 4 11/29/19 22 38217-XNWP SKIN LESIONS, OVER 4 08/08/20 21 84467-AVZJ SKIN LESIONS, OVER 4 04/18/20 21 92651-FAMV SKIN LESIONS, OVER 4 01/14/20 21 68253-SLNZ SKIN LESIONS, OVER 4 07/26/20 20 17660-BKBY SKIN LESIONS, OVER 4 04/22/20 20 10540-ZBNI SKIN LESIONS, OVER 4 01/17/20 16 45415-FMSB SKIN LESIONS, OVER 4 10/13/19 20 50155-FPLP SKIN LESIONS, OVER 4 02/17/20 25 29221-ZDKP SKIN LESIONS, OVER 4 11/13/19 25 49937-JJHI SKIN LESIONS, OVER 4 08/04/20 24 18964-WYEP SKIN LESIONS, OVER 4 05/01/20 24 Q5513-OUUMJJYQ DYSTROPHIC NAILS ANY # G0025-NMYEGFKY DYSTROPHIC NAILS ANY # J6884-OIPIULDA DYSTROPHIC NAILS ANY # T1478-BDKURWLZ DYSTROPHIC NAILS ANY # U5913-CZGPWVLA DYSTROPHIC NAILS ANY # T7442-IGXYVIAN DYSTROPHIC NAILS ANY # U5084-COAYQZZI DYSTROPHIC NAILS ANY # B3018-TGDBDNDL DYSTROPHIC NAILS ANY # R9113-OIXEHSKF DYSTROPHIC NAILS ANY # S9453-CHYJCWUM DYSTROPHIC NAILS ANY # Next Appt Details Provider Name:Mignon Calhoun , 05/21/2025 11:00:00 AM, [address] [place] [address], [place], [address], Insurance Providers Payer Name Payer Address Payer Phone Subscriber Number Group Number Insured Name Patient Relationship to Insured Coverage Start Date Coverage End Date Medicare National Govt Svcs Inc [address] [place] [address] [id number] Rosalia Talavera Self - patient is the insured [employer] Blue Shield [address] [place] [address] [id number] Rosalia Talavera Self - patient is the insured Medical (General) History Medical History History ICD Code Diabetic type ll High blood pressure Measles Sinus conditions Cellulitis Anemia Primary osteoarthritis, left ankle and f oot M19.072 Other hammer toe(s) (acquired), right fo ot M20.41 Other hammer toe(s) (acquired), left berenice t M20.42 Surgical History Surgery Date(Month/Year) Left renal calculus s/p remioval and lef t ureteral stent placement 01/13/2014 left ureteral stent placement Hospitalization History Reason Date(Month/Year) [facility] [place]- High Blood Pressure 01/2021 cellulitis hospitalized twice for 5 days in total Oct 2018
== END 2025-04-13 11:12 | disposition home or self-care (01) ==
LOC: HO.HCS 10:23
PROVIDERS: PCP Internal Medicine; Visit Provider Internal Medicine
DX: I50.812 Chronic right heart failure (principal); E66.01 Morbid (severe) obesity due to excess calories; I10 Essential (primary) hypertension; E11.8 Type 2 diabetes mellitus with unspecified complications
CPT/HCPCS: 93010; 99214; G2211

== ENCOUNTER → 2025-04-13 10:23 | Outpatient (BNVA) | payer MEDICARE, SELFPAY | PROVIDERS: PCP Internal Medicine; Visit Provider Internal Medicine | DX: I11.0 Hypertensive heart disease with heart failure (principal); I50.812 Chronic right heart failure; E11.8 Type 2 diabetes mellitus with unspecified complications; E66.01 Morbid (severe) obesity due to excess calories; I44.0 Atrioventricular block, first degree; Z68.34 Body mass index [BMI] 34.0-34.9, adult | CPT/HCPCS: 93005; 99212 ==

== ENCOUNTER 2025-04-16 10:41 | Outpatient (REF) | payer MEDICARE, SELFPAY ==
--- OUTSIDE RECORDS SUMMARY | 2024-09-02 04:20 | XMS_ITS ---
Author Organization [facility] Address [address] [place] [address] Care Team Providers Care Sales Floor Team Leader Name Role Phone Humberto GRIFFIN, Arlyn Primary Care Provider Se Weinstein Jr Unavailable REASON FOR VISIT screening Encounters Encounter Location Date Provider Diagnosis [facility] [place] Out[place] [address] [place] [phone] 09/02/2024 Se David Jr Colon cancer screening Z12.11 Assessments Encounter Date Diagnosis (ICD Code) Assessment Notes Treatment Notes Treatment Clinical Notes Section Notes 09/02/2024 Colon cancer screening (ICD-10 - Z12.11) Plan Of Treatment No Information Progress Notes * FARZANA RANKINCELSAB:1950 (74 yo F)Acc No.[id number]:09/02/2024 COLON WITH MAC Patient: HSAW BRAUN Provider: Sam David MD :1950 A ge:74 Y S ex:Female Date:09/02/2024 Address:[address] [place], [place] [phone] Pcp:Arlyn Paul MD Subjective: * Chief Complaints: [...] * Provider: Sam David MD Date: 1 11/03/2023 Generated for Marc cole/Rebecca/Carli on: 0 04/16/2025 11:28 AM EDT
--- NOTE | ~2025-04-16 | MM_ITS ---
EXAMINATION: DXA BONE DENSITY AXIAL HISTORY: Breast cancer on letrozole. TECHNIQUE: [employer] Dual energy absorptiometry (DEXA) of the lumbar spine, total left hip, and femoral neck was performed. COMPARISON: Comparison is made with the prior examination dated 01/05/2022. FINDINGS: The bone mineral density of the lumbar spine is 1.113 g/cm2, corresponding to a T-score of -0.6, and a Z-score of 0.5. This is indicative of normal bone mineral density. This represents a BMD change of -7.9% compared to the prior exam. This is statistically significant. The bone mineral density of the left total hip is 1.028 g/cm2, corresponding to a T-score of 0.2, and a Z-score of 1.4. This is indicative of normal bone mineral density. This represents a BMD change of -5.9% compared to the prior exam. This is statistically significant. The bone mineral density of the left femoral neck is 1.016 g/cm2, corresponding to a T-score of -0.2, and a Z-score of 1.3. This is indicative of normal bone mineral density. This represents a BMD change of 3.0% compared to the prior exam. MM/XR DEXA axial skeleton IMPRESSION: Based on bone mineral density, and according to World Health Organization (WHO) criteria, the diagnosis is consistent with normal bone mineral density. Statistically, 68% of repeat scans fall within 1 SD (+/- 0.010 g/cm2 for AP spine L1-L4) and 1 SD (+/- 0.012 g/cm2 for femur total) FRAX is a trademark of the [employer] [place] [facility] Metabolic Bone Disease, a World Health Organization (WHO) Collaborating Center. Electronically signed by: Yasmani Pennington MD 04/16/2025 11:23 AM EDT
--- OUTSIDE RECORDS SUMMARY | 2025-04-16 11:29 | XMS_ITS | Patient Health Record ---
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 Name Role Phone Humberto GRIFFIN, Arlyn Montgomery Primary Care Provider Un available Black, Mignon Unavailable [phone] Allergies No Known Allergies Results Component Value [...] Polyneuropathy due to type 2 diabetes mellitus (911191760) Type 2 diabetes mellitus with diabetic polyneuropathy (E11.42) Active confirmed Vital Signs Blood pressure diastolic 80 mm Hg 02/16/2025 Height 5ft3in in 02/16/2025 Blood pressure systolic 135 mm Hg 02/16/2025 Weight 197 lbs 02/16/2025 BMI 34.89 kg/m2 02/16/2025 Procedures Procedure Date Ordered Date Performed Result Body Sit e 68109-RHACRJB NAIL, 1-5 05/01/2024 N/A 55583-GVIA SKIN LESIONS, OVER 4 05/01/2024 N/A O7109-WRUJBPGI DYSTROPHIC NAILS ANY # 05/01/2024 N/A 73685-UFTTTIL NAIL, 1-5 08/04/2024 N/A 22041-UOJR SKIN LESIONS, OVER 4 08/04/2024 N/A T8957-OWBHNLWC DYSTROPHIC NAILS ANY # 08/04/2024 N/A 53888-BEINOEF NAIL, 1-5 11/13/2024 N/A 28312-PDDF SKIN LESIONS, OVER 4 11/13/2024 N/A Q9127-VOKXDEUG DYSTROPHIC NAILS ANY # 11/13/2024 N/A 67346-ACYWQGK NAIL, 1-5 02/16/2025 N/A 05411-VYUB SKIN LESIONS, OVER 4 02/16/2025 N/A J7463-WWJIKLWG DYSTROPHIC NAILS ANY # 02/16/2025 N/A Encounters Encounter Location Date Provider Diagnosis [facility] [place] [address] [place] [address] 05/01/2024 Mignon Black Type 2 diabetes mellitus with diabetic polyneuropathy E11.42 and Onychomycosis B35.[address] [address] 08/04/2024 Mignon Black Type 2 diabetes mellitus with diabetic polyneuropathy E11.42 and Onychomycosis B35.[address] [address] 11/13/2024 Mignon Black Type 2 diabetes mellitus with diabetic polyneuropathy E11.42 ; Onychomycosis B35.1 ; Other hammer toe(s) (acquired), right foot M20.41 and Other hammer toe(s) (acquired), left foot M20.[address] [address] 02/16/2025 Mignon Black Type 2 diabetes mellitus [...] Treatment Pending Test Test Name Order Date 53026-KTCPOMR NAIL, 6 OR MORE 10/11/2015 98663-DOJYQDN NAIL, 6 OR MORE 01/17/2016 69984-UBBYUWL NAIL, 6 OR MORE 10/13/2019 64998-VJCKULO NAIL, 6 OR MORE 04/22/2020 84369-KEPIZUY NAIL, 6 OR MORE 07/26/2020 70147-VQCMYZB NAIL, 6 OR MORE 01/13/2021 45632-LHKKEKP NAIL, 6 OR MORE 04/18/2021 11482-ATKVOEG NAIL, 6 OR MORE 08/08/2021 15622-JNFBAAR NAIL, 1-5 07/02/2023 03312-RICOCGP NAIL, 1-5 10/08/2023 33021-PZNBEWL NAIL, 1-5 01/14/2024 44706-AXKCJGL NAIL, 1-5 05/01/2024 97080-ZUXFTRQ NAIL, 1-5 08/04/2024 70327-YPTVUMR NAIL, 1-5 11/13/2024 23084-HAEHTZV NAIL, 1-5 02/16/2025 93178-Mpzslskq Plate 03/26/2023 26184-Nyvywsjh Plate 04/18/2021 62558 I&D ABSCESS- SIMPLE,SINGLE 022 25543 I&D ABSCESS- SIMPLE,SINGLE 024 58836-HPKG SKIN LESIONS, OVER 4 07/02/20 23 40363-WDCL SKIN LESIONS, OVER 4 01/14/20 24 03334-IARI SKIN LESIONS, OVER 4 03/26/20 23 26010-FKFC SKIN LESIONS, OVER 4 10/08/19 24 30309-TMTX SKIN LESIONS, OVER 4 12/15/19 23 36615-QRUE SKIN LESIONS, OVER 4 06/19/20 22 50122-UDYB SKIN LESIONS, OVER 4 03/16/20 22 68193-OTXW SKIN LESIONS, OVER 4 11/29/19 22 44964-BRZM SKIN LESIONS, OVER 4 08/08/20 21 95023-ZQWO SKIN LESIONS, OVER 4 04/18/20 21 78737-BCGD SKIN LESIONS, OVER 4 01/14/20 21 63334-TPHB SKIN LESIONS, OVER 4 07/26/20 20 15692-RFVU SKIN LESIONS, OVER 4 04/22/20 20 47661-ZLZI SKIN LESIONS, OVER 4 01/17/20 16 42371-TJNQ SKIN LESIONS, OVER 4 10/13/19 20 84302-XICS SKIN LESIONS, OVER 4 02/17/20 25 50248-NKVE SKIN LESIONS, OVER 4 11/13/19 25 69914-FRRX SKIN LESIONS, OVER 4 08/04/20 24 11454-WVXI SKIN LESIONS, OVER 4 05/01/20 24 V3178-QFFAPTPY DYSTROPHIC NAILS ANY # N2742-WTNUKJNL DYSTROPHIC NAILS ANY # Z6423-WJJPDFLI DYSTROPHIC NAILS ANY # S4328-DRFVOXUW DYSTROPHIC NAILS ANY # T5863-MCDVXGUN DYSTROPHIC NAILS ANY # C9134-NGDLWJRE DYSTROPHIC NAILS ANY # Y9086-SIQRDCNZ DYSTROPHIC NAILS ANY # Q3532-SGSSDQMY DYSTROPHIC NAILS ANY # O8218-UEOOWDIW DYSTROPHIC NAILS ANY # O9478-XBAOZDEY DYSTROPHIC NAILS ANY # Next Appt Details Provider Name:Mignon Calhoun , 05/21/2025 11:00:00 AM, [address] [place] [address], [place], [address], Insurance Providers Payer Name Payer Address Payer Phone Subscriber Number Group Number Insured Name Patient Relationship to Insured Coverage Start Date Coverage End Date Medicare National Govt Svcs Inc [address] [place] [address] [id number] Rosalia Talavera Self - patient is the insured [employer] Blue Shield [address] [place] [address] [id number] Rosalia Talavera Self - patient is the [...] ureteral stent placement Hospitalization History Reason Date(Month/Year) [facility] [place] Blood Pressure 01/2021 cellulitis hospitalized twice for 5 days in total Oct 2018
== END 2025-04-16 10:42 | disposition home or self-care (01) ==
LOC: HO.MAMMO 10:41
PROVIDERS: PCP Internal Medicine; Visit Provider Internal Medicine Medical Oncology
DX: Z13.820 Encounter for screening for osteoporosis (principal); M85.80 Other specified disorders of bone density and structure, unspecified site; Z85.3 Personal history of malignant neoplasm of breast
CPT/HCPCS: 77080

== ENCOUNTER → 2025-04-16 11:00 | Outpatient (BNV) | payer MEDICARE, SELFPAY | PROVIDERS: PCP Internal Medicine; Visit Provider Radiology Diagnostic Radiology | DX: E28.39 Other primary ovarian failure (principal) | CPT/HCPCS: 77080 ==

== ENCOUNTER 2025-04-18 08:50 | Outpatient (REF) | payer MEDICARE, SELFPAY | END 2025-04-18 08:51 | disposition home or self-care (01) | LOC: HO.HMGCLDS 08:50 | PROVIDERS: PCP Internal Medicine; Visit Provider Internal Medicine | DX: Z13.89 Encounter for screening for other disorder (principal) ==

== ENCOUNTER 2025-04-20 06:58 | Outpatient (REF) | payer MEDICARE, SELFPAY ==
--- OUTSIDE RECORDS SUMMARY | 2025-04-20 07:01 | XMS_ITS | Patient Health Record ---
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 Role Phone Humberto GRIFFIN, Arlyn Montgomery Primary Care Provider Un available Black, Mignon Unavailable [phone] Allergies No Known Allergies Results Component Value [...] Polyneuropathy due to type 2 diabetes mellitus (571522628) Type 2 diabetes mellitus with diabetic polyneuropathy (E11.42) Active confirmed Vital Signs Blood pressure diastolic 80 mm Hg 02/16/2025 Height 5ft3in in 02/16/2025 Blood pressure systolic 135 mm Hg 02/16/2025 Weight 197 lbs 02/16/2025 BMI 34.89 kg/m2 02/16/2025 Procedures Procedure Date Ordered Date Performed Result Body Sit e 48741-FXZTRNV NAIL, 1-5 05/01/2024 N/A 91106-UTKF SKIN LESIONS, OVER 4 05/01/2024 N/A G9574-YBNHMARJ DYSTROPHIC NAILS ANY # 05/01/2024 N/A 19113-OKWMKMX NAIL, 1-5 08/04/2024 N/A 09880-MPOB SKIN LESIONS, OVER 4 08/04/2024 N/A A4504-DSHZWARK DYSTROPHIC NAILS ANY # 08/04/2024 N/A 12932-APNXVUG NAIL, 1-5 11/13/2024 N/A 64853-VHVV SKIN LESIONS, OVER 4 11/13/2024 N/A R3607-QNBWLLRS DYSTROPHIC NAILS ANY # 11/13/2024 N/A 88905-TWQRCIW NAIL, 1-5 02/16/2025 N/A 40457-HQIF SKIN LESIONS, OVER 4 02/16/2025 N/A K3625-DBBIGAZK DYSTROPHIC NAILS ANY # 02/16/2025 N/A Encounters Encounter Location Date Provider Diagnosis [facility] [place] [address] [place] [address] 05/01/2024 Mignon Black Type 2 diabetes mellitus with diabetic polyneuropathy E11.42 and Onychomycosis B35.[address] [address] 08/04/2024 Mignon Black Type 2 diabetes mellitus with diabetic polyneuropathy E11.42 and Onychomycosis B35.[address] [address] 11/13/2024 Mignon Black Type 2 diabetes mellitus with diabetic polyneuropathy E11.42 ; Onychomycosis B35.1 ; Other hammer toe(s) (acquired), right foot M20.41 and Other hammer toe(s) (acquired), left foot M20.[address] [address] 02/16/2025 Mignon Black Type 2 diabetes mellitus [...] Treatment Pending Test Test Name Order Date 77037-KCVYTFH NAIL, 6 OR MORE 10/11/2015 54302-ADRXSHG NAIL, 6 OR MORE 01/17/2016 01096-TEOGEEO NAIL, 6 OR MORE 10/13/2019 51087-WAXAQZW NAIL, 6 OR MORE 04/22/2020 55968-RBVDQNU NAIL, 6 OR MORE 07/26/2020 92513-UNNOCRA NAIL, 6 OR MORE 01/13/2021 19615-QBOOJDF NAIL, 6 OR MORE 04/18/2021 13977-VPIYIZH NAIL, 6 OR MORE 08/08/2021 49693-CTIMAXO NAIL, 1-5 07/02/2023 44125-EGYMRFB NAIL, 1-5 10/08/2023 99830-LGLUZJB NAIL, 1-5 01/14/2024 24178-FDLRDXH NAIL, 1-5 05/01/2024 04096-YASSYNA NAIL, 1-5 08/04/2024 30723-MEQUXGK NAIL, 1-5 11/13/2024 77376-KUQVMZG NAIL, 1-5 02/16/2025 70274-Qrfwdeqz Plate 03/26/2023 78054-Rxazlhrx Plate 04/18/2021 99624 I&D ABSCESS- SIMPLE,SINGLE 022 34708 I&D ABSCESS- SIMPLE,SINGLE 024 28684-RFMS SKIN LESIONS, OVER 4 07/02/20 23 85053-GHWE SKIN LESIONS, OVER 4 01/14/20 24 23285-DAVZ SKIN LESIONS, OVER 4 03/26/20 23 05411-DODR SKIN LESIONS, OVER 4 10/08/19 24 42419-HULR SKIN LESIONS, OVER 4 12/15/19 23 85259-NKQB SKIN LESIONS, OVER 4 06/19/20 22 93183-FDAS SKIN LESIONS, OVER 4 03/16/20 22 62331-LTKT SKIN LESIONS, OVER 4 11/29/19 22 62910-WNIV SKIN LESIONS, OVER 4 08/08/20 21 19235-SOMP SKIN LESIONS, OVER 4 04/18/20 21 83058-OBEE SKIN LESIONS, OVER 4 01/14/20 21 57746-WZKY SKIN LESIONS, OVER 4 07/26/20 20 76983-KCWD SKIN LESIONS, OVER 4 04/22/20 20 25881-OUPU SKIN LESIONS, OVER 4 01/17/20 16 37035-MZZQ SKIN LESIONS, OVER 4 10/13/19 20 13351-GTLZ SKIN LESIONS, OVER 4 02/17/20 25 25561-WFHT SKIN LESIONS, OVER 4 11/13/19 25 11373-GIEL SKIN LESIONS, OVER 4 08/04/20 24 20914-WGFX SKIN LESIONS, OVER 4 05/01/20 24 A7557-DDOSQUGQ DYSTROPHIC NAILS ANY # H0012-EZLKAJVS DYSTROPHIC NAILS ANY # F1080-IVQTZUCV DYSTROPHIC NAILS ANY # S5150-VPFHLPVP DYSTROPHIC NAILS ANY # D4963-DFUYAOMW DYSTROPHIC NAILS ANY # P7531-XBHSBLVH DYSTROPHIC NAILS ANY # O9970-NXQMTXAI DYSTROPHIC NAILS ANY # P0314-SQPWNAWV DYSTROPHIC NAILS ANY # R8755-EEAUBYQI DYSTROPHIC NAILS ANY # W3458-OXLPPNSY DYSTROPHIC NAILS ANY # Next Appt Details Provider Name:Mignon Calhoun , 05/21/2025 11:00:00 AM, [address] [place] [address], [place], [address], Insurance Providers Payer Name Payer Address Payer Phone Subscriber Number Group Number Insured Name Patient Relationship to Insured Coverage Start Date Coverage End Date Medicare National Govt Svcs Inc [address] [facility] [place] [address] [id number] Rosalia Talavera Self - patient is the insured [employer] Blue [employer] [address] [place] [address] [id number] Rosalia Talavera Self - patient is the [...] ureteral stent placement Hospitalization History Reason Date(Month/Year) [facility] [place] High Blood Pressure 01/2021 cellulitis hospitalized twice for 5 days in total Oct 2018
[2025-04-20 10:52] LABS: Hemoglobin A1C 136.3766 umol/L; Total Hemoglobin (HGBA1C) 3045.5600 umol/L
[2025-04-20 11:15] LABS: Alanine Aminotransferase 29 U/L (0-31); Anion Gap 13 (12-20); Aspartate Amino Transferase 32 U/L (5-31); Blood Urea Nitrogen 15 mg/dL (9-16); Calcium 9.6 mg/dL (8.4-10.2); Carbon Dioxide 30 mmol/L (22-29); Chloride 103 mmol/L (96-108); Cholesterol 172 mg/dL (<200); Estimated Glomerular Filt Rate > 60; HDL Cholesterol 42 mg/dL (>40); Potassium 3.9 mmol/L (3.3-5.1); Sodium 142 mmol/L (135-145); Triglycerides 222 mg/dL (<150)
[2025-04-20 11:28] LABS: Folate 14.5 ng/mL (> or = 4.0); Vitamin B12 508 pg/mL (200-900)
== END 2025-04-20 06:59 | disposition home or self-care (01) ==
LOC: HO.HMGCLDS 06:58
PROVIDERS: PCP Internal Medicine; Visit Provider Internal Medicine
DX: I10 Essential (primary) hypertension (principal); E11.29 Type 2 diabetes mellitus with other diabetic kidney complication; E78.00 Pure hypercholesterolemia, unspecified; E66.9 Obesity, unspecified
CPT/HCPCS: 36415; 80048; 80061; 82306; 82607; 82746; 83036; 84450; 84460

== ENCOUNTER 2025-04-22 09:07 | Outpatient (AMB) | payer MEDICARE, SELFPAY ==
--- OUTSIDE RECORDS SUMMARY | 2024-09-02 04:20 | XMS_ITS ---
Author Organization [facility] Address [address] [place] [address] Care Team Providers Care Therapy Technician Name Role Phone Humberto GRIFFIN, Arlyn Primary Care Provider Se Weinstein Jr Unavailable [phone] REASON FOR VISIT screening Encounters Encounter Location Date Provider Diagnosis [facility] [place] Out[place] [address] [place] [phone] 09/02/2024 Se David Jr Colon cancer screening Z12.11 Assessments Encounter Date Diagnosis (ICD Code) Assessment Notes Treatment Notes Treatment Clinical Notes Section Notes 09/02/2024 Colon cancer screening (ICD-10 - Z12.11) Plan Of Treatment No Information Progress Notes * MARQUITA RANKINB:1950 (74 yo F)Acc No.[id number]:09/02/2024 COLON WITH MAC Patient: SHAW BRAUN Provider: Sam David MD :1950 A ge:74 Y S ex:Female Date:09/02/2024 Address:[address] [place], [place] [phone] Pcp:Arlyn Paul MD Subjective: * Chief Complaints: [...] 11/03/2023 Generated for Marc cole/Rebecca/Carli on: 0 04/22/2025 09:26 AM EDT
[2025-04-22 09:26] VITALS: BP 135/70; PULSE 65; RESP 15; O2SAT 100; BMI 35.1
--- NOTE | 2025-04-22 09:26 | A.OFFVIS_ITS ---
Intake Vital Signs 04/22/25 09:26 Height 5 ft 3 in Weight 198 lb BMI 35.1 BP 135/70 Blood Pressure Location Lt brachial Position Sitting Respiration 15 Pulse 65 Pulse Source Pulse Oximeter Pulse Oximetry (%) 100 Oxygen Delivery Method Room Air Intake Visit Reasons: AWV Intake Note: Pt is here today for her AWV: last mammogram 10/28/24, bone density scan 04/16/25, colonscopy 12/05/13 Allergies No Known Allergies Allergy (Verified 04/22/25 09:56) Medication List - Last Reconciled 04/22/25 by Arlyn Paul MD amlodipine 10 mg PO DAILY atorvastatin 20 mg PO DAILY blood sugar diagnostic (FreeStyle Lite Strips) 1 strip miscellaneous .QD carvedilol (Coreg) 12.5 mg PO BID ferrous fumarate 65 mg PO DAILY furosemide 40 mg (2 x 20 mg) PO QAM 90 days letrozole 2.5 mg PO Q24H mecobalamin (vitamin B12) 1,000 mcg PO DAILY metformin 1,000 mg PO BID 90 days multivitamin 1 tab PO DAILY tirzepatide 5 mg (0.5 mL) subcut QWEEK HPI AWV HPI Details SWV ?74 yea r old lady with hi story of type 2 di abetes mellitus, h ypertension, hyper lipidemia, chronic venous insufficie ncy, history of DC IS of breast, hist ory of basal cell CA on nose s/p Moh s surgery, present s for her ? subse quent wellness vis it. She is up-to-date with he r mammogram done with kadi gn findings, and a bone density was done 04/16/2025 wit h normal findings. She no longer ge ts Pap smears, las t colonoscopy was done in 09/02/2024 which showed norm al results, done b y Dr. David,, w ith no further scr eenings needed . She had normal fas ting lipid panel c heck and fasting g lucose and hemoglo bin A1c done 025. She h as had COVID vacci jorge in the past bu t does not want to get the booster, Prevnar 20 alread y given , does not want to get shing les vaccine or flu shot. ? Past Medic al History ?Yes . ? [place] of Care / Care Team list upd ated ?Yes . ? Surgica l/Hospitalization History ?Yes . ? Cur rent Medications (including OTC and supplements) ?Yes . ? Family History ? Yes . ? Tobacco Con trol form ?Yes . ? AU DIT-C (Alcohol use ) form ?Yes . ? Illi cit drug use in So cial History ?Yes . ? Current diagnosi s of depression? ?No ? Appropriate PHQ 2/PHQ9 completed ?Yes . ? Data entered by ?[facility] and reviewed by provider ? Fall Risk ? Fall History? Have you had any f alls with injury in the past year? ?No . ? Have you had two or more falls in the past year? ?No . ? Fall Risk As sessment: ?No fal ls in the past yea r . ? HRA f illed out by the patient, reviewed by Provider and sc anned. ?SW V ? Balance ? R omberg ?Yes . ? Tandem walk ?unable . ? Walk and Turn ?Yes . ? Ris e from sit to sta nd ?Yes . ? Vision? Corrective l ens ?Yes ? Vision scre en ? Up-to-date, s alma Tapia, scheduled for cat aract surgery on for the r ight eye and 07/06 25 for the left ?Hearing? Whispe r test ?pass . ?Written Jason n?Completed. 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 Mother Ovarian cancer Brother Diabetes mellitus Brother Diabetes mellitus Maternal Grandfather Throat cancer Social History Household Members: None Housing: Apartment Are you a primary career consultant to a significant other at home: No Do you presently have visiting nurse or other home services: No Alcohol intake: former Patient Tobacco Use Status: Former Tobacco user Tobacco use type: Cigarette Years Smoked: since 12 yrs old e-Cigarette/Vaping Use: Never Used Second Hand Smoke Exposure: No Advance Directives Date on File: 04/20/21 service: No Current occupational status: retired Cognitive needs: No Hearing needs: No Vision needs: Yes (Glasses) Questionnaire Medicare Wellness Checkup What [age]?: [age] What gender do you identify with?: female During the past 4 weeks, how much have you been bothered by emotional problems such as feeling anxious, depressed, irritable, sad or downhearted, and blue?: not at all During the past 4 weeks, has your physical & emotional health limited your social activities with family, friends, neighbors, or groups?: not at all During the past 4 weeks, how much bodily pain have you generally had?: very mild pain During the past 4 weeks, was someone available to help you if you needed & wanted help?: yes, as much as I wanted During the past 4 weeks, what was the hardest physical activity you could do for at least 2 minutes?: moderate Can you get to places out of walking distance without help? (For eg., can you travel alone on buses, taxis or drive your car?): Yes Can you go shopping for groceries or clothes without someone's help?: Yes Can you prepare your own meals?: Yes Can you do your housework without help?: Yes Because of any health problems, do you need the help of another person with your personal care needs such as eating, bathing, dressing or getting around the house?: No Can you handle your own money without help?: Yes During the past 4 weeks, how would you rate your health in general?: good During the past 4 weeks how have things been going for you?: very well; could hardly better Are you having difficulties driving your car?: no Do you always fasten your seat belt when you are in a car?: yes, usually During past 4 weeks, have you been bothered by the following: never: Falling or dizzy when standing up, Sexual problems?, Trouble eating well?, Teeth or denture problems? and Problems using the telephone? and sometimes: Tiredness or fatigue? Have you fallen 2 or more times in the past year?: No Are you afraid of falling?: Yes Are you a smoker?: no During the past 4 weeks, how many drinks of wine, beer, or other alcoholic beverages did you have?: no alcohol at all Do you exercise for about 20 minutes 3 or more times a week?: no, I usually do not exercise this much Have you been given information to help with the following?: no: Hazards in your house that might hurt you? and no: Keeping track of your medications? How often do you have trouble taking medicines the way you have been told to take them?: I always take medicine as prescribed How confident are you that you can control & manage most of your health p roblems?: very confident What is your race?: White Mini Mental State Exam (MMSE) Orientation What is the (year) (season) (date) (day) (month)?: year (2024), season (summer), date (04/22/2025), day (sunday) and month (April) Where are we (state) (county) (town or city) (hospital) (floor)?: state ([facility]), county ([place]), town or city ([place]) and hospital/clinic ([facility]) Score Score: 9 Activity of Daily Living Bathing - sponge bath, tub bath or shower: receives no assistance (gets in/out by self, if usual bathing means Dressing - getting clothes from closets & drawers, including inner/outer garments & fasteners.: gets clothes & gets completely dressed without help Toileting - going to the 'toilet room' for urine/bowel elimination & cleaning self/arranging clothes: goes to toilet room, cleans self, arranges clothes without help Transfer: moves in & out of bed and chair without help (may use support object) Continence: has occasional 'accidents' Feeding: feeds self without help Total Score: 0 Information obtained from: patient Using telephone: independent Traveling: independent Shopping: independent Preparing meals: independent Housework: independent Taking medicine: independent Managing money: independent PHQ-9 Over the last 2 weeks, how often have you been bothered by any of the following problems? 1. Little interest or pleasure in doing things: not at all 2. Feeling down, depressed, or hopeless: not at all 3. Trouble falling or staying asleep, or sleeping too much: several days 4. Feeling tired or having little energy: several days 5. Poor appetite or overeating: not at all 6. Feeling bad about yourself - or that you are a failure or have let yourself or your family down: not at all 7. Trouble concentrating on things, such as reading the newspaper or watching television: not at all 8. Moving or speaking so slowly that other people could have noticed. Or the opposite - being so fidgety or restless that you have been moving around a lot more than usual: not at all 9. Thoughts that you would be better off or of hurting yourself in some way: not at all Total score: 2 Depression Screening Interpretation: Negative Depression Screening Done: Yes 76482 - PHQ-9 Billing: Yes Source: Developed by Drs. Yasmani Ramos, Keli Bhat, Armando Ghotra and colleagues, with an educational iris from [employer]. Physical Exam Vital Signs: Last Vital Signs Pulse 65 04/22/25 09:26 Resp 15 04/22/25 09:26 BP 140/70 H 04/22/25 09:26 Pulse Ox 100 04/22/25 09:26 Oxygen Delivery Method Room Air 04/22/25 09:26 BMI result Body Mass Index 35.1 Results Reviewed Results Reviewed: Laboratory Tests 11/24/24 04/20/25 07:25 07:15 Estimat Average Glucose 131 Hemoglobin A1c % 6.2 H Microalb/Creat Ratio 18.2 Name: Rosalia Talavera Age/Sex: 74/F : 1950 Unit#: [id number] Attend Dr: Arlyn Paul MD Re04/20/25 Status: DEP REF Location: [facility] Disch: SPEC : [id number] MADI: 04/20/25 STATUS: COMP REQ : [id number] RECD: 04/20/25-[address]: Arlyn aPul MD COMP: 04/20/25 ENTERED: 04/20/[address]: ORDERED: Met Prof Fast, AST, ALT, Lipid Panel, Vitamin D 25-OH Test Result Flag Reference Sodium 142 135-145 mmol/L Potassium 3.9 3.3-5.1 mmol/L CL 103 96-108 mmol/L CO2 30 H 22-29 mmol/L Gap 13 12-20 BUN 15 9-16 mg/dL Creat 0.63 0.5-1.4 mg/dL eGFR > 60 Chronic Kidney Disease: Estimated GFR < 60 mL/min/1.73m2 Severe Kidney Disease: Estimated GFR < 15 mL/min/1.73m2 FBS 149 H 60-99 mg/dL A fasting glucose of 126 mg/dl or greater on more than one occasion is considered diagnostic of diabetes. CA 9.6 8.4-10.2 mg/dL AST (GOT) 32 H 5-31 U/L ALT (GPT) 29 0-31 U/L Triglyceride 222 H <150 mg/dL Desirable Triglyceride: less than 150 mg/dL Borderline High Triglyceride 150-199 mg/dL High Triglyceride: 200-499 mg/dL Very High Triglyceride: greater than or equal to 5OO mg/dL Cholesterol 172 <200 mg/dL Desirable Cholesterol: less than 200 mg/dL Borderline High Cholesterol: 200-239 mg/dL High Cholesterol: greater than 239 mg/dL LDL Calculated 86 <100 mg/dL Desirable LDL: less than 100 mg/dL Near Optimal/Above Optimal LDL: 110-129 mg/dL Borderline High LDL: 130-159 mg/dL High LDL: 160-189 mg/dL Very High LDL: greater than or equal to 190 mg/dL HDL 42 >40 mg/dL Desirable HDL: greater than 40 mg/dL Note: This HDL assay may give artificially low results in patients with liver disease. Vitamin D 25-OH 56.0 >30 ng/mL Health Based Reference Values* < 20 ng/mL Deficient 20-30 ng/mL Insufficient > 30 ng/mL Sufficient Assessment & Plan Assessment & Plan (1) Encounter for subsequent annual wellness visit (AWV) in Medicare patient: Code(s): Z00.00 - Encounter for general adult medical examination without abnormal findings Plan: Medical wellness checklist reviewed, discussed with patient and updated., copy given. S continued on amlodipine and carvedilol at same dose he is up-to-date with her mammogram done 10/28/2024 with benign findings, and a bone density was done 04/16/2025 with normal findings. She no longer gets Pap smears, last colonoscopy was done in 09/02/2024 which showed normal results, done by Dr. David,, with no further screenings needed . She had normal fasting lipid panel check and fasting glucose and hemoglobin A1c done 04/20/2025. She has had COVID vaccines in the past but does not want to get the booster, Prevnar 20 already given , does not want to get shingles vaccine or flu shot. (2) Essential hypertension: Code(s): I10 - Essential (primary) hypertension Plan: Currently on amlodipine and carvedilol same dose (3) Chronic venous insufficiency of lower extremity: Code(s): I87.2 - Venous insufficiency (chronic) (peripheral) Plan: Currently on furosemide 20 mg per tablet taken 1 tablet twice a day (4) Hyperlipidemia: Code(s): E78.5 - Hyperlipidemia, unspecified Qualifiers: Hyperlipidemia type: pure hypercholesterolemia Qualified Code(s): E78.00 - Pure hypercholesterolemia, unspecified Plan: Currently on atorvastatin 20 mg (5) Type 2 diabetes mellitus with other diabetic kidney complication: Code(s): E11.29 - Type 2 diabetes mellitus with other diabetic kidney complication Plan: On metformin 1000 mg 1 tablet twice a day and Mounjaro 5 mg injected once a week (6) Restrictive lung disease secondary to obesity: Comment: PATIENT HAS MODERATELY SEVERE RESTRICTIVE PULMONARY DISORDER RELATED TO HER OBESITY. THERE IS NO EVIDENCE OF OBSTRUCTIVE AIRWAY DISORDER. SPIROMETRY ON HER LAT VISIT SHOWED MODERATELY SEVERE RESTRICTIVE DISORDER. Code(s): J98.4 - Other disorders of lung; E66.9 - Obesity, unspecified Plan: Reinforced importance of weight loss through diet and exercise, in addition to being on Mounjaro (7) Obesity (BMI 30-39.9): Code(s): E66.9 - Obesity, unspecified Plan: Currently on Mounjaro in addition to adhering to healthy eating habits and getting regular exercise Medications: Refilled atorvastatin 20 mg PO DAILY 90 tabs 4RF Quality Reporting (2019) Depression/Bipolar (159/160/161/177) PHQ-9: Total score: 2 Coding Level of Care Code Medicare Subsequent (G0439) Diagnoses Encounter for subsequent annual wellness visit (AWV) in Medicare patient Z00.00 Essential hypertension I10 Chronic venous insufficiency of lower extremity I87.2 Pure hypercholesterolemia E78.00 Hyperlipidemia type: pure hypercholesterolemia Type 2 diabetes mellitus with other diabetic kidney complication E11.29 Restrictive lung disease secondary to obesity J98.4; E66.9 Obesity (BMI 30-39.9) E66.9 CPT Codes Advance Care Planning - Advance Care Planning discussion: On file, no changes ([id number]) Advance Care Planning - Time spent: 1-15 minutes, on File ([id number]) Additional Codes PHQ-9 - 07061 - PHQ-9 Billing: Yes ([id number]) Advance Care Planning Advance Care Planning discussion: On file, no changes Date of discussion: 04/22/25 Who was present: Patient Forms completed: Health Care Proxy and MOLST Time spent: 1-15 minutes, on File Actual minutes spent: 1
--- OUTSIDE RECORDS SUMMARY | 2025-04-22 09:26 | XMS_ITS | Patient Health Record ---
Author Organization [facility] Address [address] [place] [address] Care Team Providers Care Freelance Director Name Role Phone Humberto GRIFFIN, Arlyn Montgomery Primary Care Provider Un available Black, Mignon Unavailable [phone] Allergies No Known Allergies Results Component Value Reference Range Notes HEMOGLOBIN A1C (GLYCOHEMOGLO BIN) Reviewed date:08/04/2024 03:32:54 [...] Pfizer BioNTech Vaccine Unknown 01/15/2021 Adm inistered 12/25/20 Social History Tobacco Use: Social History [...] Polyneuropathy due to type 2 diabetes mellitus (816540239) Type 2 diabetes mellitus with diabetic polyneuropathy (E11.42) Active confirmed Vital Signs Blood pressure diastolic 80 mm Hg 02/16/2025 Height 5ft3in in 02/16/2025 Blood pressure systolic 135 mm Hg 02/16/2025 Weight 197 lbs 02/16/2025 BMI 34.89 kg/m2 02/16/2025 Procedures Procedure Date Ordered Date Performed Result Body Sit e 60425-XQZGTVV NAIL, 1-5 05/01/2024 N/A 82963-YUFG SKIN LESIONS, OVER 4 05/01/2024 N/A X6506-EPUOVAIZ DYSTROPHIC NAILS ANY # 05/01/2024 N/A 10852-RYLZWRA NAIL, 1-5 08/04/2024 N/A 79441-PEZG SKIN LESIONS, OVER 4 08/04/2024 N/A X5580-TXOJFVSL DYSTROPHIC NAILS ANY # 08/04/2024 N/A 33861-UQUEOGI NAIL, 1-5 11/13/2024 N/A 48692-POGB SKIN LESIONS, OVER 4 11/13/2024 N/A H9819-TFJUMODN DYSTROPHIC NAILS ANY # 11/13/2024 N/A 88756-BTYANKX NAIL, 1-5 02/16/2025 N/A 98461-PXCH SKIN LESIONS, OVER 4 02/16/2025 N/A O4789-JZDFAUMR DYSTROPHIC NAILS ANY # 02/16/2025 N/A Encounters Encounter Location Date Provider Diagnosis [address] [address] 05/01/2024 Mignon Black Type 2 diabetes mellitus with diabetic polyneuropathy E11.42 [facility] [address] 08/04/2024 Mignon Black Type 2 diabetes mellitus with diabetic polyneuropathy E11.42 and Onychomycosis B35.[address] [address] 11/13/2024 Mignon Black Type 2 diabetes mellitus with diabetic polyneuropathy E11.42 ; Onychomycosis B35.1 ; Other hammer toe(s) (acquired), right foot M20.41 and Other hammer toe(s) (acquired), left foot M20.[address] [address] 02/16/2025 Mignon Black Type 2 diabetes mellitus [...] Treatment Pending Test Test Name Order Date 26257-YPBEKEP NAIL, 6 OR MORE 10/11/2015 19968-AEQHLML NAIL, 6 OR MORE 01/17/2016 67966-JTWMNYC NAIL, 6 OR MORE 10/13/2019 01787-WESHOPH NAIL, 6 OR MORE 04/22/2020 16036-FHBXROL NAIL, 6 OR MORE 07/26/2020 64829-ASNHCAL NAIL, 6 OR MORE 01/13/2021 74630-PEMOOBA NAIL, 6 OR MORE 04/18/2021 53564-XNQLEOD NAIL, 6 OR MORE 08/08/2021 47384-TBZVSVF NAIL, 1-5 07/02/2023 13243-YXHGSLI NAIL, 1-5 10/08/2023 90652-CQTHLSL NAIL, 1-5 01/14/2024 70098-IVWCARW NAIL, 1-5 05/01/2024 83562-IGFUIJF NAIL, 1-5 08/04/2024 55751-WTOPJUB NAIL, 1-5 11/13/2024 35550-WCNSXWO NAIL, 1-5 02/16/2025 53361-Gmjldgop Plate 03/26/2023 33985-Mpfumvtw Plate 04/18/2021 14622 I&D ABSCESS- SIMPLE,SINGLE 022 07136 I&D ABSCESS- SIMPLE,SINGLE 024 19795-BOVP SKIN LESIONS, OVER 4 07/02/20 23 49953-ESGP SKIN LESIONS, OVER 4 01/14/20 24 01346-PPYB SKIN LESIONS, OVER 4 03/26/20 23 24865-RUWG SKIN LESIONS, OVER 4 10/08/19 24 16802-QRBP SKIN LESIONS, OVER 4 12/15/19 23 67454-LHAF SKIN LESIONS, OVER 4 06/19/20 22 20786-LNRC SKIN LESIONS, OVER 4 03/16/20 22 04815-AADZ SKIN LESIONS, OVER 4 11/29/19 22 92668-PXZA SKIN LESIONS, OVER 4 08/08/20 21 44766-HQFK SKIN LESIONS, OVER 4 04/18/20 21 55326-BZUE SKIN LESIONS, OVER 4 01/14/20 21 94385-LISL SKIN LESIONS, OVER 4 07/26/20 20 21982-HAVH SKIN LESIONS, OVER 4 04/22/20 20 81209-JLVT SKIN LESIONS, OVER 4 01/17/20 16 57677-VDJQ SKIN LESIONS, OVER 4 10/13/19 20 10035-MCYE SKIN LESIONS, OVER 4 02/17/20 25 57297-EXIZ SKIN LESIONS, OVER 4 11/13/19 25 51209-EZWC SKIN LESIONS, OVER 4 08/04/20 24 38429-EWZT SKIN LESIONS, OVER 4 05/01/20 24 M7378-DGWPPWQD DYSTROPHIC NAILS ANY # J4577-QYOQNTJN DYSTROPHIC NAILS ANY # N8627-NIOSSMBA DYSTROPHIC NAILS ANY # I3313-JGJVSVDM DYSTROPHIC NAILS ANY # Y9979-CALQPYNR DYSTROPHIC NAILS ANY # O9099-CACFJTGH DYSTROPHIC NAILS ANY # O8177-XEDZWSZP DYSTROPHIC NAILS ANY # K2146-HMOHVWFY DYSTROPHIC NAILS ANY # H0185-TSGRTLVC DYSTROPHIC NAILS ANY # O0325-JQACEDEJ DYSTROPHIC NAILS ANY # Next Appt Details Provider Name:Mignon Santos Lj , 05/21/2025 11:00:00 AM, [address] [place] [address], [phone], Insurance Providers Payer Name Payer Address Payer Phone Subscriber Number Group Number Insured Name Patient Relationship to Insured Coverage Start Date Coverage End Date Medicare National Govt SvMirifice [facility] [address] [place] [address] [id number] Rosalia Talavera Self - [facility] the [facility] [address] [place] [address] [phone] [id number] Rosalia Talavera Self - patient is the [...] ureteral stent placement Hospitalization History Reason Date(Month/Year) [facility] [place] Blood Pressure 01/2021 cellulitis hospitalized twice for 5 days in total Oct 2018
== END 2025-04-22 10:22 | disposition home or self-care (01) ==
LOC: HO.HMCC 09:08
PROVIDERS: PCP Internal Medicine; Visit Provider Internal Medicine
DX: Z00.00 Encounter for general adult medical examination without abnormal findings (principal); E11.29 Type 2 diabetes mellitus with other diabetic kidney complication; I10 Essential (primary) hypertension; I87.2 Venous insufficiency (chronic) (peripheral); E78.00 Pure hypercholesterolemia, unspecified; J98.4 Other disorders of lung; E66.9 Obesity, unspecified

== ENCOUNTER → 2025-04-22 09:07 | Outpatient (BNVA) | payer MEDICARE, SELFPAY | PROVIDERS: PCP Internal Medicine; Visit Provider Internal Medicine | DX: Z00.00 Encounter for general adult medical examination without abnormal findings (principal); I10 Essential (primary) hypertension; I87.2 Venous insufficiency (chronic) (peripheral); E78.00 Pure hypercholesterolemia, unspecified; E11.29 Type 2 diabetes mellitus with other diabetic kidney complication; E66.9 Obesity, unspecified; Z68.35 Body mass index [BMI] 35.0-35.9, adult; J98.4 Other disorders of lung; Z71.3 Dietary counseling and surveillance | CPT/HCPCS: 96127 ==

== ENCOUNTER 2025-05-25 12:50 | Outpatient (AMB) | payer MEDICARE, SELFPAY ==
--- OUTSIDE RECORDS SUMMARY | 2024-08-26 05:10 | XMS_ITS ---
Author Organization [facility] Address [address] [place] [phone] Care Team Providers Care Traffic Technician Name Role Phone Humberto GRIFFIN, Arlyn Primary Care Provider Mike David Jr, Se Vyas REASON FOR VISIT screening Encounters Encounter Location Date Provider Diagnosis [facility] [place] [address] [place] [phone] 08/26/2024 Se David Jr Plan Of Treatment No Information Progress Notes * FARZANA RANKINADOB:1950 (75 yo F)Acc No.[id number]:08/26/2024 COLON WITH MAC Patient: SHAW BRAUN Provider: Sam David MD :1950 A ge:74 Y S ex:Female Date:08/26/2024 Address:[address] [place], [place] [phone] Pcp:Arlyn Paul MD Subjective: * Chief Complaints: * 1 . Screening. * Medical History: Objective: * Vitals: Assessment: Plan: * Treatment: * * The named appointment provid er may or may not be the originator of this progress note, and it is not deemed complete until electronically signed by the appointment provider. Sign off status: Pending * Provider: Sam David MD Date: 1 10/27/2023 Generated for Kareni ng/Falorraineg/eTransmitting on: 0 05/25/2025 02:59 PM EDT
--- OUTSIDE RECORDS SUMMARY | 2024-09-02 04:20 | XMS_ITS ---
Author Organization [facility] Address [address] [place] [address] Care Team Providers Care King Maker Name Role Phone Humberto GRIFFIN, Arlyn Primary Care Provider Se Weinstein Jr Unavailable REASON FOR VISIT screening Encounters Encounter Location Date Provider Diagnosis [facility] [place] [address] [place] [phone] 09/02/2024 Se David Jr Colon cancer screening Z12.11 Assessments Encounter Date Diagnosis (ICD Code) Assessment Notes Treatment Notes Treatment Clinical Notes Section Notes 09/02/2024 Colon cancer screening (ICD-10 - Z12.11) Plan Of Treatment No Information Progress Notes * MARQUITA RANKINB:1950 (75 yo F)Acc No.[id number]:09/02/2024 COLON WITH MAC Patient: SHAW BRAUN Provider: Sam David MD :1950 A ge:74 Y S ex:Female Date:09/02/2024 Address:[address] [place], [place] [phone] Pcp:Arlyn Paul MD Subjective: * Chief Complaints: [...] 11/03/2023 Generated for Marc cole/Rebecca/Carli on: 0 05/25/2025 02:59 PM EDT
--- OUTSIDE RECORDS SUMMARY | 2025-05-21 07:00 | XMS_ITS ---
Author Organization [facility] Address [address] [place] [address] Care Team Providers Care Personal Service Workers Name Role Phone Humberto GRIFFIN, Arlyn Montgomery Primary Care Provider Un available Black, Mignon Unavailable [phone] Allergies No Known Allergies REASON FOR VISIT At Risk Footcare, Ingrown Nail Medications Medication SIG (Take, Route, Frequency, Duration) Notes Start Date End Date Status Extra-Depth Diabetic Shoes with 3 Pair Custom heat-molded multi-density innersoles . for 1 year . Dx:calloused heels b/l; Duration: . 07/05/2015 Not-Taking Metformin & Diet Manage Prod Not-Taking zzzGold Bonds for Diabetics . . apply to feet Daily; Duration: 30 days 07/05/2015 Not-Taking Cetirizine HCl 10 MG 1 tablet as needed Orally Once a day Not-Taking Fluticasone Propionate 50 MCG/ACT 1 spray in each nostril Nasally Once a day Not-Taking Naproxen 500 MG [...] breakfast 10/18/2018 Not-Taking Probiotic Not-Taking Cranberry Not-Taking Tubular compression stockings wear daily 12/14/2022 Not-Taking zzzCompression Stockings 20-30mm Hg . . .; Duration: 90 days Not-Taking Centrum Not-Taking Ferretts Not-Taking Extra Depth Orthopedic Shoes (1 Pair) with Customized Heat Molded Multidensity Innersoles (3 Pair) as directed Dx: NIDDM/Polyneuropathy (E11.42), Hammertoe Foot Deformity (M20.41,M20.42), Preulcerative Skin Lesion(s) (L85.1 04/18/2021 Active Iron Active Trulicity 1.5 MG/0.5ML as directed Subcutaneous Not-Taking Vitamin B12 Active metFORMIN HCl 1000 MG 1 tablet with meal s Orally Twice a day 2 per day Active Multivitamin Active Carvedilol 12.5 MG 1 tablet with food Orally Twice a day Active hydrALAZINE HCl 100 MG 1 tablet with berenice d Orally Four times a day Not-Taking FreeStyle Lancets 1 check blood glucose as directed to skin qd; Duration: 30 days Active Furosemide 20 MG 1 tablet Orally Once a day; Duration: 30 day(s) Active Atorvastatin Calcium 20MG 1 tablet Orally Once a day Active Mounjaro Active Letrozole 2.5 MG 1 tablet Orally Once a day; Duration: 30 day(s) Active amLODIPine Besylate 5 MG as directed Orally Once a day Active Social History Tobacco Use: Social History Observation Description Date Details (start date - stop date) Never Smoker NA - NA Tobacco use other than smoking: Question Answer Notes Are you an other tobacco user? No Tobacco Control (Standard) Question Answer Notes Tobacco use: Nonsmoker Additional Findings: Tobacco non-user Current no nsmoker AUDIT-C (Standard) Question Answer Notes Did you have a drink contain ing alcohol in the past year? Yes How often did you have a dri nk containing alcohol in the past year? Monthly or less (1 point) How many drinks did you have on a typical day when you were drinking in the past year? 1 or 2 drinks (0 point) How often did you have six o r more drinks on one occasion in the past year? Never (0 point) Points 1 Interpretation Negative Vital Signs Height 5ft3in in 05/21/2025 Weight 195 lbs 05/21/2025 BMI 34.54 kg/m2 05/21/2025 Blood pressure systolic 140 mm Hg 05/21/20 25 Blood pressure diastolic 70 mm Hg 025 Procedures Procedure Date Ordered Date Performed Result Body Sit e 80852-MWLFNMC NAIL, 1-5 05/21/2025 N/A 64172-Bvdvmhti Plate 05/21/2025 N/A 03177-SQGM SKIN LESIONS, OVER 4 05/21/2025 N/A W3313-AUAYCMPQ DYSTROPHIC NAILS ANY # 05/21/2025 N/A Encounters Encounter Location Date Provider Diagnosis [facility] [address] [address] 05/21/2025 Mignon Calhoun Type 2 diabetes mellitus with diabetic polyneuropathy E11.42 ; Onychomycosis B35.1 and Ingrown nail L60.0 Assessments Encounter Date Diagnosis (ICD Code) Assessment Notes Treatment Notes Treatment Clinical Notes Section Notes 05/21/2025 Type 2 diabetes mellitus with diabetic polyneuropathy (ICD-10 - E11.42) 05/21/2025 Onychomycosis (ICD-10 - B35.1) 05/21/2025 Ingrown nail (ICD-10 - L60.0) Plan Of Treatment Pending Test Test Name Order Date 17044-DREEMXL NAIL, 1-05/21/2025 50968-Yigqanbv Plate 05/21/2025 85434-XJLH SKIN LESIONS, OVER 4 05/21/20 25 V3039-SAKJFYEQ DYSTROPHIC NAILS ANY # Next Appt Details Follow Up: 2 Weeks,prn, Reas on: Provider Name:Mignon Calhoun , 08/20/2025 11:30:00 AM, [address] [place] [address], [id number], Procedure Notes * Category Sub-Category Detail Notes Nail Avulsion Procedure A fine sterile e levator was placed between the eponychium, nail fold, and nail plate to separate the structures. A sterile nail splitter, and/or sterile 316 blade, was then used to longitudinally section the nail along its entire length through the eponychium to the area under the nail fold. The offending portion of nail was from the nail bed with a rolling action and then removed with a hemostat. No underlying bone was identified. There was minimal bleeding as hemostasis was achieved through the temporary use of either a digital tourniquet or the aforementioned local with epinephrine. A bacitracin sterile dressing was applied. Local wound aftercare instructions were discussed and dispensed. The patient was informed of both conservative and future surgical procedures to prevent recurrence. Tylenol or Motrin was recommended for pain or discomfort - 62773, DIABETES: Matricectomy deferred at this time due to diabetes risk Anesthesia , was deferred - JILLIAN ROPATHY: patient has medically documented neuropathic condition affecting sensation Location , Lateral nail borde r, T6 Keratoma Treatment Parring or Cutting o f Benign Hyperkeratotic Lesion(s) (-57) More than 4 Lesions - Due to the a t risk nature of the patients medical condition [...] instrumentation by the physician of record - 03148 Debride Nails 1-5 Procedure: Due to the [...] necessary to maintain effective symptomatic relief - 90866 Nail Reduction Nail Reduction (-27) Trimming o [...] the exam ( T2, T3, T4, T5, T7, T8, T9 ), were debrided by the phisician of record to reduce/remove overall nail length and girth, by manual and electrical means with use of a nail nipper and/or dremel, to more viable healthy nail plate or bed tissue - G0127 Progress Notes * Rosalia RANKIN ADOB: [birth year] (75 yo F)Acc No.[id number]:05/21/2025 Progress Note Patient: Rosalia BRAUN Provider: Stephen Calhoun DPM :1950 A ge:75 Y S ex:Female Date:05/21/2025 Address:[address] [place] [address] Pcp:Дмитрий Saravia Subjective: * Chief Complaints: * A t Risk FootcareIngrown Nail * HPI: A t Risk footcare: Pt States Last PCP Visit: D ate 0 04/22/2025 * ROS: G eneral/Constitutional: Nausea d enies. V omiting d enies. H kia Thirst d enies. L oss appetite d enies. C hills d enies. F atigue d enies.?Fever d enies. N ight Sweats d enies. U nexplained weight loss d enies. U nexplained weight gain d enies. H EENTM: Dentures d enies. D izziness d enies. G lasses/contacts d enies. R etinopathy d enies. B lurred/double vision d enies. T MJ?denies. D ischarge/drainage d enies. I mplants d enies. S ore throat d enies. D ental implants d enies. H lizzie of hearing d enies. D ifficulty chewing/swallowing/speaking d enies. N ose bleeds d enies. S ore mouth d enies. ? R espiratory: On Oxygen d enies. P neumonia/pleurisy d enies.?Bronchitis d enies. E mphysema d enies. C oughing d enies. C ough blood?denies. S hortness of breath d enies. W heezing d enies. C ardiovascular: Pacemaker d enies. M CHEMIST ORGANIC d enies. W PW d enies. C HF d enies. H eart attack d enies. S eptal defect d enies. R apid beat d enies. C hest pain d enies. A trial Fib. d enies. M urmur/Palpitations d enies. G astrointestinal: Hemorrhoids d enies. S tomach/Abdominal pain d enies. D ark blood stool d enies. I rritable bowel d enies. C onstipation d enies. D iarrhea d enies. H ematology: Swelling d enies. C lots d enies. V aricose Veins d enies. B ruising d enies. B leeding problem d enies. G enitourinary: Blood urine d enies. F requent/Painfu/urination/bladder control d enies. K idney stones d enies. I nfection (UTI) d enies. N ephropathy d enies. s ex trans dis (STD) d enies. P rostate d enies. M usculoskeletal: Hammertoes d enies. B unions d enies. B ack Pain d enies. M uscle Cramps/ Resting d enies. M uscle cramps / walking d enies.?Generalized aches and pains d enies. W eakness d enies. I nteg.: Rehman d enies. S cars d enies. C orns/calluses?, admits. I ngrown nails d enies. P ainful nails d enies. O pen Sores d enies. R ashes d enies. N eurologic: Difficulty sleeping d enies. B rain disorder d enies. N umbness d enies. B alance trouble d enies. C onfusion d enies. F ainting/blackouts d enies. T ingling d enies. T remors d enies. * Medical History: * Surgical History: L eft renal calculus s/p remioval and left ureteral stent placement 01/13/2014left ureteral stent placement * Hospitalization/Major Diagno stic Procedure: coleen mccarthy [place] twice for 5 [place] [place] Blood Pressure 01/[place]21 * Family History: M other: , diabetes,ovarian cancer. F ather: , diagnosed with Diabetic - NIDDM. * Social History: T obacco Use: T obacco use other than smoking A re you an other tobacco user? N o Tobacco Control (Standard) T obacco use: N onsmoker A dditional Findings: Tobacco non-user C urrent nonsmoker M iscellaneous: C affeine: yes, frequency:, 2-3 cups per day. Children: no, none. Exercise: no. Marital status: single. 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 D rug/Alcohol: A DIMITRIS-C (Standard) D id you have a drink containing alcohol in the past year? Y es H ow often did you have a drink containing alcohol in the past year? M onthly or less (1 point) H ow many drinks did you have on a typical day when you were drinking in the past year? 1 or 2 drinks (0 point) H ow often did you have six or more drinks on one occasion in the past year? N ever (0 point) P oints 1 I nterpretation N egative * Medications: T [place] Letrozole 2.5 MG Tablet 1 tablet Orally [...] Tablet 1 tablet Orally Once a day Iron metFORMIN HCl 1000 MG Tablet 1 tablet with meals Orally Twice a day , Notes to Pharmacist: 2 per dayMultivitamin Vitamin B12 Extra Depth Orthopedic Shoes (1 Pair) with Customized Heat Molded Multidensity Innersoles (3 Pair) as directed Dx: NIDDM/Polyneuropathy (E11.42), Hammertoe Foot Deformity (M20.41,M20.42), Preulcerative Skin Lesion(s) (L85.1 Taking Mounjaro Taking Letrozole 2.5 MG Tablet 1 tablet [...] 1 tablet Orally Once a day Taking Iron Taking metFORMIN HCl 1000 MG Tablet 1 tablet with meals Orally Twice a day , Notes to Pharmacist: 2 per dayTaking Multivitamin Taking Vitamin B12 Taking Extra Depth Orthopedic Shoes (1 Pair) with Customized Heat Molded Multidensity Innersoles (3 Pair) as directed Dx: NIDDM/Polyneuropathy (E11.42), Hammertoe Foot Deformity (M20.41,M20.42), Preulcerative Skin Lesion(s) (L85.1 Not-Taking/PRNhydrALAZINE HCl 100 MG Tablet 1 tablet with food Orally Four times a day Trulicity 1.5 MG/0.5ML Solution Pen-injector as directed Subcutaneous Tubular compression stockings wear daily zzzCompression Stockings 20-30mm Hg 1 pair closed toe- knee high . . . Centrum Gordon FreeStyle Lite Test 1 Strip as [...] List reviewed and reconciled with the patientNot-Taking/PRN hydrALAZINE HCl 100 MG Tablet 1 tablet with food Orally Four times a day Not-Taking/PRN Trulicity 1.5 MG/0.5ML Solution Pen-injector as directed Subcutaneous Not-Taking/PRN Tubular compression stockings wear daily Not- Taking/PRN zzzCompression Stockings 20-30mm Hg 1 pair closed [...] reviewed and reconciled with the patient * Allergies: N .K.D.A.yes[Allergies Verified] Objective: * Vitals: H t: 5ft3in, Wt: 195, BMI: 34.54, Shoe size: 11M, BP: 140/70 mm Hg, BS: 164, Ht- cm: 160.02 cm, Wt-k.45 kg. * P ast Orders: L ab:HEMOGLOBIN A1C (GLYCOHEMOGLOBIN) (Order Date - 04/22/2025) (Collection Date & Time - 05/21/2025 10:58 AM) Value Reference Range HEMOGLOBIN A1C % (HH) 6.2 * Examination: O phthalmology Referral: DIABETES EYE EXAM P rocedure Performed: Karissa Crespo ate of Exam Performed 0 03/17/2025 D iabetic Retinopathy Screening: Y es F indings of Diabetic Eye Exam: n o retinopathy G eneral Examination: GENERAL APPEARANCE: R roxy a pleasant, alert, well nourished, well-developed, well hydrated individual, who demonstrates proper attention to hygiene/body habitus, and is in no acute distress, Pt serves as own historian for office visit today. ? N eurological: SENSORY: Neurological exam demonstrates inability for patient to distinguish sharp/dull pin prick discrimination, reduced, light touch sensation, reduced, vibration sensation,reduced, proprioception identification, in a stocking fashion, B/L. Test with 5.07 [place]aver[place] monofilament performed at plantar aspects of 5 varied sites per foot shows sensation absent in at least 2 locations, B/L. V ascular: DP PULSES (B): 2 /4, B/L. PT PULSES (B): 2 /4, B/L. CAPILLARY FILL TIME: i mmediate, all digits, B/L. TROPHIC CONDITION-TEXTURE/ELASTICITY/TURGOR/HAIR GROWTH (B):?normal, B/L. TEMPERTURE GRADIENT (C): n ormal, warm to cool, proximal to distal, B/L, B/L. PIGMENTATION: n ormal, B/L. D ermatologic: SKIN FINDINGS: S kin exam reveals Keratotic lesion(s) located at,Plantar Heel(s), , B/L , Medial plantar, TA, T5, SUB MTH (s), 5, B/L . N ails: NAILS are: E longated, overgrown, dystrophic, lytic, greater than 3mm thick, discolored and friable with crumbly malodorous subungual debris , with dull to no pain on palpation due to neuropathy , TA , T1 , , remaining nails are elongated, overgrown, dystrophic, T2, T3, T4, T5, T6, T7, T8, T9. I ngrown Nail: INSPECTION: R eveals nail incurvation, pain on palpation, groove hypertrophy , Lateral nail border, T6. Assessment: * Assessment: 1. T ype 2 diabetes mellitus with diabetic polyneuropathy - E11.42 (Primary) 2 . O nychomycosis - B35.1 3 . I ngrown nail - L60.0 Plan: * Treatment: 2. O nychomycosis P rocedure: 92500-ECPWSUD NAIL, 1-5 3. I ngrown nail P rocedure: 29890-Rxgaztoa Plate * Procedures: D ebride Nails 1-5: Procedure: D ue to the clinical pathology outlined in the [...] necessary to maintain effective symptomatic relief - 08583. K eratoma Treatment: Parring or Cutting of Benign Hyperkeratotic Lesion(s) ( -57) More than 4 Lesions - Due to [...] instrumentation by the physician of record - 88130. N ail Avulsion: Location , Lateral nail border, T6. Anesthesia , was deferred - NEUROPATHY: patient has medically documented neuropathic condition affecting sensation. Procedure A fine sterile elevator was placed between the eponychium, nail fold, and nail plate to separate the structures. A sterile nail splitter, and/or sterile 316 blade, was then used to longitudinally section the nail along its entire length through the eponychium to the area under the nail fold. The offending portion of nail was from the nail bed with a rolling action and then removed with a hemostat. No underlying bone was identified. There was minimal bleeding as hemostasis was achieved through the temporary use of either a digital tourniquet or the aforementioned local with epinephrine. A bacitracin sterile dressing was applied. Local wound aftercare instructions were discussed and dispensed. The patient was informed of both conservative and future surgical procedures to prevent recurrence. Tylenol or Motrin was recommended for pain or discomfort - 14707, DIABETES: Matricectomy deferred at this time due to diabetes risk. N ail Reduction: Nail Reduction ( -27) Trimming of all dystrophic nails - Due [...] the exam ( T2, T3, T4, T5, T7, T8, T9 ), were debrided by the phisician of record to reduce/remove overall nail length and girth, by manual and electrical means with use of a nail nipper and/or dremel, to more viable healthy nail plate or bed tissue - G0127.? * Procedure Codes: 1 1057 TRIM SKIN LESIONS, OVER 4, Modifiers: XS 32644 Avulsion Plate, Modifiers: T6 97805 DEBRIDE NAIL, 1-5, Modifiers: XS G0127 TRIMMING DYSTROPHIC NAILS ANY #, Modifiers: XS * Follow Up: 2 Weeks,prn * Images: * Sign off status: Completed true * Provider: Stephen Calhoun DPM Date: 0 05/21/2025 Generated for Kareni ng/Faxing/eTransmitting on: 0 05/25/2025 02:59 PM EDT History and Physical Notes * HPI (History of Present Illness) Category Sub-Category Detail Notes Category Not es At Risk footcare Pt States Last PCP Visit: Date: 5 Examination Category Sub-Category Detail Notes Category Not es Ingrown Nail INSPECTION: Reveals nail inc urvation, pain on palpation, groove hypertrophy , Lateral nail border, T6 Neurological SENSORY: Neurological exa m demonstrates inability for patient to distinguish sharp/dull pin prick discrimination, reduced, light touch sensation, reduced, vibration sensation,reduced, proprioception identification, in a stocking fashion, B/L. Test with 5.07 [place]aver[place] monofilament performed at plantar aspects of 5 varied sites per foot shows sensation absent in at least 2 locations, B/L Dermatologic SKIN FINDINGS: Skin exam reveal s Keratotic lesion(s) located at,Plantar Heel(s), , B/L , Medial plantar, TA, T5, SUB MTH (s), 5, B/L General Examination GENERAL APPEARANCE: Reveals a pleasant, alert, well nourished, well-developed, well hydrated individual, who demonstrates proper attention to hygiene/body habitus, and is in no acute distress, Pt serves as own historian for office visit today Ophthalmology Referral DIABETES EYE EXAM Procedu re Performed:: Yes Date of Exam Performed: 03/17/2025 Diabetic Retinopathy Screening:: Yes Findings of Diabetic Eye [...]
--- NOTE | 2025-05-25 12:53 | MHC.PC.OV ---
Vital Signs 05/25/25 12:54 Height 5 ft 3 in Weight 196 lb BMI 34.7 BP 134/78 Blood Pressure Location Lt brachial Position Sitting Respiration 16 Pulse 64 Pulse Source Pulse Oximeter Temp 97.6 F Temp Source Oral Pulse Oximetry (%) 99 Oxygen Delivery Method Room Air Intake Visit Reasons: Cataract Pre-Op per DR. Langley Intake Note: Pt is here today for her pre-op Rt eye cataract surgery 06/01 & Left eye cataract on 07/[address] Tapia Allergies No Known Allergies Allergy (Verified 05/25/25 13:09) Medication List - Last Reconciled 05/25/25 by Arlyn Paul MD amlodipine 10 mg PO DAILY atorvastatin 20 mg PO DAILY blood sugar diagnostic (FreeStyle Lite Strips) 1 strip miscellaneous .QD carvedilol (Coreg) 12.5 mg PO BID ferrous fumarate 65 mg PO DAILY furosemide 20 mg PO Q12H letrozole 2.5 mg PO Q24H mecobalamin (vitamin B12) 1,000 mcg PO DAILY metformin 1,000 mg PO BID 90 days multivitamin 1 tab PO DAILY tirzepatide 5 mg (0.5 mL) subcut QWEEK Tobacco use date assessed: 05/25/25 Fall risk assessment: No Falls in past year Last assessed Fall Risk: 05/25/25 Dental Screening Dental Screen Date: 01/07/25 HPI Cataract Pre-Op per DR. Langley HPI Details 75 year old lady with past medical history of type 2 diabetes mellitus, hypertension, hyperlipidemia, chronic venous insufficiency, history of DCIS of breast, history of basal cell CA on nose s/p Mohs surgery, presents for preoperative exam for cataract surgery scheduled for 06/01/2025 for her right eye, and 07/06/2025 for her left eye, requested by Dr. Tapia. Her diabetes mellitus is well controlled, with latest hemoglobin A1c done 04/20/2025 at 6.2%, and fasting lipids done at the same time showed results within normal limits except for elevated triglycerides. Her blood pressure is controlled on current dose of amlodipine 10 mg daily, carvedilol 12.5 mg once a day, and furosemide 20 mg taken twice a day.. She has mild anemia currently on iron supplements. She has been feeling well, with no new complaints at present time. She is not on any chronic anticoagulation treatment. . FORMERLY [facility], [facility]1983 Medical History History of nephrolithiasis Obesity (BMI 30-39.9) History of invasive ductal carcinoma of breast Hx of basal cell carcinoma Primary invasive malignant neoplasm of right female breast Normocytic normochromic anemia Restrictive lung disease secondary to obesity Varicose veins of left lower extremity with inflammation Chronic venous insufficiency of lower extremity Type 2 diabetes mellitus with other diabetic kidney complication Hyperlipidemia Surgical History S/P Mohs surgery for basal cell carcinoma Status post right breast lumpectomy History of lumpectomy of left breast Hx of colonoscopy S/P ureteral stent placement Family History Father No problems noted. Mother Ovarian cancer Brother Diabetes mellitus Brother Diabetes mellitus Maternal Grandfather Throat cancer Social History Household Members: None Housing: Apartment Are you a primary youth care specialist to a significant other at home: No Do you presently have visiting nurse or other home services: No Alcohol intake: former Patient Tobacco Use Status: Former Tobacco user Tobacco use type: Cigarette Years Smoked: since 12 yrs old e-Cigarette/Vaping Use: Never Used Second Hand Smoke Exposure: No Advance Directives Date on File: 04/20/21 service: No Current occupational status: retired Cognitive needs: No Hearing needs: No Vision needs: Yes (Glasses) Questionnaire Thrive Questionnaire Date Thrive assessed: 11/26/24 MARISA-7 AMB Questionnaire MARISA-7 Date MARISA - 7 assessed: 01/09/24 Source: Developed by Drs. Yasmani Ramos, Keli Bhat, Armando Ghotra and colleagues, with an educational iris from [employer]. Review of Systems Const Denies weakness ENT Denies dizziness Card Denies chest pain, Denies chest pain with activity, Denies syncope, Denies rapid heart rate, Denies pedal edema, Denies lightheadedness, Denies palpitations, Denies dyspnea and Denies dyspnea on exertion Resp Denies cough, Denies dyspnea and Denies dyspnea on exertion GI Reports no additional complaints Reports no additional complaints Musc Denies abnormal gait, Denies muscle cramps, Denies muscle weakness, Denies numbness and Denies radiating pain into limb Neuro Denies abnormal gait, Denies dizziness, Denies syncope, Denies numbness and Denies weakness Psych Reports no additional complaints Endo Denies palpitations Niraj/Lymph Denies easy bleeding and Denies easy bruising Aller/Immun Reports no additional complaints Physical exam (Primary Care) Vital Signs: Last Vital Signs Temp 97.6 F 05/25/25 12:54 Pulse 64 05/25/25 12:54 Resp 16 05/25/25 12:54 BP 134/78 05/25/25 12:54 Pulse Ox 99 05/25/25 12:54 Oxygen Delivery Method Room Air 05/25/25 12:54 BMI result Body Mass Index 34.7 Tobacco/Smoking Status: Tobacco use Status Tobacco use date assessed 05/25/25 05/25/25 12:56 Patient Tobacco Use Status Former Tobacco user 05/25/25 12:55 Tobacco use type Cigarette 05/25/25 12:55 e-Cigarette/Vaping Use Never Used 05/25/25 12:55 Thrive Assessment: Date of Thrive Assessment Date Thrive assessed 11/26/24 05/25/25 12:55 Const Other: Alert oriented x3 , no acute distress noted , ambulatory with normal gait Orientation/consciousness: patient oriented x3 HENLA Head: Yes normocephalic Face and sinus: Yes face symmetric Mouth: Normal oral and palatal mucosa present and moist mucous membranes Eyes General: appearance normal, both eyes and all related structures Neck Other: Supple, no lymphadenopathy, thyroid gland nonpalpable Resp Other: Clear to auscultation bilaterally Cardio Other: S1-S2 present regular rate and rhythm GI Other: Obese, soft, nontender, no mass palpated General: Yes no CVA tenderness Back/Spine/Pelvis Back: no CVA tenderness and No back tenderness Skin General skin exam: no rashes or lesions noted Neuro General: patient oriented x3, moves all extremities and no focal motor deficits Extrem Other: Superficial varicose veins in in both lower extremities General: Yes full ROM, Yes no joint enlargement, Yes no calf tenderness and Yes normal gait Coding Level of Care Code Est Pt Level 4 (31713) Complex EM visit Add On G2211 Diagnoses Encounter for pre-operative examination Z01.818 Pure hypercholesterolemia E78.00 Hyperlipidemia type: pure hypercholesterolemia Type 2 diabetes mellitus with other diabetic kidney complication E11.29 Essential hypertension I10 Assessment & Plan Assessment & Plan (1) Encounter for pre-operative examination: Code(s): Z01.818 - Encounter for other preprocedural examination Plan: 75 year old lady here for preoperative examination for cataract surgery, requested by Dr. Tapia. She has controlled diabetes mellitus, hypertension, dyslipidemia. Preoperative examination is unremarkable. Recent labs showed results within normal limits . She has a low cardiac risk index for proposed surgery (2) Hyperlipidemia: Code(s): E78.5 - Hyperlipidemia, unspecified Category: Medical Qualifiers: Hyperlipidemia type: pure hypercholesterolemia Qualified Code(s): E78.00 - Pure hypercholesterolemia, unspecified Plan: Fasting lipids within normal limits except for elevated triglycerides. Continued on atorvastatin 20 mg daily. Repeat fasting lipid panel in July 2025 (3) Type 2 diabetes mellitus with other diabetic kidney complication: Code(s): E11.29 - Type 2 diabetes mellitus with other diabetic kidney complication Category: Medical Plan: Diabetes mellitus controlled with hemoglobin at 6.2% on latest labs done. Continued on metformin a 1000 mg 1 tablet twice a day and tirzepatide 5 mg subcutaneously given once a week (4) Essential hypertension: Code(s): I10 - Essential (primary) hypertension Category: Medical Plan: Continue with current medication. Reinforced importance of following a low sodium diet, getting regular exercise, and lowering stress levels. Orders: Orders Complete Blood Count Auto Diff 07/18/25 Arlyn Paul MD E11.29 - Type 2 diabetes mellitus with other diabetic kidney complication, E66.9 - Obesity, unspecified, E78.00 - Pure hypercholesterolemia, unspecified, I10 - Essential (primary) hypertension, Z01.818 - Encounter for other preprocedural examination Lipid Panel 07/18/25 Arlyn Paul MD E11.29 - Type 2 diabetes mellitus with other diabetic kidney complication, E66.9 - Obesity, unspecified, E78.00 - Pure hypercholesterolemia, unspecified, I10 - Essential (primary) hypertension, Z01.818 - Encounter for other preprocedural examination Alanine Aminotransferase 07/18/25 Arlyn Paul MD E11.29 - Type 2 diabetes mellitus with other diabetic kidney complication, E66.9 - Obesity, unspecified, E78.00 - Pure hypercholesterolemia, unspecified, I10 - Essential (primary) hypertension, Z01.818 - Encounter for other preprocedural examination Aspartate Amino Transferase 07/18/25 Arlyn Paul MD E11.29 - Type 2 diabetes mellitus with other diabetic kidney complication, E66.9 - Obesity, unspecified, E78.00 - Pure hypercholesterolemia, unspecified, I10 - Essential (primary) hypertension, Z01.818 - Encounter for other preprocedural examination Basic Metabolic Panel Fasting 07/18/25 Arlyn Paul MD E11.29 - Type 2 diabetes mellitus with other diabetic kidney complication, E66.9 - Obesity, unspecified, E78.00 - Pure hypercholesterolemia, unspecified, I10 - Essential (primary) hypertension, Z01.818 - Encounter for other preprocedural examination IRON PROFILE 07/18/25 Arlyn Paul MD E11.29 - Type 2 diabetes mellitus with other diabetic kidney complication, E66.9 - Obesity, unspecified, E78.00 - Pure hypercholesterolemia, unspecified, I10 - Essential (primary) hypertension, Z01.818 - Encounter for other preprocedural examination Hemoglobin A1c 07/18/25 Arlyn Paul MD E11.29 - Type 2 diabetes mellitus with other diabetic kidney complication, E66.9 - Obesity, unspecified, E78.00 - Pure hypercholesterolemia, unspecified, I10 - Essential (primary) hypertension, Z01.818 - Encounter for other preprocedural examination Vitamin D 25-OH Total 07/18/25 Arlyn Paul MD E11.29 - Type 2 diabetes mellitus with other diabetic kidney complication, E66.9 - Obesity, unspecified, E78.00 - Pure hypercholesterolemia, unspecified, I10 - Essential (primary) hypertension, Z01.818 - Encounter for other preprocedural examination Medications: Changed From furosemide 40 mg (2 x 20 mg) PO QAM 180 tabs 2RF 90 days I10 - Essential (primary) hypertension To furosemide 20 mg PO Q12H I10 - Essential (primary) hypertension Colby Agosto MD Refilled tirzepatide for 4 weeks 5 mg (0.5 mL) subcut QWEEK 2 mL 4RF Arlyn Paul MD E11.29 - Type 2 diabetes mellitus with other diabetic kidney complication, E66.9 - Obesity, unspecified
[2025-05-25 12:54] VITALS: BP 134/78; PULSE 64; RESP 16; TEMP 36.4; O2SAT 99; BMI 34.7
--- OUTSIDE RECORDS SUMMARY | 2025-05-25 14:59 | XMS_ITS | Patient Health Record ---
Author Organization [facility] Address [address] [place] [address] Care Team Providers Care Video Producer Name Role Phone Humberto GRIFFIN, Arlyn Primary Care Provider Se Weinstein Jr Unavailable [phone] Allergies No Known Allergies Results Component Value Reference Range Notes Glucose, Whole Blood Reviewed date:09/02/2024 03:11:19 PM Interpretation: Performing Lab: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 (Z79.899) Active confirmed Vital Signs Temperature 96.9 degrees Fahrenheit 07/21/2024 Blood pressure diastolic 00 mm Hg 07/21/2024 Height 61.5 in 07/21/2024 Blood pressure systolic 000 mm Hg 07/21/2024 Weight 195 lbs 07/21/2024 BMI 36.24 kg/m2 07/21/2024 Encounters Encounter Location Date Provider Diagnosis [facility] [address] [place] [id number] 09/02/2024 Se David Jr Colon cancer screening Z12.11 [facility] [address] [place] [address] Drive [address] [place] [phone] 07/21/2024 Se David Jr Colon cancer screening Z12.11 ; care home (current) use of oral 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 drugs Z79.84 and care home current use of diuretic Z79.899 [facility] [address] [place] [phone] 07/22/2024 Se David Jr Assessments Encounter Date [...] metformin the day before the procedure. 07/21/2024 care home (current) use of oral 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 drugs (ICD-10 - Z79.84) We discussed colonoscopy today. We discussed risks and benefits of the procedure today. She understands these and agrees to proceed. She is advised to stop Trulicity and iron one week before the procedure, furosemide and metformin the day before the procedure. 07/21/2024 oysterman current use of diuretic (ICD-10 - Z79.899) [...] [place] [address] [place] [address] [id number] SHAW RANKIN Self - patient is the insured [employer] [address] [place] [phone] [id number] SHAW RANKIN Self - patient is the insured Medical (General) History Medical History History ICD Code Breast cancer/bilateral lumpectomies Diabetes mellitus type 2 Varicose veins Hyperlipidemia Hypertension Restrictive lung disease Elevated BMI Colonoscopy 11/28, normal, ten-year follo wup Surgical History Surgery Date(Month/Year)
--- OUTSIDE RECORDS SUMMARY | 2025-05-25 14:59 | XMS_ITS | Patient Health Record ---
[facility] Address [address] [place] [address] Care Team Providers Care Roller Picker Name Role Phone Humberto GRIFFIN, Arlyn Montgomery Primary Care Provider Un available Black, Mignon Unavailable [phone] Allergies No Known Allergies Results Component Value [...] (HH) 7.0 HEMOGLOBIN A1C (GLYCOHEMOGLO BIN) Reviewed date:05/21/2025 10:58:44 AM Interpretation: Performing Lab: Notes/Report: HEMOGLOBIN A1C % (HH) 6.2 Reason For Referral No Information Medications Medication SIG (Take, Route, Frequency, Duration) Notes Start Date End Date Status Rickey Active glipiZIDE ER 2.5 MG 1 tablet Orally Once a day in am with breakfast 10/18/2018 Not-Taking Letrozole 2.5 MG 1 tablet Orally Once a day; Duration: 30 day(s) Active Azithromycin Not-Johan ing Probiotic Not-Taking Cranberry Not-Taking amLODIPine Besylate 5 MG as directed Orally Once a day Active Atorvastatin Calcium 20MG 1 tablet Orally Once a day Active Tubular compression stockings wear daily 12/14/2022 Not-Taking zzzCompression Stockings 20-30mm Hg . . .; Duration: 90 days Not-Taking FreeStyle Lite Test 1 as directed to ski n twice a day for diabetes mellitus 250; Duration: 30 days 10/16/2013 Not-Taking Glucosamine Not-Taki ng Centrum Not-Taking Ferretts Not-Taking Trulicity 1.5 MG/0.5ML as directed Subcutaneous Not-Taking Vitamin B12 Active metFORMIN HCl 1000 MG 1 tablet with meal s Orally Twice a day 2 per day Active Cetirizine HCl 10 MG 1 tablet as needed Orally Once a day Not-Taking Multivitamin Active Fluticasone Propionate 50 MCG/ACT 1 spray in each nostril Nasally Once a day Not-Taking Extra Depth Orthopedic Shoes (1 Pair) with Customized Heat Molded Multidensity Innersoles (3 Pair) as directed Dx: NIDDM/Polyneuropathy (E11.42), Hammertoe Foot Deformity (M20.41,M20.42), Preulcerative Skin Lesion(s) (L85.1 04/18/2021 Active Naproxen 500 MG 1 tablet with food o r milk as needed Orally every 12 hrs prn 2019 Not-Taking Carvedilol 12.5 MG 1 tablet with food Orally Twice a day Active Atorvastatin Calcium 20 MG 1 tablet Orally Once a day Not-Taking Lisinopril 10MG 1 tablet Orally Once a day Not-Taking hydrALAZINE HCl 100 MG 1 tablet with berenice d Orally Four times a day Not-Taking Extra-Depth Diabetic Shoes with 3 Pair Custom heat-molded multi-density innersoles . for 1 year . Dx:calloused heels b/l; Duration: . 07/05/2015 Not-Taking Iron Active Metformin & Diet Manage Prod Not-Taking FreeStyle Lancets 1 check blood glucose as directed to skin qd; Duration: 30 days Active Lisinopril 10 MG 1 tablet Orally Once a day Not-Taking Furosemide 20 MG 1 tablet Orally Once a day; Duration: 30 day(s) Active zzzGold Bonds for Diabetics . . apply to feet Daily; Duration: 30 days 07/05/2015 Not-Taking Immunizations Vaccine Route Administration Date Status [...] Never (0 point) Points 1 Interpretation Negative Problems Problem Type SNOMED Code ICD Code Onset Dates Problem Status W/U Status Risk Notes Problem Polyneuropathy due to type 2 diabetes mellitus (029407095) Type 2 diabetes mellitus with diabetic polyneuropathy (E11.42) Active confirmed Vital Signs Blood pressure diastolic 70 mm Hg 05/21/2025 Height 5ft3in in 05/21/2025 Blood pressure systolic 140 mm Hg 05/21/2025 Weight 195 lbs 05/21/2025 BMI 34.54 kg/m2 05/21/2025 Procedures Procedure Date Ordered Date Performed Result Body Sit e 61257-MXEYHNX NAIL, 1-5 08/04/2024 N/A 47308-NKOB SKIN LESIONS, OVER 4 08/04/2024 N/A N6669-NGBBDXDF DYSTROPHIC NAILS ANY # 08/04/2024 N/A 44923-NRXQEOU NAIL, 1-5 11/13/2024 N/A 81058-CMPW SKIN LESIONS, OVER 4 11/13/2024 N/A Z5629-FGLXUUXN DYSTROPHIC NAILS ANY # 11/13/2024 N/A 80822-YJTTYMQ NAIL, 1-5 02/16/2025 N/A 29649-TSMP SKIN LESIONS, OVER 4 02/16/2025 N/A P7239-TOXBTDDY DYSTROPHIC NAILS ANY # 02/16/2025 N/A 81785-RSZGMUA NAIL, 1-5 05/21/2025 N/A 07890-Ughhkllu Plate 05/21/2025 N/A 10748-HGWA SKIN LESIONS, OVER 4 05/21/2025 N/A I5468-FHGWQQUD DYSTROPHIC NAILS ANY # 05/21/2025 N/A Encounters Encounter Location Date Provider Diagnosis [address] [phone] 08/04/2024 Mignon Black Type 2 diabetes mellitus with diabetic polyneuropathy E11.42 and Onychomycosis B35.[address] [address] 11/13/2024 Mignon Black Type 2 diabetes mellitus with diabetic polyneuropathy E11.42 ; Onychomycosis B35.1 ; Other hammer toe(s) (acquired), right foot M20.41 and Other hammer toe(s) (acquired), left foot M20.[address] [address] 02/16/2025 Mignon Black Type 2 diabetes mellitus with diabetic polyneuropathy E11.42 and Onychomycosis B35.[address] [address] 05/21/2025 Mignon Black Type 2 diabetes mellitus with [...] - E11.42) 02/16/2025 Onychomycosis (ICD-10 - B35.1) 05/21/2025 Type 2 diabetes mellitus with diabetic polyneuropathy (ICD-10 - E11.42) 05/21/2025 Onychomycosis (ICD-10 - B35.1) 08/04/2024 Onychomycosis (ICD-10 - B35.1) 11/13/2024 Other hammer toe(s) (acquired), right foot (ICD-10 - M20.41) Patient Educated with: DIABETIC FOOT CARE INSTRUCTIONS. pdf (DIABETIC FOOT CARE INSTRUCTIONS. pdf) 11/13/2024 Other hammer toe(s) (acquired), left foot (ICD-10 - M20.42) 05/21/2025 Ingrown nail (ICD-10 - L60.0) 02/16/2025 Other Plan Of Treatment Pending Test Test Name Order Date 29905-SRPMQND NAIL, 6 OR MORE 10/11/2015 74762-MXOUNVL NAIL, 6 OR MORE 01/17/2016 41376-MAUFWZC NAIL, 6 OR MORE 10/13/2019 95245-EXQPLVX NAIL, 6 OR MORE 04/22/2020 07432-DQKYVAL NAIL, 6 OR MORE 07/26/2020 34065-BSDVZAC NAIL, 6 OR MORE 01/13/2021 24593-QXTEXKL NAIL, 6 OR MORE 04/18/2021 52440-IRHRKVE NAIL, 6 OR MORE 08/08/2021 61943-ZVGKNYX NAIL, 1-5 07/02/2023 41077-NVVJDCH NAIL, 1-5 10/08/2023 09179-SGKXUJM NAIL, 1-5 01/14/2024 49744-EUIPWKJ NAIL, 1-5 05/01/2024 28526-FANGKHU NAIL, 1-5 08/04/2024 81809-SLVUGPP NAIL, 1-5 02/16/2025 83378-VSWULJU NAIL, 1-5 11/13/2024 85379-BUAPSOO NAIL, 1-5 05/21/2025 59649-Xdnixngx Plate 05/21/2025 95680-Vrdyxkfl Plate 03/26/2023 35060-Ixjqmqdz Plate 04/18/2021 75051 I&D ABSCESS- SIMPLE,SINGLE 022 53123 I&D ABSCESS- SIMPLE,SINGLE 024 21956-SYIZ SKIN LESIONS, OVER 4 07/02/20 23 17990-PKMA SKIN LESIONS, OVER 4 01/14/20 24 39943-ZMZB SKIN LESIONS, OVER 4 03/26/20 23 12279-BVPP SKIN LESIONS, OVER 4 10/08/19 24 42450-BCNH SKIN LESIONS, OVER 4 12/15/19 23 56001-FBJI SKIN LESIONS, OVER 4 06/19/20 24827-KVTA SKIN LESIONS, OVER 4 03/16/20 61077-CQNR SKIN LESIONS, OVER 4 11/29/19 21042-WFNF SKIN LESIONS, OVER 4 08/08/20 20452-CTSF SKIN LESIONS, OVER 4 04/18/20 58880-LFMZ SKIN LESIONS, OVER 4 01/14/20 66829-ZQFC SKIN LESIONS, OVER 4 07/26/20 57943-JFMI SKIN LESIONS, OVER 4 04/22/20 20 12473-DARY SKIN LESIONS, OVER 4 01/17/20 16 81470-GGFH SKIN LESIONS, OVER 4 10/13/19 20 88314-SVTR SKIN LESIONS, OVER 4 05/21/20 87296-WLIX SKIN LESIONS, OVER 4 02/17/20 25 05388-FNOC SKIN LESIONS, OVER 4 11/13/19 25 65280-RWLJ SKIN LESIONS, OVER 4 08/04/20 85537-MEOH SKIN LESIONS, OVER 4 05/01/20 L2329-JTBNRPKP DYSTROPHIC NAILS ANY # T9973-XGSLJBQL DYSTROPHIC NAILS ANY # D0309-USESUKOY DYSTROPHIC NAILS ANY # K5722-JYHKJUKK DYSTROPHIC NAILS ANY # Q1949-AVYZMUKA DYSTROPHIC NAILS ANY # M0843-JWSWKWRA DYSTROPHIC NAILS ANY # U4227-UWPEHQDX DYSTROPHIC NAILS ANY # X4447-TPEMKFLI DYSTROPHIC NAILS ANY # X2929-SAMUXIHZ DYSTROPHIC NAILS ANY # N6365-FQJXFWFG DYSTROPHIC NAILS ANY # W1678-GCHWVYGD DYSTROPHIC NAILS ANY # Next Appt Details Provider Name:Mignon Calhoun , 08/20/2025 11:30:00 AM, [address] [place], [address], Insurance Providers Payer Name Payer Address Payer Phone Subscriber Number Group Number Insured Name Patient Relationship to Insured Coverage Start Date Coverage End Date Medicare National Govt avandeo [facility] [address] [place] [address] [phone] [id number] Rosalia Talavera Self - patient is the insured [employer] [address] [place] [address] [id number] Rosalia Talavera Self - patient is the insured Medical (General) History Medical History History ICD Code Diabetic type ll High blood pressure Measles Sinus conditions Cellulitis Anemia Primary osteoarthritis, left ankle and f oot M19.072 Other hammer toe(s) (acquired), right fo ot M20.41 Other hammer toe(s) (acquired), left berenice t M20.42 Cataracts Surgical History Surgery Date(Month/Year) Left renal calculus s/p remioval and lef t ureteral stent placement 01/13/2014 left ureteral stent placement Hospitalization History Reason Date(Month/Year) [facility]- High Blood Pressure 01/2021 cellulitis hospitalized twice for 5 days in total Oct 2018
== END 2025-05-25 14:15 | disposition home or self-care (01) ==
LOC: HO.HMCC 12:51
PROVIDERS: PCP Internal Medicine; Visit Provider Internal Medicine
DX: Z01.818 Encounter for other preprocedural examination (principal); E78.00 Pure hypercholesterolemia, unspecified; E11.29 Type 2 diabetes mellitus with other diabetic kidney complication; I10 Essential (primary) hypertension

== ENCOUNTER → 2025-05-25 12:50 | Outpatient (BNVA) | payer MEDICARE, SELFPAY | PROVIDERS: PCP Internal Medicine; Visit Provider Internal Medicine | DX: Z01.818 Encounter for other preprocedural examination (principal); H26.9 Unspecified cataract; E78.00 Pure hypercholesterolemia, unspecified; E11.29 Type 2 diabetes mellitus with other diabetic kidney complication; I10 Essential (primary) hypertension; E66.9 Obesity, unspecified; Z68.34 Body mass index [BMI] 34.0-34.9, adult; Z79.899 Other long term (current) drug therapy; Z79.84 Long term (current) use of oral 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 drugs | CPT/HCPCS: 99212 ==

== ENCOUNTER 2025-07-20 08:23 | Outpatient (REF) | payer MEDICARE, SELFPAY ==
--- OUTSIDE RECORDS SUMMARY | 2024-04-24 10:00 | XMS_ITS ---
Author Organization [facility] Address [address] [place] [address] Care Team Providers Care Outdoor Studies Director Name Role Phone Humberto GRIFFIN, Arlyn Montgomery Primary Care Provider Un available Lj Mignon Unavailable [phone] Saul Encounters Encounter Location Date Provider Diagnosis [address] [address] 04/24/2024 Mignon Calhoun Plan Of Treatment Next Appt Details Provider Name:Mignon Calhoun , 08/20/2025 11:30:00 AM, [address] [place], [address], Progress Notes * Rosalia RANKIN ADOB: [birth year] (75 yo F)Acc No.[id number]:04/24/2024 Progress Note Patient: Rosalia BRAUN Provider: Stephen Calhoun DPM :1950 A ge:73 Y S ex:Female Date:04/24/2024 Address:[address] [place], [place] [id number] Pcp:Дмитрий Saravia Subjective: * Chief Complaints: * [address] Saul[address] * Medical History: Objective: * Vitals: Assessment: Plan: * Treatment: * Images: * The named appointment provid er may or may not be the originator of this progress note, and it is not deemed complete until electronically signed by the appointment provider. Sign off status: Pending * Provider: Stephen Calhoun DPM Date: 0 04/24/2024 Generated for Marc cole/Rebecca/Carli on: 1 09/19/2024 08:45 AM EST
--- OUTSIDE RECORDS SUMMARY | 2024-08-26 04:10 | XMS_ITS ---
Author Organization [facility] Address [address] [place] [phone] Care Team Providers Care Paint Line Operator Name Role Phone Humberto GRIFFIN, Arlyn Primary Care Provider Mike David Jr, Se Vyas REASON FOR VISIT screening Encounters Encounter Location Date Provider Diagnosis [facility] [place] [address] [place] [phone] 08/26/2024 Se David Jr Plan Of Treatment No Information Progress Notes * FARZANA RANKINADOB:1950 (75 yo F)Acc No.[id number]:08/26/2024 COLON WITH MAC Patient: SHAW BRAUN Provider: Sam David MD :1950 A ge:74 Y S ex:Female Date:08/26/2024 Address:[address] [place], [place] [phone] Pcp:Arlyn Paul MD Subjective: * Chief Complaints: [...] Date: 10/27/2023 Generated for Marc cole/Rebecca/eTransmitting on: 09/19/2024 08:46 AM EST
--- OUTSIDE RECORDS SUMMARY | 2024-09-02 03:20 | XMS_ITS ---
Author Organization [facility] Address [address] [place] [address] Care Team Providers Care Outpatient Therapist Name Role Phone Humberto GRIFFIN, Arlyn Primary Care Provider Se Weinstein Jr Unavailable REASON FOR VISIT screening Encounters Encounter Location Date Provider Diagnosis [facility] [address] [place] [phone] 09/02/2024 Se David Jr Colon cancer screening Z12.11 Assessments Encounter Date Diagnosis (ICD Code) Assessment Notes Treatment Notes Treatment Clinical Notes Section Notes 09/02/2024 Colon cancer screening (ICD-10 - Z12.11) Plan Of Treatment No Information Progress Notes * MARQUITA RANKINB:1950 (75 yo F)Acc No.[id number]:09/02/2024 COLON WITH MAC Patient: SHAW BRAUN Provider: Sam David MD :1950 A ge:74 Y S ex:Female Date:09/02/2024 Address:[address] [place] [phone] Pcp:Arlyn Paul MD Subjective: * Chief Complaints: * 1 . Screening. * Medical History: Objective: * Vitals: Assessment: * Assessment: 1. C olon cancer screening - Z12.11 (Primary) Plan: * Treatment: * Procedure Codes: 4 5378 DIAGNOSTIC COLONOSCOPY, 0529F INTRVL 3+YRS PTS CLNSCP DOCD, 0528F RCMND FLW-UP 10 YRS DOCD * * The named appointment provid er may or may not be the originator of this progress note, and it is not deemed complete until electronically signed by the appointment provider. Sign off status: Pending * Provider: Sam David MD Date: 11/03/2023 Generated for Marc cole/Rebecca/Carli on: 09/19/2024 08:45 AM EST
--- OUTSIDE RECORDS SUMMARY | 2025-07-20 08:46 | XMS_ITS | Patient Health Record ---
Author Organization [facility] Address [address] [place] [address] Care Team Providers Care Project Development Engineer Name Role Phone Humberto GRIFFIN, Arlyn Montgomery Primary Care Provider Un available Black, Mignon Unavailable [phone] Allergies No Known Allergies Results Component Value Reference Range Notes HEMOGLOBIN A1C (GLYCOHEMOGLO BIN) Reviewed date:02/16/2025 08:10:32 [...] Polyneuropathy due to type 2 diabetes mellitus (973331901) Type 2 diabetes mellitus with diabetic polyneuropathy (E11.42) Active confirmed Vital Signs Blood pressure diastolic 70 mm Hg 05/21/2025 Height 5ft3in in 05/21/2025 Blood pressure systolic 140 mm Hg 05/21/2025 Weight 195 lbs 05/21/2025 BMI 34.54 kg/m2 05/21/2025 Procedures Procedure Date Ordered Date Performed Result Body Sit e 39397-HTBHWPD NAIL, 1-5 08/04/2024 N/A 53684-GMXV SKIN LESIONS, OVER 4 08/04/2024 N/A M0638-GIZIUUAB DYSTROPHIC NAILS ANY # 08/04/2024 N/A 21572-FQUGMYK NAIL, 1-5 11/13/2024 N/A 23038-GTLR SKIN LESIONS, OVER 4 11/13/2024 N/A U3671-XGMORUVA DYSTROPHIC NAILS ANY # 11/13/2024 N/A 45422-PILVFJB NAIL, 1-5 02/16/2025 N/A 62599-AXOM SKIN LESIONS, OVER 4 02/16/2025 N/A Q8981-LVDQEIOX DYSTROPHIC NAILS ANY # 02/16/2025 N/A 81001-ZLZIOZL NAIL, 1-5 05/21/2025 N/A 95825-Druszgdw Plate 05/21/2025 N/A 90781-ZDFB SKIN LESIONS, OVER 4 05/21/2025 N/A C3626-LTSCKVKP DYSTROPHIC NAILS ANY # 05/21/2025 N/A Encounters Encounter Location Date Provider Diagnosis [facility] [address] [place] [address] 08/04/2024 Mignon Black Type 2 diabetes mellitus with diabetic polyneuropathy E11.42 and Onychomycosis B35.[address] [address] 11/13/2024 Mignon Black Type 2 diabetes mellitus with diabetic polyneuropathy E11.42 ; Onychomycosis B35.1 ; Other hammer toe(s) (acquired), right foot M20.41 and Other hammer toe(s) (acquired), left foot M20.[address] [address] 02/16/2025 Mignon Black Type 2 diabetes mellitus with diabetic polyneuropathy E11.42 and Onychomycosis B35.[address] [address] 05/21/2025 Mignon Black Type 2 diabetes mellitus [...] Treatment Pending Test Test Name Order Date 34701-VCQOQGA NAIL, 6 OR MORE 10/11/2015 35472-ANUKUAG NAIL, 6 OR MORE 01/17/2016 94974-KJGYJTM NAIL, 6 OR MORE 10/13/2019 56350-WNNIZWM NAIL, 6 OR MORE 04/22/2020 02779-RVQOQSS NAIL, 6 OR MORE 07/26/2020 24052-EVJXUGA NAIL, 6 OR MORE 01/13/2021 89420-CDXBNUZ NAIL, 6 OR MORE 04/18/2021 29097-DIQILDK NAIL, 6 OR MORE 08/08/2021 50274-BOBYQOG NAIL, 1-5 07/02/2023 73041-BGPZWHQ NAIL, 1-5 10/08/2023 64514-XPRJVLF NAIL, 1-5 01/14/2024 61925-ZTCRUGO NAIL, 1-5 05/01/2024 90549-SZHALHD NAIL, 1-5 08/04/2024 06712-NERAAVU NAIL, 1-5 02/16/2025 86251-TOAWYLW NAIL, 1-5 11/13/2024 15269-YEWNBNP NAIL, 1-5 05/21/2025 73455-Anhnakwy Plate 05/21/2025 72489-Tlsvtoai Plate 03/26/2023 50112-Csrpvhij Plate 04/18/2021 13098 I&D ABSCESS- SIMPLE,SINGLE 022 92019 I&D ABSCESS- SIMPLE,SINGLE 024 24164-RVOI SKIN LESIONS, OVER 4 07/02/20 23 21244-SVRT SKIN LESIONS, OVER 4 01/14/20 24 03754-XMYX SKIN LESIONS, OVER 4 03/26/20 23 54581-WUZA SKIN LESIONS, OVER 4 10/08/19 24 73795-PIAA SKIN LESIONS, OVER 4 12/15/19 23 50277-YEKP SKIN LESIONS, OVER 4 06/19/20 22 03313-FMZM SKIN LESIONS, OVER 4 03/16/20 22 27104-WCFL SKIN LESIONS, OVER 4 11/29/19 22 67942-JVME SKIN LESIONS, OVER 4 08/08/20 21 27727-SRUH SKIN LESIONS, OVER 4 04/18/20 21 85388-ZAFD SKIN LESIONS, OVER 4 01/14/20 21 84302-WNRH SKIN LESIONS, OVER 4 07/26/20 20 26646-MCJL SKIN LESIONS, OVER 4 04/22/20 20 65044-LLRE SKIN LESIONS, OVER 4 01/17/20 16 67597-LINB SKIN LESIONS, OVER 4 10/13/19 20 78235-UWJR SKIN LESIONS, OVER 4 05/21/20 25 75640-SQRN SKIN LESIONS, OVER 4 02/17/20 25 90239-FSLT SKIN LESIONS, OVER 4 11/13/19 25 90725-CQJP SKIN LESIONS, OVER 4 08/04/20 24 17142-NUTY SKIN LESIONS, OVER 4 05/01/20 24 B9339-PZXKAUUT DYSTROPHIC NAILS ANY # F7671-CFSDGQUP DYSTROPHIC NAILS ANY # C0838-FSOBEJCD DYSTROPHIC NAILS ANY # W7263-INTUMCEV DYSTROPHIC NAILS ANY # B4457-DPBCEUKP DYSTROPHIC NAILS ANY # O7577-KQCXMBVF DYSTROPHIC NAILS ANY # J9880-MBALNHDS DYSTROPHIC NAILS ANY # E5389-KYAGJKMK DYSTROPHIC NAILS ANY # N7364-JJMLCOMI DYSTROPHIC NAILS ANY # Z2751-QZEFJDFQ DYSTROPHIC NAILS ANY # Z9336-ICUROHDF DYSTROPHIC NAILS ANY # Next Appt Details Provider Name:Mignon Calhoun , 08/20/2025 11:30:00 AM, [address] [place] [address], [phone], Insurance Providers Payer Name Payer Address Payer Phone Subscriber Number Group Number Insured Name Patient Relationship to Insured Coverage Start Date Coverage End Date Medicare [facility] [address] [place] [address] [id number] Rosalia Talavera Self - patient is the insured [employer] [address] [place] [address] [id number] Rosalia Talavera Self - patient is the [...] ureteral stent placement Hospitalization History Reason Date(Month/Year) [facility] [place] High Blood Pressure 01/2021 cellulitis hospitalized twice for 5 days in total Oct 2018
--- OUTSIDE RECORDS SUMMARY | 2025-07-20 08:46 | XMS_ITS | Patient Health Record ---
Author Organization [facility] Address [address] [place] [address] Care Team Providers Care Machinery Mechanic Name Role Phone Humberto GRIFFIN, Arlyn Primary Care Provider Se Weinstein Jr Unavailable [phone] Allergies No Known Allergies Results Component Value Reference Range Notes Glucose, Whole Blood Reviewed date:09/02/2024 03:11:19 PM Interpretation: Performing Lab:[facility], [address] [place] [phone] Notes/Report: Glucose, Whole Blood 156 60-115 mg/dL METER # : [id number] Reason For Referral No Information Medications Medication SIG (Take, Route, Frequency, Duration) Notes Start Date End Date Status hydrALAZINE HCl 100 MG TAKE 1 TABLET BY MOUTH THREE TIMES DAILY Oral; Duration: 90 Active MiraLax (colon prep) 17 GM/SCOOP mixed with Gatorade or Crystal Light Orally begin at 5:00 p.m. the day before the procedure; Duration: 1 day 07/21/2024 Active Multi Vitamin - 1 tablet Orally Once a day; Duration: 30 day(s) 07/21/2024 Active Vitamin B 12 100 MCG as directed Orally 07/21/2024 Active Furosemide 20mg Acti ve Iron 325 (65 Fe) MG 1 tablet Orally Thre e times a Week; Duration: 30 day(s) 07/21/2024 Active Letrozole 2.5 MG Oral; Duration: 90 Active Atorvastatin Calcium 10mg Active Carvedilol 12.5 MG Oral; Duration: 90 Active metFORMIN HCl 1000 MG Oral; Duration: 90 Active amLODIPine Besylate 5 MG TAKE 1 TABLET B Y MOUTH ONCE DAILY Oral; Duration: 90 Active Trulicity 1.5 MG/0.5ML Subcutaneous; Dur ation: 84 Active Immunizations Vaccine Route Administration Date Status Comme nts Influenza Unknown 07/21/2024 Refused Social History Tobacco Use: Social History Observation Description Date Details (start date - stop date) Former Smoker NA - NA Tobacco Use/Smoking Question Answer Notes Patient is a former smoker Problems Problem Type SNOMED Code ICD Code Onset Dates Problem Status W/U Status Risk Notes Problem Colon cancer screening (392427124) Colon cancer screening (Z12.11) Active confirmed Problem Long-term current use of drug therapy (709294029) 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 drugs (Z79.84) Active confirmed Problem Long-term current use of drug therapy (386833059) retirement current use of diuretic (Z79.899) Active confirmed Vital Signs Temperature 96.9 degrees Fahrenheit 07/21/2024 Blood pressure diastolic 00 mm Hg 07/21/2024 Height 61.5 in 07/21/2024 Blood pressure systolic 000 mm Hg 07/21/2024 Weight 195 lbs 07/21/2024 BMI 36.24 kg/m2 07/21/2024 Encounters Encounter Location Date Provider Diagnosis [facility] Out[facility] [address] [place] [phone] 09/02/2024 Se David Jr Colon cancer screening Z12.11 [facility] [address] 07/21/2024 Se David Jr Colon cancer screening Z12.11 ; retirement (current) use of oral 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 drugs Z79.84 and retirement current use of diuretic Z79.[address] [address] 07/22/2024 Se David Jr Assessments Encounter Date [...] metformin the day before the procedure. 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 We discussed risks and benefits of the procedure today. She understands these and agrees to proceed. She is advised to stop Trulicity and iron one week before the procedure, furosemide and metformin the day before the procedure. 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
[2025-07-20 10:38] LABS: MANUAL DIFF FLAG NO
[2025-07-20 10:49] LABS: Hematocrit 36.9 % (37.0-47.0); Hemoglobin 12.1 g/dl (12.0-16.0); Imm Gran Abs Auto 0.02 X10*3/uL (0.00-0.03); Imm Gran Pct Auto 0.3 % (0.0-0.4); Lymphocytes Absolute Auto 1.2 X10*3/uL (1.2-4.9); Mean Corpuscular HGB Conc 32.8 g/dl (31.0-35.0); Mean Corpuscular Hemoglobin 31.7 pg (27.0-33.0); Mean Corpuscular Volume 96.6 fL (80.0-98.0); NRBC Abs Auto 0.000 X10*3/uL (0.0-0.012); NRBC Pct Auto 0.0 /100WBC (0.0-0.2); Platelet Count 276 X10*3/uL (160-400); Red Blood Count 3.82 X10*6/uL (4.20-5.50); White Blood Count 6.1 X10*3/uL (4.8-10.8)
[2025-07-20 11:06] LABS: Alanine Aminotransferase 18 U/L (0-31); Anion Gap 11 (12-20); Aspartate Amino Transferase 22 U/L (5-31); Blood Urea Nitrogen 13 mg/dL (9-16); Calcium 9.7 mg/dL (8.4-10.2); Carbon Dioxide 31 mmol/L (22-29); Chloride 104 mmol/L (96-108); Cholesterol 160 mg/dL (<200); Estimated Glomerular Filt Rate > 60; HDL Cholesterol 50 mg/dL (>40); Iron 79 mcg/dL (30-160); Percent Iron Saturation 23 % (15-50); Potassium 4.2 mmol/L (3.3-5.1); Sodium 142 mmol/L (135-145); Total Iron Binding Capacity 351 mcg/dL (228-428); Triglycerides 126 mg/dL (<150); Unsaturated Iron Binding 272 ug/dL
== END 2025-07-20 08:24 | disposition home or self-care (01) ==
LOC: HO.HMGCLDS 08:23
PROVIDERS: PCP Internal Medicine; Visit Provider Internal Medicine
DX: Z01.818 Encounter for other preprocedural examination (principal); E11.29 Type 2 diabetes mellitus with other diabetic kidney complication; E78.00 Pure hypercholesterolemia, unspecified; E66.9 Obesity, unspecified; I10 Essential (primary) hypertension; Z13.21 Encounter for screening for nutritional disorder
CPT/HCPCS: 36415; 80048; 80061; 82306; 83036; 83540; 84450; 84460; 85025

== ENCOUNTER 2025-07-23 14:23 | Outpatient (AMB) | payer MEDICARE, SELFPAY ==
--- OUTSIDE RECORDS SUMMARY | 2024-04-24 10:00 | XMS_ITS ---
Author Organization [facility] Address [address] [place] [address] Care Team Providers Care Manager Battery Name Role Phone Humberto GRIFFIN, Arlyn Montgomery Primary Care Provider Un available Lj Mignon Unavailable [phone] Saul Encounters Encounter Location Date Provider Diagnosis [address] [address] 04/24/2024 Mignon Calhoun Plan Of Treatment Next Appt Details Provider Name:Mignon Calhoun , 08/20/2025 11:30:00 AM, [address] [place], [address], Progress Notes * Rosalia RANKIN ADOB: [birth year] (75 yo F)Acc No.[id number]:04/24/2024 Progress Note Patient: Rosalia BRAUN Provider: Stephen Calhoun DPM :1950 A ge:73 Y S ex:Female Date:04/24/2024 Address:[address] [place], [place] [id number] Pcp:Дмитрий Saravia Subjective: * Chief Complaints: * [address] Saul. * Medical History: Objective: * Vitals: Assessment: Plan: * Treatment: * Images: * The named appointment provid er may or may not be the originator of this progress note, and it is not deemed complete until electronically signed by the appointment provider. Sign off status: Pending * Provider: Stephen Calhoun, DAYANARA Date: 0 04/24/2024 Generated for Marc cole/Rebecca/Carli on: 1 09/22/2024 05:29 PM EST
--- OUTSIDE RECORDS SUMMARY | 2024-08-26 04:10 | XMS_ITS ---
Author Organization [facility] Address [address] [place] [phone] Care Team Providers Care Handle Sander Operator Name Role Phone Humberto GRIFFIN, Arlyn Primary Care Provider Mike David Jr, Se Vyas REASON FOR VISIT screening Encounters Encounter Location Date Provider Diagnosis [facility] [place] [address] [place] [phone] 08/26/2024 Se David Jr Plan Of Treatment No Information Progress Notes * FARZANA RANKINADOB:1950 (75 yo F)Acc No.[id number]:08/26/2024 COLON WITH MAC Patient: SHAW BRAUN Provider: Sam David MD :1950 A ge:74 Y S ex:Female Date:08/26/2024 Address:[address] [place], [place] [id number] Pcp:Arlyn Paul MD Subjective: * Chief Complaints: * 1 . Screening. * Medical History: Objective: * Vitals: Assessment: Plan: * Treatment: * * The named appointment provid er may or may not be the originator of this progress note, and it is not deemed complete until electronically signed by the appointment provider. Sign off status: Pending * Provider: Sam David MD Date: 10/27/2023 Generated for Marc cole/Rebecca/eTransmitting on: 09/22/2024 05:30 PM EST
--- OUTSIDE RECORDS SUMMARY | 2024-09-02 03:20 | XMS_ITS ---
Author Organization [facility] Address [address] [place] [address] Care Team Providers Care Industrial Sociologist Name Role Phone Humberto GRIFFIN, Arlyn Primary Care Provider Se Weinstein Jr Unavailable REASON FOR VISIT screening Encounters Encounter Location Date Provider Diagnosis [facility] [place] [address] [place] [phone] 09/02/2024 Se David Jr Colon cancer screening Z12.11 Assessments Encounter Date Diagnosis (ICD Code) Assessment Notes Treatment Notes Treatment Clinical Notes Section Notes 09/02/2024 Colon cancer screening (ICD-10 - Z12.11) Plan Of Treatment No Information Progress Notes * MARQUITA RANKINB:1950 (75 yo F)Acc No.[id number]:09/02/2024 COLON WITH MAC Patient: SHAW BRAUN Provider: Sam David MD :1950 A ge:74 Y S ex:Female Date:09/02/2024 Address:[address] [place], [place] [phone] Pcp:Arlyn Paul MD Subjective: * Chief Complaints: [...] Date: 11/03/2023 Generated for Marc cole/Rebecca/Carli on: 09/22/2024 05:29 PM EST
[2025-07-23 15:10] VITALS: BP 122/64; PULSE 80; RESP 17; TEMP 36.6; O2SAT 94; BMI 34.5
--- NOTE | 2025-07-23 15:10 | A.OFFPC_ITS ---
Vital Signs 07/23/25 15:10 Height 5 ft 3 in Weight 195 lb BMI 34.5 BP 122/64 Blood Pressure Location Lt brachial Position Sitting Respiration 17 Pulse 80 Pulse Source Pulse Oximeter Temp 97.8 F Temp Source Oral Pulse Oximetry (%) 94 Oxygen Delivery Method Room Air Intake Visit Reasons: 3m follow up Intake Note: Pt is here today for her 3mo. 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 Required: No Allergies No Known Allergies Allergy (Verified 07/23/25 15:25) Medication List - Last Reconciled 07/23/25 by Arlyn Paul MD amlodipine 10 mg PO DAILY atorvastatin 20 mg PO DAILY blood sugar diagnostic (FreeStyle Lite Strips) as directed daily; carvedilol (Coreg) 12.5 mg PO BID ferrous fumarate 65 mg PO DAILY furosemide 20 mg PO Q12H letrozole 2.5 mg PO Q24H mecobalamin (vitamin B12) 1,000 mcg PO DAILY metformin 1,000 mg PO BID 90 days multivitamin 1 tab PO DAILY tirzepatide 5 mg (0.5 mL) subcut QWEEK Tobacco use date assessed: 07/23/25 Fall risk assessment: No Falls in past year Last assessed Fall Risk: 07/23/25 Dental Screening Dental Screen Date: 07/23/25 Did you have a dental visit in the last 12 months?: Yes Did you have a dental problem in the last 6 months where you did not have access to dental care?: No Was dental information given to patient?: Patient has dentist HPI HPI Comments History of Present Illness Details 75 year old lady with past medical histo ry of chronic venous insufficiency, history of DCIS of breast, history of basal cell CA on nose s/p Mohs surgery, here today for follow-up on her diabetes mellitus, hypertension and hyperlipidemia Compliant with taking her medications, and tries to adhere to recommended diet but no regular exercise done Latest hemoglobin A1c came back at 6.4% with normal microalbuminuria. Blood pressure stable and controlled on present treatment with amlodipine and furosemide and carvedilol, and fasting lipids are within normal limits, currently on atorvastatin 20 mg daily. Her anemia also is improving, currently on ferrous fumarate 65 mg daily with hemoglobin/ hematocrit almost within normal limits. Patient states she has been feeling well with no other complaints at present. [facility] Medical History History of nephrolithiasis Obesity (BMI 30-39.9) History of invasive ductal carcinoma of breast Hx of basal cell carcinoma Primary invasive malignant neoplasm of right female breast Normocytic normochromic anemia Restrictive lung disease secondary to obesity Varicose veins of left lower extremity with inflammation Chronic venous insufficiency of lower extremity Type 2 diabetes mellitus with other diabetic kidney complication Hyperlipidemia Surgical History S/P Mohs surgery for basal cell carcinoma Status post right breast lumpectomy History of lumpectomy of left breast Hx of colonoscopy S/P ureteral stent placement Family History Father No problems noted. Mother Ovarian cancer Brother Diabetes mellitus Brother Diabetes mellitus Maternal Grandfather Throat cancer Social History Household Members: None Housing: Apartment Are you a primary outdoor emergency care technician to a significant other at home: No Do you presently have visiting nurse or other home services: No Alcohol intake: former Patient Tobacco Use Status: Former Tobacco user Tobacco use type: Cigarette Years Smoked: since 12 yrs old e-Cigarette/Vaping Use: Never Used Second Hand Smoke Exposure: No Advance Directives Date on File: 04/20/21 service: No Current occupational status: retired Cognitive needs: No Hearing needs: No Vision needs: Yes (Glasses) Questionnaire PHQ-9 Over the last 2 weeks, how often have you been bothered by any of the following problems? 1. Little interest or pleasure in doing things: not at all 2. Feeling down, depressed, or hopeless: not at all 3. Trouble falling or staying asleep, or sleeping too much: several days 4. Feeling tired or having little energy: several days 5. Poor appetite or overeating: not at all 6. Feeling bad about yourself - or that you are a failure or have let yourself or your family down: not at all 7. Trouble concentrating on things, such as reading the newspaper or watching television: not at all 8. Moving or speaking so slowly that other people could have noticed. Or the opposite - being so fidgety or restless that you have been moving around a lot more than usual: not at all 9. Thoughts that you would be better off or of hurting yourself in some way: not at all Total score: 2 Depression Screening Interpretation: Negative Depression Screening Done: Yes Source: Developed by Drs. Yasmani Ramos, Keli Bhat, Armando Ghotra and colleagues, with an educational iris from [employer]. Thrive Questionnaire Date Thrive assessed: 07/23/25 I am a: Patient What is your living situation today?: I have a steady place to live Within the past 12 months, did the food you bought not last and you didn't have the money to get more?: Never true Within the past 12 months, did you worry whether your food would run out before you got money to buy more?: Never true Do you have trouble paying for medicines?: No Do you have trouble getting transportation to medical appointments?: No Do you have trouble paying your heating and electricity bill?: No Do you have trouble taking care of your child, family member or friend?: No Do you have trouble with day-to-day activities such as bathing, preparing meals, shopping, managing finances, etc.?: No Are you currently unemployed and looking for a job?: No Are you interested in more education?: No THRIVE Score: 0 AUDIT C Alcohol Use Questionnaire (AUDIT-C) 1. How often do you have a drink containing alcohol?: Never Total Score: 0 MARISA-7 AMB Questionnaire MARISA-7 Date MARISA - 7 assessed: 07/23/25 Feeling nervous, anxious, or on edge: 0 = Not at all Not being able to stop or control worryin = Not at all Worrying too much about different things: 0 = Not at all Trouble relaxin = Not at all Being so restless that it is hard to sit still: 0 = Not at all Becoming easily annoyed or irritable: 0 = Not at all Feeling afraid as if something awful might happen: 0 = Not at all Total MARISA-7 score (0-4 normal; 5-9 mild; 10-14 moderate; 15-21 severe): 0 Source: Developed by Drs. Yasmani Ramos, Armando Hernandez and colleagues, with an educational iris from [employer]. MARISA-7 Assessment Billing MARISA-7 Assessment Tool: MARISA-7 Assessment 78847 Review of Systems Const Denies weakness Eyes Details: Sees Dr. Tapia for her diabetes retinopathy screening, up-to-date, last seen 01/27/2025, with no retinopathy seen Reports no additional complaints ENT Denies dizziness Card Denies chest pain, Denies syncope, Denies rapid heart rate, Denies pedal edema, Denies lightheadedness, Denies palpitations and Denies dyspnea Resp Denies cough and Denies dyspnea GI Reports no additional complaints Reports no additional complaints Musc Denies abnormal gait, Denies muscle cramps, Denies muscle weakness and Denies numbness Skin/Breast Denies breast pain and Denies breast mass Neuro Denies abnormal gait, Denies dizziness, Denies syncope, Denies numbness and Denies weakness Psych Reports no additional complaints Endo Denies palpitations Niraj/Lymph Denies easy bleeding and Denies easy bruising Aller/Immun Reports no additional complaints Physical exam (Primary Care) Vital Signs: Last Vital Signs Temp 97.8 F 07/23/25 15:10 Pulse 80 07/23/25 15:10 Resp 17 07/23/25 15:10 BP 122/64 07/23/25 15:10 Pulse Ox 94 07/23/25 15:10 Oxygen Delivery Method Room Air 07/23/25 15:10 BMI result Body Mass Index 34.5 Tobacco/Smoking Status: Tobacco use Status Tobacco use date assessed 07/23/25 07/23/25 15:20 Patient Tobacco Use Status Former Tobacco user 07/23/25 15:12 Tobacco use type Cigarette 07/23/25 15:12 e-Cigarette/Vaping Use Never Used 07/23/25 15:12 PHQ-9: PHQ-9 Score PHQ-9: Total score 2 07/23/25 16:03 Depression Screening Interpretation: Negative Thrive Assessment: Date of Thrive Assessment Date Thrive assessed 07/23/25 07/23/25 16:03 Const Other: Alert oriented x3 , no acute distress noted , ambulatory with normal gait HENMT Head: Yes normocephalic Face and sinus: Yes face symmetric Mouth: Normal oral and palatal mucosa present and moist mucous membranes Eyes General: appearance normal, both eyes and all related structures Neck Other: Supple, no lymphadenopathy, thyroid gland nonpalpable Resp Other: Clear to auscultation bilaterally Cardio Other: S1-S2 present regular rate and rhythm GI Other: Obese, soft, nontender, no mass palpated General: Yes no CVA tenderness Back/Spine/Pelvis Back: no CVA tenderness and No back tenderness Skin General skin exam: no rashes or lesions noted Neuro General: moves all extremities and no focal motor deficits Extrem Other: Superficial varicose veins in in both lower extremities General: Yes full ROM, Yes no joint enlargement, Yes no calf tenderness and Yes normal gait Results Reviewed Results Reviewed: Name: Rosalia Talavera Age/Sex: 75/F : 1950 Unit#: [id number] Attend Dr: Arlyn Paul MD Re07/20/25 Status: DEP REF Location: [facility] Disch: SPEC : [id number] MADI: 07/20/25 STATUS: COMP REQ : [id number] RECD: 07/20/[address]: Arlyn Paul MD COMP: 07/20/25 ENTERED: 07/20/[address] [facility] [address]: ORDERED: CBC Auto Diff Test Result Flag Reference WBC 6.1 4.8-10.8 X10*3/uL RBC 3.82 L 4.20-5.50 X10*6/uL HGB 12.1 12.0-16.0 g/dl HCT 36.9 L 37.0-47.0 % MCV 96.6 80.0-98.0 fL MCH 31.7 27.0-33.0 pg MCHC 32.8 31.0-35.0 g/dl RDW 13.0 11.0-16.0 % PLT 276 160-400 X10*3/uL MPV 10.6 9.4-12.3 fL Neut Pct Auto 67.8 45-73 % ImGran Pct Auto 0.3 0.0-0.4 % Lymp Pct Auto 20.1 20-40 % [place] Pct Auto 9.2 2-11 % Eos Pct Auto 1.8 0-4 % Baso Pct Auto 0.8 0-2 % NRBC Pct Auto 0.0 0.0-0.2 /100WBC ANC Neut Abs # 4.1 2.0-8.3 x10*3/uL ImGran Abs Auto 0.02 0.00-0.03 X10*3/uL Lymph Abs Auto 1.2 1.2-4.9 X10*3/uL [place] Abs Auto 0.6 0.1-1.2 X10*3/uL Eos Abs Auto 0.1 0.0-0.4 X10*3/uL Baso Abs Auto 0.1 0.0-0.2 X10*3/uL NRBC Abs Auto 0.000 0.0-0.012 X10*3/uL Laboratory Tests 11/24/24 07/20/25 07:25 08:28 Estimat Average Glucose 137 Hemoglobin A1c % 6.4 H Urine Creatinine 148.01 Urine Microalbumin 27.0 Microalb/Creat Ratio 18.2 Coding Level of Care Code Est Pt Level 4 (71088) Complex EM visit Add On G2211 Diagnoses Type 2 diabetes mellitus with other diabetic kidney complication E11.29 Pure hypercholesterolemia E78.00 Hyperlipidemia type: pure hypercholesterolemia Essential hypertension I10 Additional Codes MARISA-7 Assessment Billing - MARISA-7 Assessment Tool: MARISA-7 Assessment 75453 ([id number]) Assessment & Plan Assessment & Plan (1) Type 2 diabetes mellitus with other diabetic kidney complication: Code(s): E11.29 - Type 2 diabetes mellitus with other diabetic kidney complication Category: Medical Plan: Recent lab results reviewed with patient, with sugar and hemoglobin A1c stable and at goal . Continued on metformin a 1000 mg 1 tablet twice a day and tirzepatide 5 mg once a week . Reinforced diabetic diet and regular exercise with patient. She is up-to-date with the yearly diabetes retinopathy screening. Patient advised to inspect feet daily, for any signs of injury, callus or infection. Compliance with diet and regular exercise again stressed. Blood pressure goal is less than 130/80, goal LDL is less than 100 and goal hemoglobin A1c is less than 7% follow-up appointment made in-3--months, after fasting labs done. (2) Hyperlipidemia: Code(s): E78.5 - Hyperlipidemia, unspecified Category: Medical Qualifiers: Hyperlipidemia type: pure hypercholesterolemia Qualified Code(s): E78.00 - Pure hypercholesterolemia, unspecified Plan: Currently on atorvastatin 20 mg daily (3) Essential hypertension: Code(s): I10 - Essential (primary) hypertension Category: Medical Plan: Blood pressure at goal of less than 130/80. Continue with amlodipine carvedilol, furosemide at same dose. Reinforced importance of following a low sodium diet, getting regular exercise, and lowering stress levels. Orders: Orders Basic Metabolic Panel Fasting 10/24/25 I10 - Essential (primary) hypertension, E78.00 - Pure hypercholesterolemia, unspecified, E11.29 - Type 2 diabetes mellitus with other diabetic kidney complication Alanine Aminotransferase 10/24/25 I10 - Essential (primary) hypertension, E78.00 - Pure hypercholesterolemia, unspecified, E11.29 - Type 2 diabetes mellitus with other diabetic kidney complication Aspartate Amino Transferase 10/24/25 I10 - Essential (primary) hypertension, E78.00 - Pure hypercholesterolemia, unspecified, E11.29 - Type 2 diabetes mellitus with other diabetic kidney complication Lipid Panel 10/24/25 I10 - Essential (primary) hypertension, E78.00 - Pure hypercholesterolemia, unspecified, E11.29 - Type 2 diabetes mellitus with other diabetic kidney complication Hemoglobin A1c 10/24/25 I10 - Essential (primary) hypertension, E78.00 - Pure hypercholesterolemia, unspecified, E11.29 - Type 2 diabetes mellitus with other diabetic kidney complication
--- OUTSIDE RECORDS SUMMARY | 2025-07-23 17:30 | XMS_ITS | Patient Health Record ---
Author Organization [facility] Address [address] [place] [address] Care Team Providers Care Rural Mail Carrier Name Role Phone Humberto GRIFFIN, Arlyn Primary Care Provider Se Weinstein Jr Unavailable Allergies No Known Allergies Results Component Value Reference Range Notes Glucose, Whole Blood Reviewed date:09/02/2024 03:11:19 PM Interpretation: Performing Lab:[facility], [address] [place] [id number] Notes/Report: Glucose, Whole Blood 156 60-115 mg/dL METER # : [id number] Reason For Referral No Information Medications Medication [...] Status Risk Notes Problem Colon cancer screening (979993348) Colon cancer screening (Z12.11) Active confirmed Problem Long-term current use of drug therapy (915916386) 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 (Z79.84) Active confirmed Problem Long-term current use of drug therapy (349715275) jail current use of diuretic (Z79.899) Active confirmed Encounters Encounter Location Date Provider Diagnosis [facility] [place] [address] [place] [id number] 09/02/2024 Se David Jr Colon cancer screening Z12.11 Assessments Encounter Date Diagnosis (ICD Code) Assessment Notes Treatment Notes Treatment Clinical Notes Section Notes 09/02/2024 Colon cancer screening (ICD-10 - Z12.11) Plan Of Treatment Future Test Test Name Order Date COLONOSCOPY 08/20/2013 COLONOSCOPY 07/21/2024 Insurance Providers Payer Name Payer Address Payer Phone Subscriber Number Group Number Insured Name Patient Relationship to Insured Coverage Start Date Coverage End Date MEDICARE OF [place] [address] [place] [id number] SHAW RANKIN Self - patient is the insured [employer] CLAIMS [address] [place] [address] [id number] SHAW RANKIN Self - patient is the insured Medical (General) History Medical History History ICD Code Breast cancer/bilateral lumpectomies Diabetes mellitus type 2 Varicose veins Hyperlipidemia Hypertension Restrictive lung disease Elevated BMI Colonoscopy 11/28, normal, ten-year follo wup Surgical History Surgery Date(Month/Year)
--- OUTSIDE RECORDS SUMMARY | 2025-07-23 17:30 | XMS_ITS | Patient Health Record ---
Author Organization [facility] Address [address] [place] [address] Care Team Providers Care Retort Condenser Attendant Name Role Phone Humberto GRIFFIN, Arlyn Montgomery Primary Care Provider Un available Black, Mignon Unavailable [phone] Allergies No Known Allergies Results Component Value [...] Polyneuropathy due to type 2 diabetes mellitus (127606004) Type 2 diabetes mellitus with diabetic polyneuropathy (E11.42) Active confirmed Vital Signs Blood pressure diastolic 70 mm Hg 05/21/2025 Height 5ft3in in 05/21/2025 Blood pressure systolic 140 mm Hg 05/21/2025 Weight 195 lbs 05/21/2025 BMI 34.54 kg/m2 05/21/2025 Procedures Procedure Date Ordered Date Performed Result Body Sit e 60251-CNKBRCI NAIL, 1-5 08/04/2024 N/A 66322-WFPM SKIN LESIONS, OVER 4 08/04/2024 N/A O6567-KINLTGCM DYSTROPHIC NAILS ANY # 08/04/2024 N/A 64990-HUUEKDQ NAIL, 1-5 11/13/2024 N/A 90752-AYAO SKIN LESIONS, OVER 4 11/13/2024 N/A V0756-AZLJMOSE DYSTROPHIC NAILS ANY # 11/13/2024 N/A 60020-JTPFKKI NAIL, 1-5 02/16/2025 N/A 35779-UAKL SKIN LESIONS, OVER 4 02/16/2025 N/A H1536-CISYXOVL DYSTROPHIC NAILS ANY # 02/16/2025 N/A 52968-WWZDCWX NAIL, 1-5 05/21/2025 N/A 56267-Awwneppa Plate 05/21/2025 N/A 01359-HRZY SKIN LESIONS, OVER 4 05/21/2025 N/A E9376-NXIGLUSA DYSTROPHIC NAILS ANY # 05/21/2025 N/A Encounters Encounter Location Date Provider Diagnosis [facility] [address] [place] [address] 08/04/2024 Mignon Black Type 2 diabetes mellitus with diabetic polyneuropathy E11.42 and Onychomycosis B35.[address] [address] 11/13/2024 Mignon Black Type 2 diabetes mellitus with diabetic polyneuropathy E11.42 ; Onychomycosis B35.1 ; Other hammer toe(s) (acquired), right foot M20.41 and Other hammer toe(s) (acquired), left foot M20.[address] [address] 02/16/2025 Mignon Black Type 2 diabetes mellitus with diabetic polyneuropathy E11.42 and Onychomycosis B35.[address] [address] 05/21/2025 Mignon Black Type 2 diabetes mellitus [...] Treatment Pending Test Test Name Order Date 56087-WZSTZAB NAIL, 6 OR MORE 10/11/2015 87035-TWCQVAA NAIL, 6 OR MORE 01/17/2016 25914-FVJUPGM NAIL, 6 OR MORE 10/13/2019 24212-QGWZIRQ NAIL, 6 OR MORE 04/22/2020 33987-KFHCKDR NAIL, 6 OR MORE 07/26/2020 00174-NPKSMEV NAIL, 6 OR MORE 01/13/2021 03484-YPEFSJE NAIL, 6 OR MORE 04/18/2021 80471-GDSXJMP NAIL, 6 OR MORE 08/08/2021 82328-OLRJPAJ NAIL, 1-5 07/02/2023 63708-FJCVUXA NAIL, 1-5 10/08/2023 13868-KAMRJEL NAIL, 1-5 01/14/2024 06882-CSZGJDD NAIL, 1-5 05/01/2024 68741-VCKUDBC NAIL, 1-5 08/04/2024 14525-PBYXLUA NAIL, 1-5 02/16/2025 12845-GPACZGY NAIL, 1-5 11/13/2024 14137-ATZSXTU NAIL, 1-5 05/21/2025 55611-Oacmpfhy Plate 05/21/2025 77871-Uciphqvq Plate 03/26/2023 24263-Iyocjnki Plate 04/18/2021 99261 I&D ABSCESS- SIMPLE,SINGLE 022 66174 I&D ABSCESS- SIMPLE,SINGLE 024 92653-LMBT SKIN LESIONS, OVER 4 07/02/20 23 33043-DLGG SKIN LESIONS, OVER 4 01/14/20 24 71268-IYEQ SKIN LESIONS, OVER 4 03/26/20 23 31064-KSFZ SKIN LESIONS, OVER 4 10/08/19 24 41793-YJNJ SKIN LESIONS, OVER 4 12/15/19 23 67131-OPMP SKIN LESIONS, OVER 4 06/19/20 22 66014-XXJT SKIN LESIONS, OVER 4 03/16/20 22 18484-VTQN SKIN LESIONS, OVER 4 11/29/19 22 94158-MUVK SKIN LESIONS, OVER 4 08/08/20 21 50879-WSQI SKIN LESIONS, OVER 4 04/18/20 21 36733-MCJR SKIN LESIONS, OVER 4 01/14/20 21 70823-VKEG SKIN LESIONS, OVER 4 07/26/20 20 94636-VAGI SKIN LESIONS, OVER 4 04/22/20 20 25397-BCCR SKIN LESIONS, OVER 4 01/17/20 16 62697-YRCZ SKIN LESIONS, OVER 4 10/13/19 20 31192-NYVY SKIN LESIONS, OVER 4 05/21/20 25 66436-NMQW SKIN LESIONS, OVER 4 02/17/20 25 59365-TZIP SKIN LESIONS, OVER 4 11/13/19 25 20184-TEAB SKIN LESIONS, OVER 4 08/04/20 24 96072-NRXP SKIN LESIONS, OVER 4 05/01/20 24 X2752-EJLDOAOK DYSTROPHIC NAILS ANY # E0289-MXKLWGMX DYSTROPHIC NAILS ANY # M6231-BFAMOYHT DYSTROPHIC NAILS ANY # P2989-GXBNCXGN DYSTROPHIC NAILS ANY # I6115-VZEGOOWX DYSTROPHIC NAILS ANY # J5937-CEOZLESG DYSTROPHIC NAILS ANY # D6872-PAYQCMYE DYSTROPHIC NAILS ANY # I3787-DFRGDSLS DYSTROPHIC NAILS ANY # I2292-XPQKBXXE DYSTROPHIC NAILS ANY # Z1143-GYNUUSWT DYSTROPHIC NAILS ANY # M4590-TDMHTZFP DYSTROPHIC NAILS ANY # Next Appt Details Provider Name:Mignon Calhoun , 08/20/2025 11:30:00 AM, [address] [place] [address], [phone], Insurance Providers Payer Name Payer Address Payer Phone Subscriber Number Group Number Insured Name Patient Relationship to Insured Coverage Start Date Coverage End Date Medicare [facility] [address] [place] [address] [id number] Rosalia Talavera Self - patient is the insured [employer] [address] [place] [address] [phone] [id number] Rosalia Talavera Self - patient is the [...] ureteral stent placement Hospitalization History Reason Date(Month/Year) [facility] [place] Blood Pressure 01/2021 cellulitis hospitalized twice for 5 days in total Oct 2018
== END 2025-07-23 16:01 | disposition home or self-care (01) ==
PROVIDERS: PCP Internal Medicine; Visit Provider Internal Medicine
DX: E11.29 Type 2 diabetes mellitus with other diabetic kidney complication (principal); E78.00 Pure hypercholesterolemia, unspecified; I10 Essential (primary) hypertension

== ENCOUNTER → 2025-07-23 14:23 | Outpatient (BNVA) | payer MEDICARE, SELFPAY | PROVIDERS: PCP Internal Medicine; Visit Provider Internal Medicine | DX: E11.29 Type 2 diabetes mellitus with other diabetic kidney complication (principal); E78.00 Pure hypercholesterolemia, unspecified; I10 Essential (primary) hypertension | CPT/HCPCS: 96127; 99212 ==